=== PATIENT | female | born 1950 | race Caucasian/White ===

== ENCOUNTER → 2016-09-23 | Outpatient (CLI) | payer BC ==
[~2016-09-23] MED LIST: ALBINS/ INH; ALBU1AER9 INH; ASPI81TA28 PO; ATOR-26 PO; CHEMO INJ; CLAR500T3 PO; CLOB-65 EXT; FERR325T5; FURO-85 PO; GLC500 PO; LEVO137T3 PO; LISI-729 PO; LOSA1TAB PO; ONDA8TAB6 PO; PANT40TA PO; PRED10TA PO; SYN150 PO; [UNRECOGNIZED DRUG - REMARK] PO
== END | disposition home or self-care (01) ==
LOC: C.PAPS 10:29
PROVIDERS: ATTEND Obstetrics & Gynecology
DX: Z01.419 Encounter for gynecological examination (general) (routine) without abnormal findings (principal)

== ENCOUNTER → 2016-10-11 | Outpatient (CLI) | payer BC ==
--- NOTE | 2016-10-14 13:33 | MAMMOGRAPHY REPORT ---
BILATERAL DIGITAL SCREENING MAMMOGRAM TOMOSYNTHESIS WITH CAD: 10/11/2016 TECHNIQUE: Breast tomosynthesis in addition to standard 2D mammography was performed. Current study was also evaluated with a Computer Aided Detection (CAD) system. COMPARISON: Comparison is made to exams dated: 08/04/2013 mammogram, 05/30/2015 mammogram, 1 mammogram, 07/27/2010 mammogram, and 08/03/2012 mammogram - [facility]. BREAST COMPOSITION: There are scattered areas of fibroglandular density in both breasts. FINDINGS: No suspicious masses, calcifications, or areas of architectural distortion are noted in e ither breast. There has been no significant interval change compared to prior exams. Scattered bilat eral benign-appearing calcifications are not significantly changed. IMPRESSION: ACR BI-RADS CATEGORY 2: BENIGN There is no mammographic evidence of malignancy. A 1 year screening mammogram is recommended. The p atient will receive written notification of the results. Approximately 10% of breast cancers are not detected with mammography. A negative mammographic repor t should not delay biopsy if a clinically suggestive mass is present. Verona Johnson M.D. ah/:10/11/2016 16:35:24 Supervisor Scrap Preparation: Laurel FIGUEROA(Joe)(M), [facility] letter sent: Normal 1/2 BI-RADS Code: ACR BI-RADS Category 2: Benign
== END | disposition home or self-care (01) ==
LOC: C.MAMM 16:03
PROVIDERS: ATTEND Obstetrics & Gynecology
DX: Z12.31 Encounter for screening mammogram for malignant neoplasm of breast (principal)

== ENCOUNTER 2016-10-22 16:30 | Emergency (ER) | payer BC ==
[~2016-10-22] VITALS: Ht 167.6 cm; Wt 106.7 kg
[~2016-10-22 16:30] MED LIST changes: -ALBINS/ INH; -CHEMO INJ; -CLAR500T3 PO; -FURO-85 PO; -LEVO137T3 PO; -LOSA1TAB PO; -ONDA8TAB6 PO; -PANT40TA PO; -PRED10TA PO; -[UNRECOGNIZED DRUG - REMARK] PO
[2016-10-22 16:37] VITALS: TEMP 36.8; Ht 167.6 cm; Wt 106.7 kg
[2016-10-22] MEDS ORDERED: PANT40TA PO (17:56)
--- NOTE | 2016-10-22 19:09 | EMERGENCY ROOM VISIT NOTE ---
History Report prepared by Keerthi: Sandrita Khoury Under the Supervision of: Dr. Minnie Reich M.D. First contact with patient: 18:36 Chief Complaint: CARDIAC ASSESSMENT Stated Complaint: HEART ISSUES Nursing Triage Summary: Pt c/o almost fainting 3 times last week. Pt states she has some edema around the heart according to her Dr and they said her DDimer was high. Lisandra Moreau is her Dr. Chemo started last week for multiple myeloma. Weak this week. "today is the first day I could walk around and have any energy in my legs. Holding off on chemo due to low platelets. History of Present Illness The patient is a 66 year old female who presents to the Emergency Room per PCP referral to be evaluated for abnormal labs today. The patient states that she has multiple myeloma and is on chemotherapy. She had a dose of chemotherapy 8 days ago. The following day she had a fever of 101. While at work 6 days ago, she had 3 syncopal episodes. Her coworkers noted that she looked fleming in color. She went home from work early and slept 20 hours straight. Yesterday, the patient was supposed to have another dose of chemotherapy, but her platelet count was too low. She was given fluids and sent home. She states that she was feeling weak yesterday. Today the patient had a follow up appointment with her PCP. A chest x-ray revealed pulmonary vascular congestion. Her d-dimer was also elevated at 368. She was subsequently referred to the ER. The patient notes that she has been coughing for the past month. She has a history of a myocardial infarction and she is concerned because she does not currently have pain but did not have pain when she had her previous heart attack. Past medical history also includes CHF, a-fib, and CABG. Denies increased leg swelling, calf pain, or other complaints. Source of History: patient Onset: today Position: other (global) Quality: other (elevated d-dimer of 368) Timing: constant Associated Symptoms: + weakness Review of Systems See HPI for pertinent positives & negatives. A total of 10 systems reviewed and were otherwise negative. Past Medical & Surgical Medical Problems: (1) A-fib (2) CHF (congestive heart failure) (3) TN (myocardial infarction) (4) Multiple myeloma Surgical Problems: (1) Hx of CABG Family History No pertinent family history stated. Social History Smoking Status: Never Smoker Marital Status: Occupation Status: employed Current/Historical Medications Scheduled Aspirin (Aspirin Ec), 81 MG PO DAILY Atorvastatin (Lipitor), 80 MG PO DAILY Clarithromycin (Biaxin), 1 TAB PO BID Furosemide (Lasix), 1 TAB PO DAILY Levothyroxine Sodium (Levothyroxine Sodium), 1 TAB PO DAILY Losartan Potassium (Cozaar), 25 MG PO QPM Pantoprazole (Protonix), 40 MG PO DAILY Prednisone (Prednisone), 10 MG PO BID [Chemo Pill], 2 TABS PO DAILY [Chemo], 1 DOSE INJ WK Scheduled PRN Albuterol (Proair Hfa), 2 PUFFS INH QID PRN for SOB/Wheezing Albuterol Sulf (Proventil 0.083% 2.5MG/3ML), 1 DOSE INH Q6 PRN for SOB/Wheezing Ondansetron Hcl (Zofran), 8 MG PO Q8 PRN for Nausea Allergies Coded Allergies: Acyclovir and Related (Verified Allergy, Severe, HIVES, 10/22/16) Quinolones (Verified Allergy, Unknown, UNKNOWN, 10/22/16) PER PT - CAN USE CIPRO IV, HOWEVER COULD NOT TAKE PO Cephalosporins (Verified Adverse Reaction, Intermediate, VOMITING/ DIARRHEA WITH CEFANIR, 10/22/16) Erythromycin (Verified Adverse Reaction, Intermediate, nausea/GI DISCOMFORT, 10/22/16) Physical Exam Vital Signs Date Time Temp Pulse Resp B/P Pulse Ox O2 Delivery O2 Flow Rate FiO2 10/22/16 21:11 76 18 141/87 100 10/22/16 19:54 71 18 132/84 98 Room Air 10/22/16 16:43 98 Room Air 10/22/16 16:37 36.8 79 16 135/78 98 Room Air Physical Exam Vital signs reviewed. General: Obese, generally well-appearing 66 year old female, in no significant distress. HEENT: No scleral icterus, PERRLA, neck supple. Atraumatic. Cardiovascular: Regular rate and rhythm, no extra sounds. Pulmonary: Clear to auscultation bilaterally, normal work of breathing. Abdomen: Soft, nontender, nondistended, positive bowel sounds. Musculoskeletal: Atraumatic, no peripheral edema. Neurologic: Patient awake alert and oriented x 3 Skin: Warm, dry, no rash Medical Decision & Procedures ER Provider Diagnostic Interpretation: Radiology results as stated below per my review and radiologist interpretation: CT ANGIOGRAPHY OF THE CHEST, PULMONARY EMBOLUS PROTOCOL CLINICAL HISTORY: Shortness of breath. Multiple myeloma. COMPARISON STUDY: Chest radiograph December 07, 2015, October 22, 2016, MRI of the thoracic spine December 26, 2015 and PET/CT July 29, 2007. TECHNIQUE: Following IV administration of 107 mL of Optiray-320, helical axial images of the chest were obtained utilizing the pulmonary embolus protocol. Maximal intensity projections and sagittal and coronal reformats were viewed on an independent 3D workstation. IV contrast was administered without complication. CT DOSE: 636.19 mGy.cm FINDINGS: No pulmonary emboli are identified although the segmental and subsegmental pulmonary arteries are suboptimally assessed due to respiratory motion. There are median sternotomy wires and findings consistent with bypass grafting. The heart is moderately enlarged. There is no pericardial effusion. A large hiatal hernia is noted. There is mild dilatation of the ascending aorta which measures 4.2 cm. There is no dissection of the thoracic aorta. Central airways are patent. Groundglass and linear opacities suggest atelectasis. There is no consolidation to suggest pneumonia. Note is made of a 7 mm left lower lobe nodule shown on image 126 of 266. This is new since PET/CT of July 29, 2012. A T5 compression fracture is unchanged since MRI of December 26, 2015. Note is made of an indeterminate 1.2 cm sclerotic lesion within the medial left clavicle. There is a suspected T10 vertebral body lesion which were shown on prior MRI. IMPRESSION: 1. No pulmonary emboli identified although the segmental and subsegmental pulmonary arteries are suboptimally assessed due to respiratory motion. 2. Moderate cardiomegaly and mild dilatation of the ascending aorta. No thoracic aortic dissection. 3. Indeterminate 7 mm left lower lobe pulmonary nodule. A chest CT in 6 months is recommended. 4. Large hiatal hernia. 5. Groundglass and linear opacities which suggest atelectasis. No consolidation to suggest pneumonia. 6. No significant change in the T5 compression fracture since MRI of December 26, 2015. Redemonstration of a suspected T10 vertebral body lesion which may be related to multiple myeloma. Electronically signed by: Deonte Deutsch M.D. 10/22/2016 8:24 PM Dictated Date/Time: 10/22/2016 8:10 PM Laboratory Results Test 10/22/16 19:45 10/22/16 19:53 10/22/16 19:54 Prothrombin Time 13.3 SECONDS (9.0-12.0) Prothromb Time International Ratio 1.2 (0.9-1.1) Activated Partial Thromboplast Time 22.2 SECONDS (21.0-31.0) Partial Thromboplastin Ratio 0.9 Bedside Troponin I 0.010 ng/ml (0-0.045) WP-Ttu-M-Type Natriuretic Peptide 675 pg/ml (0-900) Bedside Hemoglobin 10.5 g/dl (12.0-16.0) Bedside Hematocrit 31 % (37-47) Bedside Sodium 143 mEq/L (135-144) Bedside Potassium 4.1 mEq/L (3.3-5.0) Bedside Chloride 106 mEq/L (101-112) Bedside Total CO2 23 mEq/l (24-31) Anion Gap 19.0 mmol/L (16-25) Bedside Blood Urea Nitrogen 20 mg/dl (7-18) Bedside Creatinine 1.0 mg/dl (0.6-1.3) Bedside Glucose (other) 118 mg/dl (70-99) Bedside Ionized Calcium (Shaggy) 1.19 mmol/l (1.12-1.32) Laboratory results per my review. Medications Administered Medications (Trade) Dose Ordered Sig/Rosa Route Start Time Stop Time Status Last Admin Dose Admin Furosemide (Lasix Inj) 40 mg NOW STAT IV 10/22/16 20:29 10/22/16 20:30 DC 10/22/16 20:53 40 MG ECG Indication: weakness Rate (beats per minute): 69 Rhythm: normal sinus Findings: nonspecific-ST abn, no acute ischemic change, no ectopy ED Course 1839: Past medical records reviewed. The patient was evaluated in room B7. A complete history and physical examination was performed. 1944: Ordered Acetaminophen/Hydrocodone Bitart 1 homepack PO. 2028: Ordered Lasix Inj 40 mg IV. 2032: Upon reevaluation, the patient was resting comfortably. I discussed findings with the patient. She verbalized agreement of the treatment plan. The patient was discharged home. Medical Decision Differential diagnosis: Etiologies such as infections, reactive airway disease, pneumonia, pneumothorax , COPD, CHF, cardiac ischemia, pulmonary embolism, musculoskeletal, gastrointestinal, as well as others were entertained. This patient was evaluated and appeared to be in no significant distress. IV access was obtained and laboratory work was drawn. The patient had laboratory work earlier today which was reviewed. Creatinine is stable for IV contrast. A CT scan of the chest was performed and is negative for PE. Patient was given 40 mg of IV Lasix for pulmonary congestion. She was feeling improved on my reevaluation. She was relieved to know that there was no blood clot. She will follow-up with her physician for reevaluation at the cancer center this week. She will return to the ER for worsening of symptoms or any medical concerns. Impression Primary Impression: Pulmonary vascular congestion Additional Impression: Multiple myeloma Scribe Attestation The scribe's documentation has been prepared under my direction and personally reviewed by me in its entirety. I confirm that the note above accurately reflects all work, treatment, procedures, and medical decision making performed by me. Departure Information Dispostion Home / Self-Care Prescriptions Furosemide (LASIX) 20 Mg Tab 1 TAB PO DAILY for 30 Days, #30 TAB 5 Refills Prov: Minnie Reich M.D. 10/22/16 Referrals Yaneth Pillai M.D. (PCP) Gene Chang MD Forms IMPORTANT VISIT INFORMATION Patient Instructions My [facility] Additional Instructions Diagnosis: Pulmonary vascular congestion, multiple myeloma Lasix 20 mg in the morning. Avoid excessive sodium intake. Less than 2 g daily. Follow-up with your physician within the next several days for reevaluation. Return to the emergency department for worsening of symptoms or any medical concerns. Problem Qualifiers Additional Impression: Multiple myeloma Multiple myeloma remission status: not in remission Qualified Codes: C90.00 - Multiple myeloma not having achieved remission
[2016-10-22] MEDS ORDERED: ONDA8TAB6 PO (19:19)
[2016-10-22] MEDS ORDERED: CHEMO INJ (19:19)
[2016-10-22] MEDS ORDERED: ALBINS/ INH (19:19)
[2016-10-22] MEDS ORDERED: PRED10TA PO (19:19)
[2016-10-22] MEDS ORDERED: [UNRECOGNIZED DRUG - REMARK] PO (19:19)
[2016-10-22] MEDS ORDERED: LOSA1TAB PO (19:19)
[2016-10-22] MEDS ORDERED: CLAR500T3 PO (19:19)
[2016-10-22] MEDS ORDERED: LEVO137T3 PO (19:20)
[2016-10-22] MEDS ORDERED: OPTIRAY 320 IV PRN (19:30)
[2016-10-22] MEDS ORDERED: NORCO 5/325MG HOME PACK PO ONE (19:45)
[2016-10-22 20:11] LABS: ISTAT HEMOGLOBIN 10.5 g/dl (12.0-16.0); ISTAT IONIZED CALCIUM 1.19 mmol/l (1.12-1.32)
[2016-10-22 20:12] LABS: POINT OF CARE TROPONIN I 0.01 ng/ml (0-0.045)
--- NOTE | 2016-10-22 20:26 | DIAGNOSTIC IMAGING REPORT ---
CT ANGIOGRAPHY OF THE CHEST, PULMONARY EMBOLUS PROTOCOL CLINICAL HISTORY: Shortness of breath. Multiple myeloma. COMPARISON STUDY: Chest radiograph December 07, 2015, October 22, 2016, MRI of the thoracic spine December 26, 2015 and PET/CT July 29, 2007. TECHNIQUE: Following IV administration of 107 mL of Optiray-320, helical axial images of the chest were obtained utilizing the pulmonary embolus protocol. Maximal intensity projections and sagittal and coronal reformats were viewed on an independent 3D workstation. IV contrast was administered without complication. CT DOSE: 636.19 mGy.cm FINDINGS: No pulmonary emboli are identified although the segmental and subsegmental pulmonary arteries are suboptimally assessed due to respiratory motion. There are median sternotomy wires and findings consistent with bypass grafting. The heart is moderately enlarged. There is no pericardial effusion. A large hiatal hernia is noted. There is mild dilatation of the ascending aorta which measures 4.2 cm. There is no dissection of the thoracic aorta. Central airways are patent. Groundglass and linear opacities suggest atelectasis. There is no consolidation to suggest pneumonia. Note is made of a 7 mm left lower lobe nodule shown on image 126 of 266. This is new since PET/CT of July 29, 2012. A T5 compression fracture is unchanged since MRI of December 26, 2015. Note is made of an indeterminate 1.2 cm sclerotic lesion within the medial left clavicle. There is a suspected T10 vertebral body lesion which were shown on prior MRI. IMPRESSION: 1. No pulmonary emboli identified although the segmental and subsegmental pulmonary arteries are suboptimally assessed due to respiratory motion. 2. Moderate cardiomegaly and mild dilatation of the ascending aorta. No thoracic aortic dissection. 3. Indeterminate 7 mm left lower lobe pulmonary nodule. A chest CT in 6 months is recommended. 4. Large hiatal hernia. 5. Groundglass and linear opacities which suggest atelectasis. No consolidation to suggest pneumonia. 6. No significant change in the T5 compression fracture since MRI of December 26, 2015. Redemonstration of a suspected T10 vertebral body lesion which may be related to multiple myeloma. Electronically signed by: Deonte Deutsch M.D. 10/22/2016 8:24 PM Dictated Date/Time: 10/22/2016 8:10 PM
[2016-10-22] MEDS ORDERED: FUROSEMIDE 40 MG/4 ML VIAL IV STA (20:29)
[2016-10-22] MEDS ORDERED: FURO-85 PO (20:31)
[2016-10-22 20:38] LABS: INR 1.2 (0.9-1.1); PARTIAL THROMBOPLASTIN RATIO 0.9; PROTHROMBIN TIME (PATIENT) 13.3 SECONDS (9.0-12.0)
[2016-10-22 21:11] VITALS: BP 141/87; PULSE 76; O2SAT 100
== END 2016-10-22 21:11 | disposition home or self-care (01) ==
LOC: C.EDB 16:31
DX: R09.89 Other specified symptoms and signs involving the circulatory and respiratory systems (principal); C90.00 Multiple myeloma not having achieved remission; I48.91 Unspecified atrial fibrillation; I50.9 Heart failure, unspecified; I25.2 Old myocardial infarction; Z95.1 Presence of aortocoronary bypass graft; Z79.82 Long term (current) use of aspirin

== ENCOUNTER → 2016-10-22 | Outpatient (CLI) | payer BC ==
--- NOTE | 2016-10-22 08:59 | DIAGNOSTIC IMAGING REPORT ---
CHEST 2 VIEWS ROUTINE CLINICAL HISTORY: ACUTE BRONCHITIS dyspnea COMPARISON STUDY: 12/07/2015 FINDINGS: Prior median sternotomy. Fixed hernia. Lungs are clear. Mild pulmonary vascular congestion IMPRESSION: Mild pulmonary vascular congestion. Fixed hiatal hernia. Electronically signed by: Jermaine Gee M.D. 10/22/2016 8:58 AM Dictated Date/Time: 10/22/2016 8:56 AM
== END | disposition home or self-care (01) ==
LOC: C.RAD1850 08:36
PROVIDERS: ATTEND Family Medicine
DX: J20.9 Acute bronchitis, unspecified (principal)

== ENCOUNTER → 2017-08-18 | Outpatient (CLI) | payer BC ==
[~2017-08-18] MED LIST changes: +ALBINS/ INH; -ALBU1AER9 INH; -CLOB-65 EXT; -FERR325T5; -GLC500 PO; +LEVO137T3 PO; -LISI-729 PO; +METF-382 PO; +ONDA4TAB10 SL; +ONDA8TAB6 PO; +OXYC-57 PO; +PANT40TA PO; +PROC1TAB5 PO; -SYN150 PO; +VNTHFA/IN INH; +ZVR400 PO
--- NOTE | 2017-08-18 13:06 | DIAGNOSTIC IMAGING REPORT ---
THORACIC SPINE 3 VIEWS ROUTINE CLINICAL HISTORY: MULTIPLE MYELOMA COMPARISON STUDY: CT scan dated 07/18/2017 FINDINGS: There are postsurgical changes of midline sternotomy. The paraspinal line is not displaced. There is a moderate to severe T5 compression fracture. This remain similar to the preceding examination. IMPRESSION: Persistent moderate to severe T5 compression fracture. This was previously demonstrated to be pathologic. No new fractures are evident. Electronically signed by: Tim Godoy M.D. 08/18/2017 1:05 PM Dictated Date/Time: 08/18/2017 1:03 PM
--- NOTE | 2017-08-18 13:52 | DIAGNOSTIC IMAGING REPORT ---
C-SPINE ROUTINE 4 OR 5 VIEWS CLINICAL HISTORY: Multiple myeloma. Bilateral arm pain. COMPARISON STUDY: PET/CT July 29, 2017. FINDINGS: Alignment of the cervical spine is anatomic. Vertebral body heights are maintained. C7 is partially obscured on this exam. No fracture or suspicious lesion is identified. There is moderate disc space narrowing and osteophytosis at C5-C6 and C6-C7. There is multilevel neural foraminal narrowing. IMPRESSION: 1. No acute cervical spine fracture. 2. No suspicious lytic lesion by radiography within the cervical spine. 3. Moderate degenerative disc disease at C5-C6 and C6-C7 with moderate multilevel facet arthrosis and bony neural foraminal narrowing. Electronically signed by: Deonte Deutsch M.D. 08/18/2017 1:51 PM Dictated Date/Time: 08/18/2017 12:59 PM
== END | disposition home or self-care (01) ==
LOC: C.RAD1850 12:25
PROVIDERS: ATTEND Family Medicine
DX: C90.00 Multiple myeloma not having achieved remission (principal)

== ENCOUNTER → 2017-09-02 | Outpatient (CLI) | payer BC ==
--- NOTE | 2017-09-02 15:16 | DIAGNOSTIC IMAGING REPORT ---
CERVICAL WITHOUT CONTRAST CLINICAL HISTORY: 67 years-old Female presenting with M79.601,C90.00, bilateral hand pain at night. TECHNIQUE: Multisequence, multiplanar MR imaging of the cervical spine was performed without the use of intravenous contrast. IV contrast: None. COMPARISON: Plain radiographs of the cervical spine from 08/18/2017. FINDINGS: Localizer images: Unremarkable. Slightly exaggerated normal cervical lordosis. Mild vertebral body height loss of C4-C6 likely degenerative in etiology. Vertebral bodies otherwise maintain normal height, alignment, and bone marrow signal intensity. Mild intervertebral disc desiccation noted diffusely with disc osteophyte complexes at nearly every level to varying degrees. Multilevel degenerative changes further detailed below: C2-3: No significant neural foraminal or spinal canal narrowing. C3-4: Disc osteophyte complex and uncovertebral hypertrophy result in mild right and moderate left neural foraminal narrowing. In combination with ligamentum flavum thickening, mild anterior and posterior effacement of the thecal sac. No contouring of the spinal cord. C4-5: Disc osteophyte complex and uncovertebral hypertrophy result in moderate right neural foraminal narrowing. Mild effacement of the anterior thecal sac with abutment of the spinal cord. C5-6: Disc osteophyte complex and uncovertebral hypertrophy result in severe right and moderate left neural foraminal narrowing. Mild effacement of the ventral thecal sac without contouring of the spinal cord. C6-7: Small disc osteophyte complex and uncovertebral hypertrophy result in mild bilateral neural foraminal narrowing. No significant spinal canal narrowing. C7-T1: No significant neural foraminal or spinal canal narrowing. Spinal cord maintains normal signal intensity and morphology. Craniocervical junction normal. Paraspinal soft tissues within normal limits. IMPRESSION: Multilevel degenerative changes with very degrees of spinal canal or neural foraminal narrowing as above. No evidence of spinal cord impingement. Electronically signed by: Corey Bonner M.D. 09/02/2017 3:15 PM Dictated Date/Time: 09/02/2017 2:58 PM
== END | disposition home or self-care (01) ==
LOC: C.MRI 13:21
PROVIDERS: ATTEND Family Medicine
DX: M79.601 Pain in right arm (principal); C90.00 Multiple myeloma not having achieved remission; M89.8X8 Other specified disorders of bone, other site

== ENCOUNTER → 2017-10-07 | Day surgery (SDC) | payer BC ==
[2017-10-01 07:56] VITALS: Ht 167.6 cm; Wt 102.3 kg
[~2017-10-07] VITALS: Ht 167.6 cm; Wt 102.3 kg
[~2017-10-07] MED LIST changes: +500ML BSS 0.3ML EPI 1:1000PF IRRIG ONE; +ACETAMINOPHEN 325 MG TAB PO PRN; +ACYC400T PO; +AMVISC PLUS 0.8ML SYRINGE INT OCU ONE; +ASPCH81X PO; -ASPI81TA28 PO; +ATROPINE SULFATE 0.1 MG/ML 5ML SYR IV PRN; +BSS FLUSH ONE; +CHOL400T PO; +EpHEDrine SULFATE INJ 50 MG/ML AMP IV PRN; +EpINEphrine INJ 1MG/ML AMP 1 MG/ML AMP ONE; +GLC/500 PO; +LACTATED RINGER'S 1000ML 500 ML IV SCH; +LIDOCAINE HCL 1% MPF 2 ML VIAL ONE; +LOSA1TAB PO; +MAGN400T6 PO; -METF-382 PO; +MIDAZOLAM HCL 1 MG/ML 2ML VIAL ONE; +OCUCOAT 1 ML SOLN IO ONE; -ONDA4TAB10 SL; -ONDA8TAB6 PO; -OXYC-57 PO; +POVIDONE-IODINE OP SOLN 30 ML BTL ONE; -PROC1TAB5 PO; +PROPARACAINE 0.5% OP SOLN PER DROP CHARGE OPR SCH; +TOBRAMYCIN/DEXAMETHASONE OPH OINT PER APPLN CHARGE ONE; -ZVR400 PO
[2017-10-07] MEDS: PHENYLEPHRINE HCL 2.5% OP SOLN PER DROP CHARGE OPR SCH ×2 (07:15→07:20)
[2017-10-07] MEDS: CYCLOPENTOLATE HCL 1% OP SOLN PER DROP CHARGE OPR SCH ×2 (07:16→07:21)
[2017-10-07] MEDS: TROPICAMIDE 1% OP SOLN PER DROP CHARGE OPR SCH ×2 (07:16→07:20)
[2017-10-07] MEDS: KETOROLAC 0.5% OP SOLN PER DROP CHARGE OPR SCH ×2 (07:17→07:22)
[2017-10-07] MEDS: GATIFLOXACIN OP SOLN PER DROP CHARGE OPR SCH ×2 (07:18→07:28)
--- NOTE | 2017-10-07 07:29 | History & Physical Bridge - SC ---
H&P Re-Evaluation Bridge Note: I have examined the patient, reviewed the History & Physical and in the interval since the performance of the History & Physical I have noted the following changes of clinical significance: No changes noted
--- NOTE | 2017-10-07 08:05 | Discharge Instructions-SurgCtr ---
Discharge Instructions Date of Service Oct 07, 2017. Visit Reason for Visit: Cataract Right Eye Discharge Discharge Diagnosis / Problem: cataract Discharge Goals Goal(s): Improve function Medications Stopped Medications Name(s): Metformin held x 48 hrs. Activity Recommendations Activity Limitations: per Instructions/Follow-up section Anesthesia . Post Anesthesia Instructions: If you have had General Anesthesia or IV Sedation: * Do not drive today. * Resume driving when surgeon permits. * Do not make important decisions or sign legal documents today. * Call surgeon for: 1. Temperature elevations greater than 101 degrees F. 2. Uncontrollable pain. 3. Excessive bleeding. 4. Persistent nausea and vomiting. 5. Medication intolerance (nausea, vomiting or rash). * For nausea and vomiting use only clear liquids such as: tea, soda, bouillon until nausea subsides, then gradually increase diet as tolerated. * If you have any concerns or questions, call your surgeon's office. If physician is unavailable and it is an emergency, call 911 or go to the nearest emergency room. . Diet Recommendations Home Diet: resume previous diet Procedures Procedures Performed: Right Cataract Phacoemulsification With Intraocular Lens Implant Pending Studies Studies pending at discharge: no Medical Emergencies . Who to Call and When: Medical Emergencies: If at any time you feel your situation is an emergency, please call 911 immediately. . Non-Emergent Contact Non-Emergency issues call your: Goring Cutter . . "Provider Documentation" section prepared by Warren Saeed. .
--- NOTE | 2017-10-07 08:05 | [facility] Operative Report ---
Operative Report Date of Service Oct 07, 2017. Operative Report 1. PREOPERATIVE DIAGNOSIS: Cataract of the right eye. 2. POSTOPERATIVE DIAGNOSIS: Same. 3. PROCEDURE: Phacoemulsification with intraocular lens implantation of the right eye. SURGEON: Dr. Warren Saede. ANESTHESIA: Topical Lidocaine gel, 1% Non- Preserved intracameral Lidocaine, and monitored intravenous sedation. INDICATIONS FOR THE PROCEDURE: The patient is a 67 - year-old female with a history of cataract of the right eye causing significant visual impairment. The details of the proposed procedure were explained to the patient who asked appropriate questions and following discussion of all risks, benefits and alternatives agreed to have the procedure done. 4. OPERATION AND FINDINGS: DESCRIPTION OF PROCEDURE: After informed consent was obtained, the patient was brought to the Operating Room at the [facility]. The patient was placed in a supine position and then the right eye was prepped and draped in the usual sterile fashion for intraocular surgery. A drop of topical Lidocaine gel was placed in the operative eye. A wire lid speculum was then placed in the fornices. A corneal paracentesis was then created temporally. The Non-Preserved Lidocaine was then instilled into the anterior chamber. The anterior chamber was then pressurized with viscoelastic. A 2.0 mm clear corneal incision was then created temporally. A cystotome was inserted into the anterior chamber and used to create a tear in the anterior lens capsule. This capsular tear was then used to create a small flap and the flap was dragged in a counterclockwise direction in order to create a continuous curvilinear capsulorrhexis. Hydrodissection was accomplished with balanced salt solution. Phacoemulsification of the lens nucleus was then performed in a standard [id number] technique. The phaco time was 36 seconds with an average power of 13 %. The remaining cortical material was removed using irrigation aspiration. The capsular bag was then filled with viscoelastic. A [employer] MI60L +19.0 diopters lens was then loaded into the injector and injected into the capsular bag. The remaining viscoelastic was removed with the irrigation aspiration handpiece. The wound was hydrated and then checked and found to be watertight. The intraocular pressure was checked and found to be adequate. The wire lid speculum was removed and the patient's face was cleaned and dried. TobraDex ointment was placed in the inferior fornix. The patient was discharged to the Recovery Room having tolerated the procedure well. There were no complications. The patient will be seen tomorrow in the office for follow-up. I attest to the content of the Intraoperative Record and any orders documented therein. Any exceptions are noted below.
[2017-10-07 08:07] VITALS: TEMP 36.9
--- NOTE | 2017-10-07 08:37 | Anesthesia Progress Nt - [facility] ---
Anesthesia Post Op Note Date & Time Oct 07, 2017 at 08:37 Vital Signs Pain Intensity: 0 Vital Signs Past 12 Hours Date Time Temp Pulse Resp B/P (MAP) Pulse Ox O2 Delivery O2 Flow Rate FiO2 10/07/17 08:07 36.9 70 16 152/102 (119) 96 Room Air 10/07/17 07:00 36.9 79 20 150/94 (112) 95 Room Air Notes Mental Status: alert / awake / arousable, participated in evaluation Pt Amnestic to Procedure: Yes Nausea / Vomiting: adequately controlled Pain: adequately controlled Airway Patency, RR, SpO2: stable & adequate BP & HR: stable & adequate Hydration State: stable & adequate Anesthetic Complications: no major complications apparent
[2017-10-07 08:38] VITALS: BP 123/86; PULSE 77; O2SAT 95
== END | disposition home or self-care (01) ==
LOC: X.SURG 06:35
PROVIDERS: ATTEND Ophthalmology
DX: H26.9 Unspecified cataract (principal); C90.00 Multiple myeloma not having achieved remission; E11.9 Type 2 diabetes mellitus without complications; E03.9 Hypothyroidism, unspecified; E78.5 Hyperlipidemia, unspecified; I25.10 Atherosclerotic heart disease of native coronary artery without angina pectoris; J45.909 Unspecified asthma, uncomplicated

== ENCOUNTER → 2017-10-14 | Outpatient (CLI) | payer BC ==
[~2017-10-14] MED LIST changes: -500ML BSS 0.3ML EPI 1:1000PF IRRIG ONE; -ACETAMINOPHEN 325 MG TAB PO PRN; -AMVISC PLUS 0.8ML SYRINGE INT OCU ONE; -ATROPINE SULFATE 0.1 MG/ML 5ML SYR IV PRN; -BSS FLUSH ONE; -EpHEDrine SULFATE INJ 50 MG/ML AMP IV PRN; -EpINEphrine INJ 1MG/ML AMP 1 MG/ML AMP ONE; -LACTATED RINGER'S 1000ML 500 ML IV SCH; -LIDOCAINE HCL 1% MPF 2 ML VIAL ONE; -MIDAZOLAM HCL 1 MG/ML 2ML VIAL ONE; -OCUCOAT 1 ML SOLN IO ONE; -POVIDONE-IODINE OP SOLN 30 ML BTL ONE; -PROPARACAINE 0.5% OP SOLN PER DROP CHARGE OPR SCH; -TOBRAMYCIN/DEXAMETHASONE OPH OINT PER APPLN CHARGE ONE
--- NOTE | 2017-10-15 13:59 | MAMMOGRAPHY REPORT ---
BILATERAL DIGITAL SCREENING MAMMOGRAM TOMOSYNTHESIS WITH CAD: 10/14/2017 CLINICAL HISTORY: Routine screening. Patient has no complaints. TECHNIQUE: Breast tomosynthesis in addition to standard 2D mammography was performed. Current study was also evaluated with a Computer Aided Detection (CAD) system. COMPARISON: Comparison is made to exams dated: 10/11/2016 mammogram, 05/30/2015 mammogram, 08/04/2013 m ammogram, 08/03/2012 mammogram, 07/30/2011 mammogram, and 07/27/2010 mammogram - [facility]. BREAST COMPOSITION: There are scattered areas of fibroglandular density in both breasts. FINDINGS: The parenchymal pattern is unchanged. There are scattered benign calcifications in the br easts. No developing mass, architectural distortion or cluster of suspicious microcalcifications is seen. IMPRESSION: ACR BI-RADS CATEGORY 2: BENIGN There is no mammographic evidence of malignancy. A 1 year screening mammogram is recommended. The pa tient will receive written notification of the results. Approximately 10% of breast cancers are not detected with mammography. A negative mammographic report should not delay biopsy if a clinically suggestive mass is present. Melba Beckford M.D. ay/:10/14/2017 16:34:06 Crate Icer: Yaneth FIGUEROA(Joe)(Aviva)(WALI), [facility] letter sent: Normal 1/2 BI-RADS Code: ACR BI-RADS Category 2: Benign
== END | disposition home or self-care (01) ==
LOC: C.MAMM 16:12
PROVIDERS: ATTEND Obstetrics & Gynecology
DX: Z12.31 Encounter for screening mammogram for malignant neoplasm of breast (principal)

== ENCOUNTER → 2017-10-28 | Day surgery (SDC) | payer BC ==
[2017-10-15 13:51] VITALS: Ht 167.6 cm; Wt 102.3 kg
[~2017-10-28] VITALS: Ht 167.6 cm; Wt 102.3 kg
[~2017-10-28] MED LIST changes: +500ML BSS 0.3ML EPI 1:1000PF IRRIG ONE; +ACETAMINOPHEN 325 MG TAB PO PRN; +AMVISC PLUS 0.8ML SYRINGE INT OCU ONE; +ATROPINE SULFATE 0.1 MG/ML 5ML SYR IV PRN; +BSS FLUSH ONE; +EpHEDrine SULFATE INJ 50 MG/ML AMP IV PRN; +EpINEphrine INJ 1MG/ML AMP 1 MG/ML AMP ONE; +LACTATED RINGER'S 1000ML 500 ML IV SCH; +LIDOCAINE 3.5% OPH GEL PER APPLICATION CHARGE ONE; +LIDOCAINE HCL 1% MPF 2 ML VIAL ONE; +MIDAZOLAM HCL 1 MG/ML 2ML VIAL ONE; +OCUCOAT 1 ML SOLN IO ONE; +POVIDONE-IODINE OP SOLN 30 ML BTL ONE; +PROPARACAINE 0.5% OP SOLN PER DROP CHARGE OPL SCH; +TOBRAMYCIN/DEXAMETHASONE OPH OINT PER APPLN CHARGE ONE
[2017-10-28] MEDS: PHENYLEPHRINE HCL 2.5% OP SOLN PER DROP CHARGE OPL SCH ×2 (07:30→07:35)
[2017-10-28] MEDS: TROPICAMIDE 1% OP SOLN PER DROP CHARGE OPL SCH ×2 (07:31→07:36)
[2017-10-28] MEDS: CYCLOPENTOLATE HCL 1% OP SOLN PER DROP CHARGE OPL SCH ×2 (07:32→07:37)
[2017-10-28] MEDS: KETOROLAC 0.5% OP SOLN PER DROP CHARGE OPL SCH ×2 (07:33→07:38)
[2017-10-28] MEDS: GATIFLOXACIN OP SOLN PER DROP CHARGE OPL SCH ×2 (07:34→07:44)
--- NOTE | 2017-10-28 08:51 | [facility] Operative Report ---
Operative Report Date of Service Oct 28, 2017. Operative Report 1. PREOPERATIVE DIAGNOSIS: Cataract of the left eye. 2. POSTOPERATIVE DIAGNOSIS: Same. 3. PROCEDURE: Phacoemulsification with intraocular lens implantation of the left eye. SURGEON: Dr. Warren Saeed. ANESTHESIA: Topical Lidocaine gel, 1% Non- Preserved intracameral Lidocaine, and monitored intravenous sedation. INDICATIONS FOR THE PROCEDURE: The patient is a 67 - year-old female with a history of cataract of the left eye causing significant visual impairment. The details of the proposed procedure were explained to the patient who asked appropriate questions and following discussion of all risks, benefits and alternatives agreed to have the procedure done. 4. OPERATION AND FINDINGS: DESCRIPTION OF PROCEDURE: After informed consent was obtained, the patient was brought to the Operating Room at the [facility]. The patient was placed in a supine position and then the left eye was prepped and draped in the usual sterile fashion for intraocular surgery. A drop of topical Lidocaine gel was placed in the operative eye. A wire lid speculum was then placed in the fornices. A corneal paracentesis was then created temporally. The Non-Preserved Lidocaine was then instilled into the anterior chamber. The anterior chamber was then pressurized with viscoelastic. A 2.0 mm clear corneal incision was then created temporally. A cystotome was inserted into the anterior chamber and used to create a tear in the anterior lens capsule. This capsular tear was then used to create a small flap and the flap was dragged in a counterclockwise direction in order to create a continuous curvilinear capsulorrhexis. Hydrodissection was accomplished with balanced salt solution. Phacoemulsification of the lens nucleus was then performed in a standard [id number] technique. The remaining cortical material was removed using irrigation aspiration. The capsular bag was then filled with viscoelastic. A [employer] Lomb MI60L +17.5 diopters lens was then loaded into the injector and injected into the capsular bag. The remaining viscoelastic was removed with the irrigation aspiration handpiece. The wound was hydrated and then checked and found to be watertight. The intraocular pressure was checked and found to be adequate. The wire lid speculum was removed and the patient's face was cleaned and dried. TobraDex ointment was placed in the inferior fornix. The patient was discharged to the Recovery Room having tolerated the procedure well. There were no complications. The patient will be seen tomorrow in the office for follow-up. I attest to the content of the Intraoperative Record and any orders documented therein. Any exceptions are noted below.
--- NOTE | 2017-10-28 08:52 | Discharge Instructions-SurgCtr ---
Discharge Instructions Date of Service Oct 28, 2017. Visit Reason for Visit: Cataract Left Eye Discharge Discharge Diagnosis / Problem: cataract Discharge Goals Goal(s): Improve function Medications Stopped Medications Name(s): Glucophage stopped 10-25-17 and Aspirin stopped 10-26-17 Activity Recommendations Activity Limitations: per Instructions/Follow-up section Anesthesia . Post Anesthesia Instructions: If you have had General Anesthesia or IV Sedation: * Do not drive today. * Resume driving when surgeon permits. * Do not make important decisions or sign legal documents today. * Call surgeon for: 1. Temperature elevations greater than 101 degrees F. 2. Uncontrollable pain. 3. Excessive bleeding. 4. Persistent nausea and vomiting. 5. Medication intolerance (nausea, vomiting or rash). * For nausea and vomiting use only clear liquids such as: tea, soda, bouillon until nausea subsides, then gradually increase diet as tolerated. * If you have any concerns or questions, call your surgeon's office. If physician is unavailable and it is an emergency, call 911 or go to the nearest emergency room. . Diet Recommendations Home Diet: resume previous diet Procedures Procedures Performed: Left Cataract Phacoemulsification With Intraocular Lens Implant Pending Studies Studies pending at discharge: no Medical Emergencies . Who to Call and When: Medical Emergencies: If at any time you feel your situation is an emergency, please call 911 immediately. . Non-Emergent Contact Non-Emergency issues call your: [employer] . . "Provider Documentation" section prepared by Warren Saeed. .
[2017-10-28 08:56] VITALS: TEMP 36.2
[2017-10-28 09:17] VITALS: BP 124/86; PULSE 81; O2SAT 99
--- NOTE | 2017-10-28 09:24 | Anesthesia Progress Nt - [facility] ---
Anesthesia Post Op Note Date & Time Oct 28, 2017 at 09:24 Vital Signs Pain Intensity: 0 Vital Signs Past 12 Hours Date Time Temp Pulse Resp B/P (MAP) Pulse Ox O2 Delivery O2 Flow Rate FiO2 10/28/17 09:17 81 20 124/86 (99) 99 Room Air 10/28/17 08:56 36.2 78 16 161/102 (121) 98 Room Air 10/28/17 07:27 36.7 85 16 141/85 (103) 94 Room Air Notes Mental Status: alert / awake / arousable, participated in evaluation Pt Amnestic to Procedure: Yes Nausea / Vomiting: adequately controlled Pain: adequately controlled Airway Patency, RR, SpO2: stable & adequate BP & HR: stable & adequate Hydration State: stable & adequate Anesthetic Complications: no major complications apparent
== END | disposition home or self-care (01) ==
LOC: X.SURG 06:59
PROVIDERS: ATTEND Ophthalmology
DX: H26.9 Unspecified cataract (principal); C90.01 Multiple myeloma in remission; E11.9 Type 2 diabetes mellitus without complications; E78.5 Hyperlipidemia, unspecified; I25.10 Atherosclerotic heart disease of native coronary artery without angina pectoris; J45.909 Unspecified asthma, uncomplicated; K21.9 Gastro-esophageal reflux disease without esophagitis; I50.32 Chronic diastolic (congestive) heart failure; E03.9 Hypothyroidism, unspecified; Z79.84 Long term (current) use of oral hypoglycemic drugs; Z79.899 Other long term (current) drug therapy; Z80.51 Family history of malignant neoplasm of kidney; Z82.49 Family history of ischemic heart disease and other diseases of the circulatory system

== ENCOUNTER → 2017-12-24 | Outpatient (CLI) | payer BC ==
[~2017-12-24] MED LIST changes: -500ML BSS 0.3ML EPI 1:1000PF IRRIG ONE; -ACETAMINOPHEN 325 MG TAB PO PRN; -AMVISC PLUS 0.8ML SYRINGE INT OCU ONE; -ATROPINE SULFATE 0.1 MG/ML 5ML SYR IV PRN; -BSS FLUSH ONE; -EpHEDrine SULFATE INJ 50 MG/ML AMP IV PRN; -EpINEphrine INJ 1MG/ML AMP 1 MG/ML AMP ONE; -LACTATED RINGER'S 1000ML 500 ML IV SCH; -LIDOCAINE 3.5% OPH GEL PER APPLICATION CHARGE ONE; -LIDOCAINE HCL 1% MPF 2 ML VIAL ONE; -MIDAZOLAM HCL 1 MG/ML 2ML VIAL ONE; -OCUCOAT 1 ML SOLN IO ONE; -POVIDONE-IODINE OP SOLN 30 ML BTL ONE; -PROPARACAINE 0.5% OP SOLN PER DROP CHARGE OPL SCH; -TOBRAMYCIN/DEXAMETHASONE OPH OINT PER APPLN CHARGE ONE
--- NOTE | 2017-12-24 09:29 | DIAGNOSTIC IMAGING REPORT ---
CHEST 2 VIEWS ROUTINE CLINICAL HISTORY: R05 dyspnea COMPARISON STUDY: 10/22/2016 FINDINGS: Mild stable cardia megaly. Fixed hiatal hernia. Diaphragms are smooth. Lungs are clear. IMPRESSION: Hiatal hernia. Mild cardia megaly. Otherwise negative study. The above report was generated using voice recognition software. It may contain grammatical, syntax or spelling errors. Electronically signed by: Jermaine Gee M.D. 12/24/2017 9:28 AM Dictated Date/Time: 12/24/2017 9:27 AM
== END | disposition home or self-care (01) ==
LOC: C.RAD1850 09:13
PROVIDERS: ATTEND Family Medicine
DX: R05 Cough (principal); K44.9 Diaphragmatic hernia without obstruction or gangrene

== ENCOUNTER → 2017-12-25 | Outpatient (CLI) | payer BC | END | disposition home or self-care (01) | LOC: C.PAPS 08:47 | PROVIDERS: ATTEND Obstetrics & Gynecology | DX: Z12.4 Encounter for screening for malignant neoplasm of cervix (principal) ==

== ENCOUNTER → 2017-12-25 | Outpatient (CLI) | payer BC | END | disposition home or self-care (01) | LOC: C.LABSPEC 09:54 | PROVIDERS: ATTEND Obstetrics & Gynecology | DX: R31.9 Hematuria, unspecified (principal) ==

== ENCOUNTER 2019-05-11 03:01 | Observation (INO) ==
[2019-05-11 03:57] LABS: Hematocrit (blood only) 35.6 % (37-47); Hemoglobin 12.2 g/dL (12.0-16.0); Immature Granulocytes # (auto) 0.01 K/uL (0.00-0.02); Immature Granulocytes % (auto) 0.2 %; Lymphocytes # (auto) 1.14 K/uL (1.2-3.4); Lymphocytes % (auto) 24.6 %; Mean Corpuscular Hemoglobin 30.9 pg (25-34); Mean Corpuscular Hgb Conc 34.3 g/dL (32-36); Mean Corpuscular Volume 90.1 fL (80-100); Mean Platelet Volume 11.1 fL (7.4-10.4); Monocytes # (auto) 0.12 K/uL (0.11-0.59); Monocytes % (auto) 2.6 %; Neutrophils # (auto) 3.36 K/uL (1.4-6.5); Neutrophils % (auto) 72.6 %; Platelet Count 139 K/uL (130-400); RDW Coefficient of Variation 15.8 % (11.5-14.5); Red Blood Count 3.95 M/uL (4.2-5.4); White Blood Count 4.63 K/uL (4.8-10.8)
[2019-05-11 04:09] LABS: Alanine Aminotransferase 61 U/L (12-78); Albumin Level 3.4 gm/dl (3.4-5.0); Aspartate Aminotransferase 28 U/L (15-37); BUN Creatinine Ratio 16.1 (10-20); Blood Urea Nitrogen 22 mg/dl (7-18); Calcium 8.2 mg/dl (8.5-10.1); Carbon Dioxide 17 mmol/L (21-32); Chloride 109 mmol/L (98-107); Est GFR (African American) 46.2; Est GFR (Non-African American) 39.9; Glucose 317 mg/dl (70-99); Potassium 4.4 mmol/L (3.5-5.1); Sodium 139 mmol/L (136-145)
[2019-05-11 04:18] LABS: Albumin Globulin Ratio 1.1 (0.9-2); Alkaline Phosphatase 62 U/L (45-117); Bilirubin,Total 2.1 mg/dl (0.2-1); Globulin 3.1 gm/dl (2.5-4.0); Total Protein 6.5 gm/dl (6.4-8.2); Troponin I < 0.015 ng/ml (0-0.045)
[2019-05-11 04:23] LABS: Beta-Hydroxybutyrate 2.24 mg/dl (0.2-2.81)
[2019-05-11 04:36] LABS: Appearance Urine Clear (Clear); Bilirubin Urine Negative (Negative); Blood Urine Negative (Negative); Color Urine Yellow; Glucose Urine UA 3+ (Negative); Ketones Urine Trace (Negative); Leukocyte Esterase Urine Negative (Negative); Nitrite Urine Negative (Negative); Protein Urine Negative (Negative); Specific Gravity Urine 1.037 (1.000-1.030); Urobilinogen Urine Negative (Negative)
[2019-05-11] MEDS ORDERED: SODIUM CHLORIDE 0.9% 1000ML 1,000 ML IV ONE (04:36)
[2019-05-11] MEDS ORDERED: MECLIZINE HCL 25 MG TAB PO STA (06:07)
[2019-05-11] MEDS ORDERED: NovoLIN-R INSULIN PER UNIT CHARGE IV STA (06:07)
--- NOTE | 2019-05-11 07:17 | Emergency Department Note ---
Entered by Gene Cervantes acting as a scribe for Nancy Quinn DO History of Present Illness General Chief complaint: Cardiac Assessment Stated complaint: DIZZY,SWEATY Time Seen by Provider: 05/11/19 03:18 Source: patient History of Present Illness Onset (ago): month(s) 1 Location: head Pain Consistency: + intermittent Quality: + other (dizziness) Associated symptoms: + other (Positive for nausea. Negative for chest discomfort, SOB, and leg swelling.) The patient is a 68 year old female who presents to the emergency department with complaints of intermittent dizziness beginning a month ago. The patient states that she has been having intermittent dizziness for the last month. She notes that she had two dizzy episodes this morning when she got up to go to the bathroom, causing her to feel as though she was going to pass out. She also complains of mild nausea but she denies any chest discomfort, SOB, and leg swelling. She reports that she had a previous MA five years ago that felt similar to her current symptoms. The patient states that she was very tired at that time, which she notes is unusual. She notes that she had bypass surgery done at that time. She reports that she takes Losartan and steroid pills for her cancer. Home Medications Home Medications Medication Instructions Recorded Confirmed Type acyclovir 800 mg PO BID 05/11/19 05/11/19 History albuterol sulfate 2.5 mg INHALATION Q6H PRN 05/11/19 05/11/19 History albuterol sulfate [Ventolin HFA] 2 - 4 puff INHALATION Q6H PRN 05/11/19 05/11/19 History aspirin [Aspir-81] 81 mg PO QAM 05/11/19 05/11/19 History atorvastatin 80 mg PO QAM 05/11/19 05/11/19 History cholecalciferol (vitamin D3) 800 unit PO QAM 05/11/19 05/11/19 History [Vitamin D3] clarithromycin 500 mg PO BID 05/11/19 05/11/19 History dexamethasone 20 mg PO WK 05/11/19 05/11/19 History lenalidomide [Revlimid] 5 mg PO Q OTHER DAY 05/11/19 05/11/19 History levothyroxine 137 mcg PO QAM 05/11/19 05/11/19 History losartan 25 mg PO QAM 05/11/19 05/11/19 History metformin 850 mg PO BID 05/11/19 05/11/19 History pantoprazole [Protonix] 40 mg PO QAM 05/11/19 05/11/19 History Allergies Allergy/AdvReac Type Severity Reaction Status Date / Time cephalexin Allergy Intermediate hives Verified 05/11/19 03:51 lisinopril AdvReac Mild COUGH Verified 05/11/19 03:51 Past Med/Surg History Medical History CHF (congestive heart failure) (Chronic) A-fib (Chronic) Multiple myeloma (Chronic) MA (myocardial infarction) (Resolved) Diabetes (Chronic) Heart disease (Chronic) Asthma (Chronic) Acid reflux (Chronic) Surgical History Hx of CABG (Resolved) Family History Other No significant family history Social History Feels Safe at Home: Yes Smoking Status: Never smoker Review of Systems See HPI for pertinent positives & negatives. and A total of 10 systems reviewed and were otherwise negative Physical Exam Vital Signs Vital Signs - 24 hr 05/11/19 03:04 05/11/19 03:16 05/11/19 03:30 Temperature 36.4 C L Temperature Source Oral Sepsis Recent Fever Within 48 Hours No Sepsis New/Unexplained Change in Mental Status No Sepsis Action Taken by Nursing No Action Required Pulse Rate - Lying Pulse Rate - Sitting Pulse Rate - Standing Pulse Rate 86 80 77 Pulse Rate [Left Finger] Pulse Rate from SpO2 Sensor Pulse Rhythm Regular Respiratory Rate 18 22 20 Respiratory Effort / Characteristics Non-Labored Spontaneous Respiratory Depth Normal Respiratory Pattern Regular Blood Pressure - Lying Blood Pressure - Sitting Blood Pressure- Standing Blood Pressure 119/76 Blood Pressure [Right Arm] Blood Pressure Mean 90 Blood Pressure Mean [Right Arm] Blood Pressure Position Sitting Pulse Oximetry 94 Oxygen Delivery Method Room Air 05/11/19 04:00 05/11/19 04:21 05/11/19 04:24 Temperature Temperature Source Sepsis Recent Fever Within 48 Hours Sepsis New/Unexplained Change in Mental Status Sepsis Action Taken by Nursing Pulse Rate - Lying 81 Pulse Rate - Sitting 80 Pulse Rate - Standing 87 Pulse Rate 78 82 Pulse Rate [Left Finger] Pulse Rate from SpO2 Sensor Pulse Rhythm Respiratory Rate 19 15 Respiratory Effort / Characteristics Respiratory Depth Respiratory Pattern Blood Pressure - Lying 107/64 Blood Pressure - Sitting 118/72 Blood Pressure- Standing 108/59 L Blood Pressure 118/72 108/59 L Blood Pressure [Right Arm] Blood Pressure Mean 87 75 Blood Pressure Mean [Right Arm] Blood Pressure Position Pulse Oximetry Oxygen Delivery Method 05/11/19 04:30 05/11/19 05:00 05/11/19 05:02 Temperature Temperature Source Sepsis Recent Fever Within 48 Hours Sepsis New/Unexplained Change in Mental Status Sepsis Action Taken by Nursing Pulse Rate - Lying Pulse Rate - Sitting Pulse Rate - Standing Pulse Rate 81 76 75 Pulse Rate [Left Finger] Pulse Rate from SpO2 Sensor 76 74 Pulse Rhythm Respiratory Rate 25 H 19 21 Respiratory Effort / Characteristics Respiratory Depth Respiratory Pattern Blood Pressure - Lying Blood Pressure - Sitting Blood Pressure- Standing Blood Pressure 112/67 Blood Pressure [Right Arm] Blood Pressure Mean 82 Blood Pressure Mean [Right Arm] Blood Pressure Position Pulse Oximetry 94 96 Oxygen Delivery Method 05/11/19 05:30 05/11/19 06:00 05/11/19 06:30 Temperature Temperature Source Sepsis Recent Fever Within 48 Hours Sepsis New/Unexplained Change in Mental Status Sepsis Action Taken by Nursing Pulse Rate - Lying Pulse Rate - Sitting Pulse Rate - Standing Pulse Rate 71 74 80 Pulse Rate [Left Finger] Pulse Rate from SpO2 Sensor 72 74 80 Pulse Rhythm Respiratory Rate 20 18 23 Respiratory Effort / Characteristics Respiratory Depth Respiratory Pattern Blood Pressure - Lying Blood Pressure - Sitting Blood Pressure- Standing Blood Pressure 114/69 117/71 132/72 Blood Pressure [Right Arm] Blood Pressure Mean 84 86 92 Blood Pressure Mean [Right Arm] Blood Pressure Position Pulse Oximetry 96 96 98 Oxygen Delivery Method 05/11/19 07:07 Temperature Temperature Source Sepsis Recent Fever Within 48 Hours Sepsis New/Unexplained Change in Mental Status Sepsis Action Taken by Nursing Pulse Rate - Lying Pulse Rate - Sitting Pulse Rate - Standing Pulse Rate Pulse Rate [Left Finger] 81 Pulse Rate from SpO2 Sensor Pulse Rhythm Respiratory Rate 20 Respiratory Effort / Characteristics Respiratory Depth Respiratory Pattern Blood Pressure - Lying Blood Pressure - Sitting Blood Pressure- Standing Blood Pressure Blood Pressure [Right Arm] 114/70 Blood Pressure Mean Blood Pressure Mean [Right Arm] 84 Blood Pressure Position Pulse Oximetry 94 Oxygen Delivery Method Room Air HEENT: Head - normocephalic and atraumatic Pupils are equal, round, and reactive to light. Extraocular eye muscles are intact, and sclera are anicteric. Nose - moist nasal mucosa without discharge. Mouth - moist buccal mucosa. Oropharynx is nonerythematous and there is no tonsillar exudate or edema noted. Neck: Supple; no JVD, nuchal rigidity, cervical lymphadenopathy, or auscultated bruits. Heart: Regular rate and rhythm. There is a normal S1 and S2 with no murmurs, clicks, or gallops appreciated. Lungs: Clear to auscultation bilaterally with no wheezes, rales, or rhonchi. Abdomen: Soft, completely nontender, nondistended, with good bowel sounds. There are no palpable pulsatile masses or hepatosplenomegaly. There is no guarding, rigidity, or rebound noted. Extremities: No evidence of cyanosis, clubbing, or edema. There are easily palpable peripheral pulses. Skin: warm and dry with good turgor and no rashes. Neuro: The patient is awake and alert and easily able to follow commands. She is moving all 4 extremities without difficulty. Course 0332: The patient was evaluated in room B11. A complete history and physical examination were performed. Nursing notes and previous electronic medical records were reviewed. IV lock was established and labs were drawn as above. The patient was observed on the groundwater monitoring technician and pulse oximeter. A twelve- lead EKG was obtained. 0436: I reevaluated and updated the patient. Orthostatics were performed. The patient is extremely dizzy when moving from laying to sitting. The patient walked to the bathroom but was so dizzy that she had to be assisted. 0453: Sodium Chloride 1000 mls @ 999 mls/hr IV 0602: I rechecked the patient. She states that she still feels dizziness when she lifts her head. She will be given a dose of Antivert as well as a dose of IV insulin. She notes that her diet has not been very good over the last few days. She reports that she drank 11 regular sodas and has been eating a lot of peaches. 0614: Insulin Human Regular 6 units IV, Meclizine HCl 25mg PO 0642: The patient's repeat BSG was 234. 0646: I rechecked the patient. She is still dizzy. 0704: Upon reevaluation, the patient is stable. I discussed the findings and the treatment plan with the patient. She expresses agreement and understanding. I spoke with Dr. Montague of the [facility] Hospitalist Service. She will be evaluated for further management. Consultations Consultation #1: I reviewed the patient's case with Dr. Montague - Hospitalist, [facility]. He will evaluate the patient for further management. Time: 07:04 Administered Medications Discontinued Medications Sodium Chloride (Nss 1000ml) 1,000 mls @ 999 mls/hr IV .Q1H1M ONE Stop: 05/11/19 05:36 Last Infusion: 05/11/19 06:00 Dose: 0 mls/hr Documented by: [id number] Admin: 05/11/19 04:53 Dose: 999 mls/hr Documented by: [id number] Insulin Human Regular (Novolin R U-100 Per Unit) 6 units IV NOW STA Stop: 05/11/19 06:08 Last Admin: 05/11/19 06:14 Dose: 6 units Documented by: [id number] Cosigned by: [id number] Meclizine HCl (Antivert) 25 mg PO NOW STA Stop: 05/11/19 06:08 Last Admin: 05/11/19 06:14 Dose: 25 mg Documented by: [id number] Medical Decision Making Differential Diagnosis Differential diagnosis includes: orthostasis, dehydration, cardiac dysrhythmia, cardiac ischemia, medication side effects, anxiety, DKA, vertigo, labyrinthitis, and posterior circulation stroke. Medical Records Attestation: I reviewed the patient's medical records. Home Medications Current Medication List: was personally reviewed by me Laboratory Data Attestation: I reviewed the patient's lab results. Result diagrams: 05/11/19 03:28 05/11/19 03:28 Lab Results 05/11/19 05/11/19 05/11/19 Range/Units 03:28 03:28 04:25 WBC 4.63 L (4.8-10.8) K/uL RBC 3.95 L (4.2-5.4) M/uL Hgb 12.2 (12.0-16.0) g/dL Hct 35.6 L (37-47) % MCV 90.1 (80-100) fL MCH 30.9 (25-34) pg MCHC 34.3 (32-36) g/dL RDW Std Deviation 52.0 H (36.4-46.3) fL RDW Coeff of Aminata 15.8 H (11.5-14.5) % Plt Count 139 (130-400) K/uL MPV 11.1 H (7.4-10.4) fL Immature Gran % (Auto) 0.2 % Neut % (Auto) 72.6 % Lymph % (Auto) 24.6 % [place] % (Auto) 2.6 % Eos % (Auto) 0.0 % Baso % (Auto) 0.0 % Immature Gran # (Auto) 0.01 (0.00-0.02) K/uL Neut # (Auto) 3.36 (1.4-6.5) K/uL Lymph # (Auto) 1.14 L (1.2-3.4) K/uL [place] # (Auto) 0.12 (0.11-0.59) K/uL Eos # (Auto) 0.00 (0-0.5) K/uL Baso # (Auto) 0.00 (0-0.2) K/uL Sodium 139 (136-145) mmol/L Potassium 4.4 (3.5-5.1) mmol/L Chloride 109 H (98-107) mmol/L Carbon Dioxide 17 L (21-32) mmol/L Anion Gap 13.0 H (3-11) BUN 22 H (7-18) mg/dl Creatinine 1.36 H (0.6-1.2) mg/dl Est Cr Clr Drug Dosing Not Reportable Est GFR ( Amer) 46.2 Est GFR (Non-Af Amer) 39.9 BUN/Creatinine Ratio 16.1 (10-20) Glucose 317 H* (70-99) mg/dl POC Glucose (70-99) Calcium 8.2 L (8.5-10.1) mg/dl Total Bilirubin 2.1 H (0.2-1) mg/dl AST 28 (15-37) U/L ALT 61 (12-78) U/L Alkaline Phosphatase 62 (45-117) U/L Troponin I < 0.015 (0-0.045) ng/ml Total Protein 6.5 (6.4-8.2) gm/dl Albumin 3.4 (3.4-5.0) gm/dl Globulin 3.1 (2.5-4.0) gm/dl Albumin/Globulin Ratio 1.1 (0.9-2) Beta-Hydroxybutyric Acd 2.24 (0.2-2.81) mg/dl TSH 1.530 (0.300-4.500) uIu/ml Urine Color Yellow Urine Appearance Clear (Clear) Urine pH 5.0 (4.5-7.5) Ur Specific [place] 1.037 H (1.000-1.030) Urine Protein Negative (Negative) Urine Glucose (UA) 3+ H (Negative) Urine Ketones Trace H (Negative) Urine Blood Negative (Negative) Urine Nitrite Negative (Negative) Urine Bilirubin Negative (Negative) Urine Urobilinogen Negative (Negative) Ur Leukocyte Esterase Negative (Negative) 05/11/19 Range/Units 06:41 WBC (4.8-10.8) K/uL RBC (4.2-5.4) M/uL Hgb (12.0-16.0) g/dL Hct (37-47) % MCV (80-100) fL MCH (25-34) pg MCHC (32-36) g/dL RDW Std Deviation (36.4-46.3) fL RDW Coeff of Aminata (11.5-14.5) % Plt Count (130-400) K/uL MPV (7.4-10.4) fL Immature Gran % (Auto) % Neut % (Auto) % Lymph % (Auto) % [place] % (Auto) % Eos % (Auto) % Baso % (Auto) % Immature Gran # (Auto) (0.00-0.02) K/uL Neut # (Auto) (1.4-6.5) K/uL Lymph # (Auto) (1.2-3.4) K/uL [place] # (Auto) (0.11-0.59) K/uL Eos # (Auto) (0-0.5) K/uL Baso # (Auto) (0-0.2) K/uL Sodium (136-145) mmol/L Potassium (3.5-5.1) mmol/L Chloride (98-107) mmol/L Carbon Dioxide (21-32) mmol/L Anion Gap (3-11) BUN (7-18) mg/dl Creatinine (0.6-1.2) mg/dl Est Cr Clr Drug Dosing Est GFR ( Amer) Est GFR (Non-Af Amer) BUN/Creatinine Ratio (10-20) Glucose (70-99) mg/dl POC Glucose 244 H (70-99) Calcium (8.5-10.1) mg/dl Total Bilirubin (0.2-1) mg/dl AST (15-37) U/L ALT (12-78) U/L Alkaline Phosphatase (45-117) U/L Troponin I (0-0.045) ng/ml Total Protein (6.4-8.2) gm/dl Albumin (3.4-5.0) gm/dl Globulin (2.5-4.0) gm/dl Albumin/Globulin Ratio (0.9-2) Beta-Hydroxybutyric Acd (0.2-2.81) mg/dl TSH (0.300-4.500) uIu/ml Urine Color Urine Appearance (Clear) Urine pH (4.5-7.5) Ur Specific [place] (1.000-1.030) Urine Protein (Negative) Urine Glucose (UA) (Negative) Urine Ketones (Negative) Urine Blood (Negative) Urine Nitrite (Negative) Urine Bilirubin (Negative) Urine Urobilinogen (Negative) Ur Leukocyte Esterase (Negative) ECG Data Attestation: I personally reviewed and interpreted this ECG as follows: Indication: other (dizziness) Rate (beats per minute): 81 Rhythm: normal sinus Findings: + ST depression (slight ST segment depression in lead 2 and AVF) Comparison ECG Date: from (10/22/2016) Change: no significant change Blood Pressure Blood Pressure Findings: Elevated blood pressure Blood Pressure Disposition: further management by hospitalist MIHAI Narrative The patient is a 68 year old female who presents to the emergency department with complaints of intermittent dizziness beginning a month ago. Patient's symptoms worsened abruptly last night. Her symptoms seem to be worse with head movement. She was noted to be hyperglycemic and somewhat dehydrated. This may have exacerbated her symptoms. She received IV fluids here in the emergency department along with some IV insulin and Antivert with no improvement in her symptoms. The patient has a normal-appearing EKG and a negative troponin. I discussed the case with Dr. Montague from the [facility] hospitalist group and they will evaluate for further management. Impression & Plan Dizziness, Hyperglycemia, Dehydration Discharge Plan Visit Data Chief Complaint: Cardiac Assessment Stated Complaint: DIZZY,SWEATY ED Provider: Nancy Quinn Discharge Problem: Dizziness, Hyperglycemia, Dehydration Patient Disposition: Admitted As Inpatient Forms Stand Alone Forms: My [facility] Prescriptions Prescriptions: No Action levothyroxine 137 mcg Tablet 137 mcg PO QAM RF: 0 atorvastatin 80 mg Tablet 80 mg PO QAM RF: 0 albuterol sulfate 2.5 mg /3 mL (0.083 %) Solution For Nebulization 2.5 mg INHALATION Q6H PRN (Reason: Shortness Of Breath Or Wheezing) RF: 0 clarithromycin 500 mg Tablet 500 mg PO BID RF: 0 metformin 850 mg Tablet 850 mg PO BID RF: 0 aspirin [Aspir-81] 81 mg Tablet,Delayed Release (Dr/Ec) 81 mg PO QAM RF: 0 acyclovir 800 mg Tablet 800 mg PO BID RF: 0 pantoprazole [Protonix] 40 mg Tablet,Delayed Release (Dr/Ec) 40 mg PO QAM RF: 0 dexamethasone 4 mg Tablet 20 mg PO WK RF: 0 losartan 25 mg Tablet 25 mg PO QAM RF: 0 albuterol sulfate [Ventolin HFA] 90 mcg/actuation Hfa Aerosol Inhaler 2 - 4 puff INHALATION Q6H PRN (Reason: Shortness Of Breath Or Wheezing) RF: 0 cholecalciferol (vitamin D3) [Vitamin D3] 400 unit Capsule 800 unit PO QAM RF: 0 Revlimid 5 mg Capsule 5 mg PO Q OTHER DAY RF: 0 Referrals Referrals: Yaneth Pillai MD [Primary Care Provider] - The scribe's documentation has been prepared under my direction and personally reviewed by me in its entirety. I confirm that the note above accurately reflects all work, treatment, procedures, and medical decision making performed by me.
--- NOTE | 2019-05-11 08:17 | History & Physical Report ---
Date of Service May 11, 2019 Assessment & Plan (1) BPPV (benign paroxysmal positional vertigo): Exam and history are very consistent with BPPV on the right side. - PT for Sammi maneuver - Will provide patient instructions on discharge - Trial meclizine PRN (2) Diabetes: No A1c on file. Blood sugars have been higher while on dexamethasone for her possible chemotherapy at [place]. - Hold home meds - Sliding scale insulin - Will get A1c (3) Heart disease: S/p 2vCABG at [place] in ~2013. - Continue statin, ASA. - Not on beta-abraham for low BP (4) Multiple myeloma: Follows with Dr. Chang and [place] oncology. S/p BMT. - Appointment on for continued monitoring. May need to start chemotherapy. (5) A-fib: This problem is listed in the chart, but I do not see it in other documents. Patient made no mention of it. EKG on admission is normal sinus. May have been in the setting of her CABG at [place]. This is usually considered provoked and not a long-term issue. Patient not on anticoagulation. - Will monitor vitals - Will transfer to telemetry if any changes in heart rate (6) Hypothyroidism: TSH was 1.5 in the ED. No signs/symptoms of hypo-/hyperthyroidism. - Continue home Synthroid (7) Asthma: No shortness of breath at present. No wheezing on exam. - Albuterol PRN (8) DVT prophylaxis: Early ambulation and short admission expected. - Will start Lovenox if here for more than 24 hours. History of Present Illness Primary Care Provider: Yaneth Pillai MD 68yo F w/ hx of multiple myeloma and CAD who presents with vertigo. Patient reports some dizziness lasting approximately 1 month. This sounds like orthostatic hypotension as the patient reports approx. 10 seconds of lightheadedness (not really vertigo) when changing positions. She spoke with her machine paint mixer who did not find any abnormalities on exam and did not feel it warranted further evaluation. She also note some *vertigo* over the last month, such as when she closes her eyes in the shower and puts her head down to rinse her hair. This she describes as more "room spinning" sensation, more consistent with vertigo. She went to bed last night in her normal state of health, and woke up around 2am to use the restroom. She reports she felt the room spinning on the way back to bed. This was somewhat similar to her [place]-presentation in ~2013 when she required a 2v CABG, so she called a neighbor and was brought in. On exam today, she notes vertigo with [place]-Hallpike to the right, but not so much to the left. She reports some mild improvement with the meclizine given in the ED. She denies fevers, chills, sweats, shortness of breath, chest pain, or other symptoms associated with the vertigo. Allergies Allergy/AdvReac Type Severity Reaction Status Date / Time cephalexin Allergy Intermediate hives Verified 05/11/19 03:51 lisinopril AdvReac Mild COUGH Verified 05/11/19 03:51 Home Medications Home Medications Medication Instructions Recorded Confirmed Type acyclovir 800 mg PO BID 05/11/19 05/11/19 History albuterol sulfate 2.5 mg INHALATION Q6H PRN 05/11/19 05/11/19 History albuterol sulfate [Ventolin HFA] 2 - 4 puff INHALATION Q6H PRN 05/11/19 05/11/19 History aspirin [Aspir-81] 81 mg PO QAM 05/11/19 05/11/19 History atorvastatin 80 mg PO QAM 05/11/19 05/11/19 History cholecalciferol (vitamin D3) 800 unit PO QAM 05/11/19 05/11/19 History [Vitamin D3] clarithromycin 500 mg PO BID 05/11/19 05/11/19 History dexamethasone 20 mg PO WK 05/11/19 05/11/19 History lenalidomide [Revlimid] 5 mg PO Q OTHER DAY 05/11/19 05/11/19 History levothyroxine 137 mcg PO QAM 05/11/19 05/11/19 History losartan 25 mg PO QAM 05/11/19 05/11/19 History metformin 850 mg PO BID 05/11/19 05/11/19 History pantoprazole [Protonix] 40 mg PO QAM 05/11/19 05/11/19 History Past Med/Surg History Medical History CHF (congestive heart failure) (Chronic) A-fib (Chronic) Multiple myeloma (Chronic) CA (myocardial infarction) (Resolved) Diabetes (Chronic) Heart disease (Chronic) Asthma (Chronic) Acid reflux (Chronic) Surgical History Hx of CABG (Resolved) Family History Mother Thyroid cancer Liver cancer Social History Feels Safe at Home: Yes Smoking Status: Never smoker Hx Alcohol Use: No Hx Substance Use: No Review of Systems Review of Systems: All systems reviewed & are unremarkable except as noted in HPI & below Physical Exam Constitutional: WD/WN, vitals as above Eyes: EOM intact bilaterally; no conjunctival abnormality ENMT: external ear and nose normal, oropharynx normal Neck: trachea midline, no thyromegaly normal visual inspection Respiratory: normal respiratory effort, lungs clear to auscultation no respiratory distress Cardiovascular: RRR, no murmur, no edema Gastrointestinal (Abdomen): Inspection/Auscultation: abdomen normal to inspection; abdomen not distended Musculoskeletal: no cyanosis or clubbing, extremities motor strength 5/5 Skin: no rashes, warm and dry Neurologic: moves all extremities, awake and + abnormal [place] Hallpike (Right > left) Speech / Cognition: normal speech Motor/Sensory: no tremor, normal movement, no fasciculations and no sensory deficit Psychiatric: Orientation: alert, oriented to person and cooperative Results & Data Vital Signs (Past 12 Hours) Vital Signs Temp Pulse Pulse Resp BP BP Pulse Ox 05/11/19 07:07 81 20 114/70 94 05/11/19 06:30 80 23 132/72 98 05/11/19 06:00 74 18 117/71 96 05/11/19 05:30 71 20 114/69 96 05/11/19 05:02 75 21 112/67 96 05/11/19 05:00 76 19 94 05/11/19 04:30 81 25 H 05/11/19 04:24 108/59 L 05/11/19 04:21 82 15 118/72 05/11/19 04:00 78 19 05/11/19 03:30 77 20 05/11/19 03:16 80 22 05/11/19 03:04 36.4 C L 86 18 119/76 94 Code Status & VTE Plan VTE Prophylaxis Plan VTE Prophylaxis will be ordered: Yes PG Care Time/CCT Total # of Minutes Spent Total Time Spent with Patient: Total time spent is greater than 50% in coordination of care (as documented) at patient's floor/unit and/or counseling patient:
[2019-05-11] MEDS ORDERED: ONDANSETRON INJ 2 MG/ML 2 ML VIAL IV PRN (10:14)
[2019-05-11] MEDS ORDERED: CARBOHYDRATES FOR HYPOGLYCEMIA PO PRN (10:14)
[2019-05-11] MEDS ORDERED: ACETAMINOPHEN 325 MG TAB PO PRN (10:14)
[2019-05-11] MEDS ORDERED: DEXTROSE 50% 50 ML SYRINGE IV PRN (10:14)
[2019-05-11] MEDS ORDERED: ALBUTEROL 0.083% NEBU SOLN 3 ML VIAL INH PRN (10:14)
[2019-05-11] MEDS ORDERED: GLUCOSE 10 TABS/TUBE PO PRN (10:14)
[2019-05-11] MEDS ORDERED: GLUCOSE 40% GEL 15 GM TUBE PO PRN (10:14)
[2019-05-11] MEDS ORDERED: GLUCAGON FOR INJ 1 MG VIAL SQ PRN (10:14)
[2019-05-11] MEDS ORDERED: ATORVASTATIN 20 MG TAB PO SCH (10:45)
[2019-05-11] MEDS: LEVOTHYROXINE SODIUM 137 MCG TABLET PO SCH (11:40)
[2019-05-11] MEDS: LOSARTAN POTASSIUM 25 MG TAB PO SCH (11:41)
[2019-05-11] MEDS: ASPIRIN 81 MG ECTAB PO SCH (11:42)
[2019-05-11] MEDS: PANTOprazole 40 MG TAB PO SCH (11:42)
[2019-05-11] MEDS: PATIENT'S HEIGHT AND/OR WEIGHT NEEDED SCH ×4 (11:43→16:42)
[2019-05-11] MEDS: MECLIZINE HCL 25 MG TAB PO PRN ×2 (13:15→22:32)
[2019-05-11] MEDS: ACYCLOVIR 400 MG TAB PO SCH ×2 (13:16→20:02)
[2019-05-11] MEDS: CLARITHROMYCIN 500 MG TAB PO SCH ×2 (13:16→20:02)
[2019-05-11] MEDS: INSULIN ASPART 100 UNITS/ML 3 ML PEN SC SCH ×3 (13:18→20:44)
[2019-05-11] MEDS ORDERED: LENALIDOMIDE PO SCH (21:00)
[2019-05-12] MEDS: LEVOTHYROXINE SODIUM 137 MCG TABLET PO SCH (06:07)
[2019-05-12 07:25] LABS: BUN Creatinine Ratio 21.1 (10-20); Creatinine Clr Calc Pharmacy 57.4 ml/min; Est GFR (African American) 58.5; Est GFR (Non-African American) 50.4
[2019-05-12] MEDS: ASPIRIN 81 MG ECTAB PO SCH (08:54)
[2019-05-12] MEDS: ACYCLOVIR 400 MG TAB PO SCH (08:54)
[2019-05-12] MEDS: PANTOprazole 40 MG TAB PO SCH (08:54)
[2019-05-12] MEDS: CLARITHROMYCIN 500 MG TAB PO SCH (08:54)
[2019-05-12] MEDS: LOSARTAN POTASSIUM 25 MG TAB PO SCH (08:54)
[2019-05-12] MEDS: INSULIN ASPART 100 UNITS/ML 3 ML PEN SC SCH ×2 (08:54→12:14)
[2019-05-12] MEDS ORDERED: Nursing to Pharmacy Communication ONE (08:57)
--- NOTE | 2019-05-12 18:28 | Discharge Summary ---
Date of Service May 12, 2019 Admission HPI Per Admitting Provider 68yo F w/ hx of multiple myeloma and CAD who presents with vertigo. Patient reports some dizziness lasting approximately 1 month. This sounds like orthostatic hypotension as the patient reports approx. 10 seconds of lightheadedness (not really vertigo) when changing positions. She spoke with her machinist first class who did not find any abnormalities on exam and did not feel it warranted further evaluation. She also note some *vertigo* over the last month, such as when she closes her eyes in the shower and puts her head down to rinse her hair. This she describes as more "room spinning" sensation, more consistent with vertigo. She went to bed last night in her normal state of health, and woke up around 2am to use the restroom. She reports she felt the room spinning on the way back to bed. This was somewhat similar to her [place]-presentation in ~2013 when she required a 2v CABG, so she called a neighbor and was brought in. On exam today, she notes vertigo with [place]-Hallpike to the right, but not so much to the left. She reports some mild improvement with the meclizine given in the ED. She denies fevers, chills, sweats, shortness of breath, chest pain, or other symptoms associated with the vertigo. Principal Diagnosis BPPV Discharge Exam Constitutional WD/WN, vitals as above Eyes EOM intact bilaterally; no conjunctival abnormality ENMT external ear and nose normal, oropharynx normal Neck trachea midline, no thyromegaly normal visual inspection Respiratory normal respiratory effort, lungs clear to auscultation no respiratory distress Cardiovascular RRR, no murmur, no edema Gastrointestinal (Abdomen) Inspection/Auscultation: abdomen normal to inspection; abdomen not distended Musculoskeletal no cyanosis or clubbing, extremities motor strength 5/5 Skin no rashes, warm and dry Neurologic moves all extremities, awake and + abnormal [place] Hallpike (Right > left) Speech / Cognition: normal speech Motor/Sensory: no tremor, normal movement, no fasciculations and no sensory deficit Psychiatric Orientation: alert, oriented to person and cooperative Discharge Data Allergies Allergy/AdvReac Type Severity Reaction Status Date / Time cephalexin Allergy Intermediate hives Verified 05/11/19 03:51 lisinopril AdvReac Mild COUGH Verified 05/11/19 03:51 Hospital Course (1) BPPV (benign paroxysmal positional vertigo): Exam and history are very consistent with BPPV on the right side. - PT for Sammi maneuver -> Two rounds significantly improved her vertigo substantially - Trial meclizine PRN - PT noticed some exophoria - Informed to follow up with her ophthalmologists and an ENT on discharge. (2) Diabetes: No A1c on file. Blood sugars have been higher while on dexamethasone for her possible chemotherapy at [facility]. - Hold home meds - Sliding scale insulin (3) Heart disease: S/p 2vCABG at [facility] in ~2013. - Continue statin, ASA. - Statin lowered (held) until follow up with [facility] as it interacts with clarithromycin for myalgias and even rhabdo. - Not on beta-abraham for low BP (4) Multiple myeloma: Follows with Dr. Chang and [facility] oncology. S/p BMT. - Appointment on for continued monitoring. May need to start chemotherapy. (5) A-fib: This problem is listed in the chart, but I do not see it in other documents. Patient made no mention of it. EKG on admission is normal sinus. Was likely in the setting of her CABG at [facility]. This is usually considered provoked and not a long-term issue. Patient not on anticoagulation. - No issues while inpatient (6) Hypothyroidism: TSH was 1.5 in the ED. No signs/symptoms of hypo-/hyperthyroidism. - Continue home Synthroid (7) Asthma: No shortness of breath at present. No wheezing on exam. - Albuterol PRN (8) DVT prophylaxis: Early ambulation and short admission expected. - Will start Lovenox if here for more than 24 hours. Total Time Total Time Spent Total Time Spent (In Minutes): 23 Discharge Plan Discharge Items Patient Disposition: Home - Self-Care Reason For Visit: BPPV Discharge Diagnosis: Vertigo Discharge Goals: Decrease discomfort, Diagnostic testing and Therapeutic intervention Activity: Resume your previous activity Non-emergency contact: Primary Care Provider and Surgeon Call non-emergency contact if: your symptoms worsen and your temperature is above 101 Follow-up/Referrals: Yimi Colmenares MD, FAAOA [Physician] - (Please see Dr. Colmenares or someone in his office for inner ear & eye exam. *A nurse from this office will be calling you to schedule this appointment. If you have any questions, call the office at [phone].) Yaneth Pillai MD [Primary Care Provider] - 05/18/19 10:30 am (Please, follow up at Dr. Yaneth Pillai' office with her associate, Stacey Hathaway PA-C, on FridayMay 18 at 10:30 am. *If you have any questions, call the office at [phone].) Diet: Heart Healthy Addtl Provider Instructions: Ms. Abraham, You were admitted for vertigo. We had physical therapy see you and perform the Sammi maneuver which seemed to really help your vertigo. The physical therapist noted some abnormal eye movements (called exophoria) that can indicate an inner ear issue. He recommended seeing an ENT doctor for evaluation. Given your surgeries on your eyes (right and left), I also think following up with your eye doctor could be beneficial. Please take the meclizine (Antivert) up to 3 times a day for vertigo. You can also continue to do the exercises that the physical therapist showed you (the Sammi maneuver) that may help as well. Finally, please consider discussing your atorvastatin (Lipitor) with your [facility] doctors. This medication can interact with the clarithromycin they have put you on and give you a higher risk of causing muscle aches or even muscle damage. You may want to hold this until when you see them next. Prescriptions: New meclizine 25 mg Tablet 25 mg PO TID PRN (Reason: dizziness) Qty: 30 RF: 0 Continued levothyroxine 137 mcg Tablet 137 mcg PO QAM RF: 0 albuterol sulfate 2.5 mg /3 mL (0.083 %) Solution For Nebulization 2.5 mg INHALATION Q6H PRN (Reason: Shortness Of Breath Or Wheezing) RF: 0 clarithromycin 500 mg Tablet 500 mg PO BID RF: 0 metformin 850 mg Tablet 850 mg PO BID RF: 0 aspirin [Aspir-81] 81 mg Tablet,Delayed Release (Dr/Ec) 81 mg PO QAM RF: 0 acyclovir 800 mg Tablet 800 mg PO BID RF: 0 pantoprazole [Protonix] 40 mg Tablet,Delayed Release (Dr/Ec) 40 mg PO QAM RF: 0 dexamethasone 4 mg Tablet 20 mg PO WK RF: 0 losartan 25 mg Tablet 25 mg PO QAM RF: 0 albuterol sulfate [Ventolin HFA] 90 mcg/actuation Hfa Aerosol Inhaler 2 - 4 puff INHALATION Q6H PRN (Reason: Shortness Of Breath Or Wheezing) RF: 0 cholecalciferol (vitamin D3) [Vitamin D3] 400 unit Capsule 800 unit PO QAM RF: 0 Revlimid 5 mg Capsule 5 mg PO Q OTHER DAY RF: 0 atorvastatin 80 mg Tablet 80 mg PO QAM Qty: 0 RF: 0 Stand-Alone Forms: [facility]/Other Patient Handouts: Meclizine Hydrochloride Oral tablet Discharge Orders: Discharge Order (Routine); Ordered 05/12/19 Ordered By: Lacho Arce Admission Data Admit Date/Time: 05/11/19 08:00 Attending Provider: Lacho Arce Admit Provider: Lacho Arce Primary Care Provider: Yaneth Pillai Service: Medical Other Interventions: Discharge Summary Assessment (RN) Last Done: 05/12/19 12:02 DC Date/Time DO NOT enter until pt leaves facility: 05/12/19 12:47
[2019-05-12] MEDS ORDERED: ATORVASTATIN 20 MG TAB PO SCH (21:00)
== END 2019-05-12 12:47 | disposition home or self-care (01) ==
LOC: 2N 03:01 → ED 03:01 → 2N 09:01

== ENCOUNTER 2019-07-18 04:32 | Inpatient (IN) ==
[2019-07-18] MEDS ORDERED: SODIUM CHLORIDE 0.9% 1000ML 1,000 ML IV ONE (04:49)
[2019-07-18] MEDS ORDERED: ONDANSETRON INJ 2 MG/ML 2 ML VIAL IV STA (04:49)
[2019-07-18] MEDS ORDERED: HYDROmorphone INJ 0.5 MG/0.5 ML SYR IV STA (04:49)
[2019-07-18 05:14] LABS: Hematocrit (blood only) 39.4 % (37-47); Hemoglobin 13.1 g/dL (12.0-16.0); Mean Corpuscular Hgb Conc 33.2 g/dL (32-36); Mean Corpuscular Volume 96.3 fL (80-100); Mean Platelet Volume 11.1 fL (7.4-10.4); Platelet Count 128 K/uL (130-400); RDW Coefficient of Variation 15.2 % (11.5-14.5); RDW Standard Deviation 54.2 fL (36.4-46.3); Red Blood Count 4.09 M/uL (4.2-5.4); White Blood Count 2.67 K/uL (4.8-10.8)
[2019-07-18 05:22] LABS: Appearance Urine Clear (Clear); Bilirubin Urine Negative (Negative); Blood Urine Negative (Negative); Color Urine Yellow; Glucose Urine UA 3+ (Negative); Ketones Urine Negative (Negative); Leukocyte Esterase Urine Negative (Negative); Nitrite Urine Negative (Negative); Protein Urine Negative (Negative); Specific Gravity Urine 1.035 (1.000-1.030); Urobilinogen Urine Negative (Negative)
[2019-07-18 05:34] LABS: Alanine Aminotransferase 48 U/L (12-78); Albumin Level 3.5 gm/dl (3.4-5.0); Blood Urea Nitrogen 13 mg/dl (7-18); Calcium 8.8 mg/dl (8.5-10.1); Carbon Dioxide 23 mmol/L (21-32); Chloride 107 mmol/L (98-107); Creatinine Clr Calc Pharmacy 62.3 ml/min; Est GFR (African American) 69.9; Est GFR (Non-African American) 60.3; Glucose 252 mg/dl (70-99); Potassium 4.4 mmol/L (3.5-5.1); Sodium 137 mmol/L (136-145)
[2019-07-18 05:38] LABS: Albumin Globulin Ratio 1.1 (0.9-2); Alkaline Phosphatase 70 U/L (45-117); Aspartate Aminotransferase 42 U/L (15-37); Bilirubin,Total 1.8 mg/dl (0.2-1); Globulin 3.2 gm/dl (2.5-4.0); Lipase 81 U/L (73-393); Total Protein 6.7 gm/dl (6.4-8.2); Troponin I < 0.015 ng/ml (0-0.045)
[2019-07-18] MEDS ORDERED: SODIUM CHLORIDE 0.9% 1000ML 250 ML IV ONE (05:39)
[2019-07-18] MEDS ORDERED: NovoLIN-R INSULIN PER UNIT CHARGE SC STA (05:39)
--- NOTE | 2019-07-18 05:48 | Emergency Department Note ---
History of Present Illness General Chief complaint: Back Injury/Pain Stated complaint: BACK PAIN, CHILLS, ABD PAIN Source: patient Mode of arrival: ambulatory Limitations: no limitations History of Present Illness Provider complaint: abdominal pain, back pain Onset (ago): day(s) 3 Location: back and abdomen Radiation: flank (Right greater than left) Severity: moderate Pain Consistency: + constant Maximum Pain Intensity: 7 Current Pain Intensity: 9 Quality: + aching Relieved By: + none Exacerbated By: + none Associated symptoms: + nausea/vomiting (Nausea) Treatments prior to arrival: other (Tylenol) This patient is a 69-year-old female who presents emergency department with complaints of several days worth of diffuse abdominal pain and flank pain. Patient states it started with a sore throat 3 days ago that has now resolved. Patient does admit to periodic coughing at this time. She denies any clear urinary symptoms or fever. Patient admits to a history of multiple myeloma and cervical compression fracture. Patient denies any clear injury or fall that may have initiated the back pain. Home Medications Home Medications Medication Instructions Recorded Confirmed Type Revlimid 5 mg PO Q OTHER DAY 05/11/19 07/18/19 History acyclovir 800 mg PO BID 05/11/19 07/18/19 History albuterol sulfate 2.5 mg INHALATION Q6H PRN 05/11/19 07/18/19 History albuterol sulfate [Ventolin HFA] 2 - 4 puff INHALATION Q6H PRN 05/11/19 07/18/19 History aspirin [Aspir-81] 81 mg PO QAM 05/11/19 07/18/19 History cholecalciferol (vitamin D3) 800 unit PO QAM 05/11/19 07/18/19 History [Vitamin D3] clarithromycin 500 mg PO BID 05/11/19 07/18/19 History levothyroxine 137 mcg PO QAM 05/11/19 07/18/19 History metformin 850 mg PO BID 05/11/19 07/18/19 History pantoprazole [Protonix] 40 mg PO QAM 05/11/19 07/18/19 History atorvastatin 80 mg PO QAM #0 tab 05/12/19 07/18/19 Rx ferrous gluconate 324 mg PO TID 07/18/19 07/18/19 History Allergies Allergy/AdvReac Type Severity Reaction Status Date / Time cephalexin Allergy Intermediate hives Verified 07/18/19 05:15 lisinopril AdvReac Mild COUGH Verified 07/18/19 05:15 Past Med/Surg History Medical History CHF (congestive heart failure) (Chronic) A-fib (Chronic) Multiple myeloma (Chronic) [place] (myocardial infarction) (Resolved) Diabetes (Chronic) Heart disease (Chronic) Asthma (Chronic) Acid reflux (Chronic) Surgical History Hx of CABG (Resolved) Family History Mother Thyroid cancer Liver cancer Social History Preferred Language: Hebrew Communication Ability: Effective Sports Lawyer Required: No Beliefs That Will Affect Care: None Current Living Situation: Alone Feels Safe at Home: Yes Smoking Status: Never smoker Hx Alcohol Use: No Hx Substance Use: No Review of Systems See HPI for pertinent positives & negatives. and A total of 10 systems reviewed and were otherwise negative Physical Exam Vital Signs Vital Signs - 24 hr 07/18/19 04:35 07/18/19 05:13 Temperature 36.9 C Temperature Source Oral Sepsis Recent Fever Within 48 Hours No Sepsis New/Unexplained Change in Mental Status No Sepsis Action Taken by Nursing No Action Required Pulse Rate 87 80 Pulse Rate [Finger] 81 Pulse Rhythm Regular Pulse Rhythm [Finger] Regular Pulse Strength [Finger] Normal Respiratory Rate 16 18 Respiratory Effort / Characteristics Non-Labored Spontaneous Non-Labored Spontaneous Respiratory Depth Normal Normal Respiratory Pattern Regular Blood Pressure 129/79 Blood Pressure [Right Arm] 153/84 H Blood Pressure Mean 95 Blood Pressure Mean [Right Arm] 107 Pulse Oximetry 98 97 Oxygen Delivery Method Room Air Room Air Vital signs reviewed. General: Well-appearing, obese 69-year-old female, in no significant distress. HEENT: No scleral icterus, PERRLA, neck supple. Atraumatic. Cardiovascular: Regular rate and rhythm, no extra sounds. Pulmonary: Clear to auscultation bilaterally, normal work of breathing. Abdomen: Soft, mild diffuse tenderness, no rebound or guarding, nondistended, positive bowel sounds. Musculoskeletal: Atraumatic, no peripheral edema. Right greater than left CVA tenderness Neurologic: Patient awake alert and oriented x 3. Skin: Warm, dry, no rash Course Administered Medications Sodium Chloride (Nss 1000ml) 1,000 mls @ 125 mls/hr IV .Q8H ONE Stop: 07/18/19 12:48 Last Admin: 07/18/19 05:27 Dose: 125 mls/hr Documented by: [id number] Discontinued Medications Hydromorphone HCl (Dilaudid) 0.5 mg IV NOW STA Stop: 07/18/19 04:50 Last Admin: 07/18/19 05:27 Dose: 0.5 mg Documented by: [id number] Ondansetron HCl (Zofran) 4 mg IV NOW STA Stop: 07/18/19 04:50 Last Admin: 07/18/19 05:27 Dose: 4 mg Documented by: [id number] Medical Decision Making Differential Diagnosis The differential diagnosis of this patient's presentation includes thoracic compression fracture with radiculopathy, acute cholecystitis, pancreatitis, peptic ulcer disease, UTI, pyelonephritis, kidney stone, ureteral obstruction Medical Records Attestation: I reviewed the patient's medical records. Home Medications Current Medication List: was personally reviewed by me Laboratory Data Result diagrams: 07/18/19 05:04 07/18/19 05:04 Lab Results 07/18/19 07/18/19 07/18/19 Range/Units 05:00 05:04 05:04 WBC 2.67 L (4.8-10.8) K/uL RBC 4.09 L (4.2-5.4) M/uL Hgb 13.1 (12.0-16.0) g/dL Hct 39.4 (37-47) % MCV 96.3 (80-100) fL MCH 32.0 (25-34) pg MCHC 33.2 (32-36) g/dL RDW Std Deviation 54.2 H (36.4-46.3) fL RDW Coeff of Aminata 15.2 H (11.5-14.5) % Plt Count 128 L (130-400) K/uL MPV 11.1 H (7.4-10.4) fL Sodium 137 (136-145) mmol/L Potassium 4.4 (3.5-5.1) mmol/L Chloride 107 (98-107) mmol/L Carbon Dioxide 23 (21-32) mmol/L Anion Gap 7.0 (3-11) BUN 13 (7-18) mg/dl Creatinine 0.96 (0.6-1.2) mg/dl Est Cr Clr Drug Dosing 62.3 ml/min Est GFR ( Amer) 69.9 Est GFR (Non-Af Amer) 60.3 BUN/Creatinine Ratio 14.0 (10-20) Glucose 252 H (70-99) mg/dl POC Glucose (70-99) Calcium 8.8 (8.5-10.1) mg/dl Total Bilirubin 1.8 H (0.2-1) mg/dl AST 42 H (15-37) U/L ALT 48 (12-78) U/L Alkaline Phosphatase 70 (45-117) U/L Troponin I < 0.015 (0-0.045) ng/ml Total Protein 6.7 (6.4-8.2) gm/dl Albumin 3.5 (3.4-5.0) gm/dl Globulin 3.2 (2.5-4.0) gm/dl Albumin/Globulin Ratio 1.1 (0.9-2) Lipase 81 (73-393) U/L Urine Color Yellow Urine Appearance Clear (Clear) Urine pH 5.0 (4.5-7.5) Ur Specific [place] 1.035 H (1.000-1.030) Urine Protein Negative (Negative) Urine Glucose (UA) 3+ H (Negative) Urine Ketones Negative (Negative) Urine Blood Negative (Negative) Urine Nitrite Negative (Negative) Urine Bilirubin Negative (Negative) Urine Urobilinogen Negative (Negative) Ur Leukocyte Esterase Negative (Negative) 07/18/19 Range/Units 05:24 WBC (4.8-10.8) K/uL RBC (4.2-5.4) M/uL Hgb (12.0-16.0) g/dL Hct (37-47) % MCV (80-100) fL MCH (25-34) pg MCHC (32-36) g/dL RDW Std Deviation (36.4-46.3) fL RDW Coeff of Aminata (11.5-14.5) % Plt Count (130-400) K/uL MPV (7.4-10.4) fL Sodium (136-145) mmol/L Potassium (3.5-5.1) mmol/L Chloride (98-107) mmol/L Carbon Dioxide (21-32) mmol/L Anion Gap (3-11) BUN (7-18) mg/dl Creatinine (0.6-1.2) mg/dl Est Cr Clr Drug Dosing ml/min Est GFR ( Amer) Est GFR (Non-Af Amer) BUN/Creatinine Ratio (10-20) Glucose (70-99) mg/dl POC Glucose 223 H (70-99) Calcium (8.5-10.1) mg/dl Total Bilirubin (0.2-1) mg/dl AST (15-37) U/L ALT (12-78) U/L Alkaline Phosphatase (45-117) U/L Troponin I (0-0.045) ng/ml Total Protein (6.4-8.2) gm/dl Albumin (3.4-5.0) gm/dl Globulin (2.5-4.0) gm/dl Albumin/Globulin Ratio (0.9-2) Lipase (73-393) U/L Urine Color Urine Appearance (Clear) Urine pH (4.5-7.5) Ur Specific [place] (1.000-1.030) Urine Protein (Negative) Urine Glucose (UA) (Negative) Urine Ketones (Negative) Urine Blood (Negative) Urine Nitrite (Negative) Urine Bilirubin (Negative) Urine Urobilinogen (Negative) Ur Leukocyte Esterase (Negative) Blood Pressure Blood Pressure Findings: Elevated blood pressure Blood Pressure Disposition: Referred to patients primary care provider MDM Narrative This patient was evaluated and appeared to be in no significant distress. Discharge Plan Visit Data Chief Complaint: Back Injury/Pain Stated Complaint: BACK PAIN, CHILLS, ABD PAIN ED Provider: Minnie Reich Prescriptions Prescriptions: No Action levothyroxine 137 mcg Tablet 137 mcg PO QAM RF: 0 albuterol sulfate 2.5 mg /3 mL (0.083 %) Solution For Nebulization 2.5 mg INHALATION Q6H PRN (Reason: Shortness Of Breath Or Wheezing) RF: 0 clarithromycin 500 mg Tablet 500 mg PO BID RF: 0 metformin 850 mg Tablet 850 mg PO BID RF: 0 aspirin [Aspir-81] 81 mg Tablet,Delayed Release (Dr/Ec) 81 mg PO QAM RF: 0 acyclovir 800 mg Tablet 800 mg PO BID RF: 0 pantoprazole [Protonix] 40 mg Tablet,Delayed Release (Dr/Ec) 40 mg PO QAM RF: 0 albuterol sulfate [Ventolin HFA] 90 mcg/actuation Hfa Aerosol Inhaler 2 - 4 puff INHALATION Q6H PRN (Reason: Shortness Of Breath Or Wheezing) RF: 0 cholecalciferol (vitamin D3) [Vitamin D3] 400 unit Capsule 800 unit PO QAM RF: 0 Revlimid 5 mg Capsule 5 mg PO Q OTHER DAY RF: 0 atorvastatin 80 mg Tablet 80 mg PO QAM Qty: 0 RF: 0 ferrous gluconate 324 mg (38 mg iron) Tablet 324 mg PO TID RF: 0
[2019-07-18 06:10] LABS: RBC Morphology Unremarkable
[2019-07-18 06:14] LABS: ALC (manual) 1.65 K/uL (1.2-3.4); ANC (manual) 0.49 K/uL (1.4-6.5); Basophils # (manual) 0.05 K/uL (0-0.2); Basophils % (manual) 1.7 %; Eosinophils # (manual) 0.05 K/uL (0-0.5); Eosinophils % (manual) 1.7 %; Large Granular Lymph # (manua 1.25 K/uL; Lymphocytes % (manual) 14.8 %; Monocytes # (manual) 0.44 K/uL (0.11-0.59); Monocytes % (manual) 16.5 %; Neutrophils # (manual) 0.49 K/uL (1.4-6.5); Neutrophils % (manual) 18.3 %
--- NOTE | 2019-07-18 06:34 | Ultrasound Report ---
US gallbladder CLINICAL HISTORY: 69 years-old Female presenting with RUQ tenderness. TECHNIQUE: Real-time grayscale and limited color Doppler ultrasound imaging of the abdomen limited to the right upper quadrant was performed. COMPARISON: 05/31/2019. FINDINGS: Pancreas: Visualized portions of the pancreatic head and body normal. Liver: Moderately hyperechogenic parenchyma with partial obscuration of the right hemidiaphragm, like ly indicating moderate steatosis. The liver measures 18.7 cm in maximal sagittal dimension. No sonogr aphic evidence of hepatic mass. Main portal vein patent with normal directional flow. Biliary: No intrahepatic biliary ductal dilatation. Common bile duct measures up to 8 mm in diameter. Gallbladder: Gallstones noted. No gallbladder wall thickening, pathologic distention, pericholecystic fluid or inflammatory change. Sonographic Isabel's sign negative. Right kidney: Normal in appearance without evidence of hydronephrosis. Ascites: None. Other: None. IMPRESSION: 1. Cholelithiasis and persistent extrahepatic biliary ductal dilatation. Findings remain unchanged s rl prior exam. 2. No evidence of cholecystitis. 3. Moderate hepatic steatosis. Correlate with liver function tests to exclude steatohepatitis as a c ause for abdominal pain. Electronically signed by: Corey Bonner M.D. 07/18/2019 6:32 AM
[2019-07-18] MEDS ORDERED: IOVERSOL 100ml IV PRN (06:39)
[2019-07-18] MEDS ORDERED: PIPERACILLIN/TAZOBACTAM 4.5 GM/120 ML BAG IV ONE (06:46)
[2019-07-18] MEDS ORDERED: PIPERACILL/TAZOBAC CONSULT ACTIVE PRN (06:46)
--- NOTE | 2019-07-18 07:08 | CT Scan Report ---
CT abd pelvis IV con only CLINICAL HISTORY: 69 years-old Female presenting with abdominal pain, back pain, multiple myeloma. TECHNIQUE: Multidetector CT of the abdomen and pelvis was performed after the administration of intra venous contrast. IV contrast: 93 mL of Optiray 320. One or more dose lowering techniques were used co nsistent with the principles of ALARA (as low as reasonably achievable), including automatic exposure control, mA or kV adjustment to individual patient size, and/or use of iterative reconstruction. COMPARISON: PET/CT from 04/05/2019. CT DOSE (mGy.cm): The estimated cumulative dose is 888.93 mGy.cm. FINDINGS: Maintenance Helper topogram: Median sternotomy wires. Lung bases: Normal heart size. Coronary artery calcification. No pericardial or pleural effusion. Par amediastinal compressive atelectasis in the lower lobes related to the hiatal hernia. Liver: Normal morphology. Density suggestive of hepatic steatosis. No focal lesion. Patent hepatic va sculature. Biliary: No intrahepatic or extrahepatic biliary ductal dilatation. Gallbladder contains gallstones. Pancreas: Normal. Spleen: Normal. Adrenal glands: Normal. Kidneys and ureters: Normal. No hydronephrosis. Bladder: Normal. Pelvic organs: Round lesion in the uterus occupying a majority of the parenchyma likely a fibroid. Ov alisha normal. Bowel: Limited diverticulosis of the proximal sigmoid and distal descending colon without wall thicke concepción or pericolonic inflammatory change. Scattered diverticula in the remainder of the colon. The rochelle endix is normal. No bowel obstruction. Large mixed sliding-type and paraesophageal hiatal hernia. Peritoneal cavity: No free fluid or intraperitoneal gas. Lymph nodes: No enlarged lymph nodes in the abdomen or pelvis. Vasculature: Atherosclerosis of the normal caliber abdominal aorta. IVC patent. Abdominal wall: Normal. Musculoskeletal: Degenerative changes of the spine. Lytic lesion in the right sacrum as on prior exam . No new destructive lesion is evident. IMPRESSION: 1. Lytic lesion in the right sacrum as on prior exam. No new lesion. No convincing evidence of acute osseous injury. 2. No acute intra-abdominal pathology. 3. Hepatic steatosis. 4. Cholelithiasis. 5. Large mixed sliding and paraesophageal type hiatal hernia. 6. Diverticulosis coli. No diverticulitis. 7. Suspected uterine fibroid. This should be better evaluated with pelvic ultrasound if there is cli nical concern. Electronically signed by: Corey Bonner M.D. 07/18/2019 7:06 AM
--- NOTE | 2019-07-18 07:54 | History & Physical Report ---
Date of Service July 18, 2019 Assessment & Plan (1) Sepsis: Admit to inpatient to PCU on telemetry Vital signs every 4 hours Lactic acid elevated to 2.4, repeat lactic acid in 4 hours. IV fluid hydration with normal saline 80 cc/h for 1 L BNP pending Watch for volume overload since patient has known congestive heart failure Pain management Started Zosyn in the emergency room, continue Zosyn with Levaquin empirically to cover for sepsis and neutropenia. Blood culture pending waiting for sensitivity and specificity. Also is negative for infection. Check daily CBC and CMP. Replenish electrolytes. DVT prophylaxis with heparin 5000 units every 12. Hemo-consult with Dr. Chang who is patient primary oncologist for multiple myeloma GI consult for cholelithiasis with Dr. Priest who saw patient previously and did MRCP. Full code Present on Admission?: Yes (2) Neutropenia: As above Present on Admission?: Yes (3) Hypothyroidism: TSH was done in May 2019 and it was 1.53. Continue levothyroxine 137 MCG's p.o. every morning. Present on Admission?: Yes (4) Multiple myeloma: As above. Continue home meds Revlimid 5 mg p.o. every other day. For anemia continue furosemide gluconate 324 mg p.o. 3 times daily Continue clarithromycin 500 mg p.o. twice daily as prophylaxis for immunocompromised status. Continue acyclovir 800 mg p.o. twice daily for patient immunocompromised status due to multiple myeloma Follow-up with Dr. Chang. Present on Admission?: Yes (5) Diabetes mellitus type 2 in obese: A1c pending .Accu-Cheks before meals and at bedtime, sliding scale insulin while patient is in the hospital. Hold metformin since patient in the hospital and prone to hypoglycemia and kidney injury in case that she needs further on r adiological studies with contrast. Glycemic control managed per pharmacy. Present on Admission?: Yes (6) CHF (congestive heart failure): BNP pending. Patient appears to be euvolemic. Continue strict in and out Daily weight Watch for fluid overload Continue home medicine Aspirin 81 mg p.o. every morning Present on Admission?: Yes (7) A-fib: Patient is not on anticoagulation for A. fib'. We will repeat EKG. last admission patient was in normal sinus rhythm. Patient has history of CABG at [facility]. A. fib's could be paroxysmal. Will continue telemetry and monitoring. Present on Admission?: Yes (8) Asthma: No shortness of breath at present. No wheezing on exam. Albuterol as needed and DuoNeb every 4 prn. Present on Admission?: Yes (9) Acid reflux: Stable, continue pantoprazole 40 mg p.o. every morning Present on Admission?: Yes (10) Hx of CABG: Status post 2 vessels CABG EGD at [place] in 2013. Continue statin, aspirin. Patient is not on beta-abraham because of low blood pressure. Present on Admission?: Yes History of Present Illness Chief Complaint: Sepsis, neutropenia, multiple myeloma, lower back pain Primary Care Provider: Yaneth Pillai MD Patient is a 69 years old female with past medical history of multiple myeloma, coronary artery disease, vertigo who presents to the emergency room with lower back pain. Patient was found to have neutropenia due to her ongoing multiple myeloma and cholelithiasis on the CT scan. Says her pain has been ongoing for a while but yesterday and today is worsening. Patient could not manage her pain at home and she decided to come to the emergency room. Patient was just recently hospitalized for vertigo in May and at that point she had MRCP which showed cholelithiasis, mildly dilated common bile duct. No ductal calculi identified. Large hiatal hernia. No evidence of pancreatic ductal dilatation. Probably is subcentimeter pancreatic side branch IPMN. Labs are reviewed WBC shows 2.67. Hemoglobin 13.1. Hematocrit 39.4. Platelets 128. Sodium 137, potassium 4.4, chloride 107, BUN 13, creatinine 0.96, GFR 60.3, lactate 2.4, bilirubin 1.8, AST 42, ALT 48, troponin 0 0.015, lipase 81. CT abdomen and pelvis: Shows lytic lesion in the right sacrum as on prior exam. No new lesion. No convincing evidence of acute osseous injury. No acute intra-abdominal pathology. Hepatic steatosis. Cholelithiasis. Large mixed sliding and paraesophageal type hiatal hernia. Diverticulosis Rosi. No diverticulitis. Suspecting uterine fibroids. Decision was made to admit patient to PCU on tele metry for further evaluation of sepsis, neutropenia, lower back pain, and further management and treatment. Allergies Allergy/AdvReac Type Severity Reaction Status Date / Time cephalexin Allergy Intermediate hives Verified 11/10/19 05:15 lisinopril AdvReac Mild COUGH Verified 07/18/19 05:15 Home Medications Home Medications Medication Instructions Recorded Confirmed Type Revlimid 5 mg PO Q OTHER DAY 05/11/19 07/18/19 History acyclovir 800 mg PO BID 05/11/19 07/18/19 History albuterol sulfate 2.5 mg INHALATION Q6H PRN 05/11/19 07/18/19 History albuterol sulfate [Ventolin HFA] 2 - 4 puff INHALATION Q6H PRN 05/11/19 07/18/19 History aspirin [Aspir-81] 81 mg PO QAM 05/11/19 07/18/19 History cholecalciferol (vitamin D3) 800 unit PO QAM 05/11/19 07/18/19 History [Vitamin D3] clarithromycin 500 mg PO BID 05/11/19 07/18/19 History levothyroxine 137 mcg PO QAM 05/11/19 07/18/19 History metformin 850 mg PO BID 05/11/19 07/18/19 History pantoprazole [Protonix] 40 mg PO QAM 05/11/19 07/18/19 History atorvastatin 80 mg PO QAM #0 tab 05/12/19 07/18/19 Rx ferrous gluconate 324 mg PO TID 07/18/19 07/18/19 History Past Med/Surg History Medical History CHF (congestive heart failure) (Chronic) A-fib (Chronic) Multiple myeloma (Chronic) AR (myocardial infarction) (Resolved) Diabetes (Chronic) Heart disease (Chronic) Asthma (Chronic) Acid reflux (Chronic) Surgical History Hx of CABG (Resolved) Family History Mother Thyroid cancer Liver cancer Social History Preferred Language: Jordanian Communication Ability: Effective Zoo Keeper Required: No Beliefs That Will Affect Care: None Current Living Situation: Alone Other Information That Helps Us Care for You: No Feels Safe at Home: Yes Safety Concerns: Feels Safe At This Time Smoking Status: Never smoker Hx Alcohol Use: No Hx Substance Use: No Review of Systems Review of Systems: All systems reviewed & are unremarkable except as noted in HPI & below Physical Exam Constitutional: WD/WN, vitals as above well developed and + morbidly obese Eyes: PERRL, conjunctivae normal, anicteric sclerae ENMT: external ear and nose normal, oropharynx normal Neck: trachea midline, no thyromegaly Respiratory: normal respiratory effort, lungs clear to auscultation Cardiovascular: Heart Sounds: normal S1 and normal S2 Palpation: + palpable S3 Gastrointestinal (Abdomen): normal bowel sounds, soft, nontender, no hepatosplenomegaly Musculoskeletal: no cyanosis or clubbing, extremities motor strength 5/5 Skin: no rashes, warm and dry Neurologic: patellar DTR's 2+ bilat, sensation intact Genitourinary: no vaginal lesions, no adnexal mass Lymphatic: no cervical or axillary lymphadenopathy Results & Data Vital Signs (Past 12 Hours) Vital Signs Temp Pulse Pulse Resp BP BP Pulse Ox 07/18/19 07:32 72 18 144/89 H 97 07/18/19 06:21 71 20 147/93 H 96 07/18/19 05:13 80 81 18 153/84 H 97 07/18/19 04:35 36.9 C 87 16 129/79 98 Code Status & VTE Plan Code Status Full code VTE Prophylaxis Plan VTE Prophylaxis will be ordered: Yes PG Care Time/CCT Total # of Minutes Spent Total Time Spent with Patient: Total time spent is greater than 50% in coordination of care (as documented) at patient's floor/unit and/or counseling patient:
[2019-07-18] MEDS ORDERED: DC ALL PREVIOUSLY ORDERED DIABETES MEDS ONE (09:36)
[2019-07-18] MEDS ORDERED: GLUCOSE 40% GEL 15 GM TUBE PO PRN (09:36)
[2019-07-18] MEDS ORDERED: ACETAMINOPHEN 325 MG TAB PO PRN (09:36)
[2019-07-18] MEDS ORDERED: POLYETHYLENE (MIRALAX) 17 GM PACK PO PRN (09:36)
[2019-07-18] MEDS ORDERED: ALBUTEROL 0.083% NEBU SOLN 3 ML VIAL INH PRN (09:36)
[2019-07-18] MEDS ORDERED: CARBOHYDRATES FOR HYPOGLYCEMIA PO PRN (09:36)
[2019-07-18] MEDS ORDERED: SODIUM CHLORIDE 0.9% 1000ML 1,000 ML IV SCH (09:36)
[2019-07-18] MEDS ORDERED: ALUMINUM/MAGNESIUM SUSP 30 ML UDC PO PRN (09:36)
[2019-07-18] MEDS ORDERED: ALBUTEROL HFA 8 GM INHALER INH PRN (09:36)
[2019-07-18] MEDS ORDERED: GLUCOSE 10 TABS/TUBE PO PRN (09:36)
[2019-07-18] MEDS ORDERED: MAGNESIUM HYDROXIDE SUSP 30 ML UDC PO PRN (09:36)
[2019-07-18] MEDS ORDERED: GLUCAGON FOR INJ 1 MG VIAL SQ PRN (09:36)
[2019-07-18] MEDS ORDERED: DEXTROSE 50% 50 ML SYRINGE IV PRN (09:36)
[2019-07-18] MEDS ORDERED: PHARMACY GLYCEMIC MGMT CONSULT PRN (10:10)
[2019-07-18] MEDS: FERROUS GLUCONATE 324 MG TAB PO SCH ×3 (10:36→21:12)
[2019-07-18] MEDS: ASPIRIN 81 MG ECTAB PO SCH (10:36)
[2019-07-18] MEDS: PANTOprazole 40 MG TAB PO SCH (10:37)
[2019-07-18] MEDS: CHOLECALCIFEROL (VITAMIN D) 400 UNITS TABLET PO SCH (10:37)
[2019-07-18] MEDS: LEVOTHYROXINE SODIUM 137 MCG TABLET PO SCH (10:38)
[2019-07-18] MEDS: CALCITONIN SALMON NA 200 IU/AC 3.7 ML BTL SCH (10:39)
[2019-07-18] MEDS ORDERED: OXYCODONE/ACETAMINOPHEN 5mg/325mg TAB PO PRN (10:55)
[2019-07-18] MEDS ORDERED: HYDROmorphone INJ 0.5 MG/0.5 ML SYR IV PRN (10:55)
[2019-07-18] MEDS: HEPARIN SOD 5,000 UNIT/0.5 ML VIAL SQ SCH ×2 (11:25→21:12)
[2019-07-18] MEDS ORDERED: INSULIN ASPART 100 UNITS/ML 3 ML PEN SC SCH (12:00)
[2019-07-18] MEDS: LEVOFLOXACIN/D5W 750 MG/150 ML BAG IV SCH (12:54)
[2019-07-18] MEDS: ACYCLOVIR 400 MG TAB PO SCH ×2 (12:55→21:20)
[2019-07-18] MEDS: ATORVASTATIN 40 MG TAB PO SCH (12:56)
[2019-07-18] MEDS: CLARITHROMYCIN 500 MG TAB PO SCH ×2 (12:56→21:12)
--- NOTE | 2019-07-18 13:29 | Pharmacy Report ---
Glycemic Control Consultation - Date of Service July 18, 2019 - Scope Scope: Glycemic Pharmacist consulted by Dr Koch on 07/18/19 for glycemic control and to write orders per [facility] inpatient glycemic control protocol - Objective Weight: 92.9 kg Accuchecks BSG (last 24hrs): 07/18/19 07/18/19 07/18/19 05:04 05:24 07:26 Glucose 252 H POC Glucose 223 H 168 H 07/18/19 09:51 Glucose POC Glucose 155 H Laboratory Data (last 24hrs): 07/18/19 05:04 Potassium 4.4 Carbon Dioxide 23 Anion Gap 7.0 Creatinine 0.96 Est Cr Clr Drug Dosing 62.3 - Recent Pertinent Medications Outpatient Anti-diabetic Regimen: * metformin 850 mg PO BID Risk Factors for Insulin Resistance: * Infection: sepsis unknown source (Zosyn, Levaquin) * Diet:NPO --> transitioned to low fat diet - Assessment & Plan Assessment & Plan: ASSESSMENT: * Ms Abraham is a 69 y/o F with a PMH of T2DM (unknown control on metformin at home). When presented, patient's blood sugar was > 200 mg/dL. Six units of SQ Regular insulin was able to reduce blood sugar to 155 mg/dL. * As the patient has unknown control of diabetes, ordered HbA1C. Will start with weight-based stress of 2 Novolog. * Scale for Lantus placed for this evening - 0 units for BSG less than 120 mg/dL; 10 units for BSG 120-180 mg/dL; 15 units for BSG greater than 180 mg/dL. * Hold metformin in light of serious infection. PLAN FOR INPATIENT GLYCEMIC CONTROL: * Holding outpatient oral diabetes medications * Basal insulin * Lantus 0-15 units SQ HS * Bolus insulin * NovoLog per scale ACHS or Q6hrs while NPO * Goal Range: Low 120 mg/dL - High 160 mg/dL * Correction Factor: 25 mg/dL/unit * Nutritional / Prandial insulin per carb ratio of 1 unit per 8 grams CHO consumed * Please note that the plan above was derived based on current level of insulin resistance and hospital stress. These recommendations are appropriate for inpatient admission only. Plan of care upon discharge will need to be reassessed to avoid potential outpatient hypo/hyperglycemia. Thank you.
[2019-07-18] MEDS: PIPERACILLIN/TAZOBACTAM 3.375 GM in DEXTROSE 5% 100 ML IV SCH ×2 (15:16→21:33)
[2019-07-18] MEDS ORDERED: PROCHLORPERAZINE 10 MG in SYRINGE 8 ML IV PRN (17:00)
[2019-07-18] MEDS: INSULIN ASPART 100 UNITS/ML 3 ML PEN SC SCH ×2 (17:05→21:14)
[2019-07-18] MEDS: PROMETHAZINE HCL 25 MG in SODIUM CHLORIDE 0.9% 50 ML IV PRN ×2 (17:05→23:40)
[2019-07-18] MEDS ORDERED: LENALIDOMIDE PO SCH (21:00)
[2019-07-18] MEDS: INSULIN GLARGINE SOLOSTAR 100 UNITS/ML 3 ML PEN SC SCH (21:13)
[2019-07-19] MEDS: IBUPROFEN 600 MG TAB PO PRN ×2 (05:29→21:25)
[2019-07-19] MEDS: PIPERACILLIN/TAZOBACTAM 3.375 GM in DEXTROSE 5% 100 ML IV SCH ×3 (05:30→21:26)
[2019-07-19] MEDS: LEVOTHYROXINE SODIUM 137 MCG TABLET PO SCH (05:31)
[2019-07-19 06:19] LABS: Hemoglobin 12.3 g/dL (12.0-16.0); Mean Corpuscular Hgb Conc 33.2 g/dL (32-36); Mean Corpuscular Volume 96.4 fL (80-100); Mean Platelet Volume 10.6 fL (7.4-10.4); Platelet Count 106 K/uL (130-400); RDW Coefficient of Variation 15.3 % (11.5-14.5); RDW Standard Deviation 54.3 fL (36.4-46.3); Red Blood Count 3.84 M/uL (4.2-5.4); White Blood Count 1.73 K/uL (4.8-10.8)
[2019-07-19 06:59] LABS: BUN Creatinine Ratio 10.8 (10-20); Creatinine Clr Calc Pharmacy 69.9 ml/min; Est GFR (African American) 75.6; Est GFR (Non-African American) 65.2; Potassium 3.8 mmol/L (3.5-5.1)
[2019-07-19 07:01] LABS: Albumin Globulin Ratio 1.1 (0.9-2); Bilirubin,Total 1.6 mg/dl (0.2-1); Globulin 2.8 gm/dl (2.5-4.0); Total Protein 5.8 gm/dl (6.4-8.2)
[2019-07-19 07:10] LABS: RBC Morphology Unremarkable
[2019-07-19 07:11] LABS: ALC (manual) 1.27 K/uL (1.2-3.4); ANC (manual) 0.31 K/uL (1.4-6.5); Large Granular Lymph # (manua 0.62 K/uL; Large Granular Lymph % (manual) 35.7 %; Lymphocytes # (manual) 0.65 K/uL (1.2-3.4); Lymphocytes % (manual) 37.5 %; Monocytes # (manual) 0.15 K/uL (0.11-0.59); Monocytes % (manual) 8.9 %; Neutrophils # (manual) 0.31 K/uL (1.4-6.5); Neutrophils % (manual) 17.9 %
[2019-07-19 07:50] LABS: Estimated Average Glucose 249 mg/dl; Hemoglobin A1C 10.3 % (4.5-5.6)
[2019-07-19] MEDS: INSULIN ASPART 100 UNITS/ML 3 ML PEN SC SCH ×4 (08:15→21:28)
[2019-07-19] MEDS ORDERED: SINCALIDE 2 MCG in 0.9 % SODIUM CHLORIDE 100 ML IV SCH (10:00)
[2019-07-19] MEDS ORDERED: FILGRASTIM 300 MCG/ML VIAL SQ ONE (11:45)
--- NOTE | 2019-07-19 11:54 | Nuclear Medicine Report ---
NUCLEAR MEDICINE HEPATOBILIARY SCAN WITH EJECTION FRACTION HISTORY: cholelithiasis COMPARISON: Abdominal ultrasound 07/18/2019. TECHNIQUE: Immediately following the intravenous administration of 5.3 mCi Tc-99m Choletec, dynamic a nterior abdominal imaging pre/post 2 mcg of Kinevac was performed. FINDINGS: Uniform hepatic tracer accumulation is shown. Prompt intrahepatic biliary excretion is seen. The gall bladder, common bile duct, and small bowel are all visualized by 20 minutes. This appearance represen ts the normal sequence of biliary excretion. The gall bladder ejection fraction following administration of Kinevac was 14% (normal >35%). IMPRESSION: 1. No evidence for cystic duct obstruction. 2. Abnormally low gallbladder ejection fraction calculated to be 14 %. Electronically signed by: Julian Venegas M.D. 07/19/2019 11:53 AM
[2019-07-19] MEDS: CHOLECALCIFEROL (VITAMIN D) 400 UNITS TABLET PO SCH (11:56)
[2019-07-19] MEDS: PANTOprazole 40 MG TAB PO SCH (11:56)
[2019-07-19] MEDS: ASPIRIN 81 MG ECTAB PO SCH (11:56)
[2019-07-19] MEDS: LEVOFLOXACIN/D5W 750 MG/150 ML BAG IV SCH (11:56)
[2019-07-19] MEDS: CLARITHROMYCIN 500 MG TAB PO SCH (11:57)
[2019-07-19] MEDS: FERROUS GLUCONATE 324 MG TAB PO SCH ×3 (11:57→21:26)
[2019-07-19] MEDS: CALCITONIN SALMON NA 200 IU/AC 3.7 ML BTL SCH (11:58)
[2019-07-19] MEDS: HEPARIN SOD 5,000 UNIT/0.5 ML VIAL SQ SCH (11:58)
[2019-07-19] MEDS: ACYCLOVIR 400 MG TAB PO SCH ×2 (11:59→21:27)
--- NOTE | 2019-07-19 15:14 | Hospitalist Progress Note ---
Date of Service July 19, 2019 Assessment & Plan (1) Sepsis: sepsis resolved no fever, vitals stable WBC still low no clear source of infection, blood cultures negative CXR normal UA clean HIDA normal continue Zosyna and Levaquin for now (2) Neutropenia: likely due to acute viral URI will repeat tomorrow d/w Dr. Chang no role for Neupogen at this time (3) Hypothyroidism: TSH was done in May 2019 and it was 1.53. Continue levothyroxine 137 MCG's p.o. every morning. (4) Multiple myeloma: hold Revlimid 5 mg p.o. every other day due to neutropenia likely would not resume until WBC recovers For anemia continue furosemide gluconate 324 mg p.o. 3 times daily Continue clarithromycin 500 mg p.o. twice daily as prophylaxis for immunocompromised status. Continue acyclovir 800 mg p.o. twice daily for patient immunocompromised status due to multiple myeloma Follow-up with Dr. Chang. (5) Diabetes mellitus type 2 in obese: Novolog SS monitor for hypoglycemia (6) CHF (congestive heart failure): chronic diastolic heart failure, preserved EF examines euvolemic will continue to monitor (7) A-fib: h/o paroxysmal afib in normal sinus rhythm during hospitalization (8) Asthma: No shortness of breath at present. No wheezing on exam. Albuterol as needed and DuoNeb every 4 prn. (9) Acid reflux: Stable, continue pantoprazole 40 mg p.o. every morning Plan: transfer to medical floor, repeat CBC in the AM Subjective patient sitting up in her chair, feeling much better described her main issue was pain in her lower back and upper abdomen the pain in the abdomen has since subsided she now has URI symptoms with a raspy voice and dry cough reviewed chart, reviewed results of CT and GB US she went for HIDA scan, no signs of cholecystitis but EF low at 14% d/w Dr. Priest, will cance GI consultation d/w Dr. Chang, he follows patient in clinic, low PMN likely from viral il lness hold on giving Neupogen, will repeat CBC in the AM will hold Revlimid discussed with RN, will transfer patient to medical floor Review of Systems Review of Systems: All systems reviewed & are unremarkable except as noted in HPI & below Constitutional: no fever, no chills, no sweats, no fatigue and no weakness Respiratory: + cough (dry); no dyspnea, no sputum production and no wheezing Cardiovascular: no chest pain, no palpitations and no edema Gastrointestinal: no abdominal pain, no nausea, no vomiting, no constipation and no diarrhea/loose stools Musculoskeletal: + back pain (low, chronic) Physical Exam Constitutional: WD/WN, vitals as above + overweight; no acute distress Eyes: PERRL, conjunctivae normal, anicteric sclerae ENMT: external ear and nose normal, oropharynx normal Neck: trachea midline, no thyromegaly Respiratory: normal respiratory effort, lungs clear to auscultation Cardiovascular: RRR, no murmur, no edema Gastrointestinal (Abdomen): normal bowel sounds, soft, nontender, no hepatosplenomegaly Musculoskeletal: Head/Neck/Chest: normocephalic and head atraumatic Spine: normal cervical lordosis, thoracic spine normal to inspection and lumbar spine normal to inspection Extremities: extremities normal to inspection and strength 5/5 throughout Skin: no rashes, warm and dry Neurologic: patellar DTR's 2+ bilat, sensation intact and PERRL, EOMI, accommodation nl, no face palsy, no dysarthria Psychiatric: A+Ox3, euthymic affect Lymphatic: no cervical or axillary lymphadenopathy Results & Data Vital Signs (Past 12 Hours) Vital Signs Temp Pulse Resp BP BP Pulse Ox 07/19/19 14:50 37.0 C 80 18 110/72 93 07/19/19 13:52 36.9 C 88 18 113/77 94 07/19/19 11:55 37.4 C 77 18 110/75 94 07/19/19 07:49 37.3 C 92 H 18 118/83 90 07/19/19 03:17 36.9 C 72 18 131/73 91 Laboratory Results Laboratory Results - last 24 hr 07/18/19 07/18/19 07/19/19 16:38 21:04 06:03 WBC 1.73 L RBC 3.84 L Hgb 12.3 Hct 37.0 MCV 96.4 MCH 32.0 MCHC 33.2 RDW Std Deviation 54.3 H RDW Coeff of Aminata 15.3 H Plt Count 106 L MPV 10.6 H Neutrophils % (Manual) 17.9 Lymphocytes % (Manual) 37.5 Monocytes % (Manual) 8.9 Neutrophils # (Manual) 0.31 L Total Absolute Neuts 0.31 L* Lymphocytes # (Manual) 0.65 L Total Abs Lymphocytes 1.27 Monocytes # (Manual) 0.15 Large Granular Lymphs 35.7 # Lrg Granular Lymphs 0.62 RBC Morphology Unremarkable Sodium Potassium Chloride Carbon Dioxide Anion Gap BUN Creatinine Est Cr Clr Drug Dosing Est GFR ( Amer) Est GFR (Non-Af Amer) BUN/Creatinine Ratio Glucose POC Glucose 149 H 169 H Estimat Average Glucose Hemoglobin A1c Calcium Total Bilirubin AST ALT Alkaline Phosphatase Total Protein Albumin Globulin Albumin/Globulin Ratio 07/19/19 07/19/19 07/19/19 06:03 06:03 07:41 WBC RBC Hgb Hct MCV MCH MCHC RDW Std Deviation RDW Coeff of Aminata Plt Count MPV Neutrophils % (Manual) Lymphocytes % (Manual) Monocytes % (Manual) Neutrophils # (Manual) Total Absolute Neuts Lymphocytes # (Manual) Total Abs Lymphocytes Monocytes # (Manual) Large Granular Lymphs # Lrg Granular Lymphs RBC Morphology Sodium 140 Potassium 3.8 Chloride 110 H Carbon Dioxide 21 Anion Gap 10.0 BUN 10 Creatinine 0.90 Est Cr Clr Drug Dosing 69.9 Est GFR ( Amer) 75.6 Est GFR (Non-Af Amer) 65.2 BUN/Creatinine Ratio 10.8 Glucose 159 H POC Glucose 148 H Estimat Average Glucose 249 Hemoglobin A1c 10.3 H Calcium 8.0 L Total Bilirubin 1.6 H AST 53 H ALT 44 Alkaline Phosphatase 60 Total Protein 5.8 L Albumin 3.0 L Globulin 2.8 Albumin/Globulin Ratio 1.1 07/19/19 12:09 WBC RBC Hgb Hct MCV MCH MCHC RDW Std Deviation RDW Coeff of Aminata Plt Count MPV Neutrophils % (Manual) Lymphocytes % (Manual) Monocytes % (Manual) Neutrophils # (Manual) Total Absolute Neuts Lymphocytes # (Manual) Total Abs Lymphocytes Monocytes # (Manual) Large Granular Lymphs # Lrg Granular Lymphs RBC Morphology Sodium Potassium Chloride Carbon Dioxide Anion Gap BUN Creatinine Est Cr Clr Drug Dosing Est GFR ( Amer) Est GFR (Non-Af Amer) BUN/Creatinine Ratio Glucose POC Glucose 131 H Estimat Average Glucose Hemoglobin A1c Calcium Total Bilirubin AST ALT Alkaline Phosphatase Total Protein Albumin Globulin Albumin/Globulin Ratio Diagnostic Findings NUCLEAR MEDICINE HEPATOBILIARY SCAN WITH EJECTION FRACTION IMPRESSION: 1. No evidence for cystic duct obstruction. 2. Abnormally low gallbladder ejection fraction calculated to be 14 %. Medications Administered Current Inpatient Medications Acetaminophen (Tylenol) 650 mg PO Q4H PRN PRN Reason: Pain or Fever Stop: 08/17/19 09:35 Acyclovir (Zovirax) 800 mg PO BID HENNY Stop: 08/17/19 09:35 Last Admin: 07/19/19 11:59 Dose: 800 mg Documented by: Al Hydrox/Mg Hydrox/Simethicone (Maalox) 15 ml PO Q4H PRN PRN Reason: Dyspepsia Stop: 08/17/19 09:35 Albuterol (Ventolin 0.083% 2.5mg/3ml) 2.5 mg INH Q6H PRN PRN Reason: Shortness Of Breath Or Wheezin Stop: 08/17/19 09:35 Albuterol (Ventolin Hfa) 2 - 4 puffs INH Q6H PRN PRN Reason: Shortness Of Breath Or Wheezin Stop: 08/17/19 09:35 Albuterol (Duoneb) 3 ml NEB QIDR PRN PRN Reason: shorness of breath, wheezing Stop: 08/17/19 09:35 Aspirin (Ecotrin Ectab) 81 mg PO QAM [facility] Stop: 08/17/19 09:35 Last Admin: 07/19/19 11:56 Dose: 81 mg Documented by: Atorvastatin Calcium (Lipitor) 80 mg PO QAM [facility]ENNY Stop: 08/17/19 09:35 Last Admin: 07/18/19 12:56 Dose: Not Given Documented by: Calcitonin Creighton (Fortical) 1 sprays NA DAILY [facility]ENNY Stop: 08/17/19 09:35 Last Admin: 07/19/19 11:58 Dose: Not Given Documented by: Clarithromycin (Biaxin) 500 mg PO BID HENNY Stop: 07/28/19 09:35 Last Admin: 07/19/19 11:57 Dose: 500 mg Documented by: Dextrose (Dextrose 50%) 25 - 50 ml IV UD PRN; Protocol PRN Reason: Hypoglycemia Protocol Stop: 08/17/19 09:35 Ferrous Gluconate (Ferrous Gluconate) 324 mg PO TID HENNY Stop: 08/17/19 09:35 Last Admin: 07/19/19 13:20 Dose: 324 mg Documented by: Glucagon (Glucagen) 1 mg SQ UD PRN; Protocol PRN Reason: Hypoglycemia Protocol Stop: 08/17/19 09:35 Glucose (Glucose 40%) 15 - 30 gm PO UD PRN; Protocol PRN Reason: Hypoglycemia Protocol Stop: 08/17/19 09:35 Glucose (Dex4 Glucose) 4 - 8 tabs PO UD PRN; Protocol PRN Reason: Hypoglycemia Protocol Stop: 08/17/19 09:35 Hydromorphone HCl (Dilaudid) 0.5 mg IV Q2H PRN PRN Reason: Pain Stop: 08/01/19 10:54 Last Admin: 07/18/19 11:25 Dose: 0.5 mg Documented by: Levofloxacin/Dextrose (Levaquin/D5w) 750 mg in 150 mls @ 100 mls/hr IV Q24H [facility] Stop: 07/28/19 11:59 Last Infusion: 07/19/19 13:21 Dose: Infused Documented by: Piperacillin Sod/Tazobactam (Sod 3.375 gm/ Dextrose) 115 mls @ 28.75 mls/hr IV Q8H HENNY; Protocol Stop: 07/20/19 13:59 Last Admin: 07/19/19 13:21 Dose: 28.8 mls/hr Documented by: Prochlorperazine 10 mg/ (Syringe) 10 mls @ 5 mls/min IV Q6H PRN PRN Reason: nausea and vomiting Stop: 08/17/19 16:59 Promethazine HCl 25 mg/ Sodium (Chloride) 51 mls @ 204 mls/hr IV Q6H PRN PRN Reason: Nausea And Vomiting Stop: 08/17/19 16:58 Last Infusion: 07/19/19 00:05 Dose: Infused Documented by: Sincalide 2 mcg/ Sodium (Chloride) 102 mls @ 200 mls/hr IV TODAY@1000 HENNY Stop: 07/19/19 23:59 Last Infusion: 07/19/19 12:24 Dose: Infused Documented by: Ibuprofen (Motrin) 600 mg PO Q8H PRN PRN Reason: Pain Stop: 08/18/19 04:57 Last Admin: 07/19/19 05:29 Dose: 600 mg Documented by: Insulin Aspart (Novolog Flexpen) 0 units SC ACHS [facility] Stop: 08/17/19 16:29 Last Admin: 07/19/19 13:20 Dose: Not Given Documented by: Insulin Glargine (Lantus Solostar Pen) 0 units SC HS [facility]; Protocol Stop: 08/17/19 20:59 Last Admin: 07/18/19 21:13 Dose: 10 units Documented by: Lenalidomide (Revlimid) 1 ea PO Q2D@2100 [facility] Stop: 08/17/19 20:59 Last Admin: 07/18/19 21:14 Dose: Not Given Documented by: Levothyroxine Sodium (Levothyroxine Sodium) 137 mcg PO DAILYBB [facility] Stop: 08/17/19 09:35 Last Admin: 07/19/19 05:31 Dose: 137 mcg Documented by: Magnesium Hydroxide (Milk Of Magnesia) 30 ml PO Q12H PRN PRN Reason: Constipation Stop: 08/17/19 09:35 Miscellaneous (Carbohydrates For Hypoglycemia) 15 - 30 gm PO UD PRN PRN Reason: Hypoglycemia Protocol Stop: 08/17/19 09:35 Miscellaneous Information (Consult) 1 ea N/A UD PRN PRN Reason: Consult Stop: 08/17/19 06:45 Miscellaneous Information (Consult Glycemic Management Pharmacy) 1 ea N/A UD PRN; Protocol PRN Reason: Consult Stop: 08/17/19 10:09 Oxycodone/Acetaminophen (Percocet 5mg/325mg) 1 tab PO Q4H PRN PRN Reason: Pain Stop: 08/01/19 10:54 Pantoprazole [facility]odium ([facility]ix) [facility] Stop: 08/17/19 09:35 Last Admin: 07/19/19 11:56 Dose: 40 mg Documented by: Polyethylene Glycol (Miralax Powder Packet) 17 gm PO DAILY PRN PRN Reason: Constipation Stop: 08/17/19 09:35 Vitamin D (Vitamin D3) [facility] Stop: 08/17/19 09:35 Last Admin: 07/19/19 11:56 Dose: 800 units Documented by: PG Care Time/CCT Total # of Minutes Spent Total Time Spent with Patient: Total time spent is greater than 50% in coordination of care (as documented) at patient's floor/unit and/or counseling patient:
--- NOTE | 2019-07-19 17:23 | Oncology Consultation ---
Date of Consultation July 19, 2019 Assessment & Plan (1) Neutropenia: She has chronic marrow toxicity from years of exposure to Revlimid. Based on her symptoms, I suspect she recently had a viral URI. Viral infections can suppress the marrow and cause acute drops in counts. She has no other localizing infectious symptoms. Her UA looked non-inflammatory and her blood cultures are negative. Her HIDA was not suggestive of cholecystitis and she had no diverticulitis or other acute intra-abdominal issues by CT. We can hold her Revlimid for now, while her counts recover. I anticipate she will continue to feel better in the coming days. I would hold off on GCSF unless we document a confirmed bacterial infection or her counts do not improve. Present on Admission?: Yes (2) Multiple myeloma: In remission on maintenance therapy with Revlimid. See above regarding management of her counts. Present on Admission?: Yes History of Present Illness Reason for Consultation: Neutropenia Multiple myeloma Attending Physician: Go Montague, DO History of Present Illness Ms. Abraham is a 69 year old woman who is on maintenance Revlimid following a second transplant for multiple myeloma. She presented to the ER over the weekend complaining of worsening back and abdominal pain. It was poorly localized in the upper part of her abdomen. It did not appear associated with eating and had no other relieving factors. She denies any fevers, sweats, shortness of breath, dysuria, or diarrhea. She has been undergoing a workup with me for an unexplained mild hyperbilirubinemia. She has some gallstones and a mildly dilated CBD, but her bili has actually been falling recently. She was started on antibiotics in the ER and has felt better. She reports some flu-like symptoms, congestion, and a cough productive of clear sputum. Allergies Allergy/AdvReac Type Severity Reaction Status Date / Time cephalexin Allergy Intermediate hives Verified 07/18/19 05:15 lisinopril AdvReac Mild COUGH Verified 07/18/19 05:15 Home Medications Home Medications Medication Instructions Recorded Confirmed Type Revlimid 5 mg PO Q OTHER DAY 05/11/19 07/18/19 History acyclovir 800 mg PO BID 05/11/19 07/18/19 History albuterol sulfate 2.5 mg INHALATION Q6H PRN 05/11/19 07/18/19 History albuterol sulfate [Ventolin HFA] 2 - 4 puff INHALATION Q6H PRN 05/11/19 07/18/19 History aspirin [Aspir-81] 81 mg PO QAM 05/11/19 07/18/19 History cholecalciferol (vitamin D3) 800 unit PO QAM 05/11/19 07/18/19 History [Vitamin D3] clarithromycin 500 mg PO BID 05/11/19 07/18/19 History levothyroxine 137 mcg PO QAM 05/11/19 07/18/19 History metformin 850 mg PO BID 05/11/19 07/18/19 History pantoprazole [Protonix] 40 mg PO QAM 05/11/19 07/18/19 History atorvastatin 80 mg PO QAM #0 tab 05/12/19 07/18/19 Rx ferrous gluconate 324 mg PO TID 07/18/19 07/18/19 History Patient History Medical History CHF (congestive heart failure) (Chronic) A-fib (Chronic) Multiple myeloma (Chronic) NC (myocardial infarction) (Resolved) Diabetes (Chronic) Heart disease (Chronic) Asthma (Chronic) Acid reflux (Chronic) Surgical History Hx of CABG (Resolved) Family History Mother Thyroid cancer Liver cancer Social History Preferred Language: Telugu Communication Ability: Effective Product Safety Expert Required: No Beliefs That Will Affect Care: None Current Living Situation: Alone Feels Safe at Home: Yes Smoking Status: Never smoker Hx Alcohol Use: No Hx Substance Use: No Review of Systems Review of Systems: All systems reviewed & are unremarkable except as noted in HPI & below Physical Exam Constitutional: healthy appearing and comfortable; no acute distress Eyes: + anicteric sclerae and EOM intact bilaterally ENMT: external ear and nose normal, oropharynx normal Respiratory: normal respiratory effort, lungs clear to auscultation Cardiovascular: RRR, no murmur, no edema Gastrointestinal (Abdomen): Inspection/Auscultation: normal bowel sounds; abdomen not distended Percussion/Palpation: abdomen soft; abdomen nontender Skin: no rashes, warm and dry Psychiatric: A+Ox3, euthymic affect Lymphatic: no cervical or axillary lymphadenopathy Results & Data Vital Signs (Past 12 Hours) Vital Signs Temp Pulse Resp BP BP Pulse Ox 07/19/19 14:50 37.0 C 80 18 110/72 93 07/19/19 13:52 36.9 C 88 18 113/77 94 07/19/19 11:55 37.4 C 77 18 110/75 94 07/19/19 07:49 37.3 C 92 H 18 118/83 90 Laboratory Results Laboratory Results - last 24 hr 07/18/19 07/19/19 07/19/19 21:04 06:03 06:03 WBC 1.73 L RBC 3.84 L Hgb 12.3 Hct 37.0 MCV 96.4 MCH 32.0 MCHC 33.2 RDW Std Deviation 54.3 H RDW Coeff of Aminata 15.3 H Plt Count 106 L MPV 10.6 H Neutrophils % (Manual) 17.9 Lymphocytes % (Manual) 37.5 Monocytes % (Manual) 8.9 Neutrophils # (Manual) 0.31 L Total Absolute Neuts 0.31 L* Lymphocytes # (Manual) 0.65 L Total Abs Lymphocytes 1.27 Monocytes # (Manual) 0.15 Large Granular Lymphs 35.7 # Lrg Granular Lymphs 0.62 RBC Morphology Unremarkable Sodium 140 Potassium 3.8 Chloride 110 H Carbon Dioxide 21 Anion Gap 10.0 BUN 10 Creatinine 0.90 Est Cr Clr Drug Dosing 69.9 Est GFR ( Amer) 75.6 Est GFR (Non-Af Amer) 65.2 BUN/Creatinine Ratio 10.8 Glucose 159 H POC Glucose 169 H Estimat Average Glucose Hemoglobin A1c Calcium 8.0 L Total Bilirubin 1.6 H AST 53 H ALT 44 Alkaline Phosphatase 60 Total Protein 5.8 L Albumin 3.0 L Globulin 2.8 Albumin/Globulin Ratio 1.1 07/19/19 07/19/19 07/19/19 06:03 07:41 12:09 WBC RBC Hgb Hct MCV MCH MCHC RDW Std Deviation RDW Coeff of Aminata Plt Count MPV Neutrophils % (Manual) Lymphocytes % (Manual) Monocytes % (Manual) Neutrophils # (Manual) Total Absolute Neuts Lymphocytes # (Manual) Total Abs Lymphocytes Monocytes # (Manual) Large Granular Lymphs # Lrg Granular Lymphs RBC Morphology Sodium Potassium Chloride Carbon Dioxide Anion Gap BUN Creatinine Est Cr Clr Drug Dosing Est GFR ( Amer) Est GFR (Non-Af Amer) BUN/Creatinine Ratio Glucose POC Glucose 148 H 131 H Estimat Average Glucose 249 Hemoglobin A1c 10.3 H Calcium Total Bilirubin AST ALT Alkaline Phosphatase Total Protein Albumin Globulin Albumin/Globulin Ratio 07/19/19 16:23 WBC RBC Hgb Hct MCV MCH MCHC RDW Std Deviation RDW Coeff of Aminata Plt Count MPV Neutrophils % (Manual) Lymphocytes % (Manual) Monocytes % (Manual) Neutrophils # (Manual) Total Absolute Neuts Lymphocytes # (Manual) Total Abs Lymphocytes Monocytes # (Manual) Large Granular Lymphs # Lrg Granular Lymphs RBC Morphology Sodium Potassium Chloride Carbon Dioxide Anion Gap BUN Creatinine Est Cr Clr Drug Dosing Est GFR ( Amer) Est GFR (Non-Af Amer) BUN/Creatinine Ratio Glucose POC Glucose 166 H Estimat Average Glucose Hemoglobin A1c Calcium Total Bilirubin AST ALT Alkaline Phosphatase Total Protein Albumin Globulin Albumin/Globulin Ratio Diagnostic Findings HIDA scan, 07/19/19: IMPRESSION: 1. No evidence for cystic duct obstruction. 2. Abnormally low gallbladder ejection fraction calculated to be 14 %. CT A/P, 07/18/19: IMPRESSION: 1. Lytic lesion in the right sacrum as on prior exam. No new lesion. No convincing evidence of acute osseous injury. 2. No acute intra-abdominal pathology. 3. Hepatic steatosis. 4. Cholelithiasis. 5. Large mixed sliding and paraesophageal type hiatal hernia. 6. Diverticulosis coli. No diverticulitis. 7. Suspected uterine fibroid. This should be better evaluated with pelvic ultrasound if there is clinical concern.
[2019-07-19] MEDS ORDERED: COUGH DROP (SUGAR FREE) LOZ 24 LOZ/1 BOX BUCCAL PRN (17:40)
[2019-07-19] MEDS: ALBUT/IPRATROP 3MG/0.5MG NEB 3 ML VIAL NEB PRN (20:51)
[2019-07-19] MEDS: INSULIN GLARGINE SOLOSTAR 100 UNITS/ML 3 ML PEN SC SCH (21:29)
[2019-07-20] MEDS: ALBUT/IPRATROP 3MG/0.5MG NEB 3 ML VIAL NEB PRN (04:05)
[2019-07-20] MEDS: IBUPROFEN 600 MG TAB PO PRN (05:03)
[2019-07-20 05:56] LABS: Hematocrit (blood only) 35.4 % (37-47); Hemoglobin 11.9 g/dL (12.0-16.0); Mean Corpuscular Hemoglobin 32.1 pg (25-34); Mean Corpuscular Hgb Conc 33.6 g/dL (32-36); Mean Corpuscular Volume 95.4 fL (80-100); RDW Coefficient of Variation 15.2 % (11.5-14.5); RDW Standard Deviation 53.4 fL (36.4-46.3); Red Blood Count 3.71 M/uL (4.2-5.4); White Blood Count 1.97 K/uL (4.8-10.8)
[2019-07-20] MEDS: PIPERACILLIN/TAZOBACTAM 3.375 GM in DEXTROSE 5% 100 ML IV SCH (05:59)
[2019-07-20] MEDS: LEVOTHYROXINE SODIUM 137 MCG TABLET PO SCH (06:04)
[2019-07-20 06:24] LABS: Mean Platelet Volume 10.6 fL (7.4-10.4); Platelet Count 97 K/uL (130-400)
[2019-07-20 06:25] LABS: Creatinine Clr Calc Pharmacy 62.9 ml/min; Est GFR (African American) 66.6; Est GFR (Non-African American) 57.4
[2019-07-20 06:49] LABS: Giant Platelets 1+
[2019-07-20 07:06] LABS: ALC (manual) 1.48 K/uL (1.2-3.4); ANC (manual) 0.35 K/uL (1.4-6.5); Lymphocytes # (manual) 0.47 K/uL (1.2-3.4); Monocytes # (manual) 0.14 K/uL (0.11-0.59); Neutrophils # (manual) 0.35 K/uL (1.4-6.5)
[2019-07-20] MEDS ORDERED: GUAIFENESIN/CODEINE 200MG/20MG 10ML UDC PO PRN (08:45)
[2019-07-20] MEDS: CALCITONIN SALMON NA 200 IU/AC 3.7 ML BTL SCH (10:03)
[2019-07-20] MEDS: ASPIRIN 81 MG ECTAB PO SCH (10:06)
[2019-07-20] MEDS: ATORVASTATIN 40 MG TAB PO SCH (10:06)
[2019-07-20] MEDS: FERROUS GLUCONATE 324 MG TAB PO SCH ×2 (10:06→13:39)
[2019-07-20] MEDS: CHOLECALCIFEROL (VITAMIN D) 400 UNITS TABLET PO SCH (10:07)
[2019-07-20] MEDS: ACYCLOVIR 400 MG TAB PO SCH (10:07)
[2019-07-20] MEDS: PANTOprazole 40 MG TAB PO SCH (10:07)
[2019-07-20] MEDS: INSULIN ASPART 100 UNITS/ML 3 ML PEN SC SCH ×2 (10:11→12:21)
[2019-07-20] MEDS: LEVOFLOXACIN/D5W 750 MG/150 ML BAG IV SCH (12:19)
--- NOTE | 2019-07-20 13:50 | XRay Report ---
XR chest 2V PA/lateral HISTORY: 69 years-old Female cough, neutropenia acute cough COMPARISON: CT abdomen and pelvis 07/18/2019, chest radiograph 03/23/2018 TECHNIQUE: PA and lateral views of the chest FINDINGS: Cardiac silhouette is enlarged, unchanged. Prior median sternotomy. Large hiatal hernia. Mild hyperin flation. No pneumothorax, pleural effusion or overt pulmonary edema. Minimal bibasilar atelectasis. N o evidence of pneumonia. Degenerative changes of the shoulders and spine. Remote upper thoracic compr ession deformity. IMPRESSION: 1. Cardiomegaly without acute process. 2. Large hiatal hernia. The above report was generated using voice recognition software. It may contain grammatical, syntax o r spelling errors. Electronically signed by: Marcello Huerta M.D. 07/20/2019 1:49 PM
--- NOTE | 2019-07-20 14:00 | Pharmacy Report ---
Pharmacy Glycemic Short Note 2 - Date of Service July 20, 2019 - Glycemic Short BSG Results (Last 24 hours): 07/19/19 07/19/19 07/20/19 16:23 20:24 07:36 POC Glucose 166 H 137 H 187 H 07/20/19 11:38 POC Glucose 248 H OUTPATIENT ANTIDIABETIC REGIMEN: * metformin 850mg BID * A1c 10.3% 07/19/19 ASSESSMENT: * Ms. Abraham BSGs were well controlled yesterday with 10 units of lantus and 4 units of novolog coverage * Fasting this morning 187, will titrate lantus up this evening * Lunch BSG elevated today, however, novolog was not given until 10, therefore expect morning novolog has not taken full effect yet. Will not adjust based on this BSG but if trend continues will tighten novolog parameters PLAN FOR INPATIENT GLYCEMIC CONTROL: * Hold outpatient oral diabetes medications * Basal insulin * Lantus scale 15/20 HS * Bolus insulin * NovoLog per scale ACHS or Q6hrs while NPO * Goal Range: Low 120 mg/dL - High 160 mg/dL * Correction Factor: 25 mg/dL/unit * Nutritional / Prandial insulin per carb ratio of 1 unit per 8 grams CHO consumed PLAN FOR DISCHARGE: * A1c 10.3%, goal A1c <8% given comorbidities. Per family life educator notes, patient with recent steroid use that may continue outpatient. Can titrate metformin up to goal 1000 mg BID if tolerated and patient may benefit from the addition of basal insulin.
--- NOTE | 2019-07-21 08:41 | Discharge Summary ---
Date of Service July 20, 2019 Admission HPI Per Admitting Provider Patient is a 69 years old female with past medical history of multiple myeloma, coronary artery disease, vertigo who presents to the emergency room with lower back pain. Patient was found to have neutropenia due to her ongoing multiple myeloma and cholelithiasis on the CT scan. Says her pain has been ongoing for a while but yesterday and today is worsening. Patient could not manage her pain at home and she decided to come to the emergency room. Patient was just recently hospitalized for vertigo in May and at that point she had MRCP which showed cholelithiasis, mildly dilated common bile duct. No ductal calculi identified. Large hiatal hernia. No evidence of pancreatic ductal dilatation. Probably is subcentimeter pancreatic side branch IPMN. Labs are reviewed WBC shows 2.67. Hemoglobin 13.1. Hematocrit 39.4. Platelets 128. Sodium 137, potassium 4.4, chloride 107, BUN 13, creatinine 0.96, GFR 60.3, lactate 2.4, bilirubin 1.8, AST 42, ALT 48, troponin 0 0.015, lipase 81. CT abdomen and pelvis: Shows lytic lesion in the right sacrum as on prior exam. No new lesion. No convincing evidence of acute osseous injury. No acute intra-abdominal pathology. Hepatic steatosis. Cholelithiasis. Large mixed sliding and paraesophageal type hiatal hernia. Diverticulosis Rosi. No diverticulitis. Suspecting uterine fibroids. Decision was made to admit patient to PCU on telemetry for further evaluation of sepsis, neutropenia, lower back pain, and further management and treatment. Principal Diagnosis Neutropenia due to acute viral infection Discharge Exam Constitutional WD/WN, vitals as above + overweight; no acute distress Eyes PERRL, conjunctivae normal, anicteric sclerae ENMT external ear and nose normal, oropharynx normal Neck trachea midline, no thyromegaly Respiratory normal respiratory effort and + cough; no respiratory distress Auscultation: + rhonchi (bilaterally, clear with cough); no crackles, no rales a nd no wheezes Cardiovascular RRR, no murmur, no edema Gastrointestinal (Abdomen) normal bowel sounds, soft, nontender, no hepatosplenomegaly Musculoskeletal Head/Neck/Chest: normocephalic and head atraumatic Spine: normal cervical lordosis, thoracic spine normal to inspection and lumbar spine normal to inspection Extremities: extremities normal to inspection and strength 5/5 throughout Skin no rashes, warm and dry Neurologic patellar DTR's 2+ bilat, sensation intact and PERRL, EOMI, accommodation nl, no face palsy, no dysarthria Psychiatric A+Ox3, euthymic affect Lymphatic no cervical or axillary lymphadenopathy Discharge Data Allergies Allergy/AdvReac Type Severity Reaction Status Date / Time cephalexin Allergy Intermediate hives Verified 07/18/19 05:15 lisinopril AdvReac Mild COUGH Verified 07/18/19 05:15 Consultations 07/18/19 07:31 ED Decision to Admit Stat 07/18/19 09:36 Consult Hematology Routine Ordered Studies 07/18/19 04:49 US gallbladder Urgent 07/18/19 06:17 CT abd pelvis IV con only Stat Hospital Course (1) Bronchial pneumonia: lungs with rhonchi bilaterally, productive cough 2 view CXR obtained on 07/20 prior to discharge to rule out infiltrate, lung mclean were clear due to neutropenia, will cover with three more days of Levaquin 750mg daily this will provide adequate typical and atypical coverage (2) Sepsis: sepsis resolved no fever, vitals stable WBC still low but trending up slightly no clear source of infection, blood cultures negative x 48 hours CXR normal UA clean HIDA normal covered with Levaquin and Zosyn on admission (3) Neutropenia: likely due to acute viral URI minimal increase today likely could take a few days to improve no fevers, no overt bacterial infection, no role for Neupogen will d/c home, instructed to stay home, wear mask if she leaves house, avoid all sick contacts will check CBC later this week with results to PCP and Dr. Chang (4) Hypothyroidism: TSH was done in May 2019 and it was 1.53. Continue levothyroxine 137 MCG's p.o. every morning. (5) Multiple myeloma: hold Revlimid 5 mg p.o. every other day due to neutropenia told to not resume until WBC recovers and told to resume by physician For anemia continue furosemide gluconate 324 mg p.o. 3 times daily Continue clarithromycin 500 mg p.o. twice daily as prophylaxis for immunocompromised status (resume after finished with Levaquin) Continue acyclovir 800 mg p.o. twice daily for patient immunocompromised status due to multiple myeloma Follow-up with Dr. Chang. (6) Diabetes mellitus type 2 in obese: Novolog SS monitor for hypoglycemia (7) CHF (congestive heart failure): chronic diastolic heart failure, preserved EF examines euvolemic will continue to monitor (8) A-fib: h/o paroxysmal afib in normal sinus rhythm during hospitalization (9) Asthma: No shortness of breath at present. No wheezing on exam. Albuterol as needed and DuoNeb every 4 prn. (10) Acid reflux: Stable, continue pantoprazole 40 mg p.o. every morning Total Time Total Time Spent Total Time Spent (In Minutes): 35 minutes Total Time Includes: Examination of the Patient, Discharge Planning and Medication Reconciliation Discharge Plan Discharge Items Patient Disposition: Home - Self-Care Reason For Visit: SEPSIS, BACK PAIN, NEUTROPENIA Discharge Diagnosis: Upper respiratory infection Neutropenia Multiple myeloma Condition on Discharge: Good Goals: treat cough and URI follow up lab work next week to document rise in WBC follow up with Dr. Chang and Lisandra as previously scheduled Activity: Resume your previous activity Non-emergency contact: Primary Care Provider and Oncologist Call non-emergency contact if: you have any medication questions, your symptoms worsen and you have a fever Follow-up/Referrals: Yaneth Pillai MD [Primary Care Provider] - 07/27/19 9:10 am (Please, follow up with Dr. Yaneth Pillai' associate, Dr. Yimi Harris, on FridayJuly 27 at 9:10 am. THIS APPOINTMENT WILL BE AT THE [facility] OFFICE. THE OFFICE IS IN [address] OF THE [facility], NEXT TO THIS [facility]. Unfortunately, there were no openings at the [facility] Office so we had to schedule you at the [facility] Office. Sorry, for the inconvenience. *If you need to change this appointment, call the office at [phone].) Opal Mccrary CRNP [Nurse Practitioner] - 07/23/19 9:10 am (Please, follow up at Dr. Chagn's office with his associate, Opal LASSITER, on FridayJuly 23 at 9:10 am. *If you need to change this appointment, call their office at [phone].) Diet: Carb Consistent or DM2 Ambulatory Orders: Complete Blood Count with Diff (Routine) Timeframe: 1 Week Location: Determined by Patient Ordered By: Go Saunders Attending Provider Instructions: Medications: - CODEINE: take 10mL as needed for cough suppression, can take every 6 hours - LEVOFLOXACIN: take 750mg daily x 3 more days, start tomorrow morning - REVLIMID: hold for the next week, do not resume until instructed to do so by physician - CLARITHROMYCIN: you can hold for the next 3 days while on Levofloxacin Neutropenia, cough, likely viral upper respiratory infection, could be atypical infection chest x-ray clear, no signs of infiltrate or consolidation on exam you have some dispersed crackles and rhonchi in your lungs will cover you with three more days of Levofloxacin use your nebulizer at home as you normally do Your WBC is still low, coming up slightly, should continue to improve over the next week recommend wearing a mask if you go out in public, avoid any other sick contacts Pending Studies at Discharge: No Stand-Alone Forms: [email or web address], Smoking Cessation Medications and DC Order Prescriptions: New levofloxacin 750 mg tablet 750 mg PO DAILY 3 Days Qty: 3 RF: 0 codeine-guaifenesin 10-100 mg/5 mL liquid 10 ml PO Q6H PRN (Reason: cough) Qty: 240 RF: 0 Continued levothyroxine 137 mcg Tablet 137 mcg PO QAM RF: 0 albuterol sulfate 2.5 mg /3 mL (0.083 %) Solution For Nebulization 2.5 mg INHALATION Q6H PRN (Reason: Shortness Of Breath Or Wheezing) RF: 0 clarithromycin 500 mg Tablet 500 mg PO BID RF: 0 metformin 850 mg Tablet 850 mg PO BID RF: 0 aspirin [Aspir-81] 81 mg Tablet,Delayed Release (Dr/Ec) 81 mg PO QAM RF: 0 acyclovir 800 mg Tablet 800 mg PO BID RF: 0 pantoprazole [Protonix] 40 mg Tablet,Delayed Release (Dr/Ec) 40 mg PO QAM RF: 0 albuterol sulfate [Ventolin HFA] 90 mcg/actuation Hfa Aerosol Inhaler 2 - 4 puff INHALATION Q6H PRN (Reason: Shortness Of Breath Or Wheezing) RF: 0 cholecalciferol (vitamin D3) [Vitamin D3] 400 unit Capsule 800 unit PO QAM RF: 0 atorvastatin 80 mg Tablet 80 mg PO QAM Qty: 0 RF: 0 ferrous gluconate 324 mg (38 mg iron) Tablet 324 mg PO TID RF: 0 Discontinued Revlimid 5 mg Capsule 5 mg PO Q OTHER DAY RF: 0 Discharge Orders: Discharge Order (Routine); Ordered 07/20/19 Ordered By: Go Sun/Other Patient Handouts: Diabetes Laboratory Phlebotomist Complications, Diabetes Healthy Meals, Diabetes Carbs, Diabetes Exercise Benefits, Diabetes Exercise Get Started, Diabetes Activity Tips, A1C Admission Data Admit Date/Time: 07/18/19 07:49 Attending Provider: Go Montague Admit Provider: Nuno Koch Primary Care Provider: Yaneth Pillai Other Providers: Nuno Koch ; Gene Chang Other Interventions: Discharge Summary Assessment (RN) Last Done: 07/20/19 14:06 DC Date/Time DO NOT enter until pt leaves facility: 07/20/19 14:31
[2019-07-22 05:14] LABS: CK Total 26 U/L (29-143); CK-MB 0 % (<5); CK-MM 100 % (95-100)
== END 2019-07-20 14:31 | disposition home or self-care (01) | DRG 872 ==
LOC: ED 04:32 → SUATTDRO 07:49 → 2E 07:49 → 2W 07-19 13:47 → 4W 07-19 19:21

== ENCOUNTER 2023-07-07 08:46 | Inpatient (IN) ==
[2023-07-07] MEDS ORDERED: ALBUT/IPRATROP 3MG/0.5MG NEB 3 ML VIAL NEB STA (09:17)
--- NOTE | 2023-07-07 09:17 | Emergency Department Note ---
Impression & Plan Neutropenia ADMIT ED Provider Note HPI: History obtained from patient. The patient is a 73-year-old female with history of multiple myeloma, currently on chemotherapy, presents the emergency department with a chief complaint of cough and chest congestion for the past 5 days. Patient states that she had an endoscopy performed at [facility] on Friday, patient states she felt well and returned home but when she woke up and went states she had these respiratory symptoms and has continued to feel unwell for the past 5 days. Patient admits to slight nausea, denies vomiting, states at times she gets a sensation of chest "aching". On arrival here to the ED the patient is hemodynamically stable, she is saturating well on room air on arrival. ROS: - Per HPI Differential Diagnosis: Acute bacterial pneumonia, viral upper respiratory infection with cough, acute bronchitis, COPD exacerbation, CHF exacerbation, ACS, PE, amongst other potential pathologies. *Outpatient medications and allergy history reviewed. *Pertinent external medical records reviewed PE: General: Alert HEENT: Normocephalic, trachea midline Eyes: Extraocular eye movement is intact, no scleral erythema Pulmonary: Diminished breath sounds bilaterally without crackles or wheezing Cardio: Regular rate and rhythm GI: Abdomen is soft to palpation : No suprapubic tenderness MSK: No evidence of trauma or malformation of the extremities, no edema Skin: No evidence of rash Neuro: Alert, no focal deficits Psychiatric: Cooperative INDEPENDENT INTERPRETATIONS: playground monitor: (As interpreted by myself): - An order was placed for continuous cardiac monitoring - Patient was noted to be in sinus rhythm with a rate of 76 EKG: (As interpreted by myself): Rate: 79 Rhythm: Normal sinus rhythm Intervals: Within normal limits ST changes: No ST elevation Time: 0902 Interventions provided in ED: -DuoNeb breathing treatment, IV vancomycin, IV cefepime Medical Decision Making: Shortly after the patient arrived IV was established lab work obtained, patient was placed on electronic device monitor. Lab work shows mild leukopenia 2.54, hemoglobin is stable 11.2, platelet count is normal at 176, there is evidence of severe neutropenia with total absolute neutrophil count at 300. Blood cultures were ordered. CMP does not show any critical findings, troponin is negative x1. BNP is within normal limits. Procalcitonin mildly elevated 0.52. Urinalysis does not show any convincing evidence of infection, trace leukocyte esterase and slight pyuria with evidence of contamination. We will send for culture. Viral panel test was obtained and patient is positive for parainfluenza 4. I suspect this is likely the source the patient's symptoms. On my reassessment patient states that she feels unwell and weak. She prefers admission to the hospital which I think is reasonable given her severe neutropenia with infectious symptoms. Blood cultures were obtained and the patient was started on broad-spectrum antibiotics with vancomycin and cefepime. Case was discussed with the on-call hospitalist, Dr. Diallo, and the patient wa s placed for admission in stable condition for further care. Consultants/Discussions held with other healthcare providers: -Hospitalist, Dr. Diallo Disposition discussion held by myself with: -Patient and daughter at bedside Diagnosis: 1. Neutropenia, acute 2. Parainfluenza for viral infection, acute 3. Chills, acute 4. Generalized weakness, acute 5. Leukopenia, acute 6. History of multiple myeloma, on chemotherapy 7. Elevated procalcitonin level Disposition: Admission Jermaine Downing DO Emergency Medicine Past Med/Surg History Medical History (Updated 07/07/23 @ 15:20 by Jermaine Downing DO) A-fib PT DENIES > WAS ONE TIME RELATED TO ILLNESS Acid reflux Acute kidney injury FOLLOWS WITH DR. DIAZ Asthma NO RES INH USE FOR OVER A YEAR BPPV (benign paroxysmal positional vertigo) ONLY HAPPENED ONCE CAD (coronary artery disease) s/p CABG x 2 > FOLLOWS WITH DR. PARIS CHF (congestive heart failure) Diabetic peripheral neuropathy associated with type 2 diabetes mellitus Dysesthesia Dyslipidemia Hx of sleep apnea RESOLVED SINCE CABG SURGERY PER PT Hyperlipidemia Hypomagnesemia Hypothyroidism Loss of protective sensation of skin of foot NE (myocardial infarction) 2009 > CABG Morbid obesity Multiple myeloma Dx 2003, s/p chemo >HX OF STEM CELL TRANSPLANT--pt states her WBC rising, following with [facility] on 04/09/23 regarding this Peripheral neuropathy due to chemotherapy Port-A-Cath in place (10/28/19) Insertion of Mediport Right Subclavian Vein with Fluoroscopy Dr. 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 Hx of CABG X 2 VESSEL 2009 > [facility] FOLLOW WITH DR PARIS Hx of dilation and curettage Hx of stem cell transplant LAST ONE APPROX 4-5 YRS AGO [facility] Family History Mother Liver cancer Thyroid cancer Diabetes Grandmother (Maternal) Diabetes Other No family history of adverse response to anesthesia Social History Smoking Status: Never smoker Second Hand Exposure: No; Do You Dip or Chew Tobacco: No; Hx Alcohol Use: Yes ("drink a beer about 3x a year") Alcohol type: beer Alcohol Intake Frequency Comment: 2-4 drinks a year Hx Substance Use: No Preferred Language: Welsh Communication Ability: Effective Category Planner Required: No Beliefs That Will Affect Care: None marital status: Current Living Situation: Alone current occupational status: retired Feels Safe at Home: Yes Assistive Devices: Denture - Upper and Glasses Allergies Allergies Allergy/AdvReac Type Severity Reaction Status Date / Time cephalexin Allergy Intermediate hives Verified 05/29/23 14:30 ciprofloxacin [From Cipro] Allergy Mild Hives Verified 05/29/23 14:30 codeine Allergy Mild rash Verified 05/29/23 14:30 dapagliflozin [From Farxiga] AdvReac Intermediate Rash Verified 05/29/23 14:30 lisinopril AdvReac Mild COUGH Verified 05/29/23 14:30 Home Meds Home Medications Medication Instructions Recorded Confirmed acyclovir 800 mg tablet 800 mg PO BID 05/11/19 07/07/23 aspirin 81 mg chewable tablet 81 mg PO HS 10/26/19 07/07/23 cholecalciferol (vitamin D3) 50 50 mcg PO QAM 03/22/20 07/07/23 mcg (2,000 unit) capsule albuterol sulfate 90 mcg/actuation 2 - 4 puff inhalation Q6H PRN 03/26/21 07/07/23 aerosol inhaler (Ventolin HFA) Shortness Of Breath Or Wheezing tramadol 50 mg tablet 50 - 100 mg PO BID PRN Pain 04/09/21 07/07/23 allopurinol 300 mg tablet 300 mg PO QPM 06/12/21 07/07/23 metoprolol succinate 25 mg 12.5 mg PO HS 06/12/21 07/07/23 tablet,extended release 24 hr pyridoxine (vitamin B6) 100 mg 100 mg PO QAM 06/12/21 07/07/23 tablet pantoprazole 20 mg tablet,delayed 20 mg PO QAM 06/27/21 07/07/23 release daratumumab 20 mg/mL intravenous 20 mg IV Q4WK 07/12/21 07/07/23 solution (Darzalex) diphenoxylate-atropine 2.5 1 tab PO .COMPLEX PRN Diarrhea 07/12/21 07/07/23 mg-0.025 mg tablet (Lomotil) pregabalin 50 mg capsule (Lyrica) 50 mg PO TID 07/08/22 07/07/23 amiloride 5 mg tablet 5 mg PO QPM 08/05/22 07/07/23 ferrous sulfate 325 mg (65 mg 325 mg PO BID 08/05/22 07/07/23 iron) tablet (iron) magnesium oxide 500 mg capsule 500 mg PO BID 08/05/22 07/07/23 pravastatin 20 mg tablet 20 mg PO PM 08/05/22 07/07/23 betamethasone dipropionate 0.05 % 1 applic topical DAILY PRN Rash 03/18/23 07/07/23 lotion cyanocobalamin (vitamin B-12) 1,000 mcg PO BID 03/27/23 07/07/23 1,000 mcg tablet (Vitamin B-12) levothyroxine 150 mcg tablet 150 mcg PO QAM 03/27/23 07/07/23 losartan 25 mg tablet 25 mg PO QPM 03/27/23 07/07/23 triamcinolone acetonide 0.1 % 1 applic topical BID PRN Rash 03/27/23 07/07/23 topical cream apixaban 2.5 mg tablet (Eliquis) 2.5 mg PO BID 07/07/23 07/07/23 Previous Rx's Medication Instructions Recorded insulin glargine 100 unit/mL (3 See Rx Instructions .Route 11/20/22 mL) subcutaneous pen (Lantus .COMPLEX #30 mL Solostar U-100 Insulin) blood sugar diagnostic (FreeStyle #200 ea 03/18/23 Lite Strips) dulaglutide 3 mg/0.5 mL 3 mg (0.5 mL) subcut ONCE #6 mL 03/18/23 subcutaneous pen injector (Trulicity) lancets 28 gauge (FreeStyle #200 ea 03/18/23 Lancets) pen needle, diabetic 32 gauge x #200 ea 03/18/23 5/16" (Comfort EZ Pen Rewey) nystatin-triamcinolone 100,000 1 applic topical BID Rash 5 days 05/30/23 unit/gram-0.1 % topical ointment #30 grams Results & Data (ED) Vital Signs Vital Signs - 24 hr 07/07/23 08:52 07/07/23 09:08 07/07/23 09:35 Temperature 36.0 C L Temperature Source Temporal Artery Scan Pulse Rate 86 77 Pulse Rate [Right Finger] Pulse Rate from SpO2 Sensor Pulse Rhythm [Right Finger] Pulse Strength [Right Finger] Respiratory Rate 24 Respiratory Effort / Characteristics Non-Labored Respiratory Depth Normal Respiratory Pattern Blood Pressure 112/76 Blood Pressure [Right Arm] Blood Pressure Mean 88 Blood Pressure Mean [Right Arm] Blood Pressure Position [Right Arm] Pulse Oximetry 93 Oxygen Delivery Method Room Air Room Air Oxygen Flow Rate 97 Sepsis Recent Fever Within 48 Hours No Sepsis New/Unexplained Change in Mental Status N/A Sepsis Action Taken by Nursing No Action Required 07/07/23 09:35 07/07/23 09:37 07/07/23 10:36 Temperature Temperature Source Pulse Rate Pulse Rate [Right Finger] 83 75 Pulse Rate from SpO2 Sensor Pulse Rhythm [Right Finger] Regular Regular Pulse Strength [Right Finger] Normal Normal Respiratory Rate 20 18 Respiratory Effort / Characteristics Non-Labored Non-Labored Spontaneous SOB on Exertion Respiratory Depth Normal Normal Respiratory Pattern Regular Regular Blood Pressure Blood Pressure [Right Arm] 105/65 122/80 Blood Pressure Mean Blood Pressure Mean [Right Arm] 78 94 Blood Pressure Position [Right Arm] Sitting Lying Pulse Oximetry 97 92 Oxygen Delivery Method Room Air Room Air Room Air Oxygen Flow Rate Sepsis Recent Fever Within 48 Hours Sepsis New/Unexplained Change in Mental Status Sepsis Action Taken by Nursing 07/07/23 09:06 07/07/23 09:30 07/07/23 09:30 Temperature Temperature Source Pulse Rate 76 81 Pulse Rate [Right Finger] Pulse Rate from SpO2 Sensor 76 81 Pulse Rhythm [Right Finger] Pulse Strength [Right Finger] Respiratory Rate 18 24 Respiratory Effort / Characteristics Respiratory Depth Respiratory Pattern Blood Pressure 105/65 Blood Pressure [Right Arm] Blood Pressure Mean 80 Blood Pressure Mean [Right Arm] Blood Pressure Position [Right Arm] Pulse Oximetry 94 98 Oxygen Delivery Method Oxygen Flow Rate Sepsis Recent Fever Within 48 Hours Sepsis New/Unexplained Change in Mental Status Sepsis Action Taken by Nursing 07/07/23 10:00 07/07/23 10:00 07/07/23 10:30 Temperature Temperature Source Pulse Rate 79 Pulse Rate [Right Finger] Pulse Rate from SpO2 Sensor 79 Pulse Rhythm [Right Finger] Pulse Strength [Right Finger] Respiratory Rate 14 Respiratory Effort / Characteristics Respiratory Depth Respiratory Pattern Blood Pressure 125/70 122/80 Blood Pressure [Right Arm] Blood Pressure Mean 79 99 Blood Pressure Mean [Right Arm] Blood Pressure Position [Right Arm] Pulse Oximetry 91 Oxygen Delivery Method Oxygen Flow Rate Sepsis Recent Fever Within 48 Hours Sepsis New/Unexplained Change in Mental Status Sepsis Action Taken by Nursing 07/07/23 10:07/07/23 11:00 07/07/23 11:00 Temperature Temperature Source Pulse Rate 80 77 Pulse Rate [Right Finger] Pulse Rate from SpO2 Sensor 80 77 Pulse Rhythm [Right Finger] Pulse Strength [Right Finger] Respiratory Rate 20 19 Respiratory Effort / Characteristics Respiratory Depth Respiratory Pattern Blood Pressure 139/98 Blood Pressure [Right Arm] Blood Pressure Mean 127 Blood Pressure Mean [Right Arm] Blood Pressure Position [Right Arm] Pulse Oximetry 93 92 Oxygen Delivery Method Oxygen Flow Rate Sepsis Recent Fever Within 48 Hours Sepsis New/Unexplained Change in Mental Status Sepsis Action Taken by Nursing 07/07/23 11:30 07/07/23 11:30 07/07/23 12:00 Temperature Temperature Source Pulse Rate 75 Pulse Rate [Right Finger] Pulse Rate from SpO2 Sensor 75 Pulse Rhythm [Right Finger] Pulse Strength [Right Finger] Respiratory Rate 22 Respiratory Effort / Characteristics Respiratory Depth Respiratory Pattern Blood Pressure 133/89 130/88 Blood Pressure [Right Arm] Blood Pressure Mean 112 100 Blood Pressure Mean [Right Arm] Blood Pressure Position [Right Arm] Pulse Oximetry 92 Oxygen Delivery Method Oxygen Flow Rate Sepsis Recent Fever Within 48 Hours Sepsis New/Unexplained Change in Mental Status Sepsis Action Taken by Nursing 07/07/23 12:00 Temperature Temperature Source Pulse Rate 73 Pulse Rate [Right Finger] Pulse Rate from SpO2 Sensor 74 Pulse Rhythm [Right Finger] Pulse Strength [Right Finger] Respiratory Rate 23 Respiratory Effort / Characteristics Respiratory Depth Respiratory Pattern Blood Pressure Blood Pressure [Right Arm] Blood Pressure Mean Blood Pressure Mean [Right Arm] Blood Pressure Position [Right Arm] Pulse Oximetry 93 Oxygen Delivery Method Oxygen Flow Rate Sepsis Recent Fever Within 48 Hours Sepsis New/Unexplained Change in Mental Status Sepsis Action Taken by Nursing Laboratory Data 07/07/23 09:18 07/07/23 09:18 Lab Results 07/07/23 07/07/23 07/07/23 Range/Units 09:18 09:18 09:18 WBC 2.54 L (4.8-10.8) K/ul RBC 3.66 L (4.20-5.40) M/uL Hgb 11.2 L (12.0-16.0) g/dl Hct 34.6 L (37.0-47.0) % MCV 94.5 (80.0-100.0) fL MCH 30.6 (25.0-34.0) pg MCHC 32.4 (32.0-36.0) g/dL RDW Std Deviation 53.8 H (36.4-46.3) fL RDW Coeff of Aminata 15.5 H (11.5-14.5) % Plt Count 176 (130-400) K/uL MPV 10.9 (9.4-12.4) fL Neutrophils % (Manual) 12 % Lymphocytes % (Manual) 20 % Monocytes % (Manual) 11 % Eosinophils % (Manual) 6 % Basophils % (Manual) 2 % Neutrophils # (Manual) 0.30 L (1.40-6.50) K/uL Total Absolute Neuts 0.30 L* (1.4-6.5) K/uL Lymphocytes # (Manual) 0.51 L (1.2-3.4) K/uL Total Abs Lymphocytes 1.75 (1.2-3.4) K/uL Monocytes # (Manual) 0.28 (0.11-0.59) K/uL Eosinophils # (Manual) 0.15 (0-0.50) K/uL Basophils # (Manual) 0.05 (0-0.2) K/uL Large Granular Lymphs 49 % # Lrg Granular Lymphs 1.24 K/uL PT 11.7 (9.0-12.0) Seconds INR 1.1 (0.9-1.1) Sodium 137 (136-145) mmol/L Potassium 4.5 (3.5-5.1) mmol/L Chloride 109 H (98-107) mmol/L Carbon Dioxide 21 (21-32) mmol/L Anion Gap 7 (3-11) BUN 17 (6-23) mg/dl Creatinine 1.09 (0.6-1.2) mg/dl Est Cr Clr Drug Dosing 52.7 ml/min Est GFR ( Amer) 58.3 ml/min Est GFR (Non-Af Amer) 50.3 ml/min BUN/Creatinine Ratio 15.6 (10-20) Glucose 208 H (70-99(Fasting)) mg/dl Calcium 8.1 L (8.6-10.3) mg/dl Total Bilirubin 1.5 H (0.2-1.0) mg/dl AST 10 L (13-39) U/L ALT 10 (7-52) U/L Alkaline Phosphatase 51 (34-104) U/L Troponin I High Sens 7.5 (0-14) pg/ml B-Natriuretic Peptide (0-100) pg/ml Total Protein 5.4 L (6.0-8.3) gm/dl Albumin 3.3 L (3.4-5.0) gm/dl Globulin 2.1 L (2.5-4.0) gm/dl Albumin/Globulin Ratio 1.6 (0.9-2) Procalcitonin (0-0.5) ng/ml Adenovirus (PCR) (NotDetected) B. pertussis DNA (PCR) (NotDetected) B.parapertussis DNA PCR (NotDetected) C. pneumoniae DNA (PCR) (NotDetected) Coronavirus OC43 (PCR) (NotDetected) Coronavirus HKU1 (PCR) (NotDetected) Coronavirus 229E (PCR) (NotDetected) SARS-CoV-2 (PCR) (NotDetected) Coronavirus NL63 (PCR) (NotDetected) Human Metapneumovir PCR (NotDetected) Influenza Type A (PCR) (NotDetected) Influenza Type B (PCR) (NotDetected) M. pneumoniae (PCR) (NotDetected) Parainfluenza 1 (PCR) (NotDetected) Parainfluenza 2 (PCR) (NotDetected) Parainfluenza 3 (PCR) (NotDetected) Parainfluenza 4 (PCR) (NotDetected) RSV (PCR) (NotDetected) Entero/Rhino (PCR) (NotDetected) 07/07/23 07/07/23 07/07/23 Range/Units 09:18 09:29 11:35 WBC (4.8-10.8) K/ul RBC (4.20-5.40) M/uL Hgb (12.0-16.0) g/dl Hct (37.0-47.0) % MCV (80.0-100.0) fL MCH (25.0-34.0) pg MCHC (32.0-36.0) g/dL RDW Std Deviation (36.4-46.3) fL RDW Coeff of Aminata (11.5-14.5) % Plt Count (130-400) K/uL MPV (9.4-12.4) fL Neutrophils % (Manual) % Lymphocytes % (Manual) % Monocytes % (Manual) % Eosinophils % (Manual) % Basophils % (Manual) % Neutrophils # (Manual) (1.40-6.50) K/uL Total Absolute Neuts (1.4-6.5) K/uL Lymphocytes # (Manual) (1.2-3.4) K/uL Total Abs Lymphocytes (1.2-3.4) K/uL Monocytes # (Manual) (0.11-0.59) K/uL Eosinophils # (Manual) (0-0.50) K/uL Basophils # (Manual) (0-0.2) K/uL Large Granular Lymphs % # Lrg Granular Lymphs K/uL PT (9.0-12.0) Seconds INR (0.9-1.1) Sodium (136-145) mmol/L Potassium (3.5-5.1) mmol/L Chloride (98-107) mmol/L Carbon Dioxide (21-32) mmol/L Anion Gap (3-11) BUN (6-23) mg/dl Creatinine (0.6-1.2) mg/dl Est Cr Clr Drug Dosing ml/min Est GFR ( Amer) ml/min Est GFR (Non-Af Amer) ml/min BUN/Creatinine Ratio (10-20) Glucose (70-99(Fasting)) mg/dl Calcium (8.6-10.3) mg/dl Total Bilirubin (0.2-1.0) mg/dl AST (13-39) U/L ALT (7-52) U/L Alkaline Phosphatase (34-104) U/L Troponin I High Sens (0-14) pg/ml B-Natriuretic Peptide 65 (0-100) pg/ml Total Protein (6.0-8.3) gm/dl Albumin (3.4-5.0) gm/dl Globulin (2.5-4.0) gm/dl Albumin/Globulin Ratio (0.9-2) Procalcitonin 0.52 H (0-0.5) ng/ml Adenovirus (PCR) Not Detected (NotDetected) B. pertussis DNA (PCR) Not Detected (NotDetected) B.parapertussis DNA PCR Not Detected (NotDetected) C. pneumoniae DNA (PCR) Not Detected (NotDetected) Coronavirus OC43 (PCR) Not Detected (NotDetected) Coronavirus HKU1 (PCR) Not Detected (NotDetected) Coronavirus 229E (PCR) Not Detected (NotDetected) SARS-CoV-2 (PCR) Not Detected (NotDetected) Coronavirus NL63 (PCR) Not Detected (NotDetected) Human Metapneumovir PCR Not Detected (NotDetected) Influenza Type A (PCR) Not Detected (NotDetected) Influenza Type B (PCR) Not Detected (NotDetected) M. pneumoniae (PCR) Not Detected (NotDetected) Parainfluenza 1 (PCR) Not Detected (NotDetected) Parainfluenza 2 (PCR) Not Detected (NotDetected) Parainfluenza 3 (PCR) Not Detected (NotDetected) Parainfluenza 4 (PCR) DETECTED A* (NotDetected) RSV (PCR) Not Detected (NotDetected) Entero/Rhino (PCR) Not Detected (NotDetected) Administered Medications Albuterol (Albut/Ipratrop 3mg/0.5mg Neb 3 Ml Vial) 3 ml NEB QIDR HENNY; Protocol Stop: 08/06/23 14:59 Last Admin: 07/07/23 15:11 Dose: 3 ml Documented By: TIM Benzonatate (Benzonatate 100 Mg Capsule) 100 mg PO TID [facility] Stop: 08/06/23 13:59 Last Admin: 07/07/23 15:10 Dose: 100 mg Documented By: ACC Enoxaparin Sodium (Enoxaparin Inj 40 Mg/0.4 Ml Syr) 40 mg SQ Q24H [facility] Stop: 08/06/23 14:33 Last Admin: 07/07/23 15:10 Dose: 40 mg Documented By: ACC Pregabalin (Pregabalin 50 Mg Cap) 50 mg PO TID EHNNY Stop: 08/06/23 14:33 Last Admin: 07/07/23 15:10 Dose: 50 mg Documented By: ACC Discontinued Medications Albuterol (Albut/Ipratrop 3mg/0.5mg Neb 3 Ml Vial) 3 ml NEB NOW STA; Protocol Stop: 07/07/23 09:18 Last Admin: 07/07/23 09:28 Dose: 3 ml Documented By: TURNER Apixaban (Apixaban 2.5 Mg Tab) 2.5 mg PO NOW STA Stop: 07/07/23 13:02 Last Admin: 07/07/23 13:37 Dose: 2.5 mg Documented By: ACC Vancomycin HCl 2,000 mg/ (Sodium Chloride) 540 mls @ 200 mls/hr IV NOW ONE Stop: 07/07/23 14:05 Last Admin: 07/07/23 12:39 Dose: 200 mls/hr Documented By: ACC Cefepime HCl (Maxipime) 2,000 mg in 20 mls @ 5 mls/min IV NOW STA; Protocol Stop: 07/07/23 11:27 Last Admin: 07/07/23 11:42 Dose: 5 mls/min Documented By: ACC Imaging Data Radiologist's Impression: Chest X-Ray 07/07/23 09:08 XR chest 1V portable HISTORY: Dyspnea COMPARISON: Chest 05/28/2023. FINDINGS: No pneumothorax. No pleural effusions. There is a large hiatus hernia, unchanged. The cardiac silhouette is top normal in size. There are poststernotomy changes and a right subclavian Port-A-Cath again noted. The turbinates at the proximal SVC. No acute fractures. No evidence for pulmonary edema. Increased markings at the lung bases may be technical. IMPRESSION: 1. Increased markings at the lung bases which may be technical. A low-grade pneumonitis would be difficult to exclude. 2. Large hiatus hernia, unchanged. ACT 112: Negative or not required by law. Electronically signed by: Julian Venegas M.D. 07/07/2023 9:40 AM Discharge Plan Visit Data Chief Complaint: Shortness of Breath/Dyspnea Stated Complaint: TROUBLE BREATHING, SOB , SICK TO STOMACH, SWEATS ED Provider: Jermaine Downing Discharge Problem: Neutropenia Patient Disposition: Being Evaluated by Hospitalist Discharge Instructions Interventions: ED Discharge Assessment Last Done: 07/07/23 14:35
[2023-07-07 09:31] LABS: Hematocrit (blood only) 34.6 % (37.0-47.0); Hemoglobin 11.2 g/dl (12.0-16.0); Mean Corpuscular Hemoglobin 30.6 pg (25.0-34.0); Mean Corpuscular Hgb Conc 32.4 g/dL (32.0-36.0); Mean Corpuscular Volume 94.5 fL (80.0-100.0); Mean Platelet Volume 10.9 fL (9.4-12.4); Platelet Count 176 K/uL (130-400); RDW Coefficient of Variation 15.5 % (11.5-14.5); RDW Standard Deviation 53.8 fL (36.4-46.3); Red Blood Count 3.66 M/uL (4.20-5.40); White Blood Count 2.54 K/ul (4.8-10.8)
--- NOTE | 2023-07-07 09:42 | XRay Report ---
XR chest 1V portable HISTORY: Dyspnea COMPARISON: Chest 05/28/2023. FINDINGS: No pneumothorax. No pleural effusions. There is a large hiatus hernia, unchanged. The cardi ac silhouette is top normal in size. There are poststernotomy changes and a right subclavian Port-A-C ath again noted. The turbinates at the proximal SVC. No acute fractures. No evidence for pulmonary ed gaurang. Increased markings at the lung bases may be technical. IMPRESSION: 1. Increased markings at the lung bases which may be technical. A low-grade pneumonitis would be diff icult to exclude. 2. Large hiatus hernia, unchanged. ACT 112: Negative or not required by law. Electronically signed by: Julian Venegas M.D. 07/07/2023 9:40 AM
[2023-07-07 09:47] LABS: Albumin Globulin Ratio 1.6 (0.9-2); Albumin Level 3.3 gm/dl (3.4-5.0); BUN Creatinine Ratio 15.6 (10-20); Bilirubin,Total 1.5 mg/dl (0.2-1.0); Calcium 8.1 mg/dl (8.6-10.3); Creatinine Clr Calc Pharmacy 52.7 ml/min; Est GFR (African American) 58.3 ml/min; Est GFR (Non-African American) 50.3 ml/min; Globulin 2.1 gm/dl (2.5-4.0); Potassium 4.5 mmol/L (3.5-5.1); Total Protein 5.4 gm/dl (6.0-8.3)
[2023-07-07 09:54] LABS: Troponin I High Sensitivity 7.5 pg/ml (0-14)
[2023-07-07 10:00] LABS: INR 1.1 (0.9-1.1); Prothrombin Time 11.7 Seconds (9.0-12.0)
[2023-07-07 10:38] LABS: ALC (manual) 1.75 K/uL (1.2-3.4); Basophils # (manual) 0.05 K/uL (0-0.2); Basophils % (manual) 2 %; Eosinophils # (manual) 0.15 K/uL (0-0.50); Eosinophils % (manual) 6 %; Large Granular Lymph # (manua 1.24 K/uL; Large Granular Lymph % (manual) 49 %; Lymphocytes # (manual) 0.51 K/uL (1.2-3.4); Lymphocytes % (manual) 20 %; Monocytes # (manual) 0.28 K/uL (0.11-0.59); Monocytes % (manual) 11 %; Neutrophils % (manual) 12 %
[2023-07-07 10:57] LABS: Adenovirus PCR Not Detected (NotDetected); Bordetella parapertussis PCR Not Detected (NotDetected); Bordetella pertussis PCR Not Detected (NotDetected); Chlamydia pneumoniae PCR Not Detected (NotDetected); Coronavirus 229E PCR Not Detected (NotDetected); Coronavirus CoV-2 (COVID19)PCR Not Detected (NotDetected); Coronavirus HKU1 PCR Not Detected (NotDetected); Coronavirus NL63 PCR Not Detected (NotDetected); Coronavirus OC43PCR Not Detected (NotDetected); Human Metapneumovirus PCR Not Detected (NotDetected); Influenza A PCR Not Detected (NotDetected); Influenza B PCR Not Detected (NotDetected); Mycoplasma pneumoniae PCR Not Detected (NotDetected); Parainfluenza Virus 1 PCR Not Detected (NotDetected); Parainfluenza Virus 2 PCR Not Detected (NotDetected); Parainfluenza Virus 3 PCR Not Detected (NotDetected); Respiratory Syncytial VirusPCR Not Detected (NotDetected); Rhinovirus/Enterovirus PCR Not Detected (NotDetected)
[2023-07-07 11:13] LABS: Parainfluenza Virus 4 PCR DETECTED (NotDetected)
[2023-07-07] MEDS ORDERED: VANCOMYCIN CONSULT ACTIVE PRN (11:24)
[2023-07-07] MEDS ORDERED: CEFEPIME 2,000 MG/20 ML VIAL IV STA (11:24)
[2023-07-07] MEDS ORDERED: VANCOMYCIN HCL 2,000 MG in SODIUM CHLORIDE 0.9% 500 ML IV ONE (11:24)
--- NOTE | 2023-07-07 11:38 | History & Physical Report ---
Date of Service July 07, 2023 Assessment & Plan (1) Neutropenia: Plan: -Admit to med.melody -Currently stable on RA and hemodynamically stable -Came in for one week on progressive SOB, chest congestion, non-productive cough, and generalized weakness -WBC of 2.54 with absolute neutrophil count of 0.30 -Likely multifactorial including current chemotherapy treatment for Multiple Myeloma and acute Parainfluenza infection, cannot rule out bacterial infection at this time -S/P one dose of Vancomycin and Cefepime in the ED, will continue with both for now (Ordered 48 hours of empiric coverage) while her infectious workup is in process -She is without other signs/symptoms of infection such as urinary/GI symptoms -No focal consolidation on CXR but does note possible BL lower lung pneumonitis -No sign of infection of the mediport -Procal is in process, follow blood cultures -Will order sputum culture with gram stain if she can provide a sample -Holding oral chemotherapy at this time with acute infection -Continue home Eliquis for DVT PPX -Neutropenic precautions -HH/DMII diet -AM CBC, BMP, Mag, PT/INR (2) Parainfluenza: Plan: -Positive in the ED today -Stable on RA, able to speak in complete sentences -Will start scheduled Robitussin and Tessalon Pearls -Scheduled Duonebs, incentive spirometry, flutter therapy -Will try and get sputum culture if chest PT allows her to clear sputum -Could consider adding Saline nebs if no improvement on initial treatment plan (3) SOB (shortness of breath): Plan: -Likely due to Parainfluenza infection and possible pneumonitis -Cardiac workup has been WNL, is on BID eliquis and without hypoxia, hypotension, and pleuritic chest pain, low suspicion for PE at this time -She is Euvolemic to mildly dehydrated, low suspicion for CHF at this time -Continue treatment as detailed in Parainfluenza plan at this time (4) Chest congestion: Plan: -See SOB/Parainfluenza virus (5) Generalized weakness: Plan: -Likely due to her Parainfluenza infection -Currently stable -Will give 500 mL LR bolus on admission -OOB with assistance (6) Multiple myeloma: Plan: -Follows with Dr. Macdonald at the [facility] -Hold PO Polmalyst with active infection -If her condition were to decline would consider Heme/onc consult (7) Hypothyroidism: Plan: -Continue levothyroxine (8) Diabetes mellitus type 2 in obese: Plan: -Hold trulicity -Monitor BSG ACHS, goal is 110-140 -Will start 15 units BID lantus as she takes 30 units HS at home -Start CF of 50 ACHS, hold CR for now -HH/DMII diet -Adjust regimen as needed (9) Hypomagnesemia: Plan: -Chronic issue -Continue BID PO mag -Monitor am Mag level (10) [place] (myocardial infarction): Plan: -S/P CABG x 2 in 2003 -Continue Aspirin and metoprolol (11) Asthma: Plan: -Stable on RA with minimal wheezing, adequate air movement on admission -Rest of care per Parainfluenza plan (12) Acid reflux: Plan: -Continua pantoprazole Plan The patient was discussed with Dr. Diallo at the time of the admission History of Present Illness Chief Complaint: SOB, congestion, chest pressure Primary Care Provider: Yaneth Pillai MD Milena is a 73 year old female with a PMH significant for multiple myeloma S/P radiation and chemotherapy, S/P stem cell transplant x 2 (last approx 5 yrs ago) currently on Daratumumab, DM II, CAD S/P CABG X 2 in 2013, chronic pain, and GERD who presented to the [facility] ED on 07/07 with complaints of SOB, Congestion, and chest pressure. She remained stable and afebrile in the ED. Labs were significant for WBC of 2.54 with absolute neutrophil count of 0.30, lymphocyte count of 0.51, and full respiratory biofire positive for Parainfluenza virus. Chest xray was read as "1. Increased markings at the lung bases which may be technical. A low-grade pneumonitis would be difficult to exclude. 2. Large hiatus hernia, unchanged.". Prior to admission the patient was given a DuoNeb treatment, vancomycin, and cefepime. At the time of the exam the patient was sitting in bed in no acute distress with her daughter sitting bedside. She states that she is currently on 3 week on and one week off of Pomalyst and monthly infusions of Daratumumab for Multiple Myeloma. Today is her last day of a Pomalyst before a week off. She has been experiencing generalized weakness, SOB, chest congestion, and a non-productive cough for the past week. She called her PCP who was unable to get her a quick appointment. They did prescribed her Cefuroxime and albuterol on 07/04, she started taking both on 07/05 but has not seen a significant improvement in symptoms. She denies orthopnea/PND, pleuritic chest pain, pain/irritation at her mediport site, vomiting, dysuria, hematuria, changes in bowel movements, LE swelling, and recent trauma. She explains that she was started on Eliquis in April by Dr. Macdonald for blood clot prophylaxis while on Polmalyst. We discussed code status, she is a full code and wishes for her daughter to make medical decisions for her if she cannot make them herself. Please refer to Dr. Diallo's attestation for any changes to the treatment plan Allergies Allergy/AdvReac Type Severity Reaction Status Date / Time cephalexin Allergy Intermediate hives Verified 05/29/23 14:30 ciprofloxacin [From Cipro] Allergy Mild Hives Verified 05/29/23 14:30 codeine Allergy Mild rash Verified 05/29/23 14:30 dapagliflozin [From Farxiga] AdvReac Intermediate Rash Verified 05/29/23 14:30 lisinopril AdvReac Mild COUGH Verified 05/29/23 14:30 Home Medications Medication Instructions Recorded Confirmed Type acyclovir 800 mg tablet 800 mg PO BID 05/11/19 07/07/23 History aspirin 81 mg chewable tablet 81 mg PO HS 10/26/19 07/07/23 History cholecalciferol (vitamin D3) 50 50 mcg PO QAM 03/22/20 07/07/23 History mcg (2,000 unit) capsule albuterol sulfate 90 mcg/actuation 2 - 4 puff inhalation Q6H PRN 03/26/21 07/07/23 History aerosol inhaler (Ventolin HFA) Shortness Of Breath Or Wheezing tramadol 50 mg tablet 50 - 100 mg PO BID PRN Pain 04/09/21 07/07/23 History allopurinol 300 mg tablet 300 mg PO QPM 06/12/21 07/07/23 History metoprolol succinate 25 mg 12.5 mg PO HS 06/12/21 07/07/23 History tablet,extended release 24 hr pyridoxine (vitamin B6) 100 mg 100 mg PO QAM 06/12/21 07/07/23 History tablet pantoprazole 20 mg tablet,delayed 20 mg PO QAM 06/27/21 07/07/23 History release daratumumab 20 mg/mL intravenous 20 mg IV Q4WK 07/12/21 07/07/23 History solution (Darzalex) diphenoxylate-atropine 2.5 1 tab PO .COMPLEX PRN Diarrhea 07/12/21 07/07/23 History mg-0.025 mg tablet (Lomotil) pregabalin 50 mg capsule (Lyrica) 50 mg PO TID 07/08/22 07/07/23 History amiloride 5 mg tablet 5 mg PO QPM 08/05/22 07/07/23 History ferrous sulfate 325 mg (65 mg 325 mg PO BID 08/05/22 07/07/23 History iron) tablet (iron) magnesium oxide 500 mg capsule 500 mg PO BID 08/05/22 07/07/23 History pravastatin 20 mg tablet 20 mg PO PM 08/05/22 07/07/23 History insulin glargine 100 unit/mL (3 See Rx Instructions .Route 11/20/22 07/07/23 Rx mL) subcutaneous pen (Lantus .COMPLEX #30 mL Solostar U-100 Insulin) betamethasone dipropionate 0.05 % 1 applic topical DAILY PRN Rash 03/18/23 07/07/23 History lotion blood sugar diagnostic (FreeStyle #200 ea 03/18/23 05/29/23 Rx Lite Strips) dulaglutide 3 mg/0.5 mL 3 mg (0.5 mL) subcut ONCE #6 mL 03/18/23 07/07/23 Rx subcutaneous pen injector (Trulicity) lancets 28 gauge (FreeStyle #200 ea 03/18/23 05/29/23 Rx Lancets) pen needle, diabetic 32 gauge x #200 ea 03/18/23 05/29/23 Rx 5/16" (Comfort EZ Pen Hooks) cyanocobalamin (vitamin B-12) 1,000 mcg PO BID 03/27/23 07/07/23 History 1,000 mcg tablet (Vitamin B-12) levothyroxine 150 mcg tablet 150 mcg PO QAM 03/27/23 07/07/23 History losartan 25 mg tablet 25 mg PO QPM 03/27/23 07/07/23 History triamcinolone acetonide 0.1 % 1 applic topical BID PRN Rash 03/27/23 07/07/23 History topical cream nystatin-triamcinolone 100,000 1 applic topical BID Rash 5 days 05/30/23 07/07/23 Rx unit/gram-0.1 % topical ointment #30 grams apixaban 2.5 mg tablet (Eliquis) 2.5 mg PO BID 07/07/23 07/07/23 History Past Med/Surg History Medical History (Updated 07/07/23 @ 12:42 by Sebastian Howard PA-C) A-fib PT DENIES > WAS ONE TIME RELATED TO ILLNESS Acid reflux Acute kidney injury FOLLOWS WITH DR. DIAZ Asthma NO RES INH USE FOR OVER A YEAR BPPV (benign paroxysmal positional vertigo) ONLY HAPPENED ONCE CAD (coronary artery disease) s/p CABG x 2 > FOLLOWS WITH DR. PARIS CHF (congestive heart failure) Diabetic peripheral neuropathy associated with type 2 diabetes mellitus Dysesthesia Dyslipidemia Hx of sleep apnea RESOLVED SINCE CABG SURGERY PER PT Hyperlipidemia Hypomagnesemia Hypothyroidism Loss of protective sensation of skin of foot [place] (myocardial infarction) 2009 > CABG Morbid obesity Multiple myeloma Dx 2003, s/p chemo >HX OF STEM CELL TRANSPLANT--pt states her WBC rising, following with Lisandra on 04/09/23 regarding this Peripheral neuropathy due to chemotherapy Port-A-Cath in place (10/28/19) Insertion of Mediport Right Subclavian Vein with Fluoroscopy Dr. 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 Hx of CABG X 2 VESSEL 2009 > [facility] [place] FOLLOW WITH DR PARIS Hx of dilation and curettage Hx of stem cell transplant LAST ONE APPROX 4-5 YRS AGO [facility] [place] Family History Mother Liver cancer Thyroid cancer Diabetes Grandmother (Maternal) Diabetes Other No family history of adverse response to anesthesia Social History Smoking Status: Never smoker Second Hand Exposure: No; Do You Dip or Chew Tobacco: No; Hx Alcohol Use: Yes ("drink a beer about 3x a year") Alcohol type: beer Alcohol Intake Frequency Comment: 2-4 drinks a year Hx Substance Use: No Preferred Language: Montserratian Communication Ability: Effective Drum Filler Required: No Beliefs That Will Affect Care: None marital status: Current Living Situation: Alone current occupational status: retired Feels Safe at Home: Yes Assistive Devices: Denture - Upper and Glasses Physical Exam Physical Exam: Physical Exam: General: In no acute distress, stated age, ill but non-toxic appearing HEENT: Normocephalic, atraumatic, no scleral icterus, pupils around round, symmetrical, and reactive to light, moist mucus membranes, trachea midline, no thyromegaly Chest/Pulm: No respiratory distress, symmetrical chest expansion, rhonchi noted in the BL lower lung mclean with mild expiratory wheezing in the mid and upper lung mclean Cardiac: RRR, no murmurs noted Abdomen: Negative for ascites and bruising, normoactive bowel sounds, soft, non-tender to palpation throughout Musculoskeletal: Symmetrical and without signs of acute trauma, upper and lower extremities with full ROM, no atrophy, spasticity, or flaccidity Extremities: Radial, dorsalis pedis, and posterior tibial pulses are intact and symmetrical, no edema noted in the BL LE's Skin: Warm, dry, no rashes , lesions, or scars noted Neuro: Alert and oriented to person, place, month, year, and president, no focal defects, no tremors noted Psych: No acute distress, calm and cooperative during the exam Results & Data Results & Data Vital Signs (Past 12 Hours) Vital Signs Temp Pulse Pulse Resp BP BP Pulse Ox 07/07/23 10:36 75 18 122/80 92 07/07/23 09:37 07/07/23 09:35 83 20 105/65 97 07/07/23 09:35 07/07/23 09:08 77 07/07/23 08:52 36.0 C L 86 24 112/76 93 O2 Del Method O2 Flow Rate 07/07/23 10:36 Room Air 07/07/23 09:37 Room Air 07/07/23 09:35 Room Air 07/07/23 09:35 Room Air 97 07/07/23 09:08 07/07/23 08:52 Room Air Laboratory Results Abnormal lab results 07/07/23 07/07/23 07/07/23 Range/Units 09:18 09:18 09:29 WBC 2.54 L (4.8-10.8) K/ul RBC 3.66 L (4.20-5.40) M/uL Hgb 11.2 L (12.0-16.0) g/dl Hct 34.6 L (37.0-47.0) % RDW Std Deviation 53.8 H (36.4-46.3) fL RDW Coeff of Aminata 15.5 H (11.5-14.5) % Neutrophils # (Manual) 0.30 L (1.40-6.50) K/uL Total Absolute Neuts 0.30 L* (1.4-6.5) K/uL Lymphocytes # (Manual) 0.51 L (1.2-3.4) K/uL Chloride 109 H (98-107) mmol/L Glucose 208 H (70-99(Fasting)) mg/dl Calcium 8.1 L (8.6-10.3) mg/dl Total Bilirubin 1.5 H (0.2-1.0) mg/dl AST 10 L (13-39) U/L Total Protein 5.4 L (6.0-8.3) gm/dl Albumin 3.3 L (3.4-5.0) gm/dl Globulin 2.1 L (2.5-4.0) gm/dl Parainfluenza 4 (PCR) DETECTED A* (NotDetected) Diagnostic Findings Chest X-Ray 07/07/23 09:08 XR chest 1V portable HISTORY: Dyspnea COMPARISON: Chest 05/28/2023. FINDINGS: No pneumothorax. No pleural effusions. There is a large hiatus hernia, unchanged. The cardiac silhouette is top normal in size. There are poststernotomy changes and a right subclavian Port-A-Cath again noted. The turbinates at the proximal SVC. No acute fractures. No evidence for pulmonary edema. Increased markings at the lung bases may be technical. IMPRESSION: 1. Increased markings at the lung bases which may be technical. A low-grade pneumonitis would be difficult to exclude. 2. Large hiatus hernia, unchanged. ACT 112: Negative or not required by law. Electronically signed by: Julian Venegas M.D. 07/07/2023 9:40 AM ECG Additional Comments: Normal sinus rhythm Nonspecific ST and T wave abnormality Abnormal ECG When compared with ECG of 27-JUN-2021 14:36, No significant change was found Code Status & VTE Plan Code Status Full code VTE Prophylaxis Plan VTE Prophylaxis will be ordered: Yes Supervising Physician Co-Signing Physician Notes Patient seen and examined, chart reviewed, case discussed with Sebastian Howard PA-C and I agree with the assessment and plan as above except as otherwise noted Labs and images reviewed 73yo F hx MM currently on chemotherapy who presents with 5 days of flu like symptoms, cough, congestion, myalgias afrebrile in ER and O2 90-91%. +neb for coarse lung sounds ANC low at 300. Leukopenia. CXR pneumonitis. Pt feels to unwell to go home, fatigued, weak and with 5 days of symptoms. Procal pending, afebrile. +diarrhea at baseline 2/2 chemo, no change. Bio fire is positive for parainfluenza 4. At bedside lungs are diffusely coarse but without wheezing, cough is nonproductive. Heart rate is regular, patient is normotensive and satting 90-92% on room air. URI 5 days of cough, congestion, myalgias. No documented fever. Parainfluenza 4 positive on bio fire. No history of MRSA. Suspect viral, however patient does describe some episodes of feeling feverish and sweats although she did not check her temperature. We will continue 24 hours of antibiotics, follow fever curve, and follow procalcitonin. If she is clinically improving, BC negative Pro-Jitendra is negative, and has no observed fever discontinue antibiotics 07/08. Will defer CT scan unless she worsens Due to neutropenia and concurrent chemo was recommended for admission and coverage for potential secondary pneumonia Sputum culture pending, blood culture pending Incentive spirometry, flutter valve pending. Lung sounds are coarse but with out wheezing. Albuterol as needed Multiple myeloma: With ongoing chemotherapy 1 week on 3 weeks off. Records from [facility] are pending. Treatment is held while admitted for infection. Chronic issues: - Shepard's esophagus EGD 04/2023: Erythematous antral mucosa, normal esophagus, biopsies taken and subsequently showed mild focal Shepard's esophagus at the distal esophagus, inflamed antral mucosa without evidence of metaplasia and which were negative for H. pylori, and no abnormalities of the duodenal biopsy. Continue PPI Type II DM: With home insulin. Basal bolus while inpatient. Goal BSG 1 [id number]. BSG 208 on admission Hypothyroidism: Continue Synthroid Dyslipidemia: Continue statin CHF: Aspirin, metoprolol, losartan, pravastatin continued as noted. No signs of acute CHF. BNP is normal. Troponin is normal. Normal sinus rhythm without territorial ST segment changes or T wave inversions A-fib: Continue metoprolol. Patient is on eliquis also w/ increased clot risk from chemo - Hx UTI: Patient has past urine cultures positive for E. coli and Proteus without extended resistance patterns. No urinary symptoms Agree w/ assessment and management as above PG Care Time/CCT Total # of Minutes Spent Total Time Spent with Patient: Total time spent is greater than 50% in coordination of care (as documented) at patient's floor/unit and/or counseling patient: C[place] [address] INT INP/OBS CARE 3/75MIN Patient Type Established History Comprehensive Exam Comprehensive Medical Decision Making High Complexity Diagnoses Neutropenia D70.9 Parainfluenza B34.8 SOB (shortness of breath) R06.02 Chest congestion R09.89 Generalized weakness R53.1 Multiple myeloma C90.00 Hypothyroidism E03.9 Diabetes mellitus type 2 in obese E11.69; E66.9 Hypomagnesemia E83.42 [place] (myocardial infarction) I21.9 Asthma J45.909 Acid reflux K21.9
[2023-07-07] MEDS ORDERED: DEXTROSE 50% 50 ML SYRINGE IV PRN (12:23)
[2023-07-07] MEDS ORDERED: CARBOHYDRATES FOR HYPOGLYCEMIA PO PRN (12:23)
[2023-07-07] MEDS ORDERED: GLUCOSE 40% GEL 15 GM TUBE PO PRN (12:23)
[2023-07-07] MEDS ORDERED: GLUCAGON FOR INJ 1 MG VIAL SQ PRN (12:23)
[2023-07-07] MEDS ORDERED: LACTATED RINGER'S 500 ML IV ONE (12:23)
[2023-07-07] MEDS ORDERED: GLUCOSE 10 TAB/TUBE PO PRN (12:23)
[2023-07-07] MEDS ORDERED: APIXABAN 2.5 MG TAB PO STA (13:01)
--- NOTE | 2023-07-07 13:25 | Electrocardiogram Report ---
Test Reason : Blood Pressure : / mmHG Vent. Rate : 079 BPM Atrial Rate : 079 BPM P-R Int : 128 ms QRS Dur : 088 ms QT Int : 358 ms P-R-T Axes : 018 043 010 degrees QTc Int : 410 ms Normal sinus rhythm Nonspecific ST and T wave abnormality Abnormal ECG When compared with ECG of 27-JUN-2021 14:36, No significant change was found Confirmed by Estrada Cervantes ([id number]) on 07/07/2023 1:24:44 PM Referred By: REFERRED SELF Confirmed By:Kj Cervanets
[2023-07-07 14:29] LABS: Appearance Urine Clear (Clear); Bacteria Urine Automated Negative (Negative); Bilirubin Urine Negative (Negative); Blood Urine Negative (Negative); Color Urine Dark Yellow; Epithelial Cell Urine Auto >30 /lpf (0-5); Glucose Urine UA 3+ (Negative); Ketones Urine Trace (Negative); Leukocyte Esterase Urine Trace (Negative); Nitrite Urine Negative (Negative); Protein Urine Negative (Negative); RBC Urine Automated 0-4 /hpf (0-4); Specific Gravity Urine 1.025 (1.000-1.030); Urobilinogen Urine Negative (Negative); pH Urine 5.5 (4.5-7.5)
[2023-07-07] MEDS ORDERED: DIPHENOXYLATE/ATROPINE 2.5/0.025MG TAB PO PRN (14:34)
[2023-07-07] MEDS ORDERED: traMADol HCL 50 MG TABLET PO PRN (14:34)
--- NOTE | 2023-07-07 15:03 | Pharmacy Report ---
Pharmacy PK ABX Note - Date of Service July 07, 2023 - Assessment and Plan Assessment 73 year old F receiving Vancomycin and Cefepime for empiric treatment of neutropenia/possible pneumonia. * Day #1 of antimicrobial therapy. * Afebrile w/ leukopenia. ANC 300. Procal 0.52. Blood cultures pending. Respiratory PCR positive for Parainfluenza 4. * Holding oral chemo. Continue home acyclovir for prophylaxis. Mediport doesn't appear infected per H&P. Plan Vancomycin * Loading dose: 2000 mg IV x 1 * Maintenance dose: 750 mg IV every 12 hours * Regimen is predicted to achieve target AUC/LESTER of 400-600 mg/L.hr * Level will not be ordered unless therapy extends beyond 48 hours. Cefepime * 2000 mg IV every 12 hours - appropriate for CrCl of 30-60 mL/min Pharmacy will continue to follow and will adjust dose/frequency as necessary. Thank you. Pharmacy has transitioned to AUC monitoring for vancomycin. AUC/LESTER is the preferred PK/PD target and is associated with decreased risk of nephrotoxicity compared to traditional trough targets.
[2023-07-07] MEDS: ENOXAPARIN INJ 40 MG/0.4 ML SYR SQ SCH (15:10)
[2023-07-07] MEDS: PREGABALIN 50 MG CAP PO SCH ×2 (15:10→23:25)
[2023-07-07] MEDS: BENZONATATE 100 MG CAPSULE PO SCH ×2 (15:10→21:15)
[2023-07-07] MEDS: ALBUT/IPRATROP 3MG/0.5MG NEB 3 ML VIAL NEB SCH ×2 (15:11→20:48)
[2023-07-07] MEDS: guaiFENesin SUGAR FREE 200 MG/10 ML UDC PO SCH ×2 (17:38→18:23)
[2023-07-07] MEDS: INSULIN ASPART PER UNIT CHARGE SC SCH ×2 (19:11→21:34)
[2023-07-07] MEDS: CEFEPIME 2,000 MG in SYRINGE 0 ML IV SCH (21:12)
[2023-07-07] MEDS: METOPROLOL SUCC 25MG EXT REL TAB PO SCH (21:14)
[2023-07-07] MEDS: ACYCLOVIR 400 MG TAB PO SCH (21:15)
[2023-07-07] MEDS: FERROUS SULFATE 325 MG TAB PO SCH (21:15)
[2023-07-07] MEDS: allopurinoL 300 MG TAB PO SCH (21:16)
[2023-07-07] MEDS: MAGNESIUM OXIDE 400 MG TAB PO SCH (21:16)
[2023-07-07] MEDS: ASPIRIN 81 MG CHEW PO SCH (21:16)
[2023-07-07] MEDS: PRAVASTATIN SOD 20 MG TAB PO SCH (21:16)
[2023-07-07] MEDS: LANTUS PER UNIT CHARGE SQ SCH (21:33)
[2023-07-07] MEDS: VANCOMYCIN HCL 750 MG in SODIUM CHLORIDE 0.9% 250 ML IV SCH (23:25)
[2023-07-08] MEDS: guaiFENesin SUGAR FREE 200 MG/10 ML UDC PO SCH ×5 (01:51→23:02)
[2023-07-08] MEDS: LEVOTHYROXINE SODIUM 150 MCG TABLET PO SCH (06:08)
[2023-07-08 06:53] LABS: Hematocrit (blood only) 30.5 % (37.0-47.0); Hemoglobin 9.9 g/dl (12.0-16.0); Mean Corpuscular Hemoglobin 30.4 pg (25.0-34.0); Mean Corpuscular Hgb Conc 32.5 g/dL (32.0-36.0); Mean Corpuscular Volume 93.6 fL (80.0-100.0); Mean Platelet Volume 11.5 fL (9.4-12.4); Platelet Count 153 K/uL (130-400); RDW Coefficient of Variation 15.3 % (11.5-14.5); RDW Standard Deviation 52.9 fL (36.4-46.3); Red Blood Count 3.26 M/uL (4.20-5.40); White Blood Count 1.91 K/ul (4.8-10.8)
[2023-07-08 07:07] LABS: BUN Creatinine Ratio 16.7 (10-20); Calcium 8.3 mg/dl (8.6-10.3); Est GFR (African American) 63.2 ml/min; Est GFR (Non-African American) 54.5 ml/min; Magnesium 1.6 mg/dl (1.7-2.4); Potassium 4.3 mmol/L (3.5-5.1)
[2023-07-08] MEDS: ALBUT/IPRATROP 3MG/0.5MG NEB 3 ML VIAL NEB SCH ×4 (07:34→19:59)
[2023-07-08 07:55] LABS: ANC (manual) 0.38 K/uL (1.4-6.5); Dohle Bodies 1+; Eosinophils # (manual) 0.15 K/uL (0-0.50); Eosinophils % (manual) 8 %; Large Granular Lymph # (manua 0.59 K/uL; Large Granular Lymph % (manual) 31 %; Lymphocytes # (manual) 0.61 K/uL (1.2-3.4); Lymphocytes % (manual) 32 %; Metamyelocytes # (manual) 0.02 K/uL (0-0); Metamyelocytes % (manual) 1 %; Monocytes # (manual) 0.15 K/uL (0.11-0.59); Monocytes % (manual) 8 %; Neutrophils # (manual) 0.38 K/uL (1.40-6.50); Neutrophils % (manual) 20 %; Ovalocytes 1+; Polychromasia 1+
[2023-07-08] MEDS: PANTOprazole 40 MG TAB PO SCH (08:53)
[2023-07-08] MEDS: CEFEPIME 2,000 MG in SYRINGE 0 ML IV SCH ×2 (08:53→23:02)
[2023-07-08] MEDS: MAGNESIUM OXIDE 400 MG TAB PO SCH ×2 (08:53→21:07)
[2023-07-08] MEDS: FERROUS SULFATE 325 MG TAB PO SCH ×2 (08:53→21:07)
[2023-07-08] MEDS: PREGABALIN 50 MG CAP PO SCH ×3 (08:53→21:07)
[2023-07-08] MEDS: BENZONATATE 100 MG CAPSULE PO SCH ×3 (08:53→21:07)
[2023-07-08] MEDS: ACYCLOVIR 400 MG TAB PO SCH ×2 (08:53→21:09)
[2023-07-08 09:09] LABS: Allen Test Pos (Pos); Base Excess ABG -3.6 mEq/L (-9-1.8); HCO3 ABG 20 mmol/L (19-24); Oxygen Saturation ABG 98.2 % (90-95); PCO2 ABG 30 mmHg (35-46); PO2 ABG 91 mmHg (80-95); pH ABG 7.43 (7.35-7.45)
[2023-07-08] MEDS: LANTUS PER UNIT CHARGE SQ SCH ×2 (09:23→21:09)
[2023-07-08] MEDS: INSULIN ASPART PER UNIT CHARGE SC SCH ×4 (09:23→21:09)
[2023-07-08] MEDS: VANCOMYCIN HCL 750 MG in SODIUM CHLORIDE 0.9% 250 ML IV SCH ×2 (09:24→23:02)
[2023-07-08 09:44] LABS: D Dimer 460 ug/L FEU (0-500)
[2023-07-08] MEDS: ENOXAPARIN INJ 40 MG/0.4 ML SYR SQ SCH (13:57)
[2023-07-08] MEDS: methylPREDNISolone 40 MG in SYRINGE 0 ML IV SCH ×2 (13:57→21:09)
--- NOTE | 2023-07-08 14:32 | Hospitalist Progress Note ---
Date of Service July 08, 2023 Assessment & Plan (1) Acute respiratory failure with hypoxia: Plan: Supplemental oxygen per nasal cannula to maintain saturation greater than 90%. Wean off as tolerated. Treat suspected bronchopneumonia (2) Bronchopneumonia: Plan: Suspected. Currently on vancomycin and cefepime. Obtain sputum culture if sputum is produced. Chest CT scan results pending. D-dimer is normal so highly unlikely there is underlying pulmonary embolism. (3) Type 2 diabetes mellitus: Plan: ADA diet. Continue current medical management. Sliding scale insulin as needed (4) Multiple myeloma: Plan: Oncology consultation requested. She has received chemotherapy which is likely cause of leukopenia. Serial labs (5) Leukopenia due to antineoplastic chemotherapy: Plan: Serial labs. Plan To be determined Admission and Anticipated Discharge Date Admission Date: July 07, 2023 Subjective Alert and oriented. No distress. D-dimer is normal. Unlikely she has a pulmonary embolism. Nevertheless, chest CT scan ordered to further investigate the possibility of pneumonitis causing the acute hypoxic respiratory failure. She is currently requiring 4 L oxygen. ABGs noted. No CO2 retention. Oncology consultation ordered since she is undergoing chemotherapy for her multiple myeloma. She remains on vancomycin and cefepime, day 2. Blood cultures and urine culture results are pending. Review of Systems Review of Systems: Constitutional-no fever or chills ENT-no blurred vision, no double vision, no epistaxis, no sore throat Respiratory-occasionally productive cough. No hemoptysis. Shortness of breath with exertion Cardiac-no palpitations, no chest pain, no syncope GI-no nausea, vomiting, diarrhea, melena, hematochezia -no urinary retention, no urinary incontinence, no dysuria, no hematuria Musculoskeletal-no joint pain, no muscle tenderness Skin-no bruising, no rashes, no pruritus Neuro-no isolated weakness, no paresthesia, no weakness Psych-no depression, no anxiety Physical Exam Physical Exam: General-alert and oriented x3, no fevers, no chills HEENT-head atraumatic and normocephalic, pupils equal and reactive to light, extraocular muscles intact Neck-no lymphadenopathy or thyromegaly, trachea midline Chest-bilateral rhonchi. No wheezing. No dullness to percussion Cardiac-regular rate and rhythm, normal S1 and S2 Abdomen-normal bowel sounds, nontender, no hepatosplenomegaly Extremities-no cyanosis, clubbing, or edema Neuro-cranial nerves II through XII intact, motor and sensory function within normal limits, strength symmetrical, no focal deficits Psych-normal affect, normal mood Results & Data Results & Data Vital Signs (Past 12 Hours) Vital Signs Temp Pulse Resp BP BP Pulse Ox O2 Del Method 07/08/23 10:44 73 18 96 Nasal Cannula 07/08/23 10:26 37.3 C 73 16 97/57 L 95 Nasal Cannula 07/08/23 07:51 Nasal Cannula 07/08/23 07:34 71 16 96 Nasal Cannula 07/08/23 07:18 37.6 C H 71 18 111/71 95 Nasal Cannula 07/08/23 03:47 37.2 C 74 18 102/68 95 Nasal Cannula O2 Flow Rate 07/08/23 10:44 4 07/08/23 10:26 3.5 07/08/23 07:51 4.5 07/08/23 07:34 5 07/08/23 07:18 4.5 07/08/23 03:47 2 Laboratory Results 07/08/23 06:07 07/08/23 06:07 PG Care Time/CCT Total # of Minutes Spent Total Time Spent with Patient: Total time spent is greater than 50% in coordination of care (as documented) at patient's floor/unit and/or counseling patient: Coding Level of Care Code 52814 SUB INP/OBS CARE 3/50MIN Diagnoses Acute respiratory failure with hypoxia J96.01 Bronchopneumonia J18.0 Type 2 diabetes mellitus E11.9 Multiple myeloma C90.00 Leukopenia due to antineoplastic chemotherapy D70.1; T45.1X5A
--- NOTE | 2023-07-08 16:20 | Oncology Consultation ---
Date of Consultation July 08, 2023 Assessment & Plan (1) Leukopenia due to antineoplastic chemotherapy: (2) Multiple myeloma: (3) Bronchopneumonia: (4) Acute respiratory failure with hypoxia: Plan Patient currently on active treatment for multiple myeloma presenting with neutropenia and respiratory symptoms with imaging suggestive of possible pneumonia. 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 day 1-21 q. 28-day cycle. Thank you for this consult. Hematology will check in on patient tomorrow since I was unable to evaluate her in person today. Please feel free to call if have any other questions History of Present Illness Reason for Consultation: Multiple myeloma, neutropenia Attending Physician: Faheem Damian MD History of Present Illness Very pleasant 73-year-old female with history of IgG kappa multiple myeloma for which she is currently on treatment with pomalidomide/daratumumab/dexamethasone. She presented to the ED at [facility] with complaints of shortness of breath and chest pain. Labs obtained in the ED revealed leukopenia with white cell count of 2.5 and ANC of 0.3. Respiratory bio fire revealed parainfluenza virus. Chest x-ray revealed Increased markings at the lung bases which may be technical, low-grade pneumonitis would be difficult to exclude. She was placed on broad-spectrum antibiotics and currently requiring supplemental O2. Patient was unfortunately not in the room for evaluation when I stopped by this afternoon she had gone for CT chest. Labs obtained today however shows persistent leukopenia with white cell count of 1.9 and ANC of 0.3 Allergies Allergy/AdvReac Type Severity Reaction Status Date / Time cephalexin Allergy Intermediate hives Verified 05/29/23 14:30 ciprofloxacin [From Cipro] Allergy Mild Hives Verified 05/29/23 14:30 codeine Allergy Mild rash Verified 05/29/23 14:30 dapagliflozin [From Farxiga] AdvReac Intermediate Rash Verified 05/29/23 14:30 lisinopril AdvReac Mild COUGH Verified 05/29/23 14:30 Home Medications Medication Instructions Recorded Confirmed Type acyclovir 800 mg tablet 800 mg PO BID 05/11/19 07/07/23 History aspirin 81 mg chewable tablet 81 mg PO HS 10/26/19 07/07/23 History cholecalciferol (vitamin D3) 50 50 mcg PO QAM 03/22/20 07/07/23 History mcg (2,000 unit) capsule albuterol sulfate 90 mcg/actuation 2 - 4 puff inhalation Q6H PRN 03/26/21 07/07/23 History aerosol inhaler (Ventolin HFA) Shortness Of Breath Or Wheezing tramadol 50 mg tablet 50 - 100 mg PO BID PRN Pain 04/09/21 07/07/23 History allopurinol 300 mg tablet 300 mg PO QPM 06/12/21 07/07/23 History metoprolol succinate 25 mg 12.5 mg PO HS 06/12/21 07/07/23 History tablet,extended release 24 hr pyridoxine (vitamin B6) 100 mg 100 mg PO QAM 06/12/21 07/07/23 History tablet pantoprazole 20 mg tablet,delayed 20 mg PO QAM 06/27/21 07/07/23 History release daratumumab 20 mg/mL intravenous 20 mg IV Q4WK 07/12/21 07/07/23 History solution (Darzalex) diphenoxylate-atropine 2.5 1 tab PO .COMPLEX PRN Diarrhea 07/12/21 07/07/23 History mg-0.025 mg tablet (Lomotil) pregabalin 50 mg capsule (Lyrica) 50 mg PO TID 07/08/22 07/07/23 History amiloride 5 mg tablet 5 mg PO QPM 08/05/22 07/07/23 History ferrous sulfate 325 mg (65 mg 325 mg PO BID 08/05/22 07/07/23 History iron) tablet (iron) magnesium oxide 500 mg capsule 500 mg PO BID 08/05/22 07/07/23 History pravastatin 20 mg tablet 20 mg PO PM 08/05/22 07/07/23 History insulin glargine 100 unit/mL (3 See Rx Instructions .Route 11/20/22 07/07/23 Rx mL) subcutaneous pen (Lantus .COMPLEX #30 mL Solostar U-100 Insulin) betamethasone dipropionate 0.05 % 1 applic topical DAILY PRN Rash 03/18/23 07/07/23 History lotion blood sugar diagnostic (FreeStyle #200 ea 03/18/23 05/29/23 Rx Lite Strips) dulaglutide 3 mg/0.5 mL 3 mg (0.5 mL) subcut ONCE #6 mL 03/18/23 07/07/23 Rx subcutaneous pen injector (Trulicity) lancets 28 gauge (FreeStyle #200 ea 03/18/23 05/29/23 Rx Lancets) pen needle, diabetic 32 gauge x #200 ea 03/18/23 05/29/23 Rx 5/16" (Comfort EZ Pen [place]) cyanocobalamin (vitamin B-12) 1,000 mcg PO BID 03/27/23 07/07/23 History 1,000 mcg tablet (Vitamin B-12) levothyroxine 150 mcg tablet 150 mcg PO QAM 03/27/23 07/07/23 History losartan 25 mg tablet 25 mg PO QPM 03/27/23 07/07/23 History triamcinolone acetonide 0.1 % 1 applic topical BID PRN Rash 03/27/23 07/07/23 History topical cream nystatin-triamcinolone 100,000 1 applic topical BID Rash 5 days 05/30/23 07/07/23 Rx unit/gram-0.1 % topical ointment #30 grams apixaban 2.5 mg tablet (Eliquis) 2.5 mg PO BID 07/07/23 07/07/23 History Patient History Medical History (Updated 07/08/23 @ 14:30 by Faheem Damian MD) A-fib PT DENIES > WAS ONE TIME RELATED TO ILLNESS Acid reflux Acute kidney injury FOLLOWS WITH DR. DIAZ Asthma NO RES INH USE FOR OVER A YEAR BPPV (benign paroxysmal positional vertigo) ONLY HAPPENED ONCE CAD (coronary artery disease) s/p CABG x 2 > FOLLOWS WITH DR. PARIS CHF (congestive heart failure) Diabetic peripheral neuropathy associated with type 2 diabetes mellitus Dysesthesia Dyslipidemia Hx of sleep apnea RESOLVED SINCE CABG SURGERY PER PT Hyperlipidemia Hypomagnesemia Hypothyroidism Loss of protective sensation of skin of foot AR (myocardial infarction) 2009 > CABG Morbid obesity Multiple myeloma Dx 2003, s/p chemo >HX OF STEM CELL TRANSPLANT--pt states her WBC rising, following with Lisandra on 04/09/23 regarding this Peripheral neuropathy due to chemotherapy Port-A-Cath in place (10/28/19) Insertion of Mediport Right Subclavian Vein with Fluoroscopy Dr. 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 Hx of CABG X 2 VESSEL 2009 > [facility] [place] FOLLOW WITH DR PARIS Hx of dilation and curettage Hx of stem cell transplant LAST ONE APPROX 4-5 YRS AGO [facility] [place] Family History Mother Liver cancer Thyroid cancer Diabetes Grandmother (Maternal) Diabetes Other No family history of adverse response to anesthesia Social History Smoking Status: Never smoker Second Hand Exposure: No; Do You Dip or Chew Tobacco: No; Hx Alcohol Use: No Hx Substance Use: No Preferred Language: Indonesian Communication Ability: Effective Dietitian Research Required: No Beliefs That Will Affect Care: None marital status: Current Living Situation: Alone current occupational status: retired Feels Safe at Home: Yes Assistive Devices: Cane and Walker Assistive Devices Comment: does better with walker Results & Data Vital Signs (Past 12 Hours) Vital Signs Temp Pulse Resp BP BP Pulse Ox O2 Del Method 07/08/23 15:34 36.5 C 82 18 118/76 96 Nasal Cannula 07/08/23 14:34 69 18 94 Nasal Cannula 07/08/23 10:44 73 18 96 Nasal Cannula 07/08/23 10:26 37.3 C 73 16 97/57 L 95 Nasal Cannula 07/08/23 07:51 Nasal Cannula 07/08/23 07:34 71 16 96 Nasal Cannula 07/08/23 07:18 37.6 C H 71 18 111/71 95 Nasal Cannula O2 Flow Rate 07/08/23 15:34 4.5 07/08/23 14:34 4 07/08/23 10:44 4 07/08/23 10:26 3.5 07/08/23 07:51 4.5 07/08/23 07:34 5 07/08/23 07:18 4.5
--- NOTE | 2023-07-08 17:31 | CT Scan Report ---
CT SCAN OF THE CHEST WITHOUT IV CONTRAST CLINICAL HISTORY: Respiratory failure. COMPARISON STUDY: Chest CT dated 10/03/2021. Chest x-ray dated 07/07/2023. TECHNIQUE: CT scan of the thorax was performed from the thoracic inlet to the upper abdomen. Images are reviewed in the axial, sagittal, and coronal planes. IV contrast was not administered for this ex amination as per the referring clinician. A dose lowering technique was utilized adhering to the wendy janieples of BENJI. CT DOSE: 772.71 mGy.cm FINDINGS: Thyroid: Imaged portions of the thyroid gland are normal in size and attenuation. Thoracic aorta: The thoracic aorta is normal in caliber and demonstrates standard 3-vessel arch anato my. Heart: A right internal jugular central venous infusion port is in place. The patient is status post midline sternotomy. The heart is normal in size and without pericardial effusion. The coronary arteri es are densely calcified. Lungs and pleural spaces: Multifocal tree-in-bud/groundglass consolidation is seen throughout both ronnie ngs. No pleural effusion is identified. The trachea and central airways are clear. Diffuse peribronch ial thickening is observed. Mild bronchiectasis is seen throughout. Scarring/atelectasis is noted in the lingula. Fibrotic changes in both lung bases. Mediastinum: There is no mediastinal lymphadenopathy. Silvana: Not well assessed without IV contrast. Axillae: There is no axillary lymphadenopathy. Upper abdomen: There is a large hiatal hernia. Partially visualized abdominal viscera is otherwise gr ossly unremarkable. Skeletal structures: The skeletal structures are osteopenic. Degenerative change and hyperkyphosis is noted in the thoracic spine. There is a chronic compression deformity of T5. A hemangioma is noted i n the body of T5. No lytic or blastic bony lesions are seen. Arthritic change is noted in the shoulde rs. IMPRESSION: 1. Multifocal tree-in-bud/groundglass consolidation is seen throughout both lungs. There is also diff use peribronchial thickening. These findings are consistent with a nonspecific infectious/inflammator y pneumonitis. Clinical correlation will be required. A follow-up chest CT in 3-4 months time is galindo mmended to document complete resolution. 2. There is no pleural effusion. 3. Large hiatal hernia. 4. Advanced coronary artery atherosclerosis. 5. Additional chronic findings as above. ACT 112: Negative or not required by law. Electronically signed by: Song Pride M.D. 07/08/2023 5:29 PM
[2023-07-08] MEDS: METOPROLOL SUCC 25MG EXT REL TAB PO SCH (21:07)
[2023-07-08] MEDS: allopurinoL 300 MG TAB PO SCH (21:07)
[2023-07-08] MEDS: ASPIRIN 81 MG CHEW PO SCH (21:08)
[2023-07-08] MEDS: PRAVASTATIN SOD 20 MG TAB PO SCH (23:03)
[2023-07-09] MEDS: LEVOTHYROXINE SODIUM 150 MCG TABLET PO SCH (05:38)
[2023-07-09] MEDS: methylPREDNISolone 40 MG in SYRINGE 0 ML IV SCH ×2 (05:38→14:12)
[2023-07-09] MEDS: guaiFENesin SUGAR FREE 200 MG/10 ML UDC PO SCH ×3 (05:38→17:32)
[2023-07-09 06:15] LABS: Hematocrit (blood only) 30.2 % (37.0-47.0); Hemoglobin 10.3 g/dl (12.0-16.0); Mean Corpuscular Hgb Conc 34.1 g/dL (32.0-36.0); Mean Platelet Volume 11.7 fL (9.4-12.4); Platelet Count 174 K/uL (130-400); RDW Standard Deviation 50.2 fL (36.4-46.3); Red Blood Count 3.32 M/uL (4.20-5.40); White Blood Count 1.54 K/ul (4.8-10.8)
[2023-07-09 06:29] LABS: BUN Creatinine Ratio 24.8 (10-20); Calcium 8.4 mg/dl (8.6-10.3); Creatinine Clr Calc Pharmacy 58.6 ml/min; Est GFR (Non-African American) 55.2 ml/min; Potassium 4.5 mmol/L (3.5-5.1)
[2023-07-09 06:37] LABS: Ovalocytes 1+; Polychromasia 1+
[2023-07-09 06:38] LABS: Basophils # (auto) 0.01 K/uL (0.00-0.20); Basophils % (auto) 0.6 %; Immature Granulocytes # (auto) 0.01 K/uL (0.01-0.20); Immature Granulocytes % (auto) 0.6 %; Lymphocytes # (auto) 0.67 K/uL (1.20-3.40); Lymphocytes % (auto) 43.5 %; Monocytes # (auto) 0.19 K/uL (0.11-0.59); Monocytes % (auto) 12.3 %; Neutrophils # (auto) 0.66 K/uL (1.40-6.50)
[2023-07-09] MEDS: ALBUT/IPRATROP 3MG/0.5MG NEB 3 ML VIAL NEB SCH ×4 (07:29→19:17)
--- NOTE | 2023-07-09 08:08 | Hematology/Oncology Prog Note ---
Date of Service July 09, 2023 Assessment & Plan (1) Leukopenia due to antineoplastic chemotherapy: (2) Acute respiratory failure with hypoxia: (3) Bronchopneumonia: Plan -CT chest suggestive of infectious/inflammatory pneumonitis. Unclear if imaging findings are due to underlying infection or drug-induced pneumonitis from Pomalyst. Recommend continuing with IV antibiotics for now. Consider pulmonary evaluation outpatient/inpatient for pneumonitis. If symptoms do not continue to improve with antibiotics, would recommend discontinuing pomalidomide. -ANC has slightly improved indicating that she is coming out of alexander. Since labs have improved, will give only 1 dose of filgrastim 480 mcg today. Admission and Anticipated Discharge Date Admission Date: July 07, 2023 Subjective Seen this morning. States that respiratory symptoms have improved since admission. CT chest which was obtained yesterday revealed multifocal tree-in-bud/groundglass consolidation throughout both lungs, peribronchial thickening consistent with nonspecific infectious/inflammatory pneumonitis. Still requiring 4 L/min supplemental O2. Labs show improvement in ANC to 660 Results & Data Vital Signs (Past 12 Hours) Vital Signs Temp Pulse Resp BP BP Pulse Ox O2 Del Method 07/09/23 07:49 Nasal Cannula 07/09/23 07:33 36.8 C 62 18 105/68 96 Room Air 07/09/23 07:29 68 16 96 Nasal Cannula 07/09/23 03:14 Nasal Cannula 07/08/23 23:58 36.3 C L 61 18 102/65 95 Room Air O2 Flow Rate 07/09/23 07:49 4.5 07/09/23 07:33 07/09/23 07:29 4 07/09/23 03:14 4.5 07/08/23 23:58
[2023-07-09] MEDS ORDERED: FILGRASTIM 480 MCG/1.6 ML VIAL SC ONE (08:30)
[2023-07-09] MEDS: MAGNESIUM OXIDE 400 MG TAB PO SCH ×2 (08:57→21:19)
[2023-07-09] MEDS: BENZONATATE 100 MG CAPSULE PO SCH ×3 (08:57→21:36)
[2023-07-09] MEDS: ACYCLOVIR 400 MG TAB PO SCH ×2 (08:59→21:19)
[2023-07-09] MEDS: FERROUS SULFATE 325 MG TAB PO SCH ×2 (08:59→21:18)
[2023-07-09] MEDS: INSULIN ASPART PER UNIT CHARGE SC SCH ×4 (09:08→21:16)
[2023-07-09] MEDS: PREGABALIN 50 MG CAP PO SCH ×3 (09:08→21:21)
[2023-07-09] MEDS: CEFEPIME 2,000 MG in SYRINGE 0 ML IV SCH ×2 (09:09→18:40)
[2023-07-09] MEDS: LANTUS PER UNIT CHARGE SQ SCH ×2 (09:09→21:17)
[2023-07-09] MEDS: VANCOMYCIN HCL 750 MG in SODIUM CHLORIDE 0.9% 250 ML IV SCH ×2 (10:18→21:23)
--- NOTE | 2023-07-09 13:22 | Hospitalist Progress Note ---
Date of Service July 09, 2023 Assessment & Plan (1) Acute respiratory failure with hypoxia: Plan: Supplemental oxygen per nasal cannula to maintain saturation greater than 90%. Wean off as tolerated. Treat suspected bronchopneumonia and pneumonitis (2) Bronchopneumonia: Plan: Suspected. Pneumonitis also appears to be present on CT scan. Pulmonary medicine consultation pending. Currently on vancomycin and cefepime. Obtain sputum culture if sputum is produced. Chest CT scan results noted. D-dimer is normal so highly unlikely there is underlying pulmonary embolism. (3) Type 2 diabetes mellitus: Plan: ADA diet. Continue current medical management. Sliding scale insulin as needed (4) Multiple myeloma: Plan: Oncology consultation appreciated. She has received chemotherapy which is likely cause of leukopenia. Serial labs (5) Leukopenia due to antineoplastic chemotherapy: Plan: Serial labs. Plan Hopefully home soon. Admission and Anticipated Discharge Date Admission Date: July 07, 2023 Subjective Alert and oriented. She states she is feeling better. Chest CT scan consistent with pneumonitis. Oncology entry noted. It is uncertain if this is of viral etiology or related to her chemotherapy. Pulmonary medicine consultation pending. Blood cultures remain negative. We will continue vancomycin and cefepime for now. She continues to need 4 L of oxygen per nasal cannula. She is on parenteral steroid therapy Review of Systems Review of Systems: Constitutional-no fever or chills ENT-no blurred vision, no double vision, no epistaxis, no sore throat Respiratory-occasionally productive cough. No hemoptysis. Shortness of breath with exertion Cardiac-no palpitations, no chest pain, no syncope GI-no nausea, vomiting, diarrhea, melena, hematochezia -no urinary retention, no urinary incontinence, no dysuria, no hematuria Musculoskeletal-no joint pain, no muscle tenderness Skin-no bruising, no rashes, no pruritus Neuro-no isolated weakness, no paresthesia, no weakness Psych-no depression, no anxiety Physical Exam Physical Exam: General-alert and oriented x3, no fevers, no chills HEENT-head atraumatic and normocephalic, pupils equal and reactive to light, extraocular muscles intact Neck-no lymphadenopathy or thyromegaly, trachea midline Chest-bilateral rhonchi. No wheezing. No dullness to percussion Cardiac-regular rate and rhythm, normal S1 and S2 Abdomen-normal bowel sounds, nontender, no hepatosplenomegaly Extremities-no cyanosis, clubbing, or edema Neuro-cranial nerves II through XII intact, motor and sensory function within normal limits, strength symmetrical, no focal deficits Psych-normal affect, normal mood Results & Data Results & Data Vital Signs (Past 12 Hours) Vital Signs Temp Pulse Resp BP Pulse Ox O2 Del Method O2 Flow Rate 07/09/23 10:08 67 18 95 Room Air 07/09/23 07:49 Nasal Cannula 4.5 07/09/23 07:33 36.8 C 62 18 105/68 96 Room Air 07/09/23 07:29 68 16 96 Nasal Cannula 4 07/09/23 03:14 Nasal Cannula 4.5 Laboratory Results 07/09/23 05:32 07/09/23 05:40 PG Care Time/CCT Total # of Minutes Spent Total Time Spent with Patient: Total time spent is greater than 50% in coordination of care (as documented) at patient's floor/unit and/or counseling patient: Coding Level of Care Code 56765 SUB INP/OBS CARE 3/50MIN Diagnoses Acute respiratory failure with hypoxia J96.01 Bronchopneumonia J18.0 Type 2 diabetes mellitus E11.9 Multiple myeloma C90.00 Leukopenia due to antineoplastic chemotherapy D70.1; T45.1X5A
[2023-07-09] MEDS: ENOXAPARIN INJ 40 MG/0.4 ML SYR SQ SCH (14:13)
--- NOTE | 2023-07-09 21:01 | Pulmonary Consultation ---
Date of Consultation July 09, 2023 Assessment & Plan (1) Viral pneumonia: Suspect hypoxia, dyspnea and abnormal ctc 2/2 viral pneumonia in this immunocompromised patient. Superimposed bacterial pna remains possibility as well. Agree with empiric abx. MRSA screen ordered. If negative, d/c vanc. Follow sputum cx. IV methylprednisone switched to po prednisone for bronchospastic component and possible chemo pneumonitis. Patient on RA and already feeling better. Will hold of on bronch. D/w patient an d she agrees with plan. (2) Parainfluenza: Supportive care as above. (3) SOB (shortness of breath): Improving. (4) Neutropenia: Receiving Neupogen as orderd by onc. History of Present Illness Reason for Consultation: Pneumonia Attending Physician: Faheem Damian MD History of Present Illness 73-year-old female with history of IgG kappa multiple myeloma for which she is currently on treatment with pomalidomide/daratumumab/dexamethasone presenting due to sob and cough for past week. Denies fever. No chest pain. Non-productive cough. Denies any prior hx of pulmonary disease. Notes that since started pomalidomide has felt fatigued. No clear sick contacts. Lives alone and is independent at baseline with minimal shortness of breath.. No exotic pets. Frequently watches her boyfriends dog. CT chest reviewed along with radiology interpretation which is consistent with pna. RVP positive for parainfluenza. Labs suggest neutropenia. Allergies Allergy/AdvReac Type Severity Reaction Status Date / Time cephalexin Allergy Intermediate hives Verified 05/29/23 14:30 ciprofloxacin [From Cipro] Allergy Mild Hives Verified 05/29/23 14:30 codeine Allergy Mild rash Verified 05/29/23 14:30 dapagliflozin [From Farxiga] AdvReac Intermediate Rash Verified 05/29/23 14:30 lisinopril AdvReac Mild COUGH Verified 05/29/23 14:30 Home Medications Medication Instructions Recorded Confirmed Type acyclovir 800 mg tablet 800 mg PO BID 05/11/19 07/07/23 History aspirin 81 mg chewable tablet 81 mg PO HS 10/26/19 07/07/23 History cholecalciferol (vitamin D3) 50 50 mcg PO QAM 03/22/20 07/07/23 History mcg (2,000 unit) capsule albuterol sulfate 90 mcg/actuation 2 - 4 puff inhalation Q6H PRN 03/26/21 07/07/23 History aerosol inhaler (Ventolin HFA) Shortness Of Breath Or Wheezing tramadol 50 mg tablet 50 - 100 mg PO BID PRN Pain 04/09/21 07/07/23 History allopurinol 300 mg tablet 300 mg PO QPM 06/12/21 07/07/23 History metoprolol succinate 25 mg 12.5 mg PO HS 06/12/21 07/07/23 History tablet,extended release 24 hr pyridoxine (vitamin B6) 100 mg 100 mg PO QAM 06/12/21 07/07/23 History tablet pantoprazole 20 mg tablet,delayed 20 mg PO QAM 06/27/21 07/07/23 History release daratumumab 20 mg/mL intravenous 20 mg IV Q4WK 07/12/21 07/07/23 History solution (Darzalex) diphenoxylate-atropine 2.5 1 tab PO .COMPLEX PRN Diarrhea 07/12/21 07/07/23 History mg-0.025 mg tablet (Lomotil) pregabalin 50 mg capsule (Lyrica) 50 mg PO TID 07/08/22 07/07/23 History amiloride 5 mg tablet 5 mg PO QPM 08/05/22 07/07/23 History ferrous sulfate 325 mg (65 mg 325 mg PO BID 08/05/22 07/07/23 History iron) tablet (iron) magnesium oxide 500 mg capsule 500 mg PO BID 08/05/22 07/07/23 History pravastatin 20 mg tablet 20 mg PO PM 08/05/22 07/07/23 History insulin glargine 100 unit/mL (3 See Rx Instructions .Route 11/20/22 07/07/23 Rx mL) subcutaneous pen (Lantus .COMPLEX #30 mL Solostar U-100 Insulin) betamethasone dipropionate 0.05 % 1 applic topical DAILY PRN Rash 03/18/23 07/07/23 History lotion blood sugar diagnostic (FreeStyle #200 ea 03/18/23 05/29/23 Rx Lite Strips) dulaglutide 3 mg/0.5 mL 3 mg (0.5 mL) subcut ONCE #6 mL 03/18/23 07/07/23 Rx subcutaneous pen injector (Trulicity) lancets 28 gauge (FreeStyle #200 ea 03/18/23 05/29/23 Rx Lancets) pen needle, diabetic 32 gauge x #200 ea 03/18/23 05/29/23 Rx 5/16" (Comfort EZ Pen [place]) cyanocobalamin (vitamin B-12) 1,000 mcg PO BID 03/27/23 07/07/23 History 1,000 mcg tablet (Vitamin B-12) levothyroxine 150 mcg tablet 150 mcg PO QAM 03/27/23 07/07/23 History losartan 25 mg tablet 25 mg PO QPM 03/27/23 07/07/23 History triamcinolone acetonide 0.1 % 1 applic topical BID PRN Rash 03/27/23 07/07/23 History topical cream nystatin-triamcinolone 100,000 1 applic topical BID Rash 5 days 05/30/23 07/07/23 Rx unit/gram-0.1 % topical ointment #30 grams apixaban 2.5 mg tablet (Eliquis) 2.5 mg PO BID 07/07/23 07/07/23 History Patient History Medical History (Updated 07/09/23 @ 21:01 by Griffin Cage MD) A-fib PT DENIES > WAS ONE TIME RELATED TO ILLNESS Acid reflux Acute kidney injury FOLLOWS WITH DR. DIAZ Asthma NO RES INH USE FOR OVER A YEAR BPPV (benign paroxysmal positional vertigo) ONLY HAPPENED ONCE CAD (coronary artery disease) s/p CABG x 2 > FOLLOWS WITH DR. PARIS CHF (congestive heart failure) Diabetic peripheral neuropathy associated with type 2 diabetes mellitus Dysesthesia Dyslipidemia Hx of sleep apnea RESOLVED SINCE CABG SURGERY PER PT Hyperlipidemia Hypomagnesemia Hypothyroidism Loss of protective sensation of skin of foot CO (myocardial infarction) 2009 > CABG Morbid obesity Multiple myeloma Dx 2003, s/p chemo >HX OF STEM CELL TRANSPLANT--pt states her WBC rising, following with Lisandra on 04/09/23 regarding this Peripheral neuropathy due to chemotherapy Port-A-Cath in place (10/28/19) Insertion of Mediport Right Subclavian Vein with Fluoroscopy Dr. 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 Hx of CABG X 2 VESSEL 2009 > [facility] [place] FOLLOW WITH DR PARIS Hx of dilation and curettage Hx of stem cell transplant LAST ONE APPROX 4-5 YRS AGO [facility] [place] Family History Mother Liver cancer Thyroid cancer Diabetes Grandmother (Maternal) Diabetes Other No family history of adverse response to anesthesia Social History Smoking Status: Never smoker Second Hand Exposure: No; Do You Dip or Chew Tobacco: No; Hx Alcohol Use: No Hx Substance Use: No Preferred Language: Guinean Communication Ability: Effective Shallot Cleaner Required: No Beliefs That Will Affect Care: None marital status: Current Living Situation: Alone current occupational status: retired Feels Safe at Home: Yes Assistive Devices: Cane and Walker Assistive Devices Comment: does better with walker Review of Systems Review of Systems: All systems reviewed & are unremarkable except as noted in HPI & below Physical Exam Constitutional: WD/WN, vitals as above Eyes: PERRL, conjunctivae normal, anicteric sclerae ENMT: external ear and nose normal, oropharynx normal Respiratory: Auscultation: + diminished lung sounds and + crackles Gastrointestinal (Abdomen): normal bowel sounds, soft, nontender, no hepatosplenomegaly Musculoskeletal: no cyanosis or clubbing, extremities motor strength 5/5 Skin: no rashes, warm and dry Neurologic: PERRL, EOMI, accommodation nl, no face palsy, no dysarthria Psychiatric: A+Ox3, euthymic affect Results & Data Results & Data Vital Signs (Past 12 Hours) Vital Signs Temp Pulse Resp BP BP Pulse Ox O2 Del Method 07/09/23 19:17 84 18 92 Room Air 07/09/23 15:21 87 112/64 94 Room Air 07/09/23 14:59 36.5 C 96 H 18 92/53 L 88/47 L 94 Room Air 07/09/23 14:16 93 H 18 92 Room Air 07/09/23 10:08 67 18 95 Room Air PG Care Time/CCT Total # of Minutes Spent Total Time Spent with Patient: Total time spent is greater than 50% in coordination of care (as documented) at patient's floor/unit and/or counseling patient: Coding Level of Care Code 83951 INT INP/OBS CARE 3/75MIN Diagnoses Viral pneumonia J12.9 Parainfluenza B34.8 SOB (shortness of breath) R06.02 Neutropenia D70.9
[2023-07-09] MEDS: METOPROLOL SUCC 25MG EXT REL TAB PO SCH (21:20)
[2023-07-09] MEDS: PRAVASTATIN SOD 20 MG TAB PO SCH (21:20)
[2023-07-09] MEDS: allopurinoL 300 MG TAB PO SCH (21:21)
[2023-07-09] MEDS: ASPIRIN 81 MG CHEW PO SCH (21:23)
[2023-07-09] MEDS: ACETAMINOPHEN 325 MG TAB PO PRN (21:29)
[2023-07-09] MEDS ORDERED: ALTEPLASE, RECOMBINANT 1 MG/ML 2ML VIAL INSTIL ONE (22:47)
[2023-07-10] MEDS: guaiFENesin SUGAR FREE 200 MG/10 ML UDC PO SCH ×5 (00:50→23:22)
[2023-07-10] MEDS: LEVOTHYROXINE SODIUM 150 MCG TABLET PO SCH (05:15)
[2023-07-10] MEDS: ACETAMINOPHEN 325 MG TAB PO PRN (05:16)
[2023-07-10] MEDS: ALBUT/IPRATROP 3MG/0.5MG NEB 3 ML VIAL NEB SCH ×4 (07:16→20:20)
[2023-07-10] MEDS: CEFEPIME 2,000 MG in SYRINGE 0 ML IV SCH ×2 (07:54→19:45)
[2023-07-10 08:11] LABS: Hematocrit (blood only) 31.9 % (37.0-47.0); Hemoglobin 10.4 g/dl (12.0-16.0); Mean Corpuscular Hemoglobin 30.3 pg (25.0-34.0); Mean Corpuscular Hgb Conc 32.6 g/dL (32.0-36.0); Mean Platelet Volume 11.2 fL (9.4-12.4); Platelet Count 208 K/uL (130-400); RDW Coefficient of Variation 15.4 % (11.5-14.5); RDW Standard Deviation 52.4 fL (36.4-46.3); Red Blood Count 3.43 M/uL (4.20-5.40); White Blood Count 3.11 K/ul (4.8-10.8)
[2023-07-10 08:32] LABS: Basophils # (auto) 0.02 K/uL (0.00-0.20); Basophils % (auto) 0.6 %; Immature Granulocytes % (auto) 9.6 %; Lymphocytes # (auto) 0.88 K/uL (1.20-3.40); Lymphocytes % (auto) 28.3 %; Monocytes % (auto) 12.9 %; Neutrophils # (auto) 1.51 K/uL (1.40-6.50); Neutrophils % (auto) 48.6 %
[2023-07-10] MEDS: ACYCLOVIR 400 MG TAB PO SCH ×2 (08:41→21:15)
[2023-07-10] MEDS: PANTOprazole 40 MG TAB PO SCH (08:42)
[2023-07-10] MEDS: MAGNESIUM OXIDE 400 MG TAB PO SCH ×2 (08:42→21:15)
[2023-07-10] MEDS: FERROUS SULFATE 325 MG TAB PO SCH ×2 (08:42→21:15)
[2023-07-10 08:45] LABS: BUN Creatinine Ratio 30.6 (10-20); Calcium 8.6 mg/dl (8.6-10.3); Creatinine Clr Calc Pharmacy 48.9 ml/min; Est GFR (African American) 51.4 ml/min; Est GFR (Non-African American) 44.4 ml/min; Potassium 4.3 mmol/L (3.5-5.1)
[2023-07-10] MEDS: LANTUS PER UNIT CHARGE SQ SCH ×2 (08:51→21:12)
[2023-07-10] MEDS: INSULIN ASPART PER UNIT CHARGE SC SCH ×4 (08:52→21:12)
[2023-07-10] MEDS: BENZONATATE 100 MG CAPSULE PO SCH ×3 (08:58→21:15)
[2023-07-10] MEDS: PREGABALIN 50 MG CAP PO SCH ×3 (08:58→21:16)
[2023-07-10] MEDS ORDERED: predniSONE 20 MG TAB PO SCH (09:00)
--- NOTE | 2023-07-10 10:45 | Pharmacy Report ---
Pharmacy PK ABX Note - Date of Service July 10, 2023 - Assessment and Plan Assessment 07/10: Vancomycin was continued for pulmonary indication for 7 days total. Today is day 4 of therapy. Cefepime also continued for the same. Cultures show no growth. A trough Vancomycin level obtained today = 13.9 mcg/ml at 7:44 AM before dose at 10:00 AM 07/07/: 73 year old F receiving Vancomycin and Cefepime for empiric treatment of neutropenia/possible pneumonia. * Day #1 of antimicrobial therapy. * Afebrile w/ leukopenia. ANC 300. Procal 0.52. Blood cultures pending. Respiratory PCR positive for Parainfluenza 4. * Holding oral chemo. Continue home acyclovir for prophylaxis. Mediport doesn't appear infected per H&P. Plan Vancomycin * Current regimen: 750 mg IV every 12 hours * Trough level obtained today resulted as 13.9 mcg/mL. This is predicted to achieve target AUC/LESTER of 400-600 mg/L.hr * Predicted AUC at steady state: 561 mg/L.hr * Continue 750 mg IV every 12 hours * Will repeat level in the next 48-72 hours if therapy is continued and/or change in patient clinical status Cefepime * 2000 mg IV every 12 hours - appropriate for CrCl of 30-60 mL/min Pharmacy will continue to follow and will adjust dose/frequency as necessary. Thank you. Pharmacy has transitioned to AUC monitoring for vancomycin. AUC/LESTER is the preferred PK/PD target and is associated with decreased risk of nephrotoxicity compared to traditional trough targets.
[2023-07-10] MEDS: VANCOMYCIN HCL 750 MG in SODIUM CHLORIDE 0.9% 250 ML IV SCH (11:19)
[2023-07-10] MEDS ORDERED: FLUCONAZOLE 50 MG TAB PO ONE (11:30)
[2023-07-10] MEDS: HEPARIN 100 UNIT/ML 5ML FLUSH FLUSH PRN ×2 (12:51→19:48)
[2023-07-10] MEDS: ENOXAPARIN INJ 40 MG/0.4 ML SYR SQ SCH (14:59)
--- NOTE | 2023-07-10 15:30 | Pulmonology Progress Note ---
Date of Service July 10, 2023 Assessment & Plan (1) Viral pneumonia: Plan: Suspect hypoxia, dyspnea and abnormal ctc 2/2 viral pneumonia in this immunocompromised patient. Superimposed bacterial pna remains possibility as well. Agree with empiric abx. MRSA screen negative. Vancomycin discontinued. Continue cefepime. Sputum culture unremarkable. P.o. prednisone increased to 30 mg starting tomorrow. Recommend wean over the next 7 days. No role for bronchoscopy this time as the patient is feeling better. Recommend repeat CT in 6 to 8 weeks. (2) Parainfluenza: Plan: Supportive care as above. (3) SOB (shortness of breath): Plan: Improving. (4) Neutropenia: Plan: Receiving Neupogen as orderd by onc. Admission and Anticipated Discharge Date Admission Date: July 07, 2023 Subjective Patient seen and examined. She is feeling quite well today, but not completely back to her baseline. She denies any fevers or chills. Her cough is subsided. She is saturating in the low 90s on room air. Review of Systems Review of Systems: All systems reviewed & are unremarkable except as noted in HPI & below Physical Exam Constitutional: WD/WN, vitals as above Eyes: PERRL, conjunctivae normal, anicteric sclerae ENMT: external ear and nose normal, oropharynx normal Respiratory: Auscultation: + diminished lung sounds and + crackles Gastrointestinal (Abdomen): normal bowel sounds, soft, nontender, no hepatosplenomegaly Musculoskeletal: no cyanosis or clubbing, extremities motor strength 5/5 Skin: no rashes, warm and dry Neurologic: PERRL, EOMI, accommodation nl, no face palsy, no dysarthria Psychiatric: A+Ox3, euthymic affect Results & Data Results & Data Vital Signs (Past 12 Hours) Vital Signs Temp Pulse Resp BP Pulse Ox O2 Del Method 07/10/23 15:16 77 18 93 Room Air 07/10/23 10:57 82 16 93 Room Air 07/10/23 08:13 Room Air 07/10/23 07:30 36.5 C 72 18 119/89 94 Room Air 07/10/23 07:16 82 18 93 Room Air PG Care Time/CCT Total # of Minutes Spent Total Time Spent with Patient: Total time spent is greater than 50% in coordination of care (as documented) at patient's floor/unit and/or counseling patient: Coding Level of Care Code 98443 SUB INP/OBS CARE 235MIN Diagnoses Viral pneumonia J12.9 Parainfluenza B34.8 SOB (shortness of breath) R06.02 Neutropenia D70.9
--- NOTE | 2023-07-10 16:26 | Hospitalist Progress Note ---
Date of Service July 10, 2023 Assessment & Plan (1) Acute respiratory failure with hypoxia: Plan: Resolved. She is now on room air. Treat suspected bronchopneumonia and pneumonitis (2) Bronchopneumonia: Plan: Suspected. Pneumonitis also appears to be present on CT scan. Pulmonary medicine consultation appreciated. This appears to be a viral etiology. Nasal MRSA swab is negative. Vancomycin has been discontinued. Continue cefepime for now. Chest CT scan results noted. D-dimer is normal so highly unlikely there is underlying pulmonary embolism. (3) Type 2 diabetes mellitus: Plan: ADA diet. Continue current medical management. Sliding scale insulin as needed (4) Multiple myeloma: Plan: Oncology consultation appreciated. She has received chemotherapy which is likely cause of leukopenia. Serial labs (5) Leukopenia due to antineoplastic chemotherapy: Plan: Serial labs. (6) Vaginal candidiasis: Plan: Due to antibiotics and steroid therapy. Oral Diflucan started. Plan Hopeful discharge to home tomorrow, July 11, on a prednisone tapering dose. Admission and Anticipated Discharge Date Admission Date: July 07, 2023 Subjective Alert and oriented. No acute distress. She is on room air. Pulmonary medicine entry noted. Diflucan started for vaginal yeast brought on by steroid therapy and antibiotics. I offered to send her home today but she prefers to stay until tomorrow. Review of Systems 2 Review of Systems: Constitutional-no fever or chills ENT-no blurred vision, no double vision, no epistaxis, no sore throat Respiratory-occasionally productive cough. No hemoptysis. Shortness of breath with exertion Cardiac-no palpitations, no chest pain, no syncope GI-no nausea, vomiting, diarrhea, melena, hematochezia -no urinary retention, no urinary incontinence, no dysuria, no hematuria Musculoskeletal-no joint pain, no muscle tenderness Skin-no bruising, no rashes, no pruritus Neuro-no isolated weakness, no paresthesia, no weakness Psych-no depression, no anxiety Physical Exam 2 Physical Exam: General-alert and oriented x3, no fevers, no chills HEENT-head atraumatic and normocephalic, pupils equal and reactive to light, extraocular muscles intact Neck-no lymphadenopathy or thyromegaly, trachea midline Chest-bilateral rhonchi. No wheezing. No dullness to percussion Cardiac-regular rate and rhythm, normal S1 and S2 Abdomen-normal bowel sounds, nontender, no hepatosplenomegaly Extremities-no cyanosis, clubbing, or edema Neuro-cranial nerves II through XII intact, motor and sensory function within normal limits, strength symmetrical, no focal deficits Psych-normal affect, normal mood Results & Data Results & Data Vital Signs (Past 12 Hours) Vital Signs Temp Pulse Resp BP Pulse Ox O2 Del Method 07/10/23 15:16 77 18 93 Room Air 07/10/23 10:57 82 16 93 Room Air 07/10/23 08:13 Room Air 07/10/23 07:30 36.5 C 72 18 119/89 94 Room Air 07/10/23 07:16 82 18 93 Room Air Laboratory Results 07/10/23 07:44 07/10/23 07:44 PG Care Time/CCT Total # of Minutes Spent Total Time Spent with Patient: Total time spent is greater than 50% in coordination of care (as documented) at patient's floor/unit and/or counseling patient: Coding Level of Care Code 96938 SUB INP/OBS CARE 3/50MIN Diagnoses Acute respiratory failure with hypoxia J96.01 Bronchopneumonia J18.0 Type 2 diabetes mellitus E11.9 Multiple myeloma C90.00 Leukopenia due to antineoplastic chemotherapy D70.1; T45.1X5A Vaginal candidiasis B37.31
[2023-07-10] MEDS ORDERED: INSULIN ASPART PER UNIT CHARGE SC STA (18:43)
[2023-07-10] MEDS: PRAVASTATIN SOD 20 MG TAB PO SCH (21:15)
[2023-07-10] MEDS: ASPIRIN 81 MG CHEW PO SCH (21:15)
[2023-07-10] MEDS: METOPROLOL SUCC 25MG EXT REL TAB PO SCH (21:15)
[2023-07-10] MEDS: allopurinoL 300 MG TAB PO SCH (21:16)
[2023-07-11] MEDS: guaiFENesin SUGAR FREE 200 MG/10 ML UDC PO SCH ×2 (06:03→13:06)
[2023-07-11] MEDS: LEVOTHYROXINE SODIUM 150 MCG TABLET PO SCH (06:03)
[2023-07-11] MEDS: ALBUT/IPRATROP 3MG/0.5MG NEB 3 ML VIAL NEB SCH ×2 (07:02→11:09)
[2023-07-11] MEDS: PREGABALIN 50 MG CAP PO SCH ×2 (08:22→13:06)
[2023-07-11] MEDS: ACYCLOVIR 400 MG TAB PO SCH (08:22)
[2023-07-11] MEDS: BENZONATATE 100 MG CAPSULE PO SCH ×2 (08:22→13:06)
[2023-07-11] MEDS: LANTUS PER UNIT CHARGE SQ SCH (08:22)
[2023-07-11] MEDS: FERROUS SULFATE 325 MG TAB PO SCH (08:23)
[2023-07-11] MEDS: MAGNESIUM OXIDE 400 MG TAB PO SCH (08:23)
[2023-07-11] MEDS: INSULIN ASPART PER UNIT CHARGE SC SCH ×2 (08:23→13:05)
[2023-07-11] MEDS: CEFEPIME 2,000 MG in SYRINGE 0 ML IV SCH (08:23)
[2023-07-11] MEDS: HEPARIN 100 UNIT/ML 5ML FLUSH FLUSH PRN ×2 (08:29→13:06)
[2023-07-11] MEDS ORDERED: predniSONE 10 MG TABLET PO SCH (09:00)
[2023-07-11] MEDS ORDERED: FLUCONAZOLE 50 MG TAB PO ONE (10:00)
--- NOTE | 2023-07-11 11:12 | Discharge Summary ---
Date of Service July 11, 2023 Admission HPI Per Admitting Provider Milena is a 73 year old female with a PMH significant for multiple myeloma S/P radiation and chemotherapy, S/P stem cell transplant x 2 (last approx 5 yrs ago) currently on Daratumumab, DM II, CAD S/P CABG X 2 in 2013, chronic pain, and GERD who presented to the [facility] ED on 07/07 with complaints of SOB, Congestion, and chest pressure. She remained stable and afebrile in the ED. Labs were significant for WBC of 2.54 with absolute neutrophil count of 0.30, lymphocyte count of 0.51, and full respiratory biofire positive for Parainfluenza virus. Chest xray was read as "1. Increased markings at the lung bases which may be technical. A low-grade pneumonitis would be difficult to exclude. 2. Large hiatus hernia, unchanged.". Prior to admission the patient was given a DuoNeb treatment, vancomycin, and cefepime. At the time of the exam the patient was sitting in bed in no acute distress with her daughter sitting bedside. She states that she is currently on 3 week on and one week off of Pomalyst and monthly infusions of Daratumumab for Multiple Myeloma. Today is her last day of a Pomalyst before a week off. She has been experiencing generalized weakness, SOB, chest congestion, and a non-productive cough for the past week. She called her PCP who was unable to get her a quick appointment. They did prescribed her Cefuroxime and albuterol on 07/04, she started taking both on 07/05 but has not seen a significant improvement in symptoms. She denies orthopnea/PND, pleuritic chest pain, pain/irritation at her mediport site, vomiting, dysuria, hematuria, changes in bowel movements, LE swelling, and recent trauma. She explains that she was started on Eliquis in April by Dr. Macdonald for blood clot prophylaxis while on Polmalyst. We discussed code status, she is a full code and wishes for her daughter to make medical decisions for her if she cannot make them herself. Please refer to Dr. Diallo's attestation for any changes to the treatment plan Principal Diagnosis Viral pneumonitis, acute hypoxic respiratory failure, vaginal candidiasis Discharge Exam General-alert and oriented x3, no fevers, no chills HEENT-head atraumatic and normocephalic, pupils equal and reactive to light, extraocular muscles intact Neck-no lymphadenopathy or thyromegaly, trachea midline Chest-bilateral rhonchi. No wheezing. No dullness to percussion Cardiac-regular rate and rhythm, normal S1 and S2 Abdomen-normal bowel sounds, nontender, no hepatosplenomegaly Extremities-no cyanosis, clubbing, or edema Neuro-cranial nerves II through XII intact, motor and sensory function within normal limits, strength symmetrical, no focal deficits Psych-normal affect, normal mood Discharge Data Allergies Allergy/AdvReac Type Severity Reaction Status Date / Time cephalexin Allergy Intermediate hives Verified 05/29/23 14:30 ciprofloxacin [From Cipro] Allergy Mild Hives Verified 05/29/23 14:30 codeine Allergy Mild rash Verified 05/29/23 14:30 dapagliflozin [From Farxiga] AdvReac Intermediate Rash Verified 05/29/23 14:30 lisinopril AdvReac Mild COUGH Verified 05/29/23 14:30 Consultations 07/07/23 11:53 ED Decision to Admit Stat 07/08/23 08:18 Consult Oncology Routine 07/09/23 09:43 Consult Pulmonology Routine Ordered Studies 07/08/23 14:25 CT chest diagnostic wo con Urgent Hospital Course (1) Acute respiratory failure with hypoxia: Resolved. She is now on room air. Treat suspected bronchopneumonia and pneumonitis (2) Bronchopneumonia: Suspected. Pneumonitis also appears to be present on CT scan. Pulmonary medicine consultation appreciated. This appears to be a viral etiology. Nasal MRSA swab is negative. Vancomycin has been discontinued. She was treated with cefepime while hospitalized. Chest CT scan results noted. D-dimer is normal so highly unlikely there is underlying pulmonary embolism. (3) Type 2 diabetes mellitus: ADA diet. Continue current medical management. Sliding scale insulin as needed (4) Multiple myeloma: Oncology consultation appreciated. She has received chemotherapy which is likely cause of leukopenia. Serial labs (5) Leukopenia due to antineoplastic chemotherapy: Serial labs. (6) Vaginal candidiasis: Due to antibiotics and steroid therapy. Oral Diflucan administered while hospitalized. She will not need ongoing treatment for this. Plan Home todayJuly 11 Total Time Total Time Spent Total Time Spent (In Minutes): 45 minutes Discharge Plan Discharge Items Patient Disposition: Home - Self-Care Reason For Visit: NETROPENIA, PARAINFLUENCA VIRUS Discharge Diagnosis: Viral pneumonia/pneumonitis, acute hypoxic respiratory failure, vaginal candidiasis Activity: Resume your previous activity Non-emergency contact: Primary Care Provider Call non-emergency contact if: you have any medication questions and your symptoms worsen Follow-up/Referrals: Yaneth Pillai MD [Primary Care Provider] - Diet: Carb Consistent or DM2 and Heart Healthy Addtl Attending Provider Instructions: Take prednisone in a tapering dose fashion as prescribed. Use [id number] Dimetapp cough syrup as needed Pending Studies at Discharge: No Stand-Alone Forms: [facility], Smoking Cessation Medications and DC Order Prescriptions: New prednisone 10 mg tablet See Rx Instructions .ROUTE .COMPLEX Qty: 12 0RF Rx Instructions: 10 mg orally 3 times a day for 2 days, then 10 mg twice a day for 2 days, then 10 mg once a day for 2 days, then stop Continued insulin glargine [Lantus Solostar U-100 Insulin] 100 unit/mL (3 mL) insulin pen See Rx Instructions .ROUTE .COMPLEX Qty: 30 3RF Patient Comments: per pt takes 30units at hs Rx Instructions: Inject 30 units into the abdomen once daily. nystatin-triamcinolone 100,000-0.1 unit/gram-% ointment 1 applic topical BID 5 Days Qty: 30 0RF Darzalex 20 mg/mL solution 20 mg IV Q4WK betamethasone dipropionate 0.05 % lotion 1 applic topical DAILY PRN (Reason: Rash) Rx Instructions: Apply to areas of the scalp once daily as directed. Trulicity 3 mg/0.5 mL pen injector 3 mg subcut ONCE Qty: 6 3RF Patient Comments: takes on mondays Rx Instructions: Inject 3 mg into the abdomen once weekly. (DME) pen needle, diabetic [Comfort EZ Pen Gervais] 32 gauge x 5/16" needle See Rx Instructions .Route Qty: 200 3RF Rx Instructions: test blood sugar 3 x daily2 (DME) lancets [FreeStyle Lancets] 28 gauge misc See Rx Instructions .Route Qty: 200 3RF Rx Instructions: test blood sugar 2 x daily (DME) FreeStyle Lite Strips Strip See Rx Instructions .Route Qty: 200 3RF Rx Instructions: test 2 times daily allopurinol 300 mg tablet 300 mg PO QPM metoprolol succinate 25 mg tablet extended release 24 hr 12.5 mg PO HS pyridoxine (vitamin B6) 100 mg tablet 100 mg PO QAM diphenoxylate-atropine [Lomotil] 2.5-0.025 mg tablet 1 tab PO .COMPLEX PRN (Reason: Diarrhea) Rx Instructions: 1 tab PO 1-2 TIMES DAILY; PRN; cholecalciferol (vitamin D3) 50 mcg (2,000 unit) capsule 50 mcg PO QAM tramadol 50 mg tablet 50 - 100 mg PO BID PRN (Reason: Pain) pregabalin [Lyrica] 50 mg capsule 50 mg PO TID acyclovir 800 mg Tablet 800 mg PO BID aspirin 81 mg Tablet,Chewable 81 mg PO HS pantoprazole 20 mg tablet,delayed release (DR/EC) 20 mg PO QAM ferrous sulfate [iron] 325 mg (65 mg iron) Tablet 325 mg PO BID pravastatin 20 mg Tablet 20 mg PO PM amiloride 5 mg tablet 5 mg PO QPM magnesium oxide 500 mg capsule 500 mg PO BID cyanocobalamin (vitamin B-12) [Vitamin B-12] 1,000 mcg Tablet 1,000 mcg PO BID levothyroxine 150 mcg Tablet 150 mcg PO QAM losartan 25 mg Tablet 25 mg PO QPM triamcinolone acetonide 0.1 % cream 1 applic topical BID PRN (Reason: Rash) Rx Instructions: Apply to areas of the trunk and extremities twice daily x 2 weeks as directed. Eliquis 2.5 mg tablet 2.5 mg PO BID Changed albuterol sulfate [Ventolin HFA] 90 mcg/actuation HFA aerosol inhaler 2 puff INHALATION Q6H PRN (Reason: Shortness Of Breath Or Wheezing) Qty: 1 0RF Discharge Orders: Discharge Order (Routine); Ordered 07/11/23 Ordered By: Faheem Damian Admission Data Admit Date/Time: 07/07/23 12:19 Attending Provider: Faheem Damian Admit Provider: Corey Diallo Primary Care Provider: Yaneth Pillai Other Providers: Corey Diallo; Blanche Macdonald; Griffin Cage Coding Level of Care Code 54686 INP/OBS DISCH >30 MIN Diagnoses Acute respiratory failure with hypoxia J96.01 Bronchopneumonia J18.0 Type 2 diabetes mellitus E11.9 Multiple myeloma C90.00 Leukopenia due to antineoplastic chemotherapy D70.1; T45.1X5A Vaginal candidiasis B37.31
== END 2023-07-11 14:16 | disposition home or self-care (01) | DRG 193 ==
LOC: ED 08:46 → SUATTDRO 12:19 → EDINP 12:19 → 2W 14:35 → 3E 07-10 00:26

== ENCOUNTER 2024-02-13 13:37 | Inpatient (IN) ==
[2024-02-13 14:34] LABS: Hematocrit (blood only) 45.7 % (37.0-47.0); Mean Corpuscular Hemoglobin 30.7 pg (25.0-34.0); Mean Corpuscular Hgb Conc 32.8 g/dL (32.0-36.0); Mean Corpuscular Volume 93.6 fL (80.0-100.0); Mean Platelet Volume 11.7 fL (9.4-12.4); Platelet Count 203 K/uL (130-400); RDW Coefficient of Variation 16.4 % (11.5-14.5); Red Blood Count 4.88 M/uL (4.20-5.40)
[2024-02-13 14:49] LABS: Albumin Globulin Ratio 1.7 (0.9-2); Albumin Level 4.4 gm/dl (3.4-5.0); BUN Creatinine Ratio 15.9 (10-20); Calcium 9.7 mg/dl (8.6-10.3); Creatinine Clr Calc Pharmacy 41.4 ml/min; Est GFR (African American) 46.3 ml/min; Est GFR (Non-African American) 39.9 ml/min; Globulin 2.6 gm/dl (2.5-4.0); Potassium 5.1 mmol/L (3.5-5.1)
[2024-02-13 15:25] LABS: Basophils # (auto) 0.06 K/uL (0.00-0.20); Basophils % (auto) 1.1 %; Eosinophils # (auto) 0.05 K/uL (0.00-0.50); Eosinophils % (auto) 0.9 %; Immature Granulocytes # (auto) 0.01 K/uL (0.01-0.20); Immature Granulocytes % (auto) 0.2 %; Lymphocytes # (auto) 3.62 K/uL (1.20-3.40); Lymphocytes % (auto) 64.6 %; Monocytes # (auto) 0.89 K/uL (0.11-0.59); Monocytes % (auto) 15.9 %; Neutrophils % (auto) 17.3 %; Ovalocytes 1+
[2024-02-13 15:39] LABS: Neutrophils # (auto) 0.97 K/uL (1.40-6.50)
[2024-02-13] MEDS: ONDANSETRON INJ 2 MG/ML 2 ML VIAL IV STA (15:53)
[2024-02-13] MEDS: SODIUM CHLORIDE 0.9% 1,000 ML IV ONE ×2 (17:03→19:52)
[2024-02-13] MEDS: KETOROLAC TROMETHAMINE 15 MG/ML VIAL IV ONE (17:04)
[2024-02-13 17:14] LABS: INR 1.1 (0.9-1.1); Partial Thromboplastin Ratio 0.9; Partial Thromboplastin Time 25 Seconds (21-31); Prothrombin Time 11.4 Seconds (9.0-12.0)
[2024-02-13] MEDS: PIPERACILLIN/TAZOBACTAM 4.5 GM/120 ML BAG IV ONE (17:19)
--- NOTE | 2024-02-13 17:35 | Emergency Department Note ---
Impression & Plan Hypotension, NORRIS (acute kidney injury), Acute dehydration, Gall stones, RUQ abdominal pain ED Provider Note NAME: JANETH RODRIGUEZ AGE: 73 SEX: F : 1950 ARRIVES VIA: Walk-In INFORMANT: [Patient] ED PROVIDER(S): [Song Wagner MD] CHIEF COMPLAINT: Abdominal pain HISTORY OF PRESENT ILLNESS: The patient is a 73-year-old female presents with nausea, no appetite and right upper quadrant abdominal pain. She has had some cold sweats but no fever. Patient was seen in the ER a few days ago and found to have gallstones. She was discharged to follow-up with surgery. Today, she talked to the surgical office and because of her persistent nausea and vomiting, she was sent to the ER for evaluation. They were concerned for dehydration. Patient has not had cough or congestion, no respiratory complaints. No urinary complaints. PMHx/PSHx/Social Hx: See Below PHYSICAL EXAM: GENERAL: Patient is in no acute distress. HEENT: No acute trauma, normocephalic atraumatic, mucous membranes moist, no nasal congestion. NECK: No stridor, no adenopathy, no meningismus, trachea is midline. LUNGS: Clear to auscultation bilaterally, no wheeze, no rhonchi, breath sounds equal. HEART: Without murmurs gallops or rubs, regular rate and rhythm. ABDOMEN: Soft, moderately tender in the right upper quadrant. EXTREMITIES: No cyanosis, full range of motion of all the joints without pain or difficulty. NEUROLOGIC: Oriented x 3, no acute motor or sensory deficits, no focal weakness. SKIN: No jaundice, no diaphoresis. DIFFERENTIAL DIAGNOSIS: Dehydration, renal failure, acute cholecystitis, biliary obstruction, UTI, among others. EMERGENCY DEPARTMENT PROCEDURES: MEDICAL DECISION MAKING: There is no leukocytosis or concerning anemia. There is a normal platelet count. The patient was technically neutropenic based on her CBC breakdown, this has been documented before. There was no coagulopathy. Creatinine was elevated at 1.32 consistent with some acute kidney injury and dehydration. Bilirubin was elevated 2, this appears to be somewhat of a chronic issue. The value today was basically unchanged compared to her last value from a few days ago. The remaining liver enzymes were unremarkable. There was no pancreatitis by our testing. ECG showed a sinus rhythm, no ischemia. Gallbladder ultrasound showed gallstones without acute cholecystitis. There was some dilatation to the common bile duct but it was stable. The patient had presented hypotensive. She was aggressively managed. She was given 2 L of IV saline. She was given IV Zosyn as antibiotic coverage. She received IV Zofran for nausea, IV Toradol for pain. The patient has shown improvement in her blood pressure with the IV hydration. The pressure is now over 100 systolic. She seems more comfortable. I did speak with general surgery. The patient does not require transfer. She needs hospitalization, hydration, a HIDA scan was recommended. I spoke with the patient and case management, the on-call hospitalist was consulted. With the findings of gallstones and her complaints/presentation, she may eventually require surgical intervention. This decision ultimately will be made by the general surgical service. Prior/Outside records/notes reviewed: Today's outpatient notes describing her presentation and the need for an ER evaluation ECG per my interpretation: Indication was abdominal pain. The ECG shows a normal sinus rhythm. There is a rate of 76. There is no acute ST elevation, no PVCs. There is some nonspecific ST change. There is poor R wave progression. The QTc is 441 Continuous Cardiac Monitoring per my interpretation: An order was placed for continuous cardiac monitoring. The monitor shows a rate of 64 with normal sinus rhythm. Imaging/x-ray results per my interpretation: Chronic Medical/Social conditions affecting care: Advanced age. Care/Management discussed with: Case management, the on-call hospitalist. General surgery-Dr. Phelan Level of care consideration(s): After review of the information above and other included data: --I believe the patient requires escalation of care to admission Critical Care Note: I have personally spent 41 minutes of critical care time in the direct management of this patient. This includes bedside care, interpretation of diagnostic studies, and testing, discussion with consultants, patient, and family members, and other required patient management activities. This 41 minutes is in excess of all separately billable procedures. 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 Lopez 10-28-19 Thrombocytopenia HX CAD (coronary artery disease) s/p CABG x 2 > FOLLOWS WITH DR. 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, 04/2022 History of cardiac cath 2009 > NO STENT > CABG History of conization of cervix 2004, arline 3 Hx of dilation and curettage H/O hand surgery trigger finger surgery Family History Mother Liver cancer Thyroid cancer Diabetes Grandmother (Maternal) Diabetes Other No family history of adverse response to anesthesia Social History Smoking Status: Never smoker Second Hand Exposure: No; Do You Dip or Chew Tobacco: No; Hx Alcohol Use: No Hx Substance Use: No Preferred Language: Estonian Communication Ability: Effective Outside Sales Account Representative Required: No Beliefs That Will Affect Care: None marital status: Current Living Situation: Alone current occupational status: retired Feels Safe at Home: Yes Assistive Devices: Cane and Walker Allergies Allergies Allergy/AdvReac Type Severity Reaction Status Date / Time cephalexin Allergy Intermediate hives Verified 01/20/24 08:50 ciprofloxacin [From Cipro] Allergy Mild Hives Verified 01/20/24 08:50 codeine Allergy Mild rash Verified 01/20/24 08:50 dapagliflozin [From Farxiga] AdvReac Intermediate Rash Verified 01/20/24 08:50 lisinopril AdvReac Mild COUGH Verified 01/20/24 08:50 Home Meds Home Medications Medication Instructions Recorded Confirmed aspirin 81 mg chewable tablet 81 mg PO HS 10/26/19 02/13/24 cholecalciferol (vitamin D3) 50 50 mcg PO QAM 03/22/20 02/13/24 mcg (2,000 unit) capsule tramadol 50 mg tablet 50 - 100 mg PO BID PRN Pain 04/09/21 02/13/24 allopurinol 300 mg tablet 300 mg PO QPM 06/12/21 02/13/24 metoprolol succinate 25 mg 12.5 mg PO HS 06/12/21 02/13/24 tablet,extended release 24 hr pantoprazole 20 mg tablet,delayed 20 mg PO QAM 06/27/21 02/13/24 release daratumumab 20 mg/mL intravenous 20 mg IV Q4WK 07/12/21 02/13/24 solution (Darzalex) diphenoxylate-atropine 2.5 1 tab PO .COMPLEX PRN Diarrhea 07/12/21 02/13/24 mg-0.025 mg tablet (Lomotil) pregabalin 50 mg capsule (Lyrica) 50 mg PO TID 07/08/22 02/13/24 ferrous sulfate 325 mg (65 mg 325 mg PO BID 08/05/22 02/13/24 iron) tablet (iron) magnesium oxide 500 mg capsule 500 mg PO BID 08/05/22 02/13/24 cyanocobalamin (vitamin B-12) 1,000 mcg PO BID 03/27/23 02/13/24 1,000 mcg tablet (Vitamin B-12) levothyroxine 150 mcg tablet 150 mcg PO QAM 03/27/23 02/13/24 losartan 25 mg tablet 25 mg PO QPM 03/27/23 02/13/24 apixaban 2.5 mg tablet (Eliquis) 2.5 mg PO BID 07/07/23 02/13/24 pomalidomide 1 mg capsule 1 mg PO DAILY 07/29/23 02/13/24 (Pomalyst) mecobalamin (vitamin B12) 500 mcg 500 mcg PO DAILY 11/13/23 02/13/24 chewable tablet acyclovir 400 mg tablet 400 mg PO DAILY 02/13/24 02/13/24 budesonide-formoterol HFA 80 2 puff inhalation BID 02/13/24 02/13/24 mcg-4.5 mcg/actuation aerosol inhaler insulin glargine 100 unit/mL (3 25 unit subcut DAILY 02/13/24 02/13/24 mL) subcutaneous pen (Lantus Solostar U-100 Insulin) Previous Rx's Medication Instructions Recorded blood sugar diagnostic (FreeStyle #200 ea 03/18/23 Lite Strips) dulaglutide 3 mg/0.5 mL 3 mg (0.5 mL) subcut ONCE #6 mL 03/18/23 subcutaneous pen injector (Trulicity) lancets 28 gauge (FreeStyle #200 ea 03/18/23 Lancets) pen needle, diabetic 32 gauge x #200 ea 03/18/23 5/16" (Comfort EZ Pen [place]) albuterol sulfate 90 mcg/actuation 2 puff inhalation Q6H PRN 07/11/23 aerosol inhaler (Ventolin HFA) Shortness Of Breath Or Wheezing #1 g pravastatin 40 mg tablet 40 mg PO PM #90 tabs 08/06/23 nystatin-triamcinolone 100,000 1 applic topical BID #30 grams 11/21/23 unit/g-0.1 % topical cream amiloride 5 mg tablet 5 mg PO QPM #90 tabs 12/05/23 ondansetron 4 mg disintegrating 4 mg PO Q8H PRN nausea and 02/11/24 tablet vomiting #30 tabs Results & Data (ED) Vital Signs Vital Signs - 24 hr 02/13/24 13:55 02/13/24 15:47 02/13/24 17:26 Temperature 36.4 C L Temperature Source Temporal Artery Scan Pulse Rate 80 Pulse Rate [Finger] 80 64 Respiratory Rate 14 14 20 Blood Pressure 97/67 L Blood Pressure [Right Arm] 85/66 L 98/71 L Blood Pressure Mean 77 Blood Pressure Mean [Right Arm] 72 80 Pulse Oximetry 96 95 98 Oxygen Delivery Method Room Air Room Air Room Air Sepsis New/Unexplained Change in Mental Status No Sepsis Action Taken by Nursing No Action Required 02/13/24 19:50 Temperature Temperature Source Pulse Rate Pulse Rate [Finger] 62 Respiratory Rate 18 Blood Pressure Blood Pressure [Right Arm] 105/57 L Blood Pressure Mean Blood Pressure Mean [Right Arm] 73 Pulse Oximetry 94 Oxygen Delivery Method Room Air Sepsis New/Unexplained Change in Mental Status Sepsis Action Taken by Longterm Medications Current Medication List: was personally reviewed by me Laboratory Data Attestation: I reviewed the patient's lab results. 02/13/24 14:14 02/13/24 14:14 Lab Results 02/13/24 02/13/24 Range/Units 14:14 18:27 WBC 5.60 (4.8-10.8) K/ul RBC 4.88 (4.20-5.40) M/uL Hgb 15.0 (12.0-16.0) g/dl Hct 45.7 (37.0-47.0) % MCV 93.6 (80.0-100.0) fL MCH 30.7 (25.0-34.0) pg MCHC 32.8 (32.0-36.0) g/dL RDW Std Deviation 55.0 H (36.4-46.3) fL RDW Coeff of Aminata 16.4 H (11.5-14.5) % Plt Count 203 (130-400) K/uL MPV 11.7 (9.4-12.4) fL Immature Gran % (Auto) 0.2 % Neut % (Auto) 17.3 % Lymph % (Auto) 64.6 % [place] % (Auto) 15.9 % Eos % (Auto) 0.9 % Baso % (Auto) 1.1 % Neut # (Auto) 0.97 L* (1.40-6.50) K/uL Lymph # (Auto) 3.62 H (1.20-3.40) K/uL [place] # (Auto) 0.89 H (0.11-0.59) K/uL Eos # (Auto) 0.05 (0.00-0.50) K/uL Baso # (Auto) 0.06 (0.00-0.20) K/uL Immature Gran # (Auto) 0.01 (0.01-0.20) K/uL Ovalocytes 1+ PT Cancelled 11.4 INR Cancelled 1.1 APTT Cancelled 25 PTT Ratio Cancelled 0.9 Sodium 135 L (136-145) mmol/L Potassium 5.1 (3.5-5.1) mmol/L Chloride 104 (98-107) mmol/L Carbon Dioxide 21 (21-32) mmol/L Anion Gap 10 (3-11) BUN 21 (6-23) mg/dl Creatinine 1.32 H D (0.6-1.2) mg/dl Est Cr Clr Drug Dosing 41.4 ml/min Est GFR ( Amer) 46.3 ml/min Est GFR (Non-Af Amer) 39.9 ml/min BUN/Creatinine Ratio 15.9 (10-20) Glucose 132 H (70-99(Fasting)) mg/dl Calcium 9.7 (8.6-10.3) mg/dl Total Bilirubin 2.0 H (0.2-1.0) mg/dl AST 21 (13-39) U/L ALT 21 (7-52) U/L Alkaline Phosphatase 55 (34-104) U/L Total Protein 7.0 (6.0-8.3) gm/dl Albumin 4.4 (3.4-5.0) gm/dl Globulin 2.6 (2.5-4.0) gm/dl Albumin/Globulin Ratio 1.7 (0.9-2) Lipase 8 L (11-82) U/L Administered Medications Discontinued Medications Sodium Chloride (Nss) 1,000 mls @ 999 mls/hr IV .Q1H1M ONE Stop: 02/13/24 17:55 Last Infusion: 02/13/24 18:10 Dose: Infused Documented By: Admin: 02/13/24 17:03 Dose: 999 mls/hr Documented By: JAMSHID Piperacillin Sod/Tazobactam Sod (Zosyn) 4.5 gm in 120 mls @ 240 mls/hr IV NOW ONE Stop: 02/13/24 17:36 Last Infusion: 02/13/24 17:51 Dose: Infused Documented By: Admin: 02/13/24 17:19 Dose: 240 mls/hr Documented By: MILANA Lactated Ringer's (Lr) 1,000 mls @ 999 mls/hr IV .Q1H1M ONE Stop: 02/13/24 18:52 Last Admin: 02/13/24 19:34 Dose: 999 mls/hr Documented By: LORENA Sodium Chloride (Nss) 1,000 mls @ 999 mls/hr IV .Q1H1M ONE Stop: 02/13/24 19:58 Last Admin: 02/13/24 19:52 Dose: Not Given Documented By: MILANA Ketorolac Tromethamine (Ketorolac Tromethamine 15 Mg/Ml Vial) 10 mg IV NOW ONE Stop: 02/13/24 16:56 Last Admin: 02/13/24 17:04 Dose: 10 mg Documented By: JAMSHID Ondansetron HCl (Ondansetron Inj 2 Mg/Ml 2 Ml Vial) 4 mg IV NOW STA Stop: 02/13/24 15:51 Last Admin: 02/13/24 15:53 Dose: 4 mg Documented By: JAMSHID Imaging Data Radiologist's Impression: Gallbladder Ultrasound 02/13/24 16:55 ABDOMINAL ULTRASOUND, RIGHT UPPER QUADRANT HISTORY: Nausea. gallstones. COMPARISON: Abdominal ultrasound 02/11/2024. FINDINGS: Pancreas: The pancreas demonstrates a normal echotexture. Liver: The liver is echogenic consistent with fatty change. 16 cm in length. No hepatic masses or intrahepatic bile duct dilatation. Gallbladder: Cholelithiasis and a small amount of sludge. No gallbladder wall thickening. Inadequate assessment of the sonographic Isabel sign due to the patient's pain medication. CBD: 9 mm, unchanged. Right kidney: No hydronephrosis. IMPRESSION: 1. Cholelithiasis. No gallbladder wall thickening. 2. Mildly dilated common bile duct measuring 9 mm, unchanged. 3. Hepatic steatosis. ACT 112: Negative or not required by law. Electronically signed by: Julian Venegas M.D. 02/13/2024 6:57 PM Discharge Plan Visit Data Chief Complaint: Pain (Generalized) Stated Complaint: [facility] ED Provider: Song Wagner Discharge Problem: Hypotension, NORRIS (acute kidney injury), Acute dehydration, Gall stones, RUQ abdominal pain Patient Disposition: Admitted As Inpatient Condition: Fair Forms Stand Alone Forms: My [facility] Prescriptions Prescriptions: No Action pravastatin 40 mg tablet 40 mg PO PM Qty: 90 1RF nystatin-triamcinolone 100,000-0.1 unit/g-% cream 1 applic topical BID Qty: 30 1RF amiloride 5 mg tablet 5 mg PO QPM Qty: 90 3RF Darzalex 20 mg/mL solution 20 mg IV Q4WK Pomalyst 1 mg capsule 1 mg PO DAILY Rx Instructions: Take daily for 21 days then do not take for 7 days. Then Provider to call in new script Trulicity 3 mg/0.5 mL pen injector 3 mg subcut ONCE Qty: 6 3RF Patient Comments: takes on mondays Rx Instructions: Inject 3 mg into the abdomen once weekly. (DME) pen needle, diabetic [Comfort EZ Pen [place]] 32 gauge x 5/16" needle See Rx Instructions .Route Qty: 200 3RF Rx Instructions: test blood sugar 3 x daily2 (DME) lancets [FreeStyle Lancets] 28 gauge misc See Rx Instructions .Route Qty: 200 3RF Rx Instructions: test blood sugar 2 x daily (DME) FreeStyle Lite Strips Strip See Rx Instructions .Route Qty: 200 3RF Rx Instructions: test 2 times daily allopurinol 300 mg tablet 300 mg PO QPM metoprolol succinate 25 mg tablet extended release 24 hr 12.5 mg PO HS diphenoxylate-atropine [Lomotil] 2.5-0.025 mg tablet 1 tab PO .COMPLEX PRN (Reason: Diarrhea) Rx Instructions: 1 tab PO 1-2 TIMES DAILY; PRN; cholecalciferol (vitamin D3) 50 mcg (2,000 unit) capsule 50 mcg PO QAM tramadol 50 mg tablet 50 - 100 mg PO BID PRN (Reason: Pain) pregabalin [Lyrica] 50 mg capsule 50 mg PO TID mecobalamin (vitamin B12) 500 mcg tablet,chewable 500 mcg PO DAILY aspirin 81 mg Tablet,Chewable 81 mg PO HS pantoprazole 20 mg tablet,delayed release (/EC) 20 mg PO QAM ferrous sulfate [iron] 325 mg (65 mg iron) Tablet 325 mg PO BID magnesium oxide 500 mg capsule 500 mg PO BID cyanocobalamin (vitamin B-12) [Vitamin B-12] 1,000 mcg Tablet 1,000 mcg PO BID levothyroxine 150 mcg Tablet 150 mcg PO QAM losartan 25 mg Tablet 25 mg PO QPM Eliquis 2.5 mg tablet 2.5 mg PO BID albuterol sulfate [Ventolin HFA] 90 mcg/actuation HFA aerosol inhaler 2 puff INHALATION Q6H PRN (Reason: Shortness Of Breath Or Wheezing) Qty: 1 0RF ondansetron 4 mg tablet,disintegrating 4 mg PO Q8H PRN (Reason: nausea and vomiting) Qty: 30 0RF budesonide-formoterol 80-4.5 mcg/actuation HFA aerosol inhaler 2 puff INHALATION BID acyclovir 400 mg tablet 400 mg PO DAILY insulin glargine [Lantus Solostar U-100 Insulin] 100 unit/mL (3 mL) insulin pen 25 unit subcut DAILY Rx Instructions: Inject 25 units into the abdomen once daily. Referrals Referrals: Yaneth Pillai MD [Primary Care Provider] - Discharge Problem: Hypotension Qualifiers: Hypotension type: unspecified hypotension type Qualified Code(s): I95.9 - Hypotension, unspecified
--- NOTE | 2024-02-13 17:51 | History & Physical Report ---
Date of Service February 13, 2024 Assessment & Plan (1) Acute cholecystitis: Plan: RUQ Abdominal Pain, cholelithiasis? Cholecystitis -History of gallstones, was following as an outpatient with general surgery. Poor p.o. intake for 2 days, volume contracted referred to the ER Gallbladder ultrasound earlier this week with mild CBD dilation. Repeat ultrasound on arrival to ER with CBD dilation 9mm, no gallbladder wall thickening Has had some chronic elevation of her bilirubin in the past, is 2.0 at time of admission with no AST/ALT elevation Recommended for admission for acute cholecystitis S/p 1 L NSS in the ER with some improvement in blood pressure although still remains low. 1 L of supplemental LR ordered, followed by maintenance. Patient meets the moderate/high risk cholecystitis protocol based on mild CBD dilation and bilirubin of 2.0. Discussed with the ER. Surgery was consulted, Dr. Phelan is following. Patient does not require transfer at this time. Recommend HIDA scan and admission, trend CMP Continue ZosynTylenol for pain control. Morphine held pending HIDA (2) Hx of CABG: Plan: Reports she go up a flight of stairs and can walk without any limiting angina or chest pain. Continue metoprolol once BP greater than 100 Continue statin Hypertension Hypertensives held for volume contraction and hypotension on admission (3) Hypothyroidism: Plan: Hypothyroidism Continue Synthroid 150 mcg daily TSH recheck deferred in the setting of acute illness (4) A-fib: Plan: history of A-fib, Eliquis held pending surgical evaluation EKG: Normal sinus rhythm, no territorial ST segment changes are appreciated. No territorial T wave inversions are seen : Medical telemetry (5) Acute kidney injury: Plan: Baseline creatinine approximately 0.91.1. Is acutely elevated at 1.32. She is clinically volume contracted. Improving with fluids. Suspect prerenal with poor p.o. intake S/p IVF resuscitation in the ER with improvement in blood pressure Trend BMP daily Renally dose medications as needed Plan DVT prophylaxis: Anticoagulated on Eliquis which she last took morning of 02/13/2024. This is held pending surgical evaluation Disposition: Medical telemetry CODE STATUS: Full code Disposition: Medical telemetry History of Present Illness Primary Care Provider: Yaneth Pillai MD Carie is 73-year-old female with a history of multiple myeloma, cholelithiasis, CAD s/p bypass with no recent anginal symptoms who presents with poor p.o. intake, NORRIS who presents with 3 days of worsening right upper quadrant abdominal pain, nausea and intolerance to p.o. intake suspicious for cholecystitis. Carie is seen at the bedside. She reports that she has known gallstones and has been following the surgery for potential Rosi cystectomy; in the last 3 days she has had worsening right upper quadrant pain and cannot even smell food without getting nauseous and vomiting. She has not had any bloody or bilious vomiting. No philip colored stools. She is tender at the right upper quadrant with no rebound or guarding. She denies fever, chills, night sweats. She has no chest pain or chest pressure. Has a history of bypass but no recent chest pain on exertion and can go up a flight of stairs carrying laundry without any chest pain although gets slightly short of breath at the top of the stairs when she does this. She reports she normally has very loose bowels and diarrhea at baseline, her bowel movements have been brown and have been unchanged in the last few weeks. She has history of multiple myeloma which she is [facility], she is scheduled to see [facility] next Friday and resume this. Denies dysuria. Denies other symptoms. Medical History: Reviewed Medications: Reviewed Surgical History: Reviewed Family history: Reviewed Allergies: Reviewed Social History: Reviewed Code Status: Full Allergies Allergy/AdvReac Type Severity Reaction Status Date / Time cephalexin Allergy Intermediate hives Verified 01/20/24 08:50 ciprofloxacin [From Cipro] Allergy Mild Hives Verified 01/20/24 08:50 codeine Allergy Mild rash Verified 01/20/24 08:50 dapagliflozin [From Farxiga] AdvReac Intermediate Rash Verified 01/20/24 08:50 lisinopril AdvReac Mild COUGH Verified 01/20/24 08:50 Home Medications Medication Instructions Recorded Confirmed Type aspirin 81 mg chewable tablet 81 mg PO HS 10/26/19 02/13/24 History cholecalciferol (vitamin D3) 50 50 mcg PO QAM 03/22/20 02/13/24 History mcg (2,000 unit) capsule tramadol 50 mg tablet 50 - 100 mg PO BID PRN Pain 04/09/21 02/13/24 History allopurinol 300 mg tablet 300 mg PO QPM 06/12/21 02/13/24 History metoprolol succinate 25 mg 12.5 mg PO HS 06/12/21 02/13/24 History tablet,extended release 24 hr pantoprazole 20 mg tablet,delayed 20 mg PO QAM 06/27/21 02/13/24 History release daratumumab 20 mg/mL intravenous 20 mg IV Q4WK 07/12/21 02/13/24 History solution (Darzalex) diphenoxylate-atropine 2.5 1 tab PO .COMPLEX PRN Diarrhea 07/12/21 02/13/24 History mg-0.025 mg tablet (Lomotil) pregabalin 50 mg capsule (Lyrica) 50 mg PO TID 07/08/22 02/13/24 History ferrous sulfate 325 mg (65 mg 325 mg PO BID 08/05/22 02/13/24 History iron) tablet (iron) magnesium oxide 500 mg capsule 500 mg PO BID 08/05/22 02/13/24 History blood sugar diagnostic (FreeStyle #200 ea 03/18/23 02/13/24 Rx Lite Strips) dulaglutide 3 mg/0.5 mL 3 mg (0.5 mL) subcut ONCE #6 mL 03/18/23 02/13/24 Rx subcutaneous pen injector (Trulicity) lancets 28 gauge (FreeStyle #200 ea 03/18/23 02/13/24 Rx Lancets) pen needle, diabetic 32 gauge x #200 ea 03/18/23 02/13/24 Rx 5/16" (Comfort EZ Pen Cathay) cyanocobalamin (vitamin B-12) 1,000 mcg PO BID 03/27/23 02/13/24 History 1,000 mcg tablet (Vitamin B-12) levothyroxine 150 mcg tablet 150 mcg PO QAM 03/27/23 02/13/24 History losartan 25 mg tablet 25 mg PO QPM 03/27/23 02/13/24 History apixaban 2.5 mg tablet (Eliquis) 2.5 mg PO BID 07/07/23 02/13/24 History albuterol sulfate 90 mcg/actuation 2 puff inhalation Q6H PRN 07/11/23 02/13/24 Rx aerosol inhaler (Ventolin HFA) Shortness Of Breath Or Wheezing #1 g pomalidomide 1 mg capsule 1 mg PO DAILY 07/29/23 02/13/24 History (Pomalyst) pravastatin 40 mg tablet 40 mg PO PM #90 tabs 08/06/23 02/13/24 Rx mecobalamin (vitamin B12) 500 mcg 500 mcg PO DAILY 11/13/23 02/13/24 History chewable tablet nystatin-triamcinolone 100,000 1 applic topical BID #30 grams 11/21/23 02/13/24 Rx unit/g-0.1 % topical cream amiloride 5 mg tablet 5 mg PO QPM #90 tabs 12/05/23 02/13/24 Rx ondansetron 4 mg disintegrating 4 mg PO Q8H PRN nausea and 02/11/24 02/13/24 Rx tablet vomiting #30 tabs acyclovir 400 mg tablet 400 mg PO DAILY 02/13/24 02/13/24 History budesonide-formoterol HFA 80 2 puff inhalation BID 02/13/24 02/13/24 History mcg-4.5 mcg/actuation aerosol inhaler insulin glargine 100 unit/mL (3 25 unit subcut DAILY 02/13/24 02/13/24 History mL) subcutaneous pen (Lantus Solostar U-100 Insulin) Past Med/Surg History Problem List (Updated 02/13/24 @ 17:45 by Corey Diallo MD) Acute cholecystitis Gallstone (Acute) Type 2 diabetes mellitus Recurrent UTI Hypomagnesemia Hypertension Hypothyroidism Vaginal candidiasis Viral pneumonia 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 Lopez 10-28-19 Thrombocytopenia HX CAD (coronary artery disease) s/p CABG x 2 > FOLLOWS WITH DR. 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, 04/2022 History of cardiac cath 2009 > NO STENT > CABG History of conization of cervix 2004, arline 3 Hx of dilation and curettage H/O hand surgery trigger finger surgery Family History Mother Liver cancer Thyroid cancer Diabetes Grandmother (Maternal) Diabetes Other No family history of adverse response to anesthesia Social History Smoking Status: Never smoker Second Hand Exposure: No; Do You Dip or Chew Tobacco: No; Hx Alcohol Use: No Hx Substance Use: No Preferred Language: Welsh Communication Ability: Effective Horticultural Agent Required: No Beliefs That Will Affect Care: None marital status: Current Living Situation: Alone current occupational status: retired Feels Safe at Home: Yes Assistive Devices: Cane and Walker Physical Exam Physical Exam: General: A&Ox3. NAD. Cooperative. HEENT: Atraumatic, normocephalic. Pulm: CTAB A&P. -wheezes, -rales, -rhonchi. Symmetrical chest rise. No increased work of breathing. No respiratory distress. Cardiac: RRR, -mrg. Radial pulses intact and symmetrical. Abdominal: RUQ TTP. No rebound/guarding. Soft. BS present. Results & Data Results & Data Vital Signs (Past 12 Hours) Vital Signs Temp Pulse Pulse Resp BP BP Pulse Ox 02/13/24 17:26 64 20 98/71 L 98 02/13/24 15:47 80 14 85/66 L 95 02/13/24 13:55 36.4 C L 80 14 97/67 L 96 O2 Del Method 02/13/24 17:26 Room Air 02/13/24 15:47 Room Air 02/13/24 13:55 Room Air PG Care Time/CCT Total # of Minutes Spent Total Time Spent with Patient: Total time spent is greater than 50% in coordination of care (as documented) at patient's floor/unit and/or counseling patient: Coding Level of Care Code 53532 INT INP/OBS CARE 255MIN Diagnoses Acute cholecystitis K81.0 Hx of CABG Z95.1 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
[2024-02-13] MEDS ORDERED: GLUCOSE 10 TAB/TUBE PO PRN (17:54)
[2024-02-13] MEDS ORDERED: DEXTROSE 50% 50 ML SYRINGE IV PRN (17:54)
[2024-02-13] MEDS ORDERED: GLUCAGON FOR INJ 1 MG VIAL SQ PRN (17:54)
[2024-02-13] MEDS ORDERED: GLUCOSE 40% GEL 15 GM TUBE PO PRN (17:54)
--- NOTE | 2024-02-13 18:35 | Electrocardiogram Report ---
Test Reason : Blood Pressure : / mmHG Vent. Rate : 076 BPM Atrial Rate : 076 BPM P-R Int : 140 ms QRS Dur : 080 ms QT Int : 392 ms P-R-T Axes : -13 006 057 degrees QTc Int : 441 ms Normal sinus rhythm Cannot rule out Anterior infarct , age undetermined Nonspecific ST abnormality Abnormal ECG When compared with ECG of 11-FEB-2024 15:08, Nonspecific T wave abnormality now evident in Lateral leads Confirmed by Get Hodges ([id number]) on 02/13/2024 6:35:18 PM Referred By: Confirmed By:Get Hodges
--- NOTE | 2024-02-13 18:58 | Ultrasound Report ---
ABDOMINAL ULTRASOUND, RIGHT UPPER QUADRANT HISTORY: Nausea. gallstones. COMPARISON: Abdominal ultrasound 02/11/2024. FINDINGS: Pancreas: The pancreas demonstrates a normal echotexture. Liver: The liver is echogenic consistent with fatty change. 16 cm in length. No hepatic masses or int rahepatic bile duct dilatation. Gallbladder: Cholelithiasis and a small amount of sludge. No gallbladder wall thickening. Inadequate assessment of the sonographic Isabel sign due to the patient's pain medication. CBD: 9 mm, unchanged. Right kidney: No hydronephrosis. IMPRESSION: 1. Cholelithiasis. No gallbladder wall thickening. 2. Mildly dilated common bile duct measuring 9 mm, unchanged. 3. Hepatic steatosis. ACT 112: Negative or not required by law. Electronically signed by: Julian Venegas M.D. 02/13/2024 6:57 PM
[2024-02-13] MEDS: LACTATED RINGER'S 1,000 ML IV ONE (19:34)
[2024-02-13] MEDS ORDERED: ACETAMINOPHEN 325 MG TAB PO PRN (19:48)
[2024-02-13] MEDS: CARBOHYDRATES FOR HYPOGLYCEMIA PO PRN (21:17)
[2024-02-13] MEDS: INSULIN ASPART PER UNIT CHARGE SC SCH (21:19)
[2024-02-13] MEDS: LACTATED RINGER'S 1,000 ML IV SCH (22:05)
[2024-02-13] MEDS: SODIUM CHLORIDE 0.9% 1,000 ML IV SCH (23:32)
[2024-02-14] MEDS: PIPERACILLIN/TAZOBACTAM 4.5 GM in DEXTROSE 5% MINI-B 100 ML IV SCH (00:25)
[2024-02-14] MEDS ORDERED: ALBUTEROL HFA 8 GM INHALER INH PRN (01:26)
--- NOTE | 2024-02-14 03:58 | Surgery Consultation ---
Date of Consultation February 14, 2024 Assessment & Plan (1) Acute cholecystitis: 73-year-old woman with multiple myeloma who is mildly neutropenic also on Eliquis who presents with right upper quadrant and epigastric pain that is consistent with gallstones. While she admits that her pain has resolved, and that discussion she was started to feel sick in her stomach again and she is still quite tender on examination. We reviewed the for laparoscopic cholecystectomy with risks of bleeding, infection, postoperative bile leak or retained common bile duct stone, worsening diarrhea requiring medications, and intolerance to food. She understands that she is at higher risk of infection as well as bleeding given her neutropenia and current use of Eliquis. We discussed the possible use of a drain if her gallbladder is very infected. Expected hospital stay 1 to 2-week recovery. Was discussed. We also discussed the potential need for open operation if the gallbladder is very gangrenous. We reviewed the possibility of the common bile duct. Consent is signed. Will plan on OR today. She does have a dilated common bile duct but has had an extensive evaluation for this with no findings worrisome for choledocholithiasis. The remainder of her liver function tests are within normal limits. (2) Type 2 diabetes mellitus: As per medicine (3) Neutropenia: As per medicine History of Present Illness Reason for Consultation: abdominal pain Requesting Physician: Charity Cardoza DO Attending Physician: Charity Cardoza DO History of Present Illness 73-year-old with multiple myeloma presents with abdominal pain which has been going on since Friday. Back in 2018, she was initially diagnosed with gallstones. At that time she was also found to have dilated common bile duct on imaging. In the interim years she has had an extensive evaluation for the dilated common bile duct which includes MRCP's x 2, endoscopic ultrasound and ERCP after she. All of these have been negative for common duct stones. She notes that she was doing well with no abdominal symptoms until Friday. She then developed abdominal pain which was worse in the right upper quadrant. She had vomiting and a headache and just felt overall sick in her stomach. She thought she had the flu. Friday she was found to have gallstones on ultrasound. On Friday she saw her family doctor who recommended she go to the hospital because her pain was continuing and was persistent. She currently notes that the pain has more or less resolved although she is still somewhat feeling sick in the stomach. She denies any current nausea or vomiting. She is hungry. She denies any change in bowel habits but notes that she is having chronic diarrhea for many years. This has always been attributed to medications in the past. She has been followed by GI. Of note, pt is on eliquis. Also mildly neutropenic Long history of gallstones with dilated common duct (varies from 8-11 mm on imaging studies over the past 5 yrs) This has been going on since at least 2018: workup has included - 2019 US showing gallstones, 8 mm CBD MRCP 2018 dilated CBD, no choledocholithiasis, gallstones present, side branch IPMN Jul 2019 another US showing the same Jul 2019 HIDA scan showing no acute cholecystitis, EF 14% February 2023 US again showing dilated CBD, gallstones March 2023 MRCP showing the same as previous, also with large hiatal hernia Allergies Allergy/AdvReac Type Severity Reaction Status Date / Time cephalexin Allergy Intermediate hives Verified 01/20/24 08:50 ciprofloxacin [From Cipro] Allergy Mild Hives Verified 01/20/24 08:50 codeine Allergy Mild rash Verified 01/20/24 08:50 dapagliflozin [From Farxiga] AdvReac Intermediate Rash Verified 01/20/24 08:50 lisinopril AdvReac Mild COUGH Verified 01/20/24 08:50 Home Medications Medication Instructions Recorded Confirmed Type aspirin 81 mg chewable tablet 81 mg PO HS 10/26/19 02/13/24 History cholecalciferol (vitamin D3) 50 50 mcg PO QAM 03/22/20 02/13/24 History mcg (2,000 unit) capsule tramadol 50 mg tablet 50 - 100 mg PO BID PRN Pain 04/09/21 02/13/24 History allopurinol 300 mg tablet 300 mg PO QPM 06/12/21 02/13/24 History metoprolol succinate 25 mg 12.5 mg PO HS 06/12/21 02/13/24 History tablet,extended release 24 hr pantoprazole 20 mg tablet,delayed 20 mg PO QAM 06/27/21 02/13/24 History release daratumumab 20 mg/mL intravenous 20 mg IV Q4WK 07/12/21 02/13/24 History solution (Darzalex) diphenoxylate-atropine 2.5 1 tab PO .COMPLEX PRN Diarrhea 07/12/21 02/13/24 History mg-0.025 mg tablet (Lomotil) pregabalin 50 mg capsule (Lyrica) 50 mg PO TID 07/08/22 02/13/24 History ferrous sulfate 325 mg (65 mg 325 mg PO BID 08/05/22 02/13/24 History iron) tablet (iron) magnesium oxide 500 mg capsule 500 mg PO BID 08/05/22 02/13/24 History blood sugar diagnostic (FreeStyle #200 ea 03/18/23 02/13/24 Rx Lite Strips) dulaglutide 3 mg/0.5 mL 3 mg (0.5 mL) subcut ONCE #6 mL 03/18/23 02/13/24 Rx subcutaneous pen injector (Trulicity) lancets 28 gauge (FreeStyle #200 ea 03/18/23 02/13/24 Rx Lancets) pen needle, diabetic 32 gauge x #200 ea 03/18/23 02/13/24 Rx 5/16" (Comfort EZ Pen Wiseman) cyanocobalamin (vitamin B-12) 1,000 mcg PO BID 03/27/23 02/13/24 History 1,000 mcg tablet (Vitamin B-12) levothyroxine 150 mcg tablet 150 mcg PO QAM 03/27/23 02/13/24 History losartan 25 mg tablet 25 mg PO QPM 03/27/23 02/13/24 History apixaban 2.5 mg tablet (Eliquis) 2.5 mg PO BID 07/07/23 02/13/24 History albuterol sulfate 90 mcg/actuation 2 puff inhalation Q6H PRN 07/11/23 02/13/24 Rx aerosol inhaler (Ventolin HFA) Shortness Of Breath Or Wheezing #1 g pomalidomide 1 mg capsule 1 mg PO DAILY 07/29/23 02/13/24 History (Pomalyst) pravastatin 40 mg tablet 40 mg PO PM #90 tabs 08/06/23 02/13/24 Rx mecobalamin (vitamin B12) 500 mcg 500 mcg PO DAILY 11/13/23 02/13/24 History chewable tablet nystatin-triamcinolone 100,000 1 applic topical BID #30 grams 11/21/23 02/13/24 Rx unit/g-0.1 % topical cream amiloride 5 mg tablet 5 mg PO QPM #90 tabs 12/05/23 02/13/24 Rx ondansetron 4 mg disintegrating 4 mg PO Q8H PRN nausea and 02/11/24 02/13/24 Rx tablet vomiting #30 tabs acyclovir 400 mg tablet 400 mg PO DAILY 02/13/24 02/13/24 History budesonide-formoterol HFA 80 2 puff inhalation BID 02/13/24 02/13/24 History mcg-4.5 mcg/actuation aerosol inhaler insulin glargine 100 unit/mL (3 25 unit subcut DAILY 02/13/24 02/13/24 History mL) subcutaneous pen (Lantus Solostar U-100 Insulin) Patient History Medical History Multiple myeloma Diabetes mellitus type 2 in obese Hx of sleep apnea RESOLVED SINCE CABG SURGERY PER PT BPPV (benign paroxysmal positional vertigo) ONLY HAPPENED ONCE Hypothyroidism Port-A-Cath in place (10/28/19) Insertion of Mediport Right Subclavian Vein with Fluoroscopy Dr. Lopez 10-28-19 Thrombocytopenia HX CAD (coronary artery disease) s/p CABG x 2 > FOLLOWS WITH DR. 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, 04/2022 History of cardiac cath 2009 > NO STENT > CABG History of conization of cervix 2004, arline 3 Hx of dilation and curettage H/O hand surgery trigger finger surgery Family History Mother Liver cancer Thyroid cancer Diabetes Grandmother (Maternal) Diabetes Other No family history of adverse response to anesthesia Social History Smoking Status: Never smoker Second Hand Exposure: No; Do You Dip or Chew Tobacco: No; Tobacco Cessation Education Requested by Patient: No Hx Alcohol Use: No Hx Substance Use: No Preferred Language: Ukrainian Communication Ability: Effective Window And Door Installer Required: No Beliefs That Will Affect Care: None marital status: Current Living Situation: Alone current occupational status: retired Other Information That Helps Us Care for You: No Feels Safe at Home: Yes Safety Concerns: Feels Safe At This Time Assistive Devices: None Review of Systems Review of Systems: All systems reviewed & are unremarkable except as noted in HPI & below Physical Exam Constitutional: WD/WN, vitals as above Eyes: + anicteric sclerae Neck: trachea midline, no thyromegaly Respiratory: normal respiratory effort, lungs clear to auscultation Cardiovascular: RRR, no murmur, no edema Gastrointestinal (Abdomen): Inspection/Auscultation: abdomen normal to inspection, normal bowel sounds and + abdominal surgical incision (lap incisions from hysterectomy); abdomen not distended Percussion/Palpation: + abdomen tender (ruq and epigastric), + guarding (epigastric) and abdomen soft Musculoskeletal: Extremities: extremities normal to inspection Neurologic: awake; no focal motor deficits Psychiatric: A+Ox3, euthymic affect Results & Data Vital Signs (Past 12 Hours) Vital Signs Temp Pulse Pulse Pulse Resp BP Pulse Ox 02/14/24 01:26 02/14/24 01:26 37.8 C H 77 18 126/74 02/14/24 01:25 61 02/14/24 00:41 72 20 97 02/14/24 00:26 73 12 140/83 96 02/14/24 00:25 86 L 02/13/24 23:00 74 14 122/74 94 02/13/24 20:25 71 02/13/24 19:50 62 18 105/57 L 94 02/13/24 17:26 64 20 98/71 L 98 Pulse Ox O2 Del Method O2 Del Method O2 Flow Rate O2 Flow Rate 02/14/24 01:26 95 Nasal Cannula 2 02/14/24 01:26 Nasal Cannula 2 02/14/24 01:25 02/14/24 00:41 Nasal Cannula 2 02/14/24 00:26 Nasal Cannula 2 06/08/24 00:25 0 02/13/24 23:00 Room Air 02/13/24 20:25 02/13/24 19:50 Room Air 02/13/24 17:26 Room Air Laboratory Results 02/14/24 02/14/24 02/14/24 Range/Units 11:52 09:05 07:10 WBC 4.24 L (4.8-10.8) K/ul RBC 3.63 L (4.20-5.40) M/uL Hgb 11.3 L D (12.0-16.0) g/dl Hct 34.2 L (37.0-47.0) % MCV 94.2 (80.0-100.0) fL MCH 31.1 (25.0-34.0) pg MCHC 33.0 (32.0-36.0) g/dL RDW Std Deviation 54.9 H (36.4-46.3) fL RDW Coeff of Aminata 16.1 H (11.5-14.5) % Plt Count 147 (130-400) K/uL MPV 11.9 (9.4-12.4) fL Immature Gran % (Auto) % Neut % (Auto) % Lymph % (Auto) % Collin % (Auto) % Eos % (Auto) % Baso % (Auto) % Neut # (Auto) (1.40-6.50) K/uL Lymph # (Auto) (1.20-3.40) K/uL [place]lin # (Auto) (0.11-0.59) K/uL Eos # (Auto) (0.00-0.50) K/uL Baso # (Auto) (0.00-0.20) K/uL Immature Gran # (Auto) (0.01-0.20) K/uL Neutrophils % (Manual) 26 % Lymphocytes % (Manual) 40 % Reactive Lymphs % (Man) 17 % Monocytes % (Manual) 14 % Eosinophils % (Manual) 2 % Metamyelocytes % (Man) 1 % Neutrophils # (Manual) 1.10 L (1.40-6.50) K/uL Total Absolute Neuts 1.10 L (1.4-6.5) K/uL Lymphocytes # (Manual) 1.70 (1.2-3.4) K/uL Reactive Lymphs # 0.72 K/uL Total Abs Lymphocytes 2.42 (1.2-3.4) K/uL Monocytes # (Manual) 0.59 (0.11-0.59) K/uL Eosinophils # (Manual) 0.08 (0-0.50) K/uL Metamyelocytes # (Man) 0.04 H (0-0) K/uL RBC Morphology Unremarkable Ovalocytes PT INR APTT PTT Ratio Sodium 136 (136-145) mmol/L Potassium 4.5 (3.5-5.1) mmol/L Chloride 109 H (98-107) mmol/L Carbon Dioxide 21 (21-32) mmol/L Anion Gap 6 (3-11) BUN 26 H (6-23) mg/dl Creatinine 1.52 H (0.6-1.2) mg/dl Est Cr Clr Drug Dosing 35.7 ml/min Est GFR ( Amer) 39.0 ml/min Est GFR (Non-Af Amer) 33.7 ml/min BUN/Creatinine Ratio 17.1 (10-20) Glucose 109 H (70-99(Fasting)) mg/dl POC Glucose 111 H (70-99) mg/dl Calcium 8.1 L (8.6-10.3) mg/dl Total Bilirubin 1.3 H (0.2-1.0) mg/dl AST 13 (13-39) U/L ALT 11 (7-52) U/L Alkaline Phosphatase 38 (34-104) U/L Total Protein 4.9 L D (6.0-8.3) gm/dl Albumin 3.1 L (3.4-5.0) gm/dl Globulin 1.8 L (2.5-4.0) gm/dl Albumin/Globulin Ratio 1.7 (0.9-2) Lipase (11-82) U/L Urine Color Yellow Urine Appearance Cloudy A (Clear) Urine pH 5.0 (4.5-7.5) Ur Specific [place] 1.023 (1.000-1.030) Urine Protein Trace H (Negative) Urine Glucose (UA) Negative (Negative) Urine Ketones Trace H (Negative) Urine Blood Negative (Negative) Urine Nitrite Negative (Negative) Urine Bilirubin Negative (Negative) Urine Urobilinogen Negative (Negative) Ur Leukocyte Esterase 1+ H (Negative) Urine WBC (Auto) 11-20 H (0-5) /hpf Urine RBC (Auto) 0-2 (0-2) /hpf U Hyaline Cast (Auto) 0-2 (0-2) /lpf U Epithel Cells (Auto) 11-20 H (0-2) /hpf Urine Bacteria (Auto) 1+ H (None Seen) 02/14/24 02/14/24 02/13/24 Range/Units 04:38 01:12 23:30 WBC (4.8-10.8) K/ul RBC (4.20-5.40) M/uL Hgb (12.0-16.0) g/dl Hct (37.0-47.0) % MCV (80.0-100.0) fL MCH (25.0-34.0) pg MCHC (32.0-36.0) g/dL RDW Std Deviation (36.4-46.3) fL RDW Coeff of Aminata (11.5-14.5) % Plt Count (130-400) K/uL MPV (9.4-12.4) fL Immature Gran % (Auto) % Neut % (Auto) % Lymph % (Auto) % [place]lin % (Auto) % Eos % (Auto) % Baso % (Auto) % Neut # (Auto) (1.40-6.50) K/uL Lymph # (Auto) (1.20-3.40) K/uL [place] # (Auto) (0.11-0.59) K/uL Eos # (Auto) (0.00-0.50) K/uL Baso # (Auto) (0.00-0.20) K/uL Immature Gran # (Auto) (0.01-0.20) K/uL Neutrophils % (Manual) % Lymphocytes % (Manual) % Reactive Lymphs % (Man) % Monocytes % (Manual) % Eosinophils % (Manual) % Metamyelocytes % (Man) % Neutrophils # (Manual) (1.40-6.50) K/uL Total Absolute Neuts (1.4-6.5) K/uL Lymphocytes # (Manual) (1.2-3.4) K/uL Reactive Lymphs # K/uL Total Abs Lymphocytes (1.2-3.4) K/uL Monocytes # (Manual) (0.11-0.59) K/uL Eosinophils # (Manual) (0-0.50) K/uL Metamyelocytes # (Man) (0-0) K/uL RBC Morphology Ovalocytes PT INR APTT PTT Ratio Sodium (136-145) mmol/L Potassium (3.5-5.1) mmol/L Chloride (98-107) mmol/L Carbon Dioxide (21-32) mmol/L Anion Gap (3-11) BUN (6-23) mg/dl Creatinine (0.6-1.2) mg/dl Est Cr Clr Drug Dosing ml/min Est GFR ( Amer) ml/min Est GFR (Non-Af Amer) ml/min BUN/Creatinine Ratio (10-20) Glucose (70-99(Fasting)) mg/dl POC Glucose 102 H 104 H 104 H (70-99) mg/dl Calcium (8.6-10.3) mg/dl Total Bilirubin (0.2-1.0) mg/dl AST (13-39) U/L ALT (7-52) U/L Alkaline Phosphatase (34-104) U/L Total Protein (6.0-8.3) gm/dl Albumin (3.4-5.0) gm/dl Globulin (2.5-4.0) gm/dl Albumin/Globulin Ratio (0.9-2) Lipase (11-82) U/L Urine Color Urine Appearance (Clear) Urine pH (4.5-7.5) Ur Specific [place] (1.000-1.030) Urine Protein (Negative) Urine Glucose (UA) (Negative) Urine Ketones (Negative) Urine Blood (Negative) Urine Nitrite (Negative) Urine Bilirubin (Negative) Urine Urobilinogen (Negative) Ur Leukocyte Esterase (Negative) Urine WBC (Auto) (0-5) /hpf Urine RBC (Auto) (0-2) /hpf U Hyaline Cast (Auto) (0-2) /lpf U Epithel Cells (Auto) (0-2) /hpf Urine Bacteria (Auto) (None Seen) 02/13/24 02/13/24 02/13/24 Range/Units 22:02 21:10 18:27 WBC (4.8-10.8) K/ul RBC (4.20-5.40) M/uL Hgb (12.0-16.0) g/dl Hct (37.0-47.0) % MCV (80.0-100.0) fL MCH (25.0-34.0) pg MCHC (32.0-36.0) g/dL RDW Std Deviation (36.4-46.3) fL RDW Coeff of Aminata (11.5-14.5) % Plt Count (130-400) K/uL MPV (9.4-12.4) fL Immature Gran % (Auto) % Neut % (Auto) % Lymph % (Auto) % [place] % (Auto) % Eos % (Auto) % Baso % (Auto) % Neut # (Auto) (1.40-6.50) K/uL Lymph # (Auto) (1.20-3.40) K/uL [place] # (Auto) (0.11-0.59) K/uL Eos # (Auto) (0.00-0.50) K/uL Baso # (Auto) (0.00-0.20) K/uL Immature Gran # (Auto) (0.01-0.20) K/uL Neutrophils % (Manual) % Lymphocytes % (Manual) % Reactive Lymphs % (Man) % Monocytes % (Manual) % Eosinophils % (Manual) % Metamyelocytes % (Man) % Neutrophils # (Manual) (1.40-6.50) K/uL Total Absolute Neuts (1.4-6.5) K/uL Lymphocytes # (Manual) (1.2-3.4) K/uL Reactive Lymphs # K/uL Total Abs Lymphocytes (1.2-3.4) K/uL Monocytes # (Manual) (0.11-0.59) K/uL Eosinophils # (Manual) (0-0.50) K/uL Metamyelocytes # (Man) (0-0) K/uL RBC Morphology Ovalocytes PT 11.4 INR 1.1 APTT 25 PTT Ratio 0.9 Sodium (136-145) mmol/L Potassium (3.5-5.1) mmol/L Chloride (98-107) mmol/L Carbon Dioxide (21-32) mmol/L Anion Gap (3-11) BUN (6-23) mg/dl Creatinine (0.6-1.2) mg/dl Est Cr Clr Drug Dosing ml/min Est GFR ( Amer) ml/min Est GFR (Non-Af Amer) ml/min BUN/Creatinine Ratio (10-20) Glucose (70-99(Fasting)) mg/dl POC Glucose 106 H 69 L* (70-99) mg/dl Calcium (8.6-10.3) mg/dl Total Bilirubin (0.2-1.0) mg/dl AST (13-39) U/L ALT (7-52) U/L Alkaline Phosphatase (34-104) U/L Total Protein (6.0-8.3) gm/dl Albumin (3.4-5.0) gm/dl Globulin (2.5-4.0) gm/dl Albumin/Globulin Ratio (0.9-2) Lipase (11-82) U/L Urine Color Urine Appearance (Clear) Urine pH (4.5-7.5) Ur Specific [place] (1.000-1.030) Urine Protein (Negative) Urine Glucose (UA) (Negative) Urine Ketones (Negative) Urine Blood (Negative) Urine Nitrite (Negative) Urine Bilirubin (Negative) Urine Urobilinogen (Negative) Ur Leukocyte Esterase (Negative) Urine WBC (Auto) (0-5) /hpf Urine RBC (Auto) (0-2) /hpf U Hyaline Cast (Auto) (0-2) /lpf U Epithel Cells (Auto) (0-2) /hpf Urine Bacteria (Auto) (None Seen) 02/13/24 Range/Units 14:14 WBC 5.60 (4.8-10.8) K/ul RBC 4.88 (4.20-5.40) M/uL Hgb 15.0 (12.0-16.0) g/dl Hct 45.7 (37.0-47.0) % MCV 93.6 (80.0-100.0) fL MCH 30.7 (25.0-34.0) pg MCHC 32.8 (32.0-36.0) g/dL RDW Std Deviation 55.0 H (36.4-46.3) fL RDW Coeff of Aminata 16.4 H (11.5-14.5) % Plt Count 203 (130-400) K/uL MPV 11.7 (9.4-12.4) fL Immature Gran % (Auto) 0.2 % Neut % (Auto) 17.3 % Lymph % (Auto) 64.6 % [place] % (Auto) 15.9 % Eos % (Auto) 0.9 % Baso % (Auto) 1.1 % Neut # (Auto) 0.97 L* (1.40-6.50) K/uL Lymph # (Auto) 3.62 H (1.20-3.40) K/uL [place] # (Auto) 0.89 H (0.11-0.59) K/uL Eos # (Auto) 0.05 (0.00-0.50) K/uL Baso # (Auto) 0.06 (0.00-0.20) K/uL Immature Gran # (Auto) 0.01 (0.01-0.20) K/uL Neutrophils % (Manual) % Lymphocytes % (Manual) % Reactive Lymphs % (Man) % Monocytes % (Manual) % Eosinophils % (Manual) % Metamyelocytes % (Man) % Neutrophils # (Manual) (1.40-6.50) K/uL Total Absolute Neuts (1.4-6.5) K/uL Lymphocytes # (Manual) (1.2-3.4) K/uL Reactive Lymphs # K/uL Total Abs Lymphocytes (1.2-3.4) K/uL Monocytes # (Manual) (0.11-0.59) K/uL Eosinophils # (Manual) (0-0.50) K/uL Metamyelocytes # (Man) (0-0) K/uL RBC Morphology Ovalocytes 1+ PT Cancelled INR Cancelled APTT Cancelled PTT Ratio Cancelled Sodium 135 L (136-145) mmol/L Potassium 5.1 (3.5-5.1) mmol/L Chloride 104 (98-107) mmol/L Carbon Dioxide 21 (21-32) mmol/L Anion Gap 10 (3-11) BUN 21 (6-23) mg/dl Creatinine 1.32 H D (0.6-1.2) mg/dl Est Cr Clr Drug Dosing 41.4 ml/min Est GFR ( Amer) 46.3 ml/min Est GFR (Non-Af Amer) 39.9 ml/min BUN/Creatinine Ratio 15.9 (10-20) Glucose 132 H (70-99(Fasting)) mg/dl POC Glucose (70-99) mg/dl Calcium 9.7 (8.6-10.3) mg/dl Total Bilirubin 2.0 H (0.2-1.0) mg/dl AST 21 (13-39) U/L ALT 21 (7-52) U/L Alkaline Phosphatase 55 (34-104) U/L Total Protein 7.0 (6.0-8.3) gm/dl Albumin 4.4 (3.4-5.0) gm/dl Globulin 2.6 (2.5-4.0) gm/dl Albumin/Globulin Ratio 1.7 (0.9-2) Lipase 8 L (11-82) U/L Urine Color Urine Appearance (Clear) Urine pH (4.5-7.5) Ur Specific [place] (1.000-1.030) Urine Protein (Negative) Urine Glucose (UA) (Negative) Urine Ketones (Negative) Urine Blood (Negative) Urine Nitrite (Negative) Urine Bilirubin (Negative) Urine Urobilinogen (Negative) Ur Leukocyte Esterase (Negative) Urine WBC (Auto) (0-5) /hpf Urine RBC (Auto) (0-2) /hpf U Hyaline Cast (Auto) (0-2) /lpf U Epithel Cells (Auto) (0-2) /hpf Urine Bacteria (Auto) (None Seen) Diagnostic Findings [place], [place] [phone] Ultrasound Report Patient: JANETH RODRIGUEZ Admit Date: 02/13/24 MR#: [id number] Address1: [address] [place] [address] Acct ID:[id number] Address2: Date: 1950 [facility] Zip: [place] [address] Age: 73 Location: ED Sex: F Room/Bed: Att Phy: Diagnosis: GULLSTONES Ryanne Phy: Yaneth Pillai M.D. Service Date: 02/13/24 [facility] Phy: Interpreting Phy: Julian Venegas MDAdmit Phy: Ordering Phy: Song Wagner M.D. cc: ~ ABDOMINAL ULTRASOUND, RIGHT UPPER QUADRANT HISTORY: Nausea. gallstones. COMPARISON: Abdominal ultrasound 02/11/2024. FINDINGS: Pancreas: The pancreas demonstrates a normal echotexture. Liver: The liver is echogenic consistent with fatty change. 16 cm in length. No hepatic masses or intrahepatic bile duct dilatation. Gallbladder: Cholelithiasis and a small amount of sludge. No gallbladder wall thickening. Inadequate assessment of the sonographic Isabel sign due to the patient's pain medication. CBD: 9 mm, unchanged. Right kidney: No hydronephrosis. IMPRESSION: 1. Cholelithiasis. No gallbladder wall thickening. 2. Mildly dilated common bile duct measuring 9 mm, unchanged. 3. Hepatic steatosis. (2) Type 2 diabetes mellitus Diabetes mellitus long term care administrator insulin use: with retirement use Diabetes mellitus complication status: with neurologic complications Diabetes mellitus complication detail: with polyneuropathy Qualified Code(s): E11.42 - Type 2 diabetes mellitus with diabetic polyneuropathy; Z79.4 - skilled nursing (current) use of insulin
[2024-02-14] MEDS: allopurinoL 300 MG TAB PO SCH (04:15)
[2024-02-14] MEDS: aMILoride HCL 5 MG TAB PO SCH (04:15)
[2024-02-14] MEDS: PRAVASTATIN SOD 40 MG TAB PO SCH (04:16)
[2024-02-14] MEDS: ACYCLOVIR 400 MG TAB PO SCH (04:16)
[2024-02-14] MEDS: ASPIRIN 81 MG CHEW PO SCH (04:16)
[2024-02-14] MEDS: FLUTICASONE/VILANTEROL 100/25MCG 14 PUFFS/INHALER INH SCH (04:18)
[2024-02-14] MEDS: METOPROLOL SUCC 25MG EXT REL TAB PO SCH (04:18)
[2024-02-14] MEDS: PREGABALIN 50 MG CAP PO SCH (04:20)
[2024-02-14] MEDS: LEVOTHYROXINE SODIUM 150 MCG TABLET PO SCH (06:03)
[2024-02-14] MEDS ORDERED: Nursing to Pharmacy Communication SCH ×3 (07:15→16:30)
[2024-02-14] MEDS: INSULIN ASPART PER UNIT CHARGE SC SCH ×2 (08:05→18:00)
[2024-02-14 08:29] LABS: Albumin Globulin Ratio 1.7 (0.9-2); Albumin Level 3.1 gm/dl (3.4-5.0); BUN Creatinine Ratio 17.1 (10-20); Bilirubin,Total 1.3 mg/dl (0.2-1.0); Calcium 8.1 mg/dl (8.6-10.3); Creatinine Clr Calc Pharmacy 35.7 ml/min; Est GFR (Non-African American) 33.7 ml/min; Globulin 1.8 gm/dl (2.5-4.0); Potassium 4.5 mmol/L (3.5-5.1); Total Protein 4.9 gm/dl (6.0-8.3)
[2024-02-14 08:45] LABS: ALC (manual) 2.42 K/uL (1.2-3.4); Eosinophils # (manual) 0.08 K/uL (0-0.50); Eosinophils % (manual) 2 %; Hematocrit (blood only) 34.2 % (37.0-47.0); Hemoglobin 11.3 g/dl (12.0-16.0); Lymphocytes % (manual) 40 %; Mean Corpuscular Hemoglobin 31.1 pg (25.0-34.0); Mean Corpuscular Volume 94.2 fL (80.0-100.0); Mean Platelet Volume 11.9 fL (9.4-12.4); Metamyelocytes # (manual) 0.04 K/uL (0-0); Metamyelocytes % (manual) 1 %; Monocytes # (manual) 0.59 K/uL (0.11-0.59); Monocytes % (manual) 14 %; Neutrophils % (manual) 26 %; Platelet Count 147 K/uL (130-400); RBC Morphology Unremarkable; RDW Coefficient of Variation 16.1 % (11.5-14.5); RDW Standard Deviation 54.9 fL (36.4-46.3); Reactive Lymphocytes # (manual) 0.72 K/uL; Reactive Lymphocytes % (manual) 17 %; Red Blood Count 3.63 M/uL (4.20-5.40); White Blood Count 4.24 K/ul (4.8-10.8)
[2024-02-14] MEDS: PANTOprazole 40 MG TAB PO SCH (09:04)
[2024-02-14 09:25] LABS: Appearance Urine Cloudy (Clear); Bacteria Urine Automated 1+ (None Seen); Bilirubin Urine Negative (Negative); Blood Urine Negative (Negative); Cast Urine Automated 0-2 /lpf (0-2); Color Urine Yellow; Glucose Urine UA Negative (Negative); Ketones Urine Trace (Negative); Leukocyte Esterase Urine 1+ (Negative); Nitrite Urine Negative (Negative); Protein Urine Trace (Negative); RBC Urine Automated 0-2 /hpf (0-2); Specific Gravity Urine 1.023 (1.000-1.030); Urobilinogen Urine Negative (Negative)
[2024-02-14] MEDS: LANTUS PER UNIT CHARGE SQ SCH ×2 (09:43→20:40)
[2024-02-14] MEDS ORDERED: fentaNYL citrate PF 100 MCG/2 ML VIAL ONE ×2 (13:25→14:29)
[2024-02-14] MEDS ORDERED: MIDAZOLAM HCL 1 MG/ML 2ML VIAL ONE (13:25)
[2024-02-14] MEDS ORDERED: ONDANSETRON INJ 2 MG/ML 2 ML VIAL ONE (13:25)
[2024-02-14] MEDS ORDERED: DEXAMETHASONE SOD INJ 4 MG/ML VIAL ONE (13:25)
[2024-02-14] MEDS ORDERED: PROPOFOL IV EMULSION 10 MG/ML 20 ML VIAL IV ONE (13:25)
[2024-02-14] MEDS ORDERED: LIDOCAINE 2% 2 ML VIAL/AMP(20MG/ML) INFIL ONE (13:25)
[2024-02-14] MEDS ORDERED: ePHEDrine sulfate 50 MG/ML AMP IV PRN (13:42)
[2024-02-14] MEDS ORDERED: fentaNYL citrate PF 100 MCG/2 ML VIAL IV PRN (13:42)
--- NOTE | 2024-02-14 13:42 | Anesthesiology Consultation ---
Date of Service February 14, 2024 Assessment & Plan Chart Review Chart Review: Acceptable Risk for Surgery and Patient NOT seen in Pre Admission Testing recent diagnosis of PNA with completion of abx course ~ 2 weeks ago. Consults Requested none History Surgery Operation Date: 02/14/24 13:30 Proposed Procedures p Laparoscopic Cholecystectomy - Fabi Phelan MD Height/Weight Height: 5 ft 5 in Weight: 86.2 kg Allergies Allergy/AdvReac Type Severity Reaction Status Date / Time cephalexin Allergy Intermediate hives Verified 01/20/24 08:50 ciprofloxacin [From Cipro] Allergy Mild Hives Verified 01/20/24 08:50 codeine Allergy Mild rash Verified 01/20/24 08:50 dapagliflozin [From Farxiga] AdvReac Intermediate Rash Verified 01/20/24 08:50 lisinopril AdvReac Mild COUGH Verified 01/20/24 08:50 Medications Home Medications Medication Instructions Recorded Confirmed Last Taken aspirin 81 mg chewable tablet 81 mg PO HS 10/26/19 02/13/24 04/07/23 cholecalciferol (vitamin D3) 50 50 mcg PO QAM 03/22/20 02/13/24 04/07/23 mcg (2,000 unit) capsule tramadol 50 mg tablet 50 - 100 mg PO BID PRN Pain 04/09/21 02/13/24 04/07/23 allopurinol 300 mg tablet 300 mg PO QPM 06/12/21 02/13/24 04/07/23 metoprolol succinate 25 mg 12.5 mg PO HS 06/12/21 02/13/24 04/07/23 tablet,extended release 24 hr pantoprazole 20 mg tablet,delayed 20 mg PO QAM 06/27/21 02/13/24 04/07/23 release daratumumab 20 mg/mL intravenous 20 mg IV Q4WK 07/12/21 02/13/24 03/18/23 solution (Darzalex) diphenoxylate-atropine 2.5 1 tab PO .COMPLEX PRN Diarrhea 07/12/21 02/13/24 04/07/23 mg-0.025 mg tablet (Lomotil) pregabalin 50 mg capsule (Lyrica) 50 mg PO TID 07/08/22 02/13/24 04/07/23 ferrous sulfate 325 mg (65 mg 325 mg PO BID 1102/13/24 04/07/23 iron) tablet (iron) magnesium oxide 500 mg capsule 500 mg PO BID 08/05/22 02/13/24 04/07/23 blood sugar diagnostic (FreeStyle #200 ea 03/18/23 02/13/24 Unknown Lite Strips) dulaglutide 3 mg/0.5 mL 3 mg (0.5 mL) subcut ONCE #6 mL 03/18/23 02/13/24 04/07/23 subcutaneous pen injector (Trulicity) lancets 28 gauge (FreeStyle #200 ea 03/18/23 02/13/24 Unknown Lancets) pen needle, diabetic 32 gauge x #200 ea 03/18/23 02/13/24 Unknown 5/16" (Comfort EZ Pen [place]) cyanocobalamin (vitamin B-12) 1,000 mcg PO BID 03/27/23 02/13/24 04/07/23 1,000 mcg tablet (Vitamin B-12) levothyroxine 150 mcg tablet 150 mcg PO QAM 03/27/23 02/13/24 04/07/23 losartan 25 mg tablet 25 mg PO QPM 03/27/23 02/13/24 04/07/23 apixaban 2.5 mg tablet (Eliquis) 2.5 mg PO BID 07/07/23 02/13/24 Unknown albuterol sulfate 90 mcg/actuation 2 puff inhalation Q6H PRN 07/11/23 02/13/24 Unknown aerosol inhaler (Ventolin HFA) Shortness Of Breath Or Wheezing #1 g pomalidomide 1 mg capsule 1 mg PO DAILY 07/29/23 02/13/24 Unknown (Pomalyst) pravastatin 40 mg tablet 40 mg PO PM #90 tabs 08/06/23 02/13/24 Unknown mecobalamin (vitamin B12) 500 mcg 500 mcg PO DAILY 11/13/23 02/13/24 Unknown chewable tablet nystatin-triamcinolone 100,000 1 applic topical BID #30 grams 11/21/23 02/13/24 Unknown unit/g-0.1 % topical cream amiloride 5 mg tablet 5 mg PO QPM #90 tabs 12/05/23 02/13/24 Unknown ondansetron 4 mg disintegrating 4 mg PO Q8H PRN nausea and 02/11/24 02/13/24 Unknown tablet vomiting #30 tabs acyclovir 400 mg tablet 400 mg PO DAILY 02/13/24 02/13/24 Unknown budesonide-formoterol HFA 80 2 puff inhalation BID 02/13/24 02/13/24 Unknown mcg-4.5 mcg/actuation aerosol inhaler insulin glargine 100 unit/mL (3 25 unit subcut DAILY 02/13/24 02/13/24 Unknown mL) subcutaneous pen (Lantus Solostar U-100 Insulin) Active Medications Generic Name Dose Route Start Last Admin Trade Name Freq PRN Reason Stop Dose Admin Acyclovir 400 mg 02/14/24 09:00 02/14/24 04:16 Acyclovir 400 Mg Tab PO 03/15/24 08:59 400 mg DAILY HENNY Administration Allopurinol 300 mg 02/14/24 01:26 02/14/24 04:15 Allopurinol 300 Mg Tab PO 03/15/24 01:25 300 mg QPM HENNY Administration Amiloride HCl 5 mg 02/14/24 01:26 02/14/24 04:15 Amiloride Hcl 5 Mg Tab PO 03/15/24 01:25 5 mg QPM HENNY Administration Aspirin 81 mg 02/14/24 01:26 02/14/24 04:16 Aspirin 81 Mg Chew PO 03/15/24 01:25 81 mg HS HENNY Administration Fluticasone/Vilanterol 1 puffs 02/14/24 09:00 02/14/24 04:18 Fluticasone/Vilanterol 100/25mcg 14 Puffs/Inhaler INH 03/15/24 08:59 1 puffs DAILY HENNY Administration Piperacillin Sod/Tazobactam 100 mls @ 25 mls/hr 02/13/24 23:00 02/14/24 10:54 Sod 4.5 gm/ Dextrose IV 02/23/24 22:59 Infused Q8H HENNY Infusion Protocol Sodium Chloride 1,000 mls @ 80 mls/hr 02/13/24 23:15 02/14/24 13:11 Nss IV 03/14/24 23:14 0 mls/hr .[id number] HENNY Infusion Insulin Aspart 0 units 02/14/24 07:20 02/14/24 12:11 Insulin Aspart Per Unit Charge SC 03/15/24 07:19 Not Given Q6 HENNY Levothyroxine Sodium 150 mcg 02/14/24 06:30 02/14/24 06:03 Levothyroxine Sodium 150 Mcg Tablet PO 03/15/24 06:29 150 mcg DAILYBB HENNY Administration Metoprolol Succinate 12.5 mg 02/14/24 01:26 02/14/24 04:18 Metoprolol Succ 25mg Ext Rel Tab PO 03/15/24 01:25 12.5 mg HS HENNY Administration Miscellaneous 15 - 30 gm 02/13/24 17:54 02/13/24 21:17 Carbohydrates For Hypoglycemia PO 03/14/24 17:53 15 gm UD PRN Administration Hypoglycemia Protocol Pantoprazole Sodium 40 mg 02/14/24 09:00 02/14/24 09:04 Pantoprazole 40 Mg Tab PO 03/15/24 08:59 40 mg QAM HENNY Administration Pravastatin Sodium 40 mg 02/14/24 01:26 02/14/24 04:16 Pravastatin Sod 40 Mg Tab PO 03/15/24 01:25 40 mg PM HENNY Administration Pregabalin 50 mg 02/14/24 01:26 02/14/24 09:04 Pregabalin 50 Mg Cap PO 03/15/24 01:25 50 mg TID HENNY Administration Past Medical History Medical History Multiple myeloma Diabetes mellitus type 2 in obese Hx of sleep apnea RESOLVED SINCE CABG SURGERY PER PT BPPV (benign paroxysmal positional vertigo) ONLY HAPPENED ONCE Hypothyroidism Port-A-Cath in place (10/28/19) Insertion of Mediport Right Subclavian Vein with Fluoroscopy Dr. Lopez 20 Thrombocytopenia HX CAD (coronary artery disease) s/p CABG x 2 > FOLLOWS WITH DR. PARIS Acid reflux Asthma NO RES INH USE FOR OVER A YEAR AL (myocardial infarction) 2009 > CABG Multiple myeloma Dx 2003, s/p chemo >HX OF STEM CELL TRANSPLANT--pt states her WBC rising, following with [facility] on 04/09/23 regarding this Past Family History Family History Mother Liver cancer Thyroid cancer Diabetes Grandmother (Maternal) Diabetes Other No family history of adverse response to anesthesia Past Surgical History Surgical History History of bone marrow biopsy OVER 4 YRS AGO History of esophagogastroduodenoscopy (EGD) History of colonoscopy Hx of stem cell transplant LAST ONE APPROX 4-5 YRS AGO [facility] 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, 04/2022 History of cardiac cath 2009 > NO STENT > CABG History of conization of cervix 2004, arline 3 Hx of dilation and curettage H/O hand surgery trigger finger surgery Social History Smoking Status: Never smoker Do You Dip or Chew Tobacco: No Hx Alcohol Use: No Alcohol type: beer alcohol intake frequency: holidays/special occasions only Hx Substance Use: No substance use type: does not use Physical Exam Vital Signs Last Vital Signs Temp 37.2 C 02/14/24 11:41 Pulse 63 02/14/24 11:41 Resp 18 02/14/24 11:41 BP 106/69 02/14/24 11:41 Pulse Ox 98 02/14/24 11:41 O2 Del Method Room Air 02/14/24 11:41 O2 Flow Rate 2 02/14/24 08:29 Constitutional WD/WN, vitals as above Eyes + anicteric sclerae Neck trachea midline, no thyromegaly Respiratory normal respiratory effort, lungs clear to auscultation Cardiovascular RRR, no murmur, no edema Gastrointestinal (Abdomen) Inspection/Auscultation: abdomen normal to inspection, normal bowel sounds and + abdominal surgical incision (lap incisions from hysterectomy); abdomen not distended Percussion/Palpation: + abdomen tender (ruq and epigastric), + guarding (epigastric) and abdomen soft Musculoskeletal Extremities: extremities normal to inspection Neurologic awake; no focal motor deficits Psychiatric A+Ox3, euthymic affect Testing Laboratory Results 02/14/24 07:10 02/14/24 07:10 PT 11.4 Seconds (9.0-12.0) 02/13/24 18:27 INR 1.1 (0.9-1.1) 02/13/24 18:27 APTT 25 Seconds (21-31) 02/13/24 18:27 Urine Color Yellow 02/14/24 09:05 Urine Appearance Cloudy (Clear) A 02/14/24 09:05 Urine pH 5.0 (4.5-7.5) 02/14/24 09:05 Ur Specific [place] 1.023 (1.000-1.030) 02/14/24 09:05 Urine Protein Trace (Negative) H 02/14/24 09:05 Urine Glucose (UA) Negative (Negative) 02/14/24 09:05 Urine Ketones Trace (Negative) H 02/14/24 09:05 Urine Nitrite Negative (Negative) 02/14/24 09:05 Ur Leukocyte Esterase 1+ (Negative) H 02/14/24 09:05 Urine WBC (Auto) 11-20 /hpf (0-5) H 02/14/24 09:05 Urine RBC (Auto) 0-2 /hpf (0-2) 02/14/24 09:05 U Hyaline Cast (Auto) 0-2 /lpf (0-2) 02/14/24 09:05 U Epithel Cells (Auto) 11-20 /hpf (0-2) H 02/14/24 09:05 Urine Bacteria (Auto) 1+ (None Seen) H 02/14/24 09:05 02/14/24 02/14/24 11:52 04:38 POC Glucose 111 H 102 H
[2024-02-14] MEDS ORDERED: ROCURONIUM BROMIDE 10 MG/ML 5 ML VIAL IV ONE (14:21)
--- NOTE | 2024-02-14 14:25 | Hospitalist Progress Note ---
Date of Service February 14, 2024 Assessment & Plan (1) Acute cholecystitis: Plan: RUQ Abdominal Pain, cholelithiasis? Cholecystitis Surgery on board, plans to proceed with laparoscopic cholecystectomy. Continue Zosyn Continue n.p.o. until surgery Continue IV fluids (2) Hx of CABG: Plan: Reports she go up a flight of stairs and can walk without any limiting angina or chest pain. Continue metoprolol once BP greater than 100 Continue statin Hypertension Hypertensives held for volume contraction and hypotension on admission (3) Hypothyroidism: Plan: Hypothyroidism Continue Synthroid 150 mcg daily TSH recheck deferred in the setting of acute illness (4) A-fib: Plan: history of A-fib, Eliquis held pending surgical evaluation EKG: Normal sinus rhythm, no territorial ST segment changes are appreciated. No territorial T wave inversions are seen : Medical telemetry (5) Acute kidney injury: Plan: Baseline creatinine approximately 0.91.1. Is acutely elevated at 1.32. Creatinine up to 1.52 today Continue IV fluids Monitor BMP closely Avoid nephrotoxins Most likely volume contracted Plan DVT prophylaxis: Anticoagulated on Eliquis which she last took morning of 02/13/2024. This is held pending surgery CODE STATUS: Full code Admission and Anticipated Discharge Date Admission Date: February 13, 2024 Subjective Patient feels well. Denies chest pain or shortness of breath. She says that her pain is improving. Review of Systems Review of Systems: All systems reviewed & are unremarkable except as noted in Subjective Physical Exam Physical Exam: General: Awake, conversant Heart: S1, S2/regular rate and rhythm, no murmur rubs or gallops Lungs: Clear to auscultation bilaterally. Normal effort Abdomen: Soft/nondistended. Tenderness to palpation in the right upper quadrant with no rebound, rigidity or guarding. Isabel sign positive. Extremities: No clubbing/cyanosis. No edema Behavior: Appropriate, cooperative Results & Data Results & Data Vital Signs (Past 12 Hours) Vital Signs Temp Pulse Pulse Resp BP Pulse Ox O2 Del Method 02/14/24 11:41 37.2 C 63 18 106/69 98 Room Air 02/14/24 08:29 36.3 C L 63 20 105/68 97 Nasal Cannula 02/14/24 07:12 67 O2 Flow Rate 02/14/24 11:41 02/14/24 08:29 2 06/08/24 07:12 Laboratory Results Abnormal lab results 02/13/24 02/13/24 02/13/24 Range/Units 14:14 21:10 22:02 WBC (4.8-10.8) K/ul RBC (4.20-5.40) M/uL Hgb (12.0-16.0) g/dl Hct (37.0-47.0) % RDW Std Deviation 55.0 H (36.4-46.3) fL RDW Coeff of Aminata 16.4 H (11.5-14.5) % Neut # (Auto) 0.97 L* (1.40-6.50) K/uL Lymph # (Auto) 3.62 H (1.20-3.40) K/uL [place] # (Auto) 0.89 H (0.11-0.59) K/uL Neutrophils # (Manual) (1.40-6.50) K/uL Total Absolute Neuts (1.4-6.5) K/uL Metamyelocytes # (Man) (0-0) K/uL Sodium 135 L (136-145) mmol/L Chloride (98-107) mmol/L BUN (6-23) mg/dl Creatinine 1.32 H D (0.6-1.2) mg/dl Glucose 132 H (70-99(Fasting)) mg/dl POC Glucose 69 L* 106 H (70-99) mg/dl Calcium (8.6-10.3) mg/dl Total Bilirubin 2.0 H (0.2-1.0) mg/dl Total Protein (6.0-8.3) gm/dl Albumin (3.4-5.0) gm/dl Globulin (2.5-4.0) gm/dl Lipase 8 L (11-82) U/L Urine Appearance (Clear) Urine Protein (Negative) Urine Ketones (Negative) Ur Leukocyte Esterase (Negative) Urine WBC (Auto) (0-5) /hpf U Epithel Cells (Auto) (0-2) /hpf Urine Bacteria (Auto) (None Seen) 02/13/24 02/14/24 02/14/24 Range/Units 23:30 01:12 04:38 WBC (4.8-10.8) K/ul RBC (4.20-5.40) M/uL Hgb (12.0-16.0) g/dl Hct (37.0-47.0) % RDW Std Deviation (36.4-46.3) fL RDW Coeff of Aminata (11.5-14.5) % Neut # (Auto) (1.40-6.50) K/uL Lymph # (Auto) (1.20-3.40) K/uL [place] # (Auto) (0.11-0.59) K/uL Neutrophils # (Manual) (1.40-6.50) K/uL Total Absolute Neuts (1.4-6.5) K/uL Metamyelocytes # (Man) (0-0) K/uL Sodium (136-145) mmol/L Chloride (98-107) mmol/L BUN (6-23) mg/dl Creatinine (0.6-1.2) mg/dl Glucose (70-99(Fasting)) mg/dl POC Glucose 104 H 104 H 102 H (70-99) mg/dl Calcium (8.6-10.3) mg/dl Total Bilirubin (0.2-1.0) mg/dl Total Protein (6.0-8.3) gm/dl Albumin (3.4-5.0) gm/dl Globulin (2.5-4.0) gm/dl Lipase (11-82) U/L Urine Appearance (Clear) Urine Protein (Negative) Urine Ketones (Negative) Ur Leukocyte Esterase (Negative) Urine WBC (Auto) (0-5) /hpf U Epithel Cells (Auto) (0-2) /hpf Urine Bacteria (Auto) (None Seen) 02/14/24 02/14/24 02/14/24 Range/Units 07:10 09:05 11:52 WBC 4.24 L (4.8-10.8) K/ul RBC 3.63 L (4.20-5.40) M/uL Hgb 11.3 L D (12.0-16.0) g/dl Hct 34.2 L (37.0-47.0) % RDW Std Deviation 54.9 H (36.4-46.3) fL RDW Coeff of Aminata 16.1 H (11.5-14.5) % Neut # (Auto) (1.40-6.50) K/uL Lymph # (Auto) (1.20-3.40) K/uL [place] # (Auto) (0.11-0.59) K/uL Neutrophils # (Manual) 1.10 L (1.40-6.50) K/uL Total Absolute Neuts 1.10 L (1.4-6.5) K/uL Metamyelocytes # (Man) 0.04 H (0-0) K/uL Sodium (136-145) mmol/L Chloride 109 H (98-107) mmol/L BUN 26 H (6-23) mg/dl Creatinine 1.52 H (0.6-1.2) mg/dl Glucose 109 H (70-99(Fasting)) mg/dl POC Glucose 111 H (70-99) mg/dl Calcium 8.1 L (8.6-10.3) mg/dl Total Bilirubin 1.3 H (0.2-1.0) mg/dl Total Protein 4.9 L D (6.0-8.3) gm/dl Albumin 3.1 L (3.4-5.0) gm/dl Globulin 1.8 L (2.5-4.0) gm/dl Lipase (11-82) U/L Urine Appearance Cloudy A (Clear) Urine Protein Trace H (Negative) Urine Ketones Trace H (Negative) Ur Leukocyte Esterase 1+ H (Negative) Urine WBC (Auto) 11-20 H (0-5) /hpf U Epithel Cells (Auto) 11-20 H (0-2) /hpf Urine Bacteria (Auto) 1+ H (None Seen) Diagnostic Findings Gallbladder Ultrasound 02/13/24 16:55 ABDOMINAL ULTRASOUND, RIGHT UPPER QUADRANT HISTORY: Nausea. gallstones. COMPARISON: Abdominal ultrasound 02/11/2024. FINDINGS: Pancreas: The pancreas demonstrates a normal echotexture. Liver: The liver is echogenic consistent with fatty change. 16 cm in length. No hepatic masses or intrahepatic bile duct dilatation. Gallbladder: Cholelithiasis and a small amount of sludge. No gallbladder wall thickening. Inadequate assessment of the sonographic Isabel sign due to the patient's pain medication. CBD: 9 mm, unchanged. Right kidney: No hydronephrosis. IMPRESSION: 1. Cholelithiasis. No gallbladder wall thickening. 2. Mildly dilated common bile duct measuring 9 mm, unchanged. 3. Hepatic steatosis. ACT 112: Negative or not required by law. Electronically signed by: Julian Venegas M.D. 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
[2024-02-14] MEDS: BUPIVACAINE 0.5 % 5 MG/1 ML MPF 30ML VIAL ONE (14:30)
[2024-02-14] MEDS ORDERED: SUGAMMADEX SODIUM 200 MG/2 ML VIAL IV ONE (14:31)
--- NOTE | 2024-02-14 15:31 | Operative Report ---
Post Operative Report Pre & Post Diagnosis Operation Date: 02/14/24 13:30 Pre-Op Diagnosis: Acute calculous Cholecystitis Post-Op Diagnosis: Acute calculous Cholecystitis I identified the patient and participated in the time-out.: Yes Procedure Operation Date: 02/14/24 13:30 Actual Procedures p Laparoscopic Cholecystectomy(Not Applicable) - Fabi Phelan MD Surgeon Fabi Phelan MD Topographic Computator none Estimated Blood Loss 10 Findings Consistent with Post-Op Diagnosis acute cholecystitis with inflammatory adhesions to gallbladder Fluids 700 cc IVF Specimens gallbladder and contents Drains none Anesthesia Type General Complications none Disposition Accompanied Patient To Recovery: No Disposition: Recovery Room Indications 73 yr old woman with long history of gallstones. Admitted with right upper quadrant pain and tenderness. Also with dilated common duct (ranging 8-11 mm since 2019) and extensive negative workup including ercp/ eus. Consented for lap cholecystectomy. Description of Procedure The patient was on antibiotics preoperatively. She had placement of sequential compression devices. After the induction of general endotracheal anesthesia, her abdomen was sterilely prepped and draped. She was positioned in Trendelenburg. A supraumbilical incision was made and a Veress needle placed into the peritoneal cavity. This was tested with a saline drop test. Initial pressure was 1 mmHg and this was taken to 15 mmHg. A 5 mm trocar was placed with the camera through the trocar site. Once the abdomen was entered, the patient was switched to reverse Trendelenburg. 3 additional trocars were placed under direct vision. These included a 11 mm in the epigastrium and 2 5 mm on the right side of the abdomen. The patient was noted to be oozing even from her skin incisions. This was likely due to her Eliquis use. Initial inspection revealed a nodular liver consistent with her known history of steatohepatitis. The gallbladder was noted to be distended with inflammatory adhesions. This was grasped and retracted superiorly. The inflammatory adhesions were carefully taken down. The dissection was began at the triangle of Calot and the cystic artery identified coursing anteriorly. This was doubly clipped on the remaining side singly clipped on the gallbladder side and divided. The cystic duct was clearly identified and critical view seen anteriorly and posteriorly. The cystic duct was doubly clipped on the remaining side singly clipped on the gallbladder side and divided. The gallbladder was then dissected off the liver bed. There was a very small vessel which was also clipped. The gallbladder was then placed in an Endobag and removed through the epigastric incision. Hemostasis was achieved with the cautery. The abdomen was irrigated and suctioned clear. The trocars were removed. 30 cc of half percent Marcaine was used for local anesthesia throughout the procedure. The fascia of the epigastric incision was closed with 0 Vicryl stitches placed anteriorly. The skin of all 4 incisions was closed with running subcuticular 4-0 Vicryl sutures. Steri-Strips and sterile dressings were applied. She was awakened and taken to recovery in stable condition. I attest to the content of the Intraoperative Record and any orders documented therein. Any exceptions are noted below.
[2024-02-14] MEDS ORDERED: MoRPHine SULFATE 4 MG/ML 1 ML CARP\\VIAL IV PRN (15:40)
[2024-02-14] MEDS ORDERED: MoRPHine SULFATE 2 MG/ML CARP IV PRN (15:40)
--- NOTE | 2024-02-14 16:36 | Anesthesiology Progress Note ---
Date of Service February 14, 2024 Anesthesia Post Procedure Vital Signs Vital Signs: Temp Pulse Pulse Pulse Resp BP Pulse Ox 02/14/24 16:20 63 16 107/62 96 02/14/24 16:10 37.3 C 61 14 110/70 96 02/14/24 16:00 59 L 14 108/61 96 02/14/24 15:50 61 17 115/59 L 96 02/14/24 15:40 63 15 114/59 L 97 02/14/24 15:32 36.7 C 80 16 113/70 99 02/14/24 11:41 37.2 C 63 18 106/69 98 02/14/24 08:29 36.3 C L 63 20 105/68 97 02/14/24 07:12 67 02/14/24 01:26 02/14/24 01:26 37.8 C H 77 18 126/74 02/14/24 01:25 61 02/14/24 00:41 72 20 97 02/14/24 00:26 73 12 140/83 96 02/14/24 00:25 86 L 02/13/24 23:00 74 14 122/74 94 02/13/24 20:25 71 02/13/24 19:50 62 18 105/57 L 94 02/13/24 17:26 64 20 98/71 L 98 Pulse Ox O2 Del Method O2 Del Method O2 Flow Rate O2 Flow Rate 02/14/24 16:20 Room Air 02/14/24 16:10 Room Air 02/14/24 16:00 Room Air 02/14/24 15:50 Room Air 02/14/24 15:40 Oxymask 3 02/14/24 15:32 Oxymask 6 02/14/24 11:41 Room Air 02/14/24 08:29 Nasal Cannula 2 02/14/24 07:12 02/14/24 01:26 95 Nasal Cannula 2 02/14/24 01:26 Nasal Cannula 2 02/14/24 01:25 02/14/24 00:41 Nasal Cannula 2 02/14/24 00:26 Nasal Cannula 2 02/14/24 00:25 0 02/13/24 23:00 Room Air 02/13/24 20:25 02/13/24 19:50 Room Air 02/13/24 17:26 Room Air Pain Intensity Abdomen: Pain Intensity: 2 Transfer of Care Handoff Completed per policy Notes Mental Status: alert / awake / arousable Patient Amnestic to Procedure: Yes Nausea / Vomiting: adequately controlled Pain: adequately controlled Airway Patency, RR, SpO2: stable & adequate BP & HR: stable & adequate Hydration State: stable & adequate Anesthetic Complications: no major complications apparent and Pt Satisfied with anesthetic care
[2024-02-14] MEDS: oxyCODONE/ACETAMINOPHEN 5mg/325mg TAB PO PRN (18:44)
[2024-02-15] MEDS: oxyCODONE/ACETAMINOPHEN 5mg/325mg TAB PO PRN (02:32)
[2024-02-15 05:49] LABS: Basophils # (auto) 0.03 K/uL (0.00-0.20); Basophils % (auto) 0.7 %; Eosinophils # (auto) 0.02 K/uL (0.00-0.50); Eosinophils % (auto) 0.4 %; Hematocrit (blood only) 32.7 % (37.0-47.0); Hemoglobin 10.8 g/dl (12.0-16.0); Immature Granulocytes # (auto) 0.02 K/uL (0.01-0.20); Immature Granulocytes % (auto) 0.4 %; Lymphocytes # (auto) 2.25 K/uL (1.20-3.40); Mean Corpuscular Hemoglobin 31.1 pg (25.0-34.0); Mean Corpuscular Volume 94.2 fL (80.0-100.0); Mean Platelet Volume 11.8 fL (9.4-12.4); Neutrophils # (auto) 1.28 K/uL (1.40-6.50); Neutrophils % (auto) 28.5 %; Platelet Count 129 K/uL (130-400); RDW Coefficient of Variation 16.4 % (11.5-14.5); Red Blood Count 3.47 M/uL (4.20-5.40)
[2024-02-15 06:03] LABS: Albumin Globulin Ratio 1.9 (0.9-2); Albumin Level 3.1 gm/dl (3.4-5.0); BUN Creatinine Ratio 12.4 (10-20); Bilirubin,Total 1.9 mg/dl (0.2-1.0); Calcium 7.5 mg/dl (8.6-10.3); Creatinine Clr Calc Pharmacy 49.3 ml/min; Est GFR (African American) 55.8 ml/min; Est GFR (Non-African American) 48.2 ml/min; Globulin 1.6 gm/dl (2.5-4.0); Potassium 4.3 mmol/L (3.5-5.1); Total Protein 4.7 gm/dl (6.0-8.3)
--- NOTE | 2024-02-15 11:05 | Surgery Progress Note ---
Date of Service February 15, 2024 Assessment & Plan (1) Acute cholecystitis: Plan: POD#1 lap [email or web address]. Overall doing well. Agree with advancement of diet and can be discharged once tolerates. Will need surgical f/u in 2 weeks, OK to shower 24 hrs after procedure, no strenuous activity/ lifting >5 lbs for 2 weeks. Hold eliquis until tomorrow. Discussed intraop finding of nodular liver c/w later stages of fatty liver disease. Currently, AST/ALT normal and has chronically high t. bili with negative workup in past. Admission and Anticipated Discharge Date Admission Date: February 13, 2024 Subjective Overall doing OK. Sore postoperatively but this is managed with pain medications No nausea/ vomiting. Ambulating. Tolerating clear liquids. Physical Exam Gastrointestinal (Abdomen): Inspection/Auscultation: abdomen normal to inspection, normal bowel sounds and + abdominal surgical incision (clean, some bruising present); abdomen not distended Percussion/Palpation: + abdomen tender (at incisions) and abdomen soft Results & Data Vital Signs (Past 12 Hours) Vital Signs Temp Pulse Pulse Resp BP BP Pulse Ox 02/15/24 07:20 36.6 C 66 20 96/61 L 93 02/15/24 07:11 69 02/15/24 04:40 37.3 C 71 20 103/64 92 O2 Del Method 02/15/24 07:20 Room Air 02/15/24 07:11 02/15/24 04:40 Room Air Laboratory Results Abnormal lab results 02/14/24 02/14/24 02/14/24 Range/Units 11:52 15:39 16:44 WBC (4.8-10.8) K/ul RBC (4.20-5.40) M/uL Hgb (12.0-16.0) g/dl Hct (37.0-47.0) % RDW Std Deviation (36.4-46.3) fL RDW Coeff of Aminata (11.5-14.5) % Plt Count (130-400) K/uL Neut # (Auto) (1.40-6.50) K/uL [place] # (Auto) (0.11-0.59) K/uL Sodium (136-145) mmol/L Chloride (98-107) mmol/L Carbon Dioxide (21-32) mmol/L Glucose (70-99(Fasting)) mg/dl POC Glucose 111 H 114 H 125 H (70-99) mg/dl Calcium (8.6-10.3) mg/dl Total Bilirubin (0.2-1.0) mg/dl Alkaline Phosphatase (34-104) U/L Total Protein (6.0-8.3) gm/dl Albumin (3.4-5.0) gm/dl Globulin (2.5-4.0) gm/dl 02/14/24 02/15/24 02/15/24 Range/Units 20:41 05:19 07:58 WBC 4.50 L (4.8-10.8) K/ul RBC 3.47 L (4.20-5.40) M/uL Hgb 10.8 L (12.0-16.0) g/dl Hct 32.7 L (37.0-47.0) % RDW Std Deviation 56.0 H (36.4-46.3) fL RDW Coeff of Aminata 16.4 H (11.5-14.5) % Plt Count 129 L (130-400) K/uL Neut # (Auto) 1.28 L (1.40-6.50) K/uL [place] # (Auto) 0.90 H (0.11-0.59) K/uL Sodium 134 L (136-145) mmol/L Chloride 110 H (98-107) mmol/L Carbon Dioxide 18 L (21-32) mmol/L Glucose 142 H (70-99(Fasting)) mg/dl POC Glucose 131 H 149 H (70-99) mg/dl Calcium 7.5 L (8.6-10.3) mg/dl Total Bilirubin 1.9 H (0.2-1.0) mg/dl Alkaline Phosphatase 33 L (34-104) U/L Total Protein 4.7 L (6.0-8.3) gm/dl Albumin 3.1 L (3.4-5.0) gm/dl Globulin 1.6 L (2.5-4.0) gm/dl
--- NOTE | 2024-02-15 14:31 | Hospitalist Progress Note ---
Date of Service February 15, 2024 Assessment & Plan (1) Acute cholecystitis: Plan: Status post laparoscopic cholecystectomy 02/13 Surgery on board Tolerating clear liquid diet Will advance to a full liquid diet Continue Zosyn for now Discontinue IV fluids (2) Hx of CABG: Plan: Reports she go up a flight of stairs and can walk without any limiting angina or chest pain. Continue metoprolol once BP greater than 100 Continue statin Hypertension Hypertensives held Blood pressure controlled without them (3) Hypothyroidism: Plan: Hypothyroidism Continue Synthroid 150 mcg daily TSH recheck deferred in the setting of acute illness (4) A-fib: Plan: history of A-fib, Eliquis held pending surgical evaluation EKG: Normal sinus rhythm, no territorial ST segment changes are appreciated. No territorial T wave inversions are seen : Medical telemetry (5) Acute kidney injury: Plan: Baseline creatinine approximately 0.91.1. Is acutely elevated at 1.32. Went up to as high as 1.5 Resolved after IV hydration Discontinue IV fluids Check BMP tomorrow Avoid nephrotoxins Plan DVT prophylaxis: Anticoagulated on Eliquis which she last took morning of 02/13/2024. Surgery recommends holding Eliquis until tomorrow CODE STATUS: Full code Likely discharge tomorrow Admission and Anticipated Discharge Date Admission Date: February 13, 2024 Subjective Patient feels better. Still has some soreness in her belly. Denies chest pain or shortness of breath. Review of Systems Review of Systems: All systems reviewed & are unremarkable except as noted in Subjective Physical Exam Physical Exam: General: Awake, conversant Heart: S1, S2/regular rate and rhythm, no murmur rubs or gallops Lungs: Clear to auscultation bilaterally. Normal effort Abdomen: Soft/nondistended. Nontender. Extremities: No clubbing/cyanosis. No edema Behavior: Appropriate, cooperative Results & Data Results & Data Vital Signs (Past 12 Hours) Vital Signs Temp Pulse Pulse Resp BP BP Pulse Ox 02/15/24 11:15 36.9 C 69 20 108/67 91 02/15/24 07:20 36.6 C 66 20 96/61 L 93 02/15/24 07:11 69 02/15/24 04:40 37.3 C 71 20 103/64 92 O2 Del Method 02/15/24 11:15 Room Air 02/15/24 07:20 Room Air 02/15/24 07:11 02/15/24 04:40 Room Air Laboratory Results Abnormal lab results 02/14/24 02/14/24 02/14/24 Range/Units 15:39 16:44 20:41 WBC (4.8-10.8) K/ul RBC (4.20-5.40) M/uL Hgb (12.0-16.0) g/dl Hct (37.0-47.0) % RDW Std Deviation (36.4-46.3) fL RDW Coeff of Aminata (11.5-14.5) % Plt Count (130-400) K/uL Neut # (Auto) (1.40-6.50) K/uL [place] # (Auto) (0.11-0.59) K/uL Sodium (136-145) mmol/L Chloride (98-107) mmol/L Carbon Dioxide (21-32) mmol/L Glucose (70-99(Fasting)) mg/dl POC Glucose 114 H 125 H 131 H (70-99) mg/dl Calcium (8.6-10.3) mg/dl Total Bilirubin (0.2-1.0) mg/dl Alkaline Phosphatase (34-104) U/L Total Protein (6.0-8.3) gm/dl Albumin (3.4-5.0) gm/dl Globulin (2.5-4.0) gm/dl 02/15/24 02/15/24 02/15/24 Range/Units 05:19 07:58 12:02 WBC 4.50 L (4.8-10.8) K/ul RBC 3.47 L (4.20-5.40) M/uL Hgb 10.8 L (12.0-16.0) g/dl Hct 32.7 L (37.0-47.0) % RDW Std Deviation 56.0 H (36.4-46.3) fL RDW Coeff of [place]ata 16.4 H (11.5-14.5) % Plt Count 129 L (130-400) K/uL Neut # (Auto) 1.28 L (1.40-6.50) K/uL [place] # (Auto) 0.90 H (0.11-0.59) K/uL Sodium 134 L (136-145) mmol/L Chloride 110 H (98-107) mmol/L Carbon Dioxide 18 L (21-32) mmol/L Glucose 142 H (70-99(Fasting)) mg/dl POC Glucose 149 H 121 H (70-99) mg/dl Calcium 7.5 L (8.6-10.3) mg/dl Total Bilirubin 1.9 H (0.2-1.0) mg/dl Alkaline Phosphatase 33 L (34-104) U/L Total Protein 4.7 L (6.0-8.3) gm/dl Albumin 3.1 L (3.4-5.0) gm/dl Globulin 1.6 L (2.5-4.0) gm/dl PG Care Time/CCT Total # of Minutes Spent Total Time Spent with Patient: Total time spent is greater than 50% in coordination of care (as documented) at patient's floor/unit and/or counseling patient: Coding Level of Care Code 92161 SUB INP/OBS CARE 2/35MIN Diagnoses Acute cholecystitis K81.0 Hx of CABG Z95.1 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
[2024-02-16 06:36] LABS: Hematocrit (blood only) 33.2 % (37.0-47.0); Hemoglobin 10.7 g/dl (12.0-16.0); Mean Corpuscular Hemoglobin 31.1 pg (25.0-34.0); Mean Corpuscular Hgb Conc 32.2 g/dL (32.0-36.0); Mean Corpuscular Volume 96.5 fL (80.0-100.0); Platelet Count 121 K/uL (130-400); RDW Coefficient of Variation 16.8 % (11.5-14.5); RDW Standard Deviation 58.7 fL (36.4-46.3); Red Blood Count 3.44 M/uL (4.20-5.40); White Blood Count 4.34 K/ul (4.8-10.8)
[2024-02-16 06:49] LABS: Albumin Globulin Ratio 1.7 (0.9-2); Albumin Level 3.1 gm/dl (3.4-5.0); BUN Creatinine Ratio 7.5 (10-20); Est GFR (African American) 59.6 ml/min; Est GFR (Non-African American) 51.5 ml/min; Globulin 1.8 gm/dl (2.5-4.0); Potassium 4.4 mmol/L (3.5-5.1); Total Protein 4.9 gm/dl (6.0-8.3)
[2024-02-16 06:58] LABS: Basophils # (auto) 0.05 K/uL (0.00-0.20); Basophils % (auto) 1.2 %; Eosinophils # (auto) 0.06 K/uL (0.00-0.50); Eosinophils % (auto) 1.4 %; Immature Granulocytes # (auto) 0.01 K/uL (0.01-0.20); Immature Granulocytes % (auto) 0.2 %; Lymphocytes # (auto) 2.34 K/uL (1.20-3.40); Lymphocytes % (auto) 53.9 %; Monocytes # (auto) 0.83 K/uL (0.11-0.59); Monocytes % (auto) 19.1 %; Neutrophils # (auto) 1.05 K/uL (1.40-6.50); Neutrophils % (auto) 24.2 %
--- NOTE | 2024-02-16 13:24 | Discharge Summary ---
Date of Service February 16, 2024 Admission HPI Per Admitting Provider Carie is 73-year-old female with a history of multiple myeloma, cholelithiasis, CAD s/p bypass with no recent anginal symptoms who presents with poor p.o. intake, NORRIS who presents with 3 days of worsening right upper quadrant abdominal pain, nausea and intolerance to p.o. intake suspicious for cholecystitis. Carie is seen at the bedside. She reports that she has known gallstones and has been following the surgery for potential Rosi cystectomy; in the last 3 days she has had worsening right upper quadrant pain and cannot even smell food without getting nauseous and vomiting. She has not had any bloody or bilious vomiting. No philip colored stools. She is tender at the right upper quadrant with no rebound or guarding. She denies fever, chills, night sweats. She has no chest pain or chest pressure. Has a history of bypass but no recent chest pain on exertion and can go up a flight of stairs carrying laundry without any chest pain although gets slightly short of breath at the top of the stairs when she does this. She reports she normally has very loose bowels and diarrhea at baseline, her bowel movements have been brown and have been unchanged in the last few weeks. She has history of multiple myeloma which she is currently on a break week from Pomalyst, she is scheduled to see [facility] next Friday and resume this. Denies dysuria. Denies other symptoms. Medical History: Reviewed Medications: Reviewed Surgical History: Reviewed Family history: Reviewed Allergies: Reviewed Social History: Reviewed Code Status: Full Principal Diagnosis acute cholecystitis Discharge Exam head atraumatic neck supple chest CTA b/l heart S1S2 regular abdomen soft, nd, tender bs present extremities no edema Discharge Data Allergies Allergy/AdvReac Type Severity Reaction Status Date / Time cephalexin Allergy Intermediate hives Verified 01/20/24 08:50 ciprofloxacin [From Cipro] Allergy Mild Hives Verified 01/20/24 08:50 codeine Allergy Mild rash Verified 01/20/24 08:50 dapagliflozin [From Farxiga] AdvReac Intermediate Rash Verified 01/20/24 08:50 lisinopril AdvReac Mild COUGH Verified 01/20/24 08:50 Consultations 02/13/24 16:54 ED Decision to Admit Stat 02/14/24 01:26 Consult General Surgery Routine Procedures Performed Operation Date: 02/14/24 13:30 Actual Procedures p Laparoscopic Cholecystectomy(Not Applicable) - Fabi Phelan MD Ordered Studies 02/13/24 16:55 US gallbladder Stat Hospital Course (1) Acute cholecystitis: Status post laparoscopic cholecystectomy 02/13 Surgery on board Tolerating clear liquid diet Will advance to a full liquid diet transition to po antibiotics (2) Hx of CABG: Reports she go up a flight of stairs and can walk without any limiting angina or chest pain. Continue metoprolol once BP greater than 100 Continue statin Hypertension Hypertensives held Blood pressure controlled without them (3) Hypothyroidism: Hypothyroidism Continue Synthroid 150 mcg daily TSH recheck deferred in the setting of acute illness (4) A-fib: history of A-fib, Eliquis held pending surgical evaluation EKG: Normal sinus rhythm, no territorial ST segment changes are appreciated. No territorial T wave inversions are seen : Medical telemetry (5) Acute kidney injury: Baseline creatinine approximately 0.91.1. Is acutely elevated at 1.32. Went up to as high as 1.5 Resolved after IV hydration Discontinue IV fluids Check BMP tomorrow Avoid nephrotoxins Plan DVT prophylaxis: Anticoagulated on Eliquis which she last took morning of 02/13/2024. Surgery recommends holding Eliquis until tomorrow CODE STATUS: Full code Likely discharge tomorrow Total Time Total Time Spent Total Time Spent (In Minutes): 45 Discharge Plan Discharge Items Patient Disposition: Home - Self-Care Reason For Visit: ACUTE ON CHRONIC HYPOXIC RESPIRATORY FAILURE Discharge Diagnosis: acute cholecystitis Condition on Discharge: Fair Activity: Per Instructions section Activity Comment: as per surgery Lifting: None Bathing: May shower/bathe in 3 days Non-emergency contact: Surgeon Call non-emergency contact if: your symptoms worsen, your pain is not controlled and you have a fever Follow-up/Referrals: Yaneth Pillai MD [Primary Care Provider] - (PLEASE CALL YOUR PRIMARY CARE PROVIDER TO SCHEDULE A HOSPITAL DISCHARGE FOLLOW-UP APPOINTMENT WITHIN 7-10 DAYS) Mindy Byers PA-C [Physician Production Machine Computer Operator] - 03/02/24 2:15 pm Diet: Low Fat Addtl Attending Provider Instructions: Post-Surgical ~Discharge Instructions Activity Recommendations: - lifting limitation: (5 pounds for 2 weeks), - exercise/sex/sports limit: (nonstrenuous for 2 weeks), - driving or machine use limit: (none for 1 week or until pain free and no longer taking narcotic pain medication), - Shower/bathe limit: (may shower, no submerging incisions undewater for 2 weeks) Diet: - Resume previous diet SPECIAL CARE INSTRUCTIONS: - May shower. Let water run over area and pat dry. - Leave steri strips on for one week. - Call the surgeon's office with any questions or concerns - - (ex. temperature higher than 101 degrees F, excessive bleeding or pain). MEDICATIONS: - Resume previous medications unless instructed otherwise by your surgeon. - May take extra strength Tylenol as needed for mild to moderate pain -650 mg Tylenol every 6 hours as needed - Percocet 1 every 6 hours, as needed for moderate to severe pain - Recommend daily stool softener (Colace) while taking narcotic pain medication to prevent constipation or straining. Drink plenty of water daily. FOLLOW UP VISIT: - If not already scheduled, please call the office to schedule a two week follow-up appointment. Office number Pending Studies at Discharge: Yes (gallbladder pathology, will be reviewed at follow-up visit) Stand-Alone Forms: My [facility], Smoking Cessation Medications and DC Order Prescriptions: New amoxicillin-pot clavulanate [Augmentin] 500-125 mg tablet 1 tab PO BID Qty: 10 0RF Continued pravastatin 40 mg tablet 40 mg PO PM Qty: 90 1RF nystatin-triamcinolone 100,000-0.1 unit/g-% cream 1 applic topical BID Qty: 30 1RF amiloride 5 mg tablet 5 mg PO QPM Qty: 90 3RF Darzalex 20 mg/mL solution 20 mg IV Q4WK Pomalyst 1 mg capsule 1 mg PO DAILY Rx Instructions: Take daily for 21 days then do not take for 7 days. Then Provider to call in new script Trulicity 3 mg/0.5 mL pen injector 3 mg subcut ONCE Qty: 6 3RF Patient Comments: takes on mondays Rx Instructions: Inject 3 mg into the abdomen once weekly. allopurinol 300 mg tablet 300 mg PO QPM metoprolol succinate 25 mg tablet extended release 24 hr 12.5 mg PO HS diphenoxylate-atropine [Lomotil] 2.5-0.025 mg tablet 1 tab PO .COMPLEX PRN (Reason: Diarrhea) Rx Instructions: 1 tab PO 1-2 TIMES DAILY; PRN; cholecalciferol (vitamin D3) 50 mcg (2,000 unit) capsule 50 mcg PO QAM tramadol 50 mg tablet 50 - 100 mg PO BID PRN (Reason: Pain) pregabalin [Lyrica] 50 mg capsule 50 mg PO TID mecobalamin (vitamin B12) 500 mcg tablet,chewable 500 mcg PO DAILY aspirin 81 mg Tablet,Chewable 81 mg PO HS pantoprazole 20 mg tablet,delayed release (DR/EC) 20 mg PO QAM ferrous sulfate [iron] 325 mg (65 mg iron) Tablet 325 mg PO BID magnesium oxide 500 mg capsule 500 mg PO BID cyanocobalamin (vitamin B-12) [Vitamin B-12] 1,000 mcg Tablet 1,000 mcg PO BID levothyroxine 150 mcg Tablet 150 mcg PO QAM Eliquis 2.5 mg tablet 2.5 mg PO BID albuterol sulfate [Ventolin HFA] 90 mcg/actuation HFA aerosol inhaler 2 puff INHALATION Q6H PRN (Reason: Shortness Of Breath Or Wheezing) Qty: 1 0RF ondansetron 4 mg tablet,disintegrating 4 mg PO Q8H PRN (Reason: nausea and vomiting) Qty: 30 0RF budesonide-formoterol 80-4.5 mcg/actuation HFA aerosol inhaler 2 puff INHALATION BID acyclovir 400 mg tablet 400 mg PO DAILY insulin glargine [Lantus Solostar U-100 Insulin] 100 unit/mL (3 mL) insulin pen 25 unit subcut DAILY Rx Instructions: Inject 25 units into the abdomen once daily. Discontinued losartan 25 mg Tablet 25 mg PO QPM No Action (DME) pen needle, diabetic [Comfort EZ Pen [place]] 32 gauge x 5/16" needle See Rx Instructions .Route Qty: 200 3RF Rx Instructions: test blood sugar 3 x daily2 (DME) lancets [FreeStyle Lancets] 28 gauge misc See Rx Instructions .Route Qty: 200 3RF Rx Instructions: test blood sugar 2 x daily (DME) FreeStyle Lite Strips Strip See Rx Instructions .Route Qty: 200 3RF Rx Instructions: test 2 times daily Discharge Orders: Discharge Order (Routine); Ordered 02/16/24 Ordered By: Alexandra Powell Admission Data Admit Date/Time: 02/13/24 23:38 Attending Provider: Alexandra Powell Admit Provider: Charity Cardoza Primary Care Provider: Yaneth Pillai Other Providers: Corey Diallo; Fabi Phelan Coding Level of Care Code 98391 INP/OBS DISCH >30 MIN Diagnoses Acute cholecystitis K81.0 Hx of CABG Z95.1 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
== END 2024-02-16 14:45 | disposition home or self-care (01) | DRG 418 ==
LOC: ED 13:37 → EDINP 23:38 → SUATTDRO 23:38 → 2W 02-14 00:41

== ENCOUNTER 2024-05-04 12:07 | Observation (INO) ==
[2024-05-04 13:04] LABS: Partial Thromboplastin Ratio 0.9; Partial Thromboplastin Time 23 Seconds (21-31); Prothrombin Time 11.3 Seconds (9.0-12.0)
[2024-05-04 13:06] LABS: Hematocrit (blood only) 35.8 % (37.0-47.0); Hemoglobin 11.6 g/dl (12.0-16.0); Mean Corpuscular Hemoglobin 31.1 pg (25.0-34.0); Mean Corpuscular Hgb Conc 32.4 g/dL (32.0-36.0); Mean Platelet Volume 12.5 fL (9.4-12.4); Platelet Count 163 K/uL (130-400); RDW Coefficient of Variation 16.6 % (11.5-14.5); RDW Standard Deviation 58.8 fL (36.4-46.3); Red Blood Count 3.73 M/uL (4.20-5.40); White Blood Count 6.66 K/ul (4.8-10.8)
[2024-05-04 13:18] LABS: Influenza A virus by PCR Negative (Neg); Influenza B virus by PCR Negative (Neg); RSV by PCR Negative (Neg); SARS CoV2 RNA(COVID-19) Ceph NEGATIVE (Negative)
[2024-05-04 13:30] LABS: Alanine Aminotransferase 13 U/L (7-52); Albumin Globulin Ratio 1.7 (0.9-2); Albumin Level 3.8 gm/dl (3.4-5.0); Alkaline Phosphatase 57 U/L (34-104); Anion Gap 7 (3-11); Aspartate Aminotransferase 15 U/L (13-39); Bilirubin,Total 1.7 mg/dl (0.2-1.0); Blood Urea Nitrogen 16 mg/dl (6-23); Calcium 9.1 mg/dl (8.6-10.3); Carbon Dioxide 22 mmol/L (21-32); Chloride 110 mmol/L (98-107); Est GFR (African American) 64.7 ml/min; Est GFR (Non-African American) 55.8 ml/min; Globulin 2.3 gm/dl (2.5-4.0); Glucose 152 mg/dl (70-99(Fasting)); Potassium 5.6 mmol/L (3.5-5.1); Sodium 139 mmol/L (136-145); Total Protein 6.1 gm/dl (6.0-8.3)
--- NOTE | 2024-05-04 13:40 | XRay Report ---
SINGLE VIEW CHEST CLINICAL HISTORY: Atypical chest pain. FINDINGS: An AP, portable, upright chest radiograph is compared to study dated 02/11/2024. Correlation is made with chest CT dated 07/08/2023. A right subclavian central venous infusion port is unchanged in position. The patient is status post midline sternotomy. A hiatal hernia is noted. The heart is en larged noting atherosclerotic calcification of the thoracic aorta. The pulmonary vasculature is nonco ngested. There is bibasilar scarring/atelectasis. No airspace consolidation or pleural effusion is id entified. No pneumothorax is seen. The skeletal structures are osteopenic. The bony thorax is grossly intact. Arthritic change is seen in the shoulders. IMPRESSION: 1. Cardiomegaly with no active disease in the chest. 2. Hiatal hernia. ACT 112: Negative or not required by law. Electronically signed by: Song Pride M.D. 05/04/2024 1:39 PM
[2024-05-04 14:10] LABS: ANC (manual) 1.67 K/uL (1.4-6.5); Eosinophils # (manual) 0.13 K/uL (0-0.50); Eosinophils % (manual) 2 %; Large Granular Lymph # (manua 3.06 K/uL; Large Granular Lymph % (manual) 46 %; Lymphocytes # (manual) 1.53 K/uL (1.2-3.4); Lymphocytes % (manual) 23 %; Monocytes # (manual) 0.27 K/uL (0.11-0.59); Monocytes % (manual) 4 %; Neutrophils # (manual) 1.67 K/uL (1.40-6.50); Neutrophils % (manual) 25 %
--- NOTE | 2024-05-04 15:08 | Emergency Department Note ---
Impression & Plan Weakness, Acute dehydration, Diarrhea, Acute UTI ED Provider Note NAME: JANETH RODRIGUEZ AGE: 73 SEX: F : 1950 ARRIVES VIA: Walk-In INFORMANT: [Patient] ED PROVIDER(S): [Song Wagner MD] CHIEF COMPLAINT: Shortness of breath, weakness HISTORY OF PRESENT ILLNESS: The patient is a 73-year-old female who has had 3, maybe 4 days of symptoms. She has chills, sweats, she feels fatigued. She has had diarrhea as well as a headache. The patient is not sure if she has had a fever, she has not measured her temperature. There has been no vomiting, she has no respiratory complaints. She has no abdominal pain. She states that she has had at least a 5 maybe 6 bouts of diarrhea today already. The diarrhea is brown and yellow in color. It is watery. No blood noted. PMHx/PSHx/Social Hx: See Below PHYSICAL EXAM: GENERAL: Patient is in no acute distress. HEENT: No acute trauma, normocephalic atraumatic, mucous membranes somewhat dry, no nasal congestion. NECK: No stridor, no adenopathy, no meningismus, trachea is midline. LUNGS: Clear to auscultation bilaterally, no wheeze, no rhonchi, breath sounds equal. HEART: Without murmurs gallops or rubs, regular rate and rhythm. ABDOMEN: Soft, nontender, no peritonitis. EXTREMITIES: No cyanosis, full range of motion of all the joints without pain or difficulty. NEUROLOGIC: Oriented x 3, no acute motor or sensory deficits, no focal weakness. SKIN: No jaundice, no diaphoresis. DIFFERENTIAL DIAGNOSIS: Dehydration, electrolyte imbalance, foodborne or viral illness, anemia, UTI, among others. EMERGENCY DEPARTMENT PROCEDURES: MEDICAL DECISION MAKING: There is no leukocytosis or concerning anemia. There is a normal platelet count. No coagulopathy. Potassium was slightly high but not in need of emergent correction. No renal failure. There was an elevation to the bilirubin, this has been documented before. ECG shows a sinus rhythm, no ischemia. Cardiac enzyme testing x 1 was not consistent with acute cardiac injury. Urinalysis does show findings of infection. COVID, influenza and RSV test were negative. Chest x-ray did not show pneumonia or CHF. There was no significant mediastinal widening. On exam, patient appeared somewhat dehydrated. The patient received IV saline 1 L, she was given 1 L of lactated Ringer's IV. She was given IV Zofran, IV ceftriaxone. The patient presents weak, she has had chills. She complains of diarrhea and does appear somewhat dehydrated. She has been found to have a UTI. Given her past history, given her findings and presentation, I do think a hospital stay would be warranted. I spoke with the patient and case management, the on-call hospitalist was consulted. Prior/Outside records/notes reviewed: None ECG per my interpretation: Indication was weakness. The ECG shows a normal sinus rhythm with a rate of 74. There is some diffuse nonspecific ST change. There is no ST elevation. No PVCs. QTc is 430. Continuous Cardiac Monitoring per my interpretation: An order was placed for continuous cardiac monitoring. The monitor shows a rate of 73 with normal sinus rhythm. Imaging/x-ray results per my interpretation: Chest x-ray does not show mediastinal widening, pneumonia or pneumothorax. Chronic Medical/Social conditions affecting care: Advanced age, history of multiple myeloma. Care/Management discussed with: Case management, the on-call hospitalist. Level of care consideration(s): After review of the information above and other included data: --I believe the patient requires escalation of care to admission DISPOSITION: Admission Past Med/Surg History Problem List (Updated 05/04/24 @ 22:38 by Song Wagner MD) Acute UTI (Acute) Diarrhea (Acute) Acute dehydration (Acute) Weakness (Acute) UTI (urinary tract infection) General ill feeling LPRD (laryngopharyngeal reflux disease) Throat pain RUQ abdominal pain (Acute) Gall stones (Acute) Acute dehydration (Acute) NORRIS (acute kidney injury) (Acute) Hypotension (Acute) Acute cholecystitis Gallstone (Acute) Type 2 diabetes mellitus Recurrent UTI Hypomagnesemia Hypertension Hypothyroidism Vaginal candidiasis Viral pneumonia 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 Lopez 10-28-19 Thrombocytopenia HX CAD (coronary artery disease) s/p CABG x 2 > FOLLOWS WITH DR. PARIS Acid reflux Asthma NO RES INH USE FOR OVER A YEAR [place] (myocardial infarction) 2009 > CABG Multiple myeloma Dx 2003, s/p chemo >HX OF STEM CELL TRANSPLANT--pt states her WBC rising, following with [facility] on 04/09/23 regarding this Surgical History History of bone marrow biopsy History of esophagogastroduodenoscopy (EGD) History of colonoscopy Hx of stem cell transplant History of hysterectomy History of cardiac cath History of conization of cervix Hx of dilation and curettage H/O hand surgery Family History Mother Liver cancer Thyroid cancer Diabetes Grandmother (Maternal) Diabetes Other No family history of adverse response to anesthesia Social History Smoking Status: Never smoker Second Hand Exposure: No; Do You Dip or Chew Tobacco: No; Hx Alcohol Use: No Hx Substance Use: No Preferred Language: Maori Communication Ability: Effective Special Education Director Required: No Beliefs That Will Affect Care: None marital status: Current Living Situation: Alone current occupational status: retired Feels Safe at Home: Yes Assistive Devices: None Allergies Allergies Allergy/AdvReac Type Severity Reaction Status Date / Time cephalexin Allergy Intermediate hives Verified 01/20/24 08:50 ciprofloxacin [From Cipro] Allergy Mild Hives Verified 01/20/24 08:50 codeine Allergy Mild rash Verified 01/20/24 08:50 dapagliflozin [From [facility]] AdvReac Intermediate Rash Verified 01/20/24 08:50 lisinopril AdvReac Mild COUGH Verified 01/20/24 08:50 Home Meds Home Medications Medication Instructions Recorded Confirmed aspirin 81 mg chewable tablet 81 mg PO HS 10/26/19 05/04/24 cholecalciferol (vitamin D3) 50 50 mcg PO QAM 03/22/20 05/04/24 mcg (2,000 unit) capsule tramadol 50 mg tablet 50 - 100 mg PO BID PRN Pain 04/09/21 05/04/24 allopurinol 300 mg tablet 300 mg PO QPM 06/12/21 05/04/24 metoprolol succinate 25 mg 12.5 mg PO HS 06/12/21 05/04/24 tablet,extended release 24 hr pantoprazole 20 mg tablet,delayed 20 mg PO QAM 06/27/21 05/04/24 release daratumumab 20 mg/mL intravenous 0 mg IV Q4WK 07/12/21 05/04/24 solution (Darzalex) diphenoxylate-atropine 2.5 1 tab PO UD PRN Diarrhea 07/12/21 05/04/24 mg-0.025 mg tablet (Lomotil) pregabalin 50 mg capsule (Lyrica) 50 mg PO TID 07/08/22 05/04/24 ferrous sulfate 325 mg (65 mg 325 mg PO BID 08/05/22 05/04/24 iron) tablet (iron) magnesium oxide 500 mg capsule 500 mg PO BID 08/05/22 05/04/24 cyanocobalamin (vitamin B-12) 1,000 mcg PO BID 03/27/23 05/04/24 1,000 mcg tablet (Vitamin B-12) levothyroxine 150 mcg tablet 150 mcg PO QAM 03/27/23 05/04/24 apixaban 2.5 mg tablet (Eliquis) 2.5 mg PO BID 07/07/23 05/04/24 pomalidomide 1 mg capsule 1 mg PO DAILY 07/29/23 05/04/24 (Pomalyst) mecobalamin (vitamin B12) 500 mcg 500 mcg PO DAILY 11/13/23 05/04/24 chewable tablet acyclovir 400 mg tablet 400 mg PO DAILY 02/13/24 05/04/24 budesonide-formoterol HFA 80 2 puff inhalation BID 02/13/24 05/04/24 mcg-4.5 mcg/actuation aerosol inhaler insulin glargine 100 unit/mL (3 25 unit subcut DAILY 02/13/24 05/04/24 mL) subcutaneous pen (Lantus Solostar U-100 Insulin) dulaglutide 3 mg/0.5 mL 0 mg subcut ONCE 05/04/24 05/04/24 subcutaneous pen injector (Trulicity) Previous Rx's Medication Instructions Recorded blood sugar diagnostic (FreeStyle #200 ea 03/18/23 Lite Strips) lancets 28 gauge (FreeStyle #200 ea 03/18/23 Lancets) pen needle, diabetic 32 gauge x #200 ea 03/18/2301/21" (Comfort EZ Pen [place]) albuterol sulfate 90 mcg/actuation 2 puff inhalation Q6H PRN 07/11/23 aerosol inhaler (Ventolin HFA) Shortness Of Breath Or Wheezing #1 g nystatin-triamcinolone 100,000 1 applic topical BID #30 grams 11/21/23 unit/g-0.1 % topical cream amiloride 5 mg tablet 5 mg PO QPM #90 tabs 12/05/23 ondansetron 4 mg disintegrating 4 mg PO Q8H PRN nausea and 02/11/24 tablet vomiting #30 tabs pravastatin 40 mg tablet 40 mg PO PM #90 tabs 03/09/24 Results & Data (ED) Vital Signs Vital Signs - 24 hr 05/04/24 12:07 05/04/24 15:24 05/04/24 15:27 Temperature 36.3 C L Temperature Source Oral Pulse Rate 73 76 Pulse Rate [Apical] Pulse Rate from SpO2 Sensor Pulse Rhythm Regular Pulse Strength Normal Respiratory Rate 20 Respiratory Effort / Characteristics Non-Labored Spontaneous Respiratory Depth Normal Blood Pressure 118/71 Blood Pressure [Left Arm] Blood Pressure Mean 86 Blood Pressure Mean [Left Arm] Blood Pressure Position Sitting Pulse Oximetry 98 97 Oxygen Delivery Method Room Air Room Air Sepsis Recent Fever Within 48 Hours No Sepsis New/Unexplained Change in Mental Status N/A Sepsis Action Taken by Nursing No Action Required 05/04/24 15:27 05/04/24 15:27 05/04/24 15:27 Temperature 37.1 C Temperature Source Oral Pulse Rate 71 Pulse Rate [Apical] Pulse Rate from SpO2 Sensor 72 Pulse Rhythm Pulse Strength Respiratory Rate 18 Respiratory Effort / Characteristics Respiratory Depth Blood Pressure Blood Pressure [Left Arm] Blood Pressure Mean Blood Pressure Mean [Left Arm] Blood Pressure Position Pulse Oximetry 97 97 Oxygen Delivery Method Room Air Sepsis Recent Fever Within 48 Hours Sepsis New/Unexplained Change in Mental Status Sepsis Action Taken by Nursing 05/04/24 15:30 05/04/24 15:48 05/04/24 15:51 Temperature Temperature Source Pulse Rate 72 66 75 Pulse Rate [Apical] Pulse Rate from SpO2 Sensor 72 69 75 Pulse Rhythm Pulse Strength Respiratory Rate 21 15 16 Respiratory Effort / Characteristics Respiratory Depth Blood Pressure Blood Pressure [Left Arm] Blood Pressure Mean Blood Pressure Mean [Left Arm] Blood Pressure Position Pulse Oximetry 97 95 92 Oxygen Delivery Method Sepsis Recent Fever Within 48 Hours Sepsis New/Unexplained Change in Mental Status Sepsis Action Taken by Nursing 05/04/24 16:00 05/04/24 16:12 05/04/24 16:42 Temperature Temperature Source Pulse Rate 73 70 71 Pulse Rate [Apical] Pulse Rate from SpO2 Sensor 74 72 Pulse Rhythm Pulse Strength Respiratory Rate 13 18 22 Respiratory Effort / Characteristics Respiratory Depth Blood Pressure Blood Pressure [Left Arm] Blood Pressure Mean Blood Pressure Mean [Left Arm] Blood Pressure Position Pulse Oximetry 94 96 Oxygen Delivery Method Sepsis Recent Fever Within 48 Hours Sepsis New/Unexplained Change in Mental Status Sepsis Action Taken by Nursing 05/04/24 16:51 05/04/24 16:54 05/04/24 17:01 Temperature Temperature Source Pulse Rate 65 66 Pulse Rate [Apical] 69 Pulse Rate from SpO2 Sensor 66 66 Pulse Rhythm Pulse Strength Respiratory Rate 19 13 20 Respiratory Effort / Characteristics Respiratory Depth Blood Pressure Blood Pressure [Left Arm] 131/89 Blood Pressure Mean Blood Pressure Mean [Left Arm] 103 Blood Pressure Position Pulse Oximetry 98 98 98 Oxygen Delivery Method Room Air Sepsis Recent Fever Within 48 Hours Sepsis New/Unexplained Change in Mental Status Sepsis Action Taken by Nursing 05/04/24 17:03 05/04/24 17:12 05/04/24 17:21 Temperature Temperature Source Pulse Rate 68 68 Pulse Rate [Apical] Pulse Rate from SpO2 Sensor 68 69 Pulse Rhythm Pulse Strength Respiratory Rate 14 20 Respiratory Effort / Characteristics Respiratory Depth Blood Pressure 131/89 Blood Pressure [Left Arm] Blood Pressure Mean 114 Blood Pressure Mean [Left Arm] Blood Pressure Position Pulse Oximetry 96 96 Oxygen Delivery Method Sepsis Recent Fever Within 48 Hours Sepsis New/Unexplained Change in Mental Status Sepsis Action Taken by Nursing 05/04/24 17:30 05/04/24 17:48 05/04/24 18:09 Temperature Temperature Source Pulse Rate 68 75 75 Pulse Rate [Apical] Pulse Rate from SpO2 Sensor 68 75 76 Pulse Rhythm Pulse Strength Respiratory Rate 13 15 14 Respiratory Effort / Characteristics Respiratory Depth Blood Pressure Blood Pressure [Left Arm] Blood Pressure Mean Blood Pressure Mean [Left Arm] Blood Pressure Position Pulse Oximetry 97 98 97 Oxygen Delivery Method Sepsis Recent Fever Within 48 Hours Sepsis New/Unexplained Change in Mental Status Sepsis Action Taken by Nursing 05/04/24 18:15 05/04/24 18:30 05/04/24 18:38 Temperature Temperature Source Pulse Rate 75 82 Pulse Rate [Apical] Pulse Rate from SpO2 Sensor 75 80 Pulse Rhythm Pulse Strength Respiratory Rate 14 25 H Respiratory Effort / Characteristics Respiratory Depth Blood Pressure Blood Pressure [Left Arm] 141/81 H Blood Pressure Mean Blood Pressure Mean [Left Arm] 101 Blood Pressure Position Pulse Oximetry 98 90 Oxygen Delivery Method Sepsis Recent Fever Within 48 Hours Sepsis New/Unexplained Change in Mental Status Sepsis Action Taken by Nursing 05/04/24 18:38 05/04/24 19:15 05/04/24 19:20 Temperature Temperature Source Pulse Rate 74 69 Pulse Rate [Apical] Pulse Rate from SpO2 Sensor Pulse Rhythm Pulse Strength Respiratory Rate 15 Respiratory Effort / Characteristics Respiratory Depth Blood Pressure 141/81 H Blood Pressure [Left Arm] Blood Pressure Mean 109 Blood Pressure Mean [Left Arm] Blood Pressure Position Pulse Oximetry 95 Oxygen Delivery Method Room Air Sepsis Recent Fever Within 48 Hours Sepsis New/Unexplained Change in Mental Status Sepsis Action Taken by Nursing 05/04/24 19:30 05/04/24 20:00 05/04/24 20:00 Temperature 37.0 C Temperature Source Oral Pulse Rate 70 63 Pulse Rate [Apical] Pulse Rate from SpO2 Sensor Pulse Rhythm Pulse Strength Respiratory Rate 20 12 Respiratory Effort / Characteristics Respiratory Depth Blood Pressure Blood Pressure [Left Arm] Blood Pressure Mean Blood Pressure Mean [Left Arm] Blood Pressure Position Pulse Oximetry 95 94 Oxygen Delivery Method Room Air Room Air Sepsis Recent Fever Within 48 Hours Sepsis New/Unexplained Change in Mental Status Sepsis Action Taken by Nursing 05/04/24 20:30 Temperature Temperature Source Pulse Rate 73 Pulse Rate [Apical] Pulse Rate from SpO2 Sensor Pulse Rhythm Pulse Strength Respiratory Rate 16 Respiratory Effort / Characteristics Respiratory Depth Blood Pressure 131/73 Blood Pressure [Left Arm] Blood Pressure Mean 92 Blood Pressure Mean [Left Arm] Blood Pressure Position Pulse Oximetry 95 Oxygen Delivery Method Room Air Sepsis Recent Fever Within 48 Hours Sepsis New/Unexplained Change in Mental Status Sepsis Action Taken by Residential Medications Current Medication List: was personally reviewed by me Laboratory Data Attestation: I reviewed the patient's lab results. 05/04/24 12:20 05/04/24 12:20 Lab Results 05/04/24 05/04/24 Range/Units 12:20 12:33 WBC 6.66 (4.8-10.8) K/ul RBC 3.73 L (4.20-5.40) M/uL Hgb 11.6 L (12.0-16.0) g/dl Hct 35.8 L (37.0-47.0) % MCV 96.0 (80.0-100.0) fL MCH 31.1 (25.0-34.0) pg MCHC 32.4 (32.0-36.0) g/dL RDW Std Deviation 58.8 H (36.4-46.3) fL RDW Coeff of Aminata 16.6 H (11.5-14.5) % Plt Count 163 (130-400) K/uL MPV 12.5 H (9.4-12.4) fL Neutrophils % (Manual) 25 % Lymphocytes % (Manual) 23 % Monocytes % (Manual) 4 % Eosinophils % (Manual) 2 % Neutrophils # (Manual) 1.67 (1.40-6.50) K/uL Total Absolute Neuts 1.67 (1.4-6.5) K/uL Lymphocytes # (Manual) 1.53 (1.2-3.4) K/uL Total Abs Lymphocytes 4.60 H (1.2-3.4) K/uL Monocytes # (Manual) 0.27 (0.11-0.59) K/uL Eosinophils # (Manual) 0.13 (0-0.50) K/uL Large Granular Lymphs 46 % # Lrg Granular Lymphs 3.06 K/uL PT 11.3 (9.0-12.0) Seconds INR 1.0 (0.9-1.1) APTT 23 (21-31) Seconds PTT Ratio 0.9 Sodium 139 (136-145) mmol/L Potassium 5.6 H (3.5-5.1) mmol/L Chloride 110 H (98-107) mmol/L Carbon Dioxide 22 (21-32) mmol/L Anion Gap 7 (3-11) BUN 16 (6-23) mg/dl Creatinine 1.00 (0.6-1.2) mg/dl Est Cr Clr Drug Dosing Not Reportable Est GFR ( Amer) 64.7 ml/min Est GFR (Non-Af Amer) 55.8 ml/min BUN/Creatinine Ratio 16.0 (10-20) Glucose 152 H (70-99(Fasting)) mg/dl Calcium 9.1 (8.6-10.3) mg/dl Total Bilirubin 1.7 H (0.2-1.0) mg/dl AST 15 (13-39) U/L ALT 13 (7-52) U/L Alkaline Phosphatase 57 (34-104) U/L Troponin I High Sens 6.0 (0-14) pg/ml Total Protein 6.1 (6.0-8.3) gm/dl Albumin 3.8 (3.4-5.0) gm/dl Globulin 2.3 L (2.5-4.0) gm/dl Albumin/Globulin Ratio 1.7 (0.9-2) SARS-CoV-2 (PCR) NEGATIVE (Negative) Influenza Type A (PCR) Negative (Neg) Influenza Type B (PCR) Negative (Neg) RSV (RT-PCR) Negative (Neg) Administered Medications Discontinued Medications Sodium Chloride (Nss) 1,000 mls @ 999 mls/hr IV .Q1H1M ONE Stop: 05/04/24 15:18 Last Infusion: 05/04/24 16:40 Dose: Infused Documented By: Admin: 05/04/24 15:27 Dose: 999 mls/hr Documented By: ML Lactated Ringer's (Lr) 1,000 mls @ 999 mls/hr IV .Q1H1M ONE Stop: 05/04/24 17:10 Last Infusion: 05/04/24 18:34 Dose: Infused Documented By: Admin: 05/04/24 17:01 Dose: 999 mls/hr Documented By: ML Ceftriaxone Sodium (Rocephin) 2,000 mg in 50 mls @ 100 mls/hr IV NOW STA Stop: 05/04/24 18:54 Last Infusion: 05/04/24 19:26 Dose: Infused Documented By: Admin: 05/04/24 18:35 Dose: 100 mls/hr Documented By: ML Ondansetron HCl (Ondansetron Inj 2 Mg/Ml 2 Ml Vial) 4 mg IV NOW STA Stop: 05/04/24 14:19 Last Admin: 05/04/24 15:26 Dose: 4 mg Documented By: ML Imaging Data Radiologist's Impression: Chest X-Ray 05/04/24 12:11 SINGLE VIEW CHEST CLINICAL HISTORY: Atypical chest pain. FINDINGS: An AP, portable, upright chest radiograph is compared to study dated 02/11/2024. Correlation is made with chest CT dated 07/08/2023. A right subclavian central venous infusion port is unchanged in position. The patient is status post midline sternotomy. A hiatal hernia is noted. The heart is enlarged noting atherosclerotic calcification of the thoracic aorta. The pulmonary vasculature is noncongested. There is bibasilar scarring/atelectasis. No airspace consolidation or pleural effusion is identified. No pneumothorax is seen. The skeletal structures are osteopenic. The bony thorax is grossly intact. Arthritic change is seen in the shoulders. IMPRESSION: 1. Cardiomegaly with no active disease in the chest. 2. Hiatal hernia. ACT 112: Negative or not required by law. Electronically signed by: Song Pride M.D. 05/04/2024 1:39 PM Discharge Plan Visit Data Chief Complaint: Diarrhea Stated Complaint: SOB ED Provider: Song Wagner Discharge Problem: Weakness, Acute dehydration, Diarrhea, Acute UTI Patient Disposition: Admitted As Inpatient Condition: Fair Discharge Instructions Interventions: ED Discharge Assessment Last Done: 05/04/24 21:45 Discharge Problem: Diarrhea Qualifiers: Diarrhea type: unspecified type Qualified Code(s): R19.7 - Diarrhea, unspecified
[2024-05-04] MEDS: ONDANSETRON INJ 2 MG/ML 2 ML VIAL IV STA (15:26)
[2024-05-04] MEDS: SODIUM CHLORIDE 0.9% 1,000 ML IV ONE (15:27)
[2024-05-04] MEDS: LACTATED RINGER'S 1,000 ML IV ONE (17:01)
[2024-05-04 18:11] LABS: Appearance Urine Cloudy (Clear); Bacteria Urine Automated 4+ (None Seen); Bilirubin Urine Negative (Negative); Blood Urine Negative (Negative); Cast Urine Automated 0-2 /lpf (0-2); Color Urine Yellow; Epithelial Cell Urine Auto 0-2 /hpf (0-2); Glucose Urine UA Negative (Negative); Ketones Urine Trace (Negative); Leukocyte Esterase Urine 1+ (Negative); Nitrite Urine Negative (Negative); Protein Urine Negative (Negative); RBC Urine Automated 0-2 /hpf (0-2); Specific Gravity Urine 1.021 (1.000-1.030); Urobilinogen Urine Negative (Negative); WBC Urine Automated >50 /hpf (0-5); pH Urine 6.5 (4.5-7.5)
[2024-05-04] MEDS: cefTRIAXone SODIUM 2,000 MG/50 ML BAG IV STA (18:35)
--- NOTE | 2024-05-04 22:22 | History & Physical Report ---
Date of Service May 04, 2024 Assessment & Plan (1) Type 2 diabetes mellitus: (2) Hypertension: (3) Hypothyroidism: (4) Multiple myeloma: (5) Hyperlipidemia: (6) General ill feeling: (7) UTI (urinary tract infection): Plan 73 y/o female with PMH of multiple myeloma with 2x prior stem cell transplant, asthma, hx of CABG, DM 2 on insulin, GERD, diverticulitis, Afib, hyperlipidemia, HTN, hypothyrodism, peripheral neuropathy here due to general illness, poor po intake and diarrhea found with UTI and bacterial conjunctivitis General illness / poor po intake UTI - In the setting of immunocompromised patient and UTI - No leukocytosis, no fever - UA remarkable for cloudy , leukocyte esterase, WBC, bacteria - s/p 2 L of NSS - Urine culture pending - CBC with differential in the morning - monitor for fever -Continue IV ceftriaxone 1g q 24hr bacterial conjunctivitis - Polytrim eye drops Multiple myeloma - Hx of prior stem cell transplant - Follow with [facility] at [place] - IV daratumumab and monthly IVIG treatment. - Acyclovir for suppression -Started on Eliquis for DVT prophylaxis by [facility] Asthma -control, continue albuterol prn hx of CABG Recent stress Echo EF 65, no wall abnormalities DM2: Continue Lantus home 30 qhs Correction scale ordered Afib Paroxysmal, Continue metoprolol On eliquis EKG: sinus rhythm hypothyroidism: continue Synthroid HTN: continue metoprolol GERD: Continue protonix HLD: Continue statin DVT prophylaxis: Eliquis Dispo: Med surge Full code History of Present Illness Primary Care Provider: Yaneth Pillai MD 73 y/o female with PMH of multiple myeloma with 2x prior stem cell transplant, asthma, hx of CABG, DM 2 on insulin, GERD, diverticulitis, Afib, hyperlipidemia, HTN, hypothyroidism, peripheral neuropathy here due to general illness and diarrhea. She had 4 days of increase diarrhea, chills and sweats. She refers headaches as well. She does have recurrent diarrhea but this time bowel movements had increased in frequency and they are watery and yellow. No measure fever. Denied any vomiting or abdominal pain. She does refers some pain in her left eye with increased yellow discharge. She denied any chest pain, SOB, or palpitations, or any other symptoms. 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 She is currently being treated with IV daratumumab and monthly IVIG treatment. She was recently started Eliquis for DVT prophylaxis. ED course: Lab remarkable for hyperkalemia of 5.6 received IV saline 1 L, she was given 1 L of lactated Ringer's IV. She was given IV Zofran, IV ceftriaxone. The ECG shows a normal sinus rhythm with a rate of 74. Allergies Allergy/AdvReac Type Severity Reaction Status Date / Time cephalexin Allergy Intermediate hives Verified 01/20/24 08:50 ciprofloxacin [From Cipro] Allergy Mild Hives Verified 01/20/24 08:50 codeine Allergy Mild rash Verified 01/20/24 08:50 dapagliflozin [From Farxiga] AdvReac Intermediate Rash Verified 01/20/24 08:50 lisinopril AdvReac Mild COUGH Verified 01/20/24 08:50 Home Medications Medication Instructions Recorded Confirmed Type aspirin 81 mg chewable tablet 81 mg PO HS 10/26/19 05/04/24 History cholecalciferol (vitamin D3) 50 50 mcg PO QAM 03/22/20 05/04/24 History mcg (2,000 unit) capsule tramadol 50 mg tablet 50 - 100 mg PO BID PRN Pain 04/09/21 05/04/24 History allopurinol 300 mg tablet 300 mg PO QPM 06/12/21 05/04/24 History metoprolol succinate 25 mg 12.5 mg PO HS 06/12/21 05/04/24 History tablet,extended release 24 hr pantoprazole 20 mg tablet,delayed 20 mg PO QAM 06/27/21 05/04/24 History release daratumumab 20 mg/mL intravenous 0 mg IV Q4WK 07/12/21 05/04/24 History solution (Darzalex) diphenoxylate-atropine 2.5 1 tab PO UD PRN Diarrhea 07/12/21 05/04/24 History mg-0.025 mg tablet (Lomotil) pregabalin 50 mg capsule (Lyrica) 50 mg PO TID 07/08/22 05/04/24 History ferrous sulfate 325 mg (65 mg 325 mg PO BID 08/05/22 05/04/24 History iron) tablet (iron) magnesium oxide 500 mg capsule 500 mg PO BID 08/05/22 05/04/24 History blood sugar diagnostic (FreeStyle #200 ea 03/18/23 02/13/24 Rx Lite Strips) lancets 28 gauge (FreeStyle #200 ea 03/18/23 02/13/24 Rx Lancets) pen needle, diabetic 32 gauge x #200 ea 03/18/23 02/13/24 Rx 5/16" (Comfort EZ Pen [place]) cyanocobalamin (vitamin B-12) 1,000 mcg PO BID 03/27/23 05/04/24 History 1,000 mcg tablet (Vitamin B-12) levothyroxine 150 mcg tablet 150 mcg PO QAM 03/27/23 05/04/24 History apixaban 2.5 mg tablet (Eliquis) 2.5 mg PO BID 07/07/23 05/04/24 History albuterol sulfate 90 mcg/actuation 2 puff inhalation Q6H PRN 07/11/23 05/04/24 Rx aerosol inhaler (Ventolin HFA) Shortness Of Breath Or Wheezing #1 g pomalidomide 1 mg capsule 1 mg PO DAILY 07/29/23 05/04/24 History (Pomalyst) mecobalamin (vitamin B12) 500 mcg 500 mcg PO DAILY 11/13/23 05/04/24 History chewable tablet nystatin-triamcinolone 100,000 1 applic topical BID #30 grams 11/21/23 05/04/24 Rx unit/g-0.1 % topical cream amiloride 5 mg tablet 5 mg PO QPM #90 tabs 12/05/23 05/04/24 Rx ondansetron 4 mg disintegrating 4 mg PO Q8H PRN nausea and 02/11/24 05/04/24 Rx tablet vomiting #30 tabs acyclovir 400 mg tablet 400 mg PO DAILY 02/13/24 05/04/24 History budesonide-formoterol HFA 80 2 puff inhalation BID 02/13/24 05/04/24 History mcg-4.5 mcg/actuation aerosol inhaler insulin glargine 100 unit/mL (3 25 unit subcut DAILY 02/13/24 05/04/24 History mL) subcutaneous pen (Lantus Solostar U-100 Insulin) pravastatin 40 mg tablet 40 mg PO PM #90 tabs 03/09/24 05/04/24 Rx dulaglutide 3 mg/0.5 mL 0 mg subcut ONCE 05/04/24 05/04/24 History subcutaneous pen injector (Trulicity) Past Med/Surg History Problem List (Updated 05/04/24 @ 22:38 by Song Wagner MD) Acute UTI (Acute) Diarrhea (Acute) Acute dehydration (Acute) Weakness (Acute) UTI (urinary tract infection) General ill feeling LPRD (laryngopharyngeal reflux disease) Throat pain RUQ abdominal pain (Acute) Gall stones (Acute) Acute dehydration (Acute) NORRIS (acute kidney injury) (Acute) Hypotension (Acute) Acute cholecystitis Gallstone (Acute) Type 2 diabetes mellitus Recurrent UTI Hypomagnesemia Hypertension Hypothyroidism Vaginal candidiasis Viral pneumonia Leukopenia due to antineoplastic chemotherapy Bronchopneumonia Acute respiratory failure with hypoxia Neutropenia (Acute) Parainfluenza Generalized weakness Neutropenia Vulvitis High risk HPV infection PAN PUSHER exam for high-risk Medicare patient BPPV (benign paroxysmal positional vertigo) Dyspareunia SPENCER III (cervical intraepithelial neoplasia grade III) with severe dysplasia Uterine fibroid Yeast infection Encounter for pre-operative examination Chronic kidney disease, stage 3a Acute kidney injury FOLLOWS WITH DR. 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 Lopez 10-28-19 Thrombocytopenia HX CAD (coronary artery disease) s/p CABG x 2 > FOLLOWS WITH DR. PARIS Acid reflux Asthma NO RES INH USE FOR OVER A YEAR HI (myocardial infarction) 2009 > CABG Multiple myeloma Dx 2003, s/p chemo >HX OF STEM CELL TRANSPLANT--pt states her WBC rising, following with Lisandra on 04/09/23 regarding this Surgical History History of bone marrow biopsy History of esophagogastroduodenoscopy (EGD) History of colonoscopy Hx of stem cell transplant History of hysterectomy History of cardiac cath History of conization of cervix Hx of dilation and curettage H/O hand surgery Family History Mother Liver cancer Thyroid cancer Diabetes Grandmother (Maternal) Diabetes Other No family history of adverse response to anesthesia Social History Smoking Status: Never smoker Second Hand Exposure: No; Do You Dip or Chew Tobacco: No; Hx Alcohol Use: No Hx Substance Use: No Preferred Language: Icelandic Communication Ability: Effective Lvn Required: No Beliefs That Will Affect Care: None marital status: Current Living Situation: Alone Current Living Situation Comment: home alone, has steps current occupational status: retired Feels Safe at Home: Yes Safety Concerns: Feels Safe At This Time Assistive Devices: None Review of Systems Review of Systems: as per hpi Physical Exam Constitutional: WD/WN, vitals as above Eyes: + conjunctival abnormality (Significant yellow discharge from left eye, redness), PERRL and reactive pupils ENMT: external ear and nose normal, oropharynx normal Respiratory: normal respiratory effort, lungs clear to auscultation Cardiovascular: RRR, no murmur, no edema Gastrointestinal (Abdomen): normal bowel sounds, soft, nontender, no hepatosplenomegaly No suprapubic pain, no CVA Skin: no rashes, warm and dry Results & Data Results & Data Vital Signs (Past 12 Hours) Vital Signs Temp Pulse Pulse Resp BP BP Pulse Ox 05/04/24 21:06 67 15 98 05/04/24 20:30 73 16 131/73 95 05/04/24 20:00 37.0 C 05/04/24 20:00 63 12 94 05/04/24 19:30 70 20 95 05/04/24 19:20 69 05/04/24 19:15 74 15 95 05/04/24 18:38 141/81 H 05/04/24 18:38 141/81 H 05/04/24 18:30 82 25 H 90 05/04/24 18:15 75 14 98 05/04/24 18:09 75 14 97 05/04/24 17:48 75 15 98 05/04/24 17:30 68 13 97 05/04/24 17:21 68 20 96 05/04/24 17:12 68 14 96 05/04/24 17:03 131/89 05/04/24 17:01 69 20 131/89 98 05/04/24 16:54 66 13 98 05/04/24 16:51 65 19 98 05/04/24 16:42 71 22 05/04/24 16:12 70 18 96 05/04/24 16:00 73 13 94 05/04/24 15:51 75 16 92 05/04/24 15:48 66 15 95 05/04/24 15:30 72 21 97 05/04/24 15:27 71 18 97 05/04/24 15:27 97 05/04/24 15:27 37.1 C 05/04/24 15:27 97 05/04/24 15:24 76 05/04/24 12:07 36.3 C L 73 20 118/71 98 O2 Del Method 05/04/24 21:06 Room Air 05/04/24 20:30 Room Air 05/04/24 20:00 05/04/24 20:00 Room Air 05/04/24 19:30 Room Air 05/04/24 19:20 05/04/24 19:15 Room Air 05/04/24 18:38 05/04/24 18:38 05/04/24 18:30 05/04/24 18:15 05/04/24 18:09 05/04/24 17:48 05/04/24 17:30 05/04/24 17:21 05/04/24 17:12 05/04/24 17:03 05/04/24 17:01 Room Air 05/04/24 16:54 05/04/24 16:51 05/04/24 16:42 05/04/24 16:12 05/04/24 16:00 05/04/24 15:51 05/04/24 15:48 05/04/24 15:30 05/04/24 15:27 05/04/24 15:27 Room Air 05/04/24 15:27 05/04/24 15:27 Room Air 05/04/24 15:24 05/04/24 12:07 Room Air Code Status & VTE Plan VTE Prophylaxis Plan VTE Prophylaxis will be ordered: Yes Supervising Physician Co-Signing Physician Notes Patient seen and examined, chart reviewed, case discussed with Dr. Fracisco Tesfaye and I agree with the assessment and plan as above. In brief, patient is a 73yo female with history of multiple myeloma s/p stem cell transplant, asthma, CAD, DM, GERD presenting with illness and diarrhea, chills and sweats x 4 days. Doppler on 04/27/24 with no evidence of acute DVT On exam patient is afebrile, HD stable, NAD Skin - no rash HEENT- MMM, +conjunctival injection present of left eye with yellow purulent drainage Heart - +S1/S2, regular, no m/r/g Lungs - CTA Abd - +BS, soft, NT/ND Labs and images reviewed UA suggestive of infection Assessment/Plan Immunocompromised patient with MM s/p SCT on chemotherapy presenting with generalized illness. UTI possible source. 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
[2024-05-04 22:34] VITALS: RESP 16
[2024-05-04] MEDS ORDERED: POLYETHYLENE (MIRALAX) 17 GM PACK PO PRN (22:54)
[2024-05-04] MEDS ORDERED: GLUCOSE 10 TAB/TUBE PO PRN (22:54)
[2024-05-04] MEDS ORDERED: DEXTROSE 50% 50 ML SYRINGE IV PRN (22:54)
[2024-05-04] MEDS ORDERED: GLUCOSE 40% GEL 15 GM TUBE PO PRN (22:54)
[2024-05-04] MEDS ORDERED: ONDANSETRON INJ 2 MG/ML 2 ML VIAL IV PRN (22:54)
[2024-05-04] MEDS ORDERED: GLUCAGON FOR INJ 1 MG VIAL SQ PRN (22:54)
[2024-05-04] MEDS ORDERED: ACETAMINOPHEN 325 MG TAB PO PRN (22:54)
[2024-05-04] MEDS ORDERED: ALBUTEROL HFA 8 GM INHALER INH PRN (22:54)
[2024-05-04] MEDS ORDERED: CARBOHYDRATES FOR HYPOGLYCEMIA PO PRN (22:54)
[2024-05-05] MEDS: TRIMETHOPRIM/POLYMYXIN B OP SCH (00:04)
[2024-05-05] MEDS: APIXABAN 2.5 MG TAB PO SCH (00:04)
[2024-05-05] MEDS: INSULIN ASPART PER UNIT CHARGE SC SCH (00:05)
[2024-05-05] MEDS: ASPIRIN 81 MG CHEW PO SCH (00:05)
[2024-05-05] MEDS: CYANOCOBALAMIN (B-12) 500 MCG TABLET PO SCH (00:05)
[2024-05-05] MEDS: METOPROLOL SUCC 25MG EXT REL TAB PO SCH (00:06)
[2024-05-05] MEDS: LANTUS PER UNIT CHARGE SQ SCH (00:06)
[2024-05-05] MEDS: PRAVASTATIN SOD 40 MG TAB PO SCH (00:07)
[2024-05-05] MEDS: FLUTICASONE/VILANTEROL 100/25MCG 14 PUFFS/INHALER INH SCH (00:07)
[2024-05-05] MEDS: PREGABALIN 50 MG CAP PO SCH (00:10)
[2024-05-05 00:19] LABS: BUN Creatinine Ratio 13.3 (10-20); Calcium 7.9 mg/dl (8.6-10.3); Creatinine Clr Calc Pharmacy 58.8 ml/min; Est GFR (African American) 66.3 ml/min; Est GFR (Non-African American) 57.2 ml/min; Potassium 4.1 mmol/L (3.5-5.1)
--- NOTE | 2024-05-05 04:25 | Billing Data ---
Date of Service May 04, 2024 Coding Level of Care Code 74429 INT INP/OBS CARE
[2024-05-05] MEDS: LEVOTHYROXINE SODIUM 150 MCG TABLET PO SCH (06:13)
[2024-05-05 06:42] LABS: Basophils # (auto) 0.07 K/uL (0.00-0.20); Basophils % (auto) 1.6 %; Eosinophils # (auto) 0.13 K/uL (0.00-0.50); Eosinophils % (auto) 2.9 %; Hematocrit (blood only) 30.1 % (37.0-47.0); Hemoglobin 9.9 g/dl (12.0-16.0); Immature Granulocytes # (auto) 0.02 K/uL (0.01-0.20); Immature Granulocytes % (auto) 0.4 %; Lymphocytes # (auto) 1.98 K/uL (1.20-3.40); Lymphocytes % (auto) 44.2 %; Mean Corpuscular Hgb Conc 32.9 g/dL (32.0-36.0); Mean Corpuscular Volume 94.4 fL (80.0-100.0); Mean Platelet Volume 12.1 fL (9.4-12.4); Monocytes # (auto) 0.62 K/uL (0.11-0.59); Monocytes % (auto) 13.8 %; Neutrophils # (auto) 1.66 K/uL (1.40-6.50); Neutrophils % (auto) 37.1 %; Platelet Count 125 K/uL (130-400); RDW Coefficient of Variation 16.4 % (11.5-14.5); RDW Standard Deviation 57.6 fL (36.4-46.3); Red Blood Count 3.19 M/uL (4.20-5.40); White Blood Count 4.48 K/ul (4.8-10.8)
[2024-05-05 07:01] LABS: Albumin Globulin Ratio 1.9 (0.9-2); Albumin Level 3.2 gm/dl (3.4-5.0); BUN Creatinine Ratio 14.1 (10-20); Bilirubin,Total 1.1 mg/dl (0.2-1.0); Calcium 7.7 mg/dl (8.6-10.3); Creatinine Clr Calc Pharmacy 67.7 ml/min; Est GFR (African American) 78.8 ml/min; Globulin 1.7 gm/dl (2.5-4.0); Potassium 4.1 mmol/L (3.5-5.1); Total Protein 4.9 gm/dl (6.0-8.3)
[2024-05-05] MEDS: PANTOprazole 40 MG TAB PO SCH (08:18)
[2024-05-05] MEDS: ACYCLOVIR 400 MG TAB PO SCH (08:18)
[2024-05-05] MEDS: CHOLECALCIFEROL 25 MCG (1000 UNITS) TAB PO SCH (08:18)
--- NOTE | 2024-05-05 11:46 | Hospitalist Progress Note ---
Date of Service May 05, 2024 Assessment & Plan (1) UTI (urinary tract infection): Plan: 73 y/o female with PMH of multiple myeloma with 2x prior stem cell transplant, asthma, hx of CABG, DM 2 on insulin, GERD, diverticulitis, Afib, hyperlipidemia, HTN, hypothyroidism, peripheral neuropathy here due to general illness, poor po intake and diarrhea found with UTI and bacterial conjunctivitis UTI - afebrile, no leukoctosis - UA remarkable for cloudy , leukocyte esterase, WBC, bacteria - s/p 2 L of NSS - Urine culture: GNB -Continue IV ceftriaxone 1g q 24hr bacterial conjunctivitis - Polytrim eye drops (2) Multiple myeloma: Plan: Multiple myeloma - Hx of prior stem cell transplant - Follow with [facility] at [place] - IV daratumumab and monthly IVIG treatment. - Acyclovir for suppression -Started on Eliquis for DVT prophylaxis by [facility] Plan Chronic stable medical problems: * Asthma -control, continue albuterol prn * hx of CABG - Recent stress Echo EF 65, no wall abnormalities * DM2 - Continue Lantus home 30 qhs, SSI * pAfib - continue metoporolol and Eliquis, EKG: sinus rhythm * hypothyroidism: continue Synthroid * GERD: Continue protonix * HLD: Continue statin DVT prophylaxis: Eliquis Dispo: continued inpatient stay, hopeful for discharge tomorrow Admission and Anticipated Discharge Date Admission Date: May 04, 2024 Supervising Physician Co-Signing Physician Notes Attending Attestation - Chart reviewed, care plan d/w ARIAN Desai. I agree w/ the travis components of her documentation. Eddy Vieira MD Subjective Patient seen sitting up in bed, she states she is feeling much better than yesterday, about 80% of her baseline. Diarrhea is has improved but chronic for her and feels like she is at her baseline Tolerating diet - which she was not doing before no fevers or chills overnight Review of Systems Review of Systems: All systems reviewed & are unremarkable except as noted in Subjective Physical Exam Physical Exam: General: NAD, VS as above Resp: normal respiratory effort, lungs clear to auscultation CV: RRR, no murmur, Abd: normal bowel sounds, non tender, no hepatosplenomegaly Extremities: Moves all extremities, trace edema Neuro: A&O x3, Results & Data Results & Data Vital Signs (Past 12 Hours) Vital Signs Temp Pulse Resp BP Pulse Ox O2 Del Method 05/05/24 07:42 36.7 C 57 L 16 100/68 97 Room Air Laboratory Results CBC, chemistry and urine culture reviewed PG Care Time/CCT Total # of Minutes Spent Total Time Spent with Patient: Total time spent is greater than 50% in coordination of care (as documented) at patient's floor/unit and/or counseling patient: Coding Level of Care Code 65329 SUB INP/OBS CARE 3/50MIN Diagnoses UTI (urinary tract infection) N39.0 Multiple myeloma C90.00
[2024-05-05] MEDS: cefTRIAXone SODIUM 2,000 MG/50 ML BAG IV SCH (17:34)
--- NOTE | 2024-05-06 06:40 | Electrocardiogram Report ---
Test Reason : Blood Pressure : */* mmHG Vent. Rate : 74 BPM Atrial Rate : 74 BPM P-R Int : 126 ms QRS Dur : 78 ms QT Int : 388 ms P-R-T Axes : 15 8 34 degrees QTcB Int : 430 ms Normal sinus rhythm Nonspecific ST abnormality Abnormal ECG When compared with ECG of 13-Feb-2024 14:06, No significant change Confirmed by Get Hodges ([id number]) on 05/06/2024 6:40:12 AM Referred By: Confirmed By: Get Hodges
[2024-05-06 07:32] VITALS: TEMP 98.2; O2SAT 98
[2024-05-06 08:22] LABS: Basophils # (auto) 0.06 K/uL (0.00-0.20); Basophils % (auto) 1.2 %; Eosinophils # (auto) 0.19 K/uL (0.00-0.50); Eosinophils % (auto) 3.7 %; Hematocrit (blood only) 33.8 % (37.0-47.0); Hemoglobin 10.8 g/dl (12.0-16.0); Immature Granulocytes # (auto) 0.02 K/uL (0.01-0.20); Immature Granulocytes % (auto) 0.4 %; Lymphocytes # (auto) 2.23 K/uL (1.20-3.40); Lymphocytes % (auto) 43.4 %; Mean Corpuscular Hemoglobin 30.8 pg (25.0-34.0); Mean Corpuscular Volume 96.3 fL (80.0-100.0); Mean Platelet Volume 12.6 fL (9.4-12.4); Monocytes # (auto) 0.69 K/uL (0.11-0.59); Monocytes % (auto) 13.4 %; Neutrophils # (auto) 1.95 K/uL (1.40-6.50); Neutrophils % (auto) 37.9 %; Platelet Count 133 K/uL (130-400); RDW Coefficient of Variation 16.8 % (11.5-14.5); RDW Standard Deviation 59.3 fL (36.4-46.3); Red Blood Count 3.51 M/uL (4.20-5.40); White Blood Count 5.14 K/ul (4.8-10.8)
[2024-05-06 08:47] LABS: BUN Creatinine Ratio 16.3 (10-20); Calcium 8.2 mg/dl (8.6-10.3); Est GFR (African American) 77.7 ml/min; Potassium 4.2 mmol/L (3.5-5.1)
--- NOTE | 2024-05-06 10:34 | Discharge Summary ---
Discharge Summary Date of Service May 06, 2024 Principal Dx & Hospital Course #1 = Principal Diagnosis (1) UTI (urinary tract infection): 73 y/o female with PMH of multiple myeloma with 2x prior stem cell transplant, asthma, hx of CABG, DM 2 on insulin, GERD, diverticulitis, Afib, hyperlipidemia, HTN, hypothyroidism, peripheral neuropathy here due to general illness, poor po intake and diarrhea found with UTI and bacterial conjunctivitis UTI - afebrile, no leukoctosis - UA remarkable for cloudy , leukocyte esterase, WBC, bacteria - s/p 2 L of NSS - Urine culture: Klebsiella pneumonia - received ceftriaxone and discharged on Augmentin patient was agreeable to start a daily medication for UTI prophylaxis. Urology referral has been placed for outpatient follow-up as she has discussed this with them previously bacterial conjunctivitis - Polytrim eye drops (2) Multiple myeloma: Multiple myeloma - Hx of prior stem cell transplant - Follow with [facility] at [place] - IV daratumumab and monthly IVIG treatment. - Acyclovir for suppression -Started on Eliquis for DVT prophylaxis by [facility] Plan Chronic stable medical problems: * Asthma -control, continue albuterol prn * hx of CABG - Recent stress Echo EF 65, no wall abnormalities * DM2 - Continue Lantus home 30 qhs, SSI * pAfib - continue metoprolol and Eliquis, EKG: sinus rhythm * hypothyroidism: continue Synthroid * GERD: Continue protonix * HLD: Continue statin Dispo: discharge to home today Notes For Next Care Provider patient hospitalized after general malaise and increasing diarrhea - found to have a UTI. Treated with ceftriaxone discharged on Augmentin Urology follow-up to discuss daily preventative medication Medication Changes From Visit Augmentin twice daily x 5 days Admission HPI Per Admitting Provider 73 y/o female with PMH of multiple myeloma with 2x prior stem cell transplant, asthma, hx of CABG, DM 2 on insulin, GERD, diverticulitis, Afib, hyperlipidemia, HTN, hypothyroidism, peripheral neuropathy here due to general illness and diarrhea. She had 4 days of increase diarrhea, chills and sweats. She refers headaches as well. She does have recurrent diarrhea but this time bowel movements had increased in frequency and they are watery and yellow. No measure fever. Denied any vomiting or abdominal pain. She does refers some pain in her left eye with increased yellow discharge. She denied any chest pain, SOB, or palpitations, or any other symptoms. 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 She is currently being treated with IV daratumumab and monthly IVIG treatment. She was recently started Eliquis for DVT prophylaxis. ED course: Lab remarkable for hyperkalemia of 5.6 received IV saline 1 L, she was given 1 L of lactated Ringer's IV. She was given IV Zofran, IV ceftriaxone. The ECG shows a normal sinus rhythm with a rate of 74. Discharge Exam General: NAD, VS as above Resp: normal respiratory effort, lungs clear to auscultation CV: RRR, no murmur, Abd: normal bowel sounds, non tender, no hepatosplenomegaly Extremities: Moves all extremities, trace edema Neuro: A&O x3, Discharge Plan Discharge Items Patient Disposition: Home - Self-Care Reason For Visit: GENERAL ILLNESS, DIARRHEA, UTI Discharge Diagnosis: UTI Condition on Discharge: Fair Activity: Resume your previous activity Driving/Machine Use: No limitations Weightbearing: Full weightbearing Non-emergency contact: Primary Care Provider Call non-emergency contact if: you have any medication questions, your symptoms worsen and your temperature is above 101 Follow-up/Referrals: Barbara Drake CRNP [Nurse Practitioner] - (discussed daily UTI prevention ) Yaneth Pillai MD [Primary Care Provider] - (follow up within 7-10 days ) Diet: Carb Consistent or DM2 and Heart Healthy Addtl Attending Provider Instructions: Ms. Abraham, You were hospitalized after general illness and worsening diarrhea - this was found to be a UTI. Thankfully, this has been sensitive to oral antibiotics and you will be discharged on Augmentin that you will take for the next 5 days. We are working to schedule an appointment for urology to discuss daily medications for UTI prevention. If you do not hear about the appointment time by Friday, please call the number above. I have also prescribed eye drop for your bacteria conjunctivitis. You should be sure to not rub your eyes. I would also recommend changing your pillow case when you get home and also when you complete the course of antibiotics. We did not make any changes to your home medications. Please make an appointment with your PCP within 7-10 days. CONTACT YOUR PRIMARY CARE PROVIDER if you experience any of the following: Shortness of breath or difficulty breathing Fevers or chills Feeling tired with normal activity or experiencing dizziness or fainting Difficulty following your treatment plan, or difficulty taking medications CALL 911 OR GO TO THE EMERGENCY DEPARTMENT if you experience any of the following: Severe abdominal pain or nausea/vomiting Severe chest pain, or chest pain that radiates (moves) to your jaw or arm Sudden, severe shortness of breath or difficulty breathing Thank you for allowing us to participate in your care. Pending Studies at Discharge: No Stand-Alone Forms: [facility], Smoking Cessation Medications and DC Order Prescriptions: New amoxicillin-pot clavulanate 875-125 mg tablet 1 tab PO BID Qty: 10 0RF Rx Instructions: first dose AM 8/30. Take with food Continued nystatin-triamcinolone 100,000-0.1 unit/g-% cream 1 applic topical BID Qty: 30 1RF amiloride 5 mg tablet 5 mg PO QPM Qty: 90 3RF pravastatin 40 mg tablet 40 mg PO PM Qty: 90 1RF Darzalex 20 mg/mL solution 0 mg IV Q4WK Rx Instructions: Unable to verify medication at this date/time. Original Directions: 20mg IV every 4 weeks. Pomalyst 1 mg capsule 1 mg PO DAILY Rx Instructions: Take daily for 21 days then do not take for 7 days. Then Provider to call in new script (DME) pen needle, diabetic [Comfort EZ Pen [place]] 32 gauge x 5/16" needle See Rx Instructions .Route Qty: 200 3RF Rx Instructions: test blood sugar 3 x daily2 (DME) lancets [FreeStyle Lancets] 28 gauge misc See Rx Instructions .Route Qty: 200 3RF Rx Instructions: test blood sugar 2 x daily (DME) FreeStyle Lite Strips Strip See Rx Instructions .Route Qty: 200 3RF Rx Instructions: test 2 times daily allopurinol 300 mg tablet 300 mg PO QPM metoprolol succinate 25 mg tablet extended release 24 hr 12.5 mg PO HS diphenoxylate-atropine [Lomotil] 2.5-0.025 mg tablet 1 tab PO UD PRN (Reason: Diarrhea) Rx Instructions: 1 tab PO 1-2 TIMES DAILY; PRN; cholecalciferol (vitamin D3) 50 mcg (2,000 unit) capsule 50 mcg PO QAM Rx Instructions: Unable to verify OTC meds at this date/time tramadol 50 mg tablet 50 - 100 mg PO BID PRN (Reason: Pain) pregabalin [Lyrica] 50 mg capsule 50 mg PO TID mecobalamin (vitamin B12) 500 mcg tablet,chewable 500 mcg PO DAILY Rx Instructions: Unable to verify OTC meds at this date/time aspirin 81 mg Tablet,Chewable 81 mg PO HS Rx Instructions: Unable to verify OTC meds at this date/time. pantoprazole 20 mg tablet,delayed release (DR/EC) 20 mg PO QAM ferrous sulfate [iron] 325 mg (65 mg iron) Tablet 325 mg PO BID Rx Instructions: Unable to verify OTC meds at this date/time magnesium oxide 500 mg capsule 500 mg PO BID Rx Instructions: Unable to verify OTC meds at this date/time cyanocobalamin (vitamin B-12) [Vitamin B-12] 1,000 mcg Tablet 1,000 mcg PO BID Rx Instructions: Unable to verify OTC meds at this date/time levothyroxine 150 mcg Tablet 150 mcg PO QAM Eliquis 2.5 mg tablet 2.5 mg PO BID albuterol sulfate [Ventolin HFA] 90 mcg/actuation HFA aerosol inhaler 2 puff INHALATION Q6H PRN (Reason: Shortness Of Breath Or Wheezing) Qty: 1 0RF ondansetron 4 mg tablet,disintegrating 4 mg PO Q8H PRN (Reason: nausea and vomiting) Qty: 30 0RF budesonide-formoterol 80-4.5 mcg/actuation HFA aerosol inhaler 2 puff INHALATION BID acyclovir 400 mg tablet 400 mg PO DAILY insulin glargine [Lantus Solostar U-100 Insulin] 100 unit/mL (3 mL) insulin pen 25 unit subcut DAILY Rx Instructions: Inject 25 units into the abdomen once daily. Trulicity 3 mg/0.5 mL pen injector 0 mg subcut ONCE Patient Comments: takes on mondays Rx Instructions: Unable to verify medication at this date/time. Original Directions: Inject 3 mg into the abdomen once weekly. No Action fluconazole 150 mg tablet 150 mg PO Q3D Qty: 2 0RF methenamine hippurate 1 gram tablet 1 g PO HS Qty: 90 3RF Rx Instructions: Take one tablet at bedtime. Discharge Orders: Discharge Order (Routine); Ordered 05/06/24 Ordered By: Adelina Sun/Other Patient Handouts: Urinary Tract Infections in Women, ED Diarrhea, Unknown Cause Admission Data Admit Date/Time: 05/04/24 20:39 Attending Provider: Eddy Vieira Admit Provider: Ras Pena Primary Care Provider: Yaneth Pillai Other Providers: Dillon Whiting; Charity Cardoza Other Interventions: Discharge Summary Assessment (RN) Last Done: 05/06/24 12:08 Hospital Stay Data Consultations 05/04/24 19:19 ED Decision to Admit Stat 05/04/24 19:36 ED Decision to Admit Stat Pending Results Patient Have Any Pending Studies at Discharge: No Discharge Instructions Given to Patient (Per Discharging Provider) Ms. Abraham, You were hospitalized after general illness and worsening diarrhea - this was found to be a UTI. Thankfully, this has been sensitive to oral antibiotics and you will be discharged on Augmentin that you will take for the next 5 days. We are working to schedule an appointment for urology to discuss daily medications for UTI prevention. If you do not hear about the appointment time by Friday, please call the number above. I have also prescribed eye drop for your bacteria conjunctivitis. You should be sure to not rub your eyes. I would also recommend changing your pillow case when you get home and also when you complete the course of antibiotics. We did not make any changes to your home medications. Please make an appointment with your PCP within 7-10 days. CONTACT YOUR PRIMARY CARE PROVIDER if you experience any of the following: Shortness of breath or difficulty breathing Fevers or chills Feeling tired with normal activity or experiencing dizziness or fainting Difficulty following your treatment plan, or difficulty taking medications CALL 911 OR GO TO THE EMERGENCY DEPARTMENT if you experience any of the following: Severe abdominal pain or nausea/vomiting Severe chest pain, or chest pain that radiates (moves) to your jaw or arm Sudden, severe shortness of breath or difficulty breathing Thank you for allowing us to participate in your care. Supervising Physician Co-Signing Physician Notes Attending Attestation & Discharge Note: Pt seen/examined, chart reviewed, care plan d/w PA Adelina Malackowski. I agree w/ the travis components of her documentation. Farideh 73yo female with history of CAD/CABG, multiple myeloma s/p stem cell transplant, CKD, T2DM, h/o PAF - presented with weakness and UTI. Urine cx grew klebsiella. She improved with IV antibiotics. Weakness was markedly better by time of discharge. She was eating/drinking w/o difficulty by time of discharge. Labs & vitals remained stable while here. She will complete a course of PO augmentin after discharge for the UTI. Discharge exam: gen - sitting in chair, NAD, pleasant mouth - MMM neck - no JVD heart - RRR, s1 s2 lungs - CTA b/l abd - soft NT ND BS+ ext - <1+ edema b/l, pulses 2+ b/l Eddy Vieira MD Total Time Total Time Spent Total Time Spent (In Minutes): Time spent day of discharge 33 minutes including direct patient care, medication reconciliation, documentation, review of labs and images, and coordination of care. Coding Level of Care Code 78357 INP/OBS DISCH >30 MIN Diagnoses UTI (urinary tract infection) N39.0 Multiple myeloma C90.00
[2024-05-06] MEDS ORDERED: Nursing to Pharmacy Communication SCH (12:00)
[2024-05-06 12:11] VITALS: BP 114/73; PULSE 69
== END 2024-05-06 14:09 | disposition home or self-care (01) ==
LOC: ED 12:07 → 3W 12:07 → SUATTDRO 20:39 → 3W 21:45
DX: I25.2 Old myocardial infarction; B96.89 Other specified bacterial agents as the cause of diseases classified elsewhere; E11.42 Type 2 diabetes mellitus with diabetic polyneuropathy; E03.9 Hypothyroidism, unspecified; Z79.899 Other long term (current) drug therapy; Z79.620 Long term (current) use of immunosuppressive biologic; E87.5 Hyperkalemia; Z94.84 Stem cells transplant status; H10.32 Unspecified acute conjunctivitis, left eye; Z79.01 Long term (current) use of anticoagulants; J45.909 Unspecified asthma, uncomplicated; Z88.8 Allergy status to other drugs, medicaments and biological substances; C90.00 Multiple myeloma not having achieved remission; Z88.6 Allergy status to analgesic agent; E86.0 Dehydration; Z79.82 Long term (current) use of aspirin; R19.7 Diarrhea, unspecified; N39.0 Urinary tract infection, site not specified; K21.9 Gastro-esophageal reflux disease without esophagitis; Z79.4 Long term (current) use of insulin; I48.0 Paroxysmal atrial fibrillation; B96.1 Klebsiella pneumoniae [K. pneumoniae] as the cause of diseases classified elsewhere; Z87.19 Personal history of other diseases of the digestive system; Z79.85 Long-term (current) use of injectable non-insulin antidiabetic drugs; Z79.51 Long term (current) use of inhaled steroids; I25.10 Atherosclerotic heart disease of native coronary artery without angina pectoris; Z95.1 Presence of aortocoronary bypass graft; E78.5 Hyperlipidemia, unspecified; Z88.1 Allergy status to other antibiotic agents; I10 Essential (primary) hypertension; D84.821 Immunodeficiency due to drugs

== ENCOUNTER 2024-12-28 17:14 | Inpatient (IN) ==
--- NOTE | 2024-12-28 17:53 | Emergency Department Note ---
Impression & Plan Near syncope, Hypomagnesemia, Paroxysmal atrial fibrillation, Acute renal insufficiency, Complicated urinary tract infection ED Provider Note NAME: JANETH RODRIGUEZ AGE: 74 SEX: F : 1950 ARRIVES VIA: Walk-In INFORMANT: Patient ED PROVIDER(S): Sushant Gonzalez MD CHIEF COMPLAINT: Dizziness, fall PLAN: Disposition: Admit MEDICAL DECISION MAKING: The patient is a pleasant 74-year-old woman with a past medical history of multiple myeloma status post stem cell transplant now in remission, history of asthma, CAD, history of CABG, type 2 diabetes, GERD, atrial fibrillation on Eliquis and metoprolol, hypertension, hyperlipidemia, hypothyroidism who presents to the emergency department via walk-in for evaluation of dizziness that has been occurring intermittently today where she reports she fell to the ground hitting both knees but did not strike her head. She wonders if she may have lost consciousness as she later feels that she had additional knee pain but did not recall hitting her knee again. Patient reports having a brief episode of chest pain last night but denies chest pain at this time. Otherwise, denies headache, shortness of breath, cough or congestion. She denies being aware of a history of A-fib though this is clearly documented in prior records. She is on Eliquis 2.5 mg twice daily for DVT prophylaxis related to her multiple myeloma medications per her understanding. She reports having history of low magnesium for which she has been taking magnesium supplementation but was instructed to discontinue this and begin another magnesium supplement as she was having excessive diarrhea. She reports her pharmacy did not have this new supplement available yet and so has not been taking magnesium for the past week. On presentation the patient is afebrile with heart rate in the 140s and atrial fibrillation with RVR but then did spontaneously cardiovert to normal sinus rhythm in the 70s-80s. Patient did have brief return of atrial fibrillation with RVR before cardioverting again to normal sinus rhythm. She appears clinically dry. Head is atraumatic. She has a moderate contusion of the anterior aspect of the left knee but has full range of motion intact without difficulty. There is no gross instability. Pelvis is stable and hips with full range of motion bilaterally. EKG without overt acute ischemia. CXR negative for acute cardiopulmonary process per my personal preliminary review/interpretation. WBC, H/H and platelets within normal limits. Chemistry without metabolic acidosis. Creatinine is 2.7 with BUN of 46 increased from recent in setting of the patient's report of loose stool. Magnesium 1.3 with IV repletion initiated. LFTs are unremarkable. High sensitivity troponin 6.3, within normal limits. TSH is [address] of the head was negative for acute normalities. CT of the pelvis demonstrates air within the bladder which is suspicious for emphysematous cystitis given patient denies having any catheterization recently. UA pending. Per review of patient's records she does have a history of ESBL E. coli infections which has shown history of intermediate sensitivity to ertapenem and so meropenem ordered for empiric initial treatment. Given the patient's symptoms with acute renal insufficiency and suspected UTI patient does agree with plan for admission for further management. Case was discussed with FAWAD Orellana admitting resident with [facility] hospitalist who will evaluate the patient for admission. Triage Nursing notes reviewed and agree them. Prior/external medical records reviewed Vital Signs: reviewed Differential diagnosis: Infection, dehydration, metabolic abnormality, hypo/hyperglycemia, electrolyte disturbance, anemia, hypoxia, cardiac sources, intracerebral event, toxicologic, neurologic, as well as other pathologies. ER treatment provided: See below. Diagnostics interpreted by me: ECG 1727: Atrial fibrillation with RVR, 143 bpm, no ectopy, ST abnormality, no overt ST elevation or depression, QTc 444, QRS 88. ECG 1840: Normal sinus rhythm with PACs, 80 bpm, nonspecific ST abnormality, no overt ST elevation or depression, QTc 412, QRS 86. Cardiac Monitoring: An order for continuous cardiac monitoring was placed and demonstrated atrial fibrillation with RVR, 143 bpm, spontaneous cardioversion to sinus rhythm. Laboratory studies: See below Imaging studies: See below Consultation(s): FAWAD Orellana admitting resident with [facility] hospitalist HPI: Per MDM. ROS: See above HPI for pertinent positives & negatives. A total of 10 systems reviewed and were otherwise negative. VITALS:See Below PHYSICAL EXAMINATION: GENERAL: Awake, alert, fatigued-appearing, in no distress HENT: Normocephalic, atraumatic. Oropharynx with dry mucous membranes and otherwise unremarkable. EYES: Normal conjunctiva. Sclera non-icteric. EOMI. No nystamgus. PEARRL. NECK: Supple. No nuchal rigidity. FROM. No JVD. RESPIRATORY: Clear to auscultation. CARDIAC: Tachycardic rate, irregular rhythm. Extremities warm and well perfused. Pulses equal. ABDOMEN: Soft, non-distended. No tenderness to palpation. No rebound or guarding. No masses. MUSCULOSKELETAL: Chest examination reveals no tenderness. The back is symmetrical on inspection without obvious abnormality. There is no CVA tenderness to palpation. Moderate contusion of the left knee without gross deformity. Full range of motion of bilateral knees without difficulty. LOWER EXTREMITIES: Calves are equal size bilaterally and non-tender. No edema. No discoloration. NEURO: Cranial nerves II-XII grossly intact. 5/5 strength and SILT x 4 extremities. Intact [id number]. SKIN: No rash or jaundice noted. Sushant Gonzalez MD Past Med/Surg History Problem List (Updated 12/29/24 @ 04:12 by Sushant Gonzalez MD) Complicated urinary tract infection (Acute) [place] New onset atrial fibrillation Multiple myeloma in remission Dizziness Fall Acute kidney injury superimposed on chronic kidney disease Acute renal insufficiency (Acute) Paroxysmal atrial fibrillation (Acute) Hypomagnesemia (Acute) Near syncope (Acute) Hiatal hernia LPRD (laryngopharyngeal reflux disease) Throat pain RUQ abdominal pain (Acute) Gall stones (Acute) Acute dehydration (Acute) NORRIS (acute kidney injury) (Acute) Hypotension (Acute) Acute cholecystitis Gallstone (Acute) Recurrent UTI Hypomagnesemia Vaginal candidiasis Viral pneumonia Leukopenia due to antineoplastic chemotherapy Bronchopneumonia Acute respiratory failure with hypoxia Neutropenia (Acute) Parainfluenza Generalized weakness Neutropenia Vulvitis High risk HPV infection 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 Lopez 10-28-19 Thrombocytopenia HX CAD (coronary artery disease) s/p CABG x 2 > FOLLOWS WITH DR. 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, 04/2022 History of cardiac cath 2009 > NO STENT > CABG History of conization of cervix 2004, arline 3 Hx of dilation and curettage H/O hand surgery trigger finger surgery Family History Mother Liver cancer Thyroid cancer Diabetes Heart disease Hypertension Stroke Grandmother (Maternal) Diabetes Other No family history of adverse response to anesthesia Social History Smoking Status: Never smoker Second Hand Exposure: No; Do You Dip or Chew Tobacco: No; Hx Alcohol Use: No Hx Substance Use: No Preferred Language: Eritrean Communication Ability: Effective 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 Allergies Allergies Allergy/AdvReac Type Severity Reaction Status Date / Time cephalexin Allergy Intermediate hives Verified 12/28/24 22:00 ciprofloxacin [From Cipro] Allergy Mild Hives Verified 12/28/24 22:00 codeine Allergy Mild rash Verified 12/28/24 22:00 dapagliflozin [From Farxiga] AdvReac Intermediate Rash Verified 12/28/24 22:00 lisinopril AdvReac Mild COUGH Verified 12/28/24 22:00 Home Meds Home Medications Medication Instructions Recorded Confirmed aspirin 81 mg chewable tablet 81 mg PO HS 10/26/19 12/28/24 cholecalciferol (vitamin D3) 50 50 mcg PO QAM 03/22/20 12/28/24 mcg (2,000 unit) capsule tramadol 50 mg tablet 50 - 100 mg PO BID PRN Pain 04/09/21 12/28/24 allopurinol 300 mg tablet 300 mg PO QPM 06/12/21 12/28/24 metoprolol succinate 25 mg 12.5 mg PO HS 06/12/21 12/28/24 tablet,extended release 24 hr pantoprazole 20 mg tablet,delayed 20 mg PO QAM 06/27/21 12/28/24 release daratumumab 20 mg/mL intravenous 0 mg IV Q4WK 07/12/21 12/28/24 solution (Darzalex) diphenoxylate-atropine 2.5 1 tab PO UD PRN Diarrhea 07/12/21 12/28/24 mg-0.025 mg tablet (Lomotil) pregabalin 50 mg capsule (Lyrica) 50 mg PO TID 07/08/22 12/28/24 ferrous sulfate 325 mg (65 mg 325 mg PO BID 08/05/22 12/28/24 iron) tablet (iron) magnesium oxide 500 mg capsule 500 mg PO BID 08/05/22 12/28/24 cyanocobalamin (vitamin B-12) 1,000 mcg PO BID 03/27/23 12/28/24 1,000 mcg tablet (Vitamin B-12) levothyroxine 150 mcg tablet 150 mcg PO QAM 03/27/23 12/28/24 apixaban 2.5 mg tablet (Eliquis) 2.5 mg PO BID 07/07/23 12/28/24 pomalidomide 1 mg capsule 1 mg PO DAILY 07/29/23 12/28/24 (Pomalyst) acyclovir 400 mg tablet 400 mg PO DAILY 02/13/24 12/28/24 budesonide-formoterol HFA 80 2 puff inhalation BID 02/13/24 12/28/24 mcg-4.5 mcg/actuation aerosol inhaler immune glob,gamm(IgG) 5 %-sorb-IgA See Rx Instructions .Route .COMPLEX 11/08/24 12/28/24 0 to 50 mcg/mL intravenous solution Previous Rx's Medication Instructions Recorded blood sugar diagnostic (FreeStyle #200 ea 03/18/23 Lite Strips) albuterol sulfate 90 mcg/actuation 2 puff inhalation Q6H PRN 07/11/23 aerosol inhaler (Ventolin HFA) Shortness Of Breath Or Wheezing #1 g nystatin-triamcinolone 100,000 1 applic topical BID #30 grams 11/21/23 unit/g-0.1 % topical cream amiloride 5 mg tablet 5 mg PO QPM #90 tabs 12/05/23 ondansetron 4 mg disintegrating 4 mg PO Q8H PRN nausea and 02/11/24 tablet vomiting #30 tabs pravastatin 40 mg tablet 40 mg PO PM #90 tabs 03/09/24 methenamine hippurate 1 gram tablet 1 g PO HS #90 tabs 05/12/24 lancets 28 gauge (FreeStyle #200 ea 06/07/24 Lancets) pen needle, diabetic 31 gauge x #100 ea 06/07/24 5/16" (BD Ultra-Fine Short Pen Needle) fluconazole 150 mg tablet 150 mg PO Q48H 6 days #3 tabs 06/17/24 dulaglutide 3 mg/0.5 mL 3 mg (0.5 mL) subcut ONCE #6 mL 07/21/24 subcutaneous pen injector (Trulicity) insulin glargine 100 unit/mL (3 30 unit (0.3 mL) subcut DAILY 90 08/17/24 mL) subcutaneous pen (Lant days #30 mL Solostar U-100 Insulin) Results & Data (ED) Vital Signs Vital Signs - 24 hr 12/28/24 17:19 12/28/24 18:06 12/28/24 18:14 Temperature 36.5 C Temperature Source Oral Pulse Rate 110 H 146 H 108 H Pulse Rate from SpO2 Sensor Pulse Strength Normal Respiratory Rate 16 Respiratory Effort / Characteristics Non-Labored Spontaneous Respiratory Depth Normal Respiratory Pattern Regular Blood Pressure 106/41 L Blood Pressure Mean 62 Blood Pressure Position Sitting Pulse Oximetry 96 Oxygen Delivery Method Room Air Sepsis Recent Fever Within 48 Hours No Sepsis New/Unexplained Change in Mental Status No Sepsis Action Taken by Nursing No Action Required 12/28/24 18:15 12/28/24 18:30 12/28/24 18:34 Temperature Temperature Source Pulse Rate 108 H 80 Pulse Rate from SpO2 Sensor 82 Pulse Strength Respiratory Rate 21 Respiratory Effort / Characteristics Respiratory Depth Respiratory Pattern Blood Pressure 90/59 L Blood Pressure Mean 62 Blood Pressure Position Pulse Oximetry 92 Oxygen Delivery Method Sepsis Recent Fever Within 48 Hours Sepsis New/Unexplained Change in Mental Status Sepsis Action Taken by Nursing 12/28/24 19:00 12/28/24 19:39 12/28/24 19:51 Temperature Temperature Source Pulse Rate 75 73 73 Pulse Rate from SpO2 Sensor Pulse Strength Respiratory Rate 18 20 24 Respiratory Effort / Characteristics Respiratory Depth Respiratory Pattern Blood Pressure 89/61 L Blood Pressure Mean 70 Blood Pressure Position Pulse Oximetry Oxygen Delivery Method Sepsis Recent Fever Within 48 Hours Sepsis New/Unexplained Change in Mental Status Sepsis Action Taken by Nursing 12/28/24 20:30 12/28/24 20:33 12/28/24 21:01 Temperature Temperature Source Pulse Rate 67 Pulse Rate from SpO2 Sensor 67 Pulse Strength Respiratory Rate 20 Respiratory Effort / Characteristics Respiratory Depth Respiratory Pattern Blood Pressure 102/64 101/64 Blood Pressure Mean 75 68 Blood Pressure Position Pulse Oximetry 91 Oxygen Delivery Method Sepsis Recent Fever Within 48 Hours Sepsis New/Unexplained Change in Mental Status Sepsis Action Taken by Nursing 12/28/24 21:03 12/28/24 21:21 12/28/24 21:30 Temperature Temperature Source Pulse Rate 65 65 Pulse Rate from SpO2 Sensor 65 Pulse Strength Respiratory Rate 19 22 Respiratory Effort / Characteristics Respiratory Depth Respiratory Pattern Blood Pressure 105/65 Blood Pressure Mean 69 Blood Pressure Position Pulse Oximetry 91 Oxygen Delivery Method Sepsis Recent Fever Within 48 Hours Sepsis New/Unexplained Change in Mental Status Sepsis Action Taken by Nursing 12/28/24 22:15 12/28/24 22:30 12/28/24 22:30 Temperature Temperature Source Pulse Rate 65 60 Pulse Rate from SpO2 Sensor 60 Pulse Strength Respiratory Rate 14 Respiratory Effort / Characteristics Respiratory Depth Respiratory Pattern Blood Pressure 107/72 Blood Pressure Mean 80 Blood Pressure Position Pulse Oximetry 93 Oxygen Delivery Method Sepsis Recent Fever Within 48 Hours Sepsis New/Unexplained Change in Mental Status Sepsis Action Taken by Nursing 12/28/24 22:41 12/28/24 22:42 12/29/24 00:36 Temperature Temperature Source Pulse Rate 66 69 Pulse Rate from SpO2 Sensor 69 Pulse Strength Respiratory Rate 22 14 Respiratory Effort / Characteristics Respiratory Depth Respiratory Pattern Blood Pressure 104/71 Blood Pressure Mean 82 Blood Pressure Position Pulse Oximetry 94 94 Oxygen Delivery Method Room Air Room Air Room Air Sepsis Recent Fever Within 48 Hours Sepsis New/Unexplained Change in Mental Status Sepsis Action Taken by Nursing 12/29/24 00:51 12/29/24 01:00 12/29/24 01:03 Temperature Temperature Source Pulse Rate 69 73 Pulse Rate from SpO2 Sensor 69 72 Pulse Strength Respiratory Rate 19 22 Respiratory Effort / Characteristics Respiratory Depth Respiratory Pattern Blood Pressure 111/70 Blood Pressure Mean 78 Blood Pressure Position Pulse Oximetry 94 93 Oxygen Delivery Method Sepsis Recent Fever Within 48 Hours Sepsis New/Unexplained Change in Mental Status Sepsis Action Taken by Nursing 12/29/24 01:24 Temperature Temperature Source Pulse Rate 70 Pulse Rate from SpO2 Sensor 70 Pulse Strength Respiratory Rate 17 Respiratory Effort / Characteristics Respiratory Depth Respiratory Pattern Blood Pressure Blood Pressure Mean Blood Pressure Position Pulse Oximetry 95 Oxygen Delivery Method Sepsis Recent Fever Within 48 Hours Sepsis New/Unexplained Change in Mental Status Sepsis Action Taken by Nursing Laboratory Data Attestation: I reviewed the patient's lab results. 12/28/24 17:35 12/28/24 17:35 Lab Results 12/28/24 12/28/24 12/28/24 Range/Units 17:35 22:02 22:35 WBC 8.94 (4.8-10.8) K/ul RBC 4.61 (4.20-5.40) M/uL Hgb 14.5 (12.0-16.0) g/dl Hct 43.8 (37.0-47.0) % MCV 95.0 (80.0-100.0) fL MCH 31.5 (25.0-34.0) pg MCHC 33.1 (32.0-36.0) g/dL RDW Std Deviation 58.8 H (36.4-46.3) fL RDW Coeff of Aminata 16.6 H (11.5-14.5) % Plt Count 148 (130-400) K/uL MPV 12.7 H (9.4-12.4) fL Immature Gran % (Auto) 0.3 % Neut % (Auto) 35.6 % Lymph % (Auto) 57.5 % [place] % (Auto) 5.7 % Eos % (Auto) 0.8 % Baso % (Auto) 0.1 % Neut # (Auto) 3.18 (1.40-6.50) K/uL Lymph # (Auto) 5.14 H (1.20-3.40) K/uL [place] # (Auto) 0.51 (0.11-0.59) K/uL Eos # (Auto) 0.07 (0.00-0.50) K/uL Baso # (Auto) 0.01 (0.00-0.20) K/uL Immature Gran # (Auto) 0.03 (0.01-0.20) K/uL RBC Agglutinates 1+ PT 11.2 (9.0-12.0) Seconds INR 1.0 (0.9-1.1) APTT 28 (21-31) Seconds PTT Ratio 1.0 Sodium 135 L (136-145) mmol/L Potassium 5.0 (3.5-5.1) mmol/L Chloride 104 (98-107) mmol/L Carbon Dioxide 22 (21-32) mmol/L Anion Gap 9 (3-11) BUN 46 H (6-23) mg/dl Creatinine 2.70 H (0.6-1.2) mg/dl Est Cr Clr Drug Dosing 19.9 ml/min eGFR 17.95 BUN/Creatinine Ratio 17.0 (10-20) Glucose 194 H (70-99(Fasting)) mg/dl Lactate 1.4 (0.4-2.0) mmol/L Calcium 10.8 H (8.6-10.3) mg/dl Phosphorus 6.5 H (2.5-4.9) mg/dl Magnesium 1.3 L (1.7-2.4) mg/dl Total Bilirubin 1.6 H (0.2-1.0) mg/dl AST 19 (13-39) U/L ALT 24 (7-52) U/L Alkaline Phosphatase 73 (34-104) U/L Troponin I High Sens 6.3 (0-14) pg/ml Total Protein 6.5 (6.0-8.3) gm/dl Albumin 4.0 (3.4-5.0) gm/dl Globulin 2.5 (2.5-4.0) gm/dl Albumin/Globulin Ratio 1.6 (0.9-2) Procalcitonin 0.95 H (0-0.5) ng/ml TSH 41.375 H (0.300-4.500) uIu/ml Free T4 0.37 L (0.61-1.60) ng/dl Urine Color Yellow Urine Appearance Cloudy A (Clear) Urine pH 5.0 (4.5-7.5) Ur Specific [place] 1.019 (1.000-1.030) Urine Protein Trace H (Negative) Urine Glucose (UA) Trace H (Negative) Urine Ketones Trace H (Negative) Urine Blood Negative (Negative) Urine Nitrite Positive A (Negative) Urine Bilirubin Negative (Negative) Urine Urobilinogen Negative (Negative) Ur Leukocyte Esterase 2+ H (Negative) Urine WBC (Auto) >50 H (0-5) /hpf Urine RBC (Auto) >20 H (0-2) /hpf U Hyaline Cast (Auto) >20 H (0-2) /lpf U Epithel Cells (Auto) 3-5 H (0-2) /hpf Urine Bacteria (Auto) 4+ H (None Seen) Hyaline Casts Present A (None Presnt) /lpf Urine Mucus Present A (None Prsent) Urine Yeast Present A (None Prsent) Administered Medications Lactated Ringer's (Lr) 1,000 mls @ 100 mls/hr IV .Q10H HENNY Stop: 12/30/24 00:14 Last Admin: 12/29/24 00:45 Dose: 100 mls/hr Documented By: PARTHA Magnesium Sulfate/Dextrose (Magnesium Sulfate / D5w) 1 gm in 100 mls @ 50 mls/hr IV Q2H HENNY Stop: 12/29/24 04:51 Last Admin: 12/29/24 03:32 Dose: 50 mls/hr Documented By: OLIMPIA Discontinued Medications Sodium Chloride (Nss) 1,000 mls @ 999 mls/hr IV .Q1H1M ONE Stop: 12/28/24 19:35 Last Infusion: 12/28/24 19:55 Dose: Infused Documented By: Admin: 12/28/24 18:49 Dose: 999 mls/hr Documented By: CEF Magnesium Sulfate/Dextrose (Magnesium Sulfate / D5w) 1 gm in 100 mls @ 200 mls/hr IV Q30M HENNY Stop: 12/28/24 20:37 Last Infusion: 12/28/24 21:36 Dose: Infused Documented By: Admin: 12/28/24 20:41 Dose: 200 mls/hr Documented By: Infusion: 12/28/24 20:41 Dose: Infused Documented By: Admin: 12/28/24 20:16 Dose: 200 mls/hr Documented By: CEF Meropenem 500 mg/ Syringe 10 mls @ 2 mls/min IV NOW STA; Protocol Stop: 12/28/24 22:06 Last Admin: 12/29/24 00:40 Dose: 2 mls/min Documented By: PARTHA Imaging Data Radiologist's Impression: Chest X-Ray 12/28/24 17:23 Clinical History: Chest pain Technique: A frontal view of the chest was obtained Comparison is made to the prior examination dated 07/27/2024 Findings: There are no confluent pulmonary infiltrates. The heart size is within normal limits. No definite pleural effusion or pneumothorax is seen. There is suspected mild left lung base atelectasis No fracture is noted. Sternal wires are present. There is a right chest wall port with its tip in the SVC Impression: Mild left lung base atelectasis Electronically signed by Jamie Moulton 12-28-2024 6:50 PM Abdomen/Pelvis CT 12/28/24 19:36 Exam(s): CT ABDOMEN + PELVIS Without Contrast EXAM: CT Abdomen and Pelvis Without Intravenous Contrast CLINICAL HISTORY: Reason for exam: ARF. TECHNIQUE: Axial computed tomography images of the abdomen and pelvis without intravenous contrast. CTDI is 55.53 mGy and DLP is 1459.77 mGy-cm. Automated exposure control was utilized for the study. A dose lowering technique was utilized adhering to the principles of ALARA. COMPARISON: Ultrasound abdomen 06/07/24. FINDINGS: Lung bases: Bronchiectasis and minimal dependent scarring. Moderate hiatal hernia, predominantly involving mesenteric fat. Liver: Unremarkable. Gallbladder and bile ducts: Cholecystectomy. No ductal dilation. Pancreas: No ductal dilation, or acute pancreatitis. Spleen: Unremarkable. Adrenals: Unremarkable. Kidneys and ureters: No stone or hydronephrosis. Stomach and bowel: Intermittent colonic wall thickening is nonspecific, may be artifact from under distention, cannot rule out colitis. Mild diverticulosis, primarily in the right colon, without definite acute diverticulitis. No obstruction. Appendix: Normal. Intraperitoneal space: No free air or fluid. Bones/joints: No acute fracture. Soft tissues: Unremarkable. Vasculature: Moderate atherosclerosis. No aortic aneurysm. Lymph nodes: No enlarged lymph nodes. Bladder: Small amount of nondependent air, nonspecific, may be from recent instrumentation. Cystitis or gas forming organism felt less likely, not excluded, correlate clinically. No stones. Reproductive: Unremarkable as visualized. IMPRESSION: 1. Question mild, intermittent colitis, versus artifact from under distention. 2. Small moderate air in the urinary bladder may be from recent instrumentation, correlate clinically to rule out cystitis/emphysematous cystitis. 3. Fat containing hiatal hernia. Electronically signed by: Shae Jimenez M.D. 12/28/24 21:[address] 12/28/24 19:36 Exam(s): CT HEAD Without Contrast EXAM: CT Head Without Intravenous Contrast CLINICAL HISTORY: Reason for exam: fall, syncope. TECHNIQUE: Axial computed tomography images of the head/brain without intravenous contrast. CTDI is 35.72 mGy and DLP is 547.75 mGy-cm. Automated exposure control was utilized for the study. A dose lowering technique was utilized adhering to the principles of ALARA. Mild motion artifact. COMPARISON: MRI brain 01/22/22. FINDINGS: Brain: No mass effect or acute infarct. No acute hemorrhage. Mild atrophy and chronic white matter disease, stable, given differences in technique. Ventricles: No hydrocephalus or midline shift. Bones/joints: No skull fracture. Soft tissues: No scalp hematoma. Visualized Sinuses: Clear. Mastoid air cells: No mastoid effusion. IMPRESSION: 1. Stable age-related findings. 2. No skull fracture, bleed, or acute intracranial abnormality. Electronically signed by: Shae Jimenez M.D. 12/28/24 20:40 PM Discharge Plan Visit Data Chief Complaint: Syncope Stated Complaint: SYNOCOPE, FALL, KNEES AND ELBOWS ED Provider: Sushant Gonzalez Discharge Problem: Near syncope, Hypomagnesemia, Paroxysmal atrial fibrillation, Acute renal insufficiency, Complicated urinary tract infection Discharge Instructions Interventions: ED Discharge Assessment Last Done: 12/29/24 02:53
[2024-12-28 18:37] LABS: Albumin Globulin Ratio 1.6 (0.9-2); Bilirubin,Total 1.6 mg/dl (0.2-1.0); Calcium 10.8 mg/dl (8.6-10.3); Creatinine Clr Calc Pharmacy 19.9 ml/min; Globulin 2.5 gm/dl (2.5-4.0); Magnesium 1.3 mg/dl (1.7-2.4); Phosphorus 6.5 mg/dl (2.5-4.9); Total Protein 6.5 gm/dl (6.0-8.3)
[2024-12-28 18:42] LABS: Hematocrit (blood only) 43.8 % (37.0-47.0); Hemoglobin 14.5 g/dl (12.0-16.0); Mean Corpuscular Hemoglobin 31.5 pg (25.0-34.0); Mean Corpuscular Hgb Conc 33.1 g/dL (32.0-36.0); Mean Platelet Volume 12.7 fL (9.4-12.4); Platelet Count 148 K/uL (130-400); RDW Coefficient of Variation 16.6 % (11.5-14.5); RDW Standard Deviation 58.8 fL (36.4-46.3); Red Blood Count 4.61 M/uL (4.20-5.40); White Blood Count 8.94 K/ul (4.8-10.8)
[2024-12-28 18:43] LABS: Troponin I High Sensitivity 6.3 pg/ml (0-14)
[2024-12-28] MEDS: SODIUM CHLORIDE 0.9% 1,000 ML IV ONE (18:49)
[2024-12-28 18:50] LABS: Partial Thromboplastin Time 28 Seconds (21-31); Prothrombin Time 11.2 Seconds (9.0-12.0)
--- NOTE | 2024-12-28 18:50 | XRay Report ---
Clinical History: Chest pain Technique: A frontal view of the chest was obtained Comparison is made to the prior examination dated 07/27/2024 Findings: There are no confluent pulmonary infiltrates. The heart size is within normal limits. No definite pleural effusion or pneumothorax is seen. There is suspected mild left lung base atelectasis No fracture is noted. Sternal wires are present. There is a right chest wall port with its tip in the SVC Impression: Mild left lung base atelectasis Electronically signed by Jamie Moulton 12-28-2024 6:50 PM
[2024-12-28 18:53] LABS: Thyroid Stimulating Hormone 41.375 uIu/ml (0.300-4.500)
[2024-12-28 19:31] LABS: T4 Free Thyroxine 0.37 ng/dl (0.61-1.60)
[2024-12-28] MEDS: MAGNESIUM SULFATE / D5W 1 GM/100 ML BAG IV SCH (20:16)
[2024-12-28 20:21] LABS: Agglutinated RBC 1+
[2024-12-28 20:32] LABS: Basophils # (auto) 0.01 K/uL (0.00-0.20); Basophils % (auto) 0.1 %; Eosinophils # (auto) 0.07 K/uL (0.00-0.50); Eosinophils % (auto) 0.8 %; Immature Granulocytes # (auto) 0.03 K/uL (0.01-0.20); Immature Granulocytes % (auto) 0.3 %; Lymphocytes # (auto) 5.14 K/uL (1.20-3.40); Lymphocytes % (auto) 57.5 %; Monocytes # (auto) 0.51 K/uL (0.11-0.59); Monocytes % (auto) 5.7 %; Neutrophils # (auto) 3.18 K/uL (1.40-6.50); Neutrophils % (auto) 35.6 %
--- NOTE | 2024-12-28 20:41 | CT Scan Report ---
Exam(s): CT HEAD Without Contrast EXAM: CT Head Without Intravenous Contrast CLINICAL HISTORY: Reason for exam: fall, syncope. TECHNIQUE: Axial computed tomography images of the head/brain without intravenous contrast. CTDI is 35.72 mGy and DLP is 547.75 mGy-cm. Automated exposure control was utilized for the study. A dose lowering technique was utilized adhering to the principles of ALARA. Mild motion artifact. COMPARISON: MRI brain 01/22/22. FINDINGS: Brain: No mass effect or acute infarct. No acute hemorrhage. Mild atrophy and chronic white matter disease, stable, given differences in technique. Ventricles: No hydrocephalus or midline shift. Bones/joints: No skull fracture. Soft tissues: No scalp hematoma. Visualized Sinuses: Clear. Mastoid air cells: No mastoid effusion. IMPRESSION: 1. Stable age-related findings. 2. No skull fracture, bleed, or acute intracranial abnormality. Electronically signed by: Shae Jimenez M.D. 12/28/24 20:40 PM
--- NOTE | 2024-12-28 21:34 | CT Scan Report ---
Exam(s): CT ABDOMEN + PELVIS Without Contrast EXAM: CT Abdomen and Pelvis Without Intravenous Contrast CLINICAL HISTORY: Reason for exam: ARF. TECHNIQUE: Axial computed tomography images of the abdomen and pelvis without intravenous contrast. CTDI is 55.53 mGy and DLP is 1459.77 mGy-cm. Automated exposure control was utilized for the study. A dose lowering technique was utilized adhering to the principles of ALARA. COMPARISON: Ultrasound abdomen 06/07/24. FINDINGS: Lung bases: Bronchiectasis and minimal dependent scarring. Moderate hiatal hernia, predominantly involving mesenteric fat. Liver: Unremarkable. Gallbladder and bile ducts: Cholecystectomy. No ductal dilation. Pancreas: No ductal dilation, or acute pancreatitis. Spleen: Unremarkable. Adrenals: Unremarkable. Kidneys and ureters: No stone or hydronephrosis. Stomach and bowel: Intermittent colonic wall thickening is nonspecific, may be artifact from under distention, cannot rule out colitis. Mild diverticulosis, primarily in the right colon, without definite acute diverticulitis. No obstruction. Appendix: Normal. Intraperitoneal space: No free air or fluid. Bones/joints: No acute fracture. Soft tissues: Unremarkable. Vasculature: Moderate atherosclerosis. No aortic aneurysm. Lymph nodes: No enlarged lymph nodes. Bladder: Small amount of nondependent air, nonspecific, may be from recent instrumentation. Cystitis or gas forming organism felt less likely, not excluded, correlate clinically. No stones. Reproductive: Unremarkable as visualized. IMPRESSION: 1. Question mild, intermittent colitis, versus artifact from under distention. 2. Small moderate air in the urinary bladder may be from recent instrumentation, correlate clinically to rule out cystitis/emphysematous cystitis. 3. Fat containing hiatal hernia. Electronically signed by: Shae Jimenez M.D. 12/28/24 21:33 PM
--- NOTE | 2024-12-28 22:35 | History & Physical Report ---
Date of Service December 28, 2024 Assessment & Plan (1) Hypomagnesemia: (2) Near syncope: (3) Hiatal hernia: (4) Acute kidney injury superimposed on chronic kidney disease: (5) Recurrent UTI: (6) Hypomagnesemia: (7) Diabetic peripheral neuropathy associated with type 2 diabetes mellitus: (8) Type 2 diabetes mellitus, controlled: (9) Hx of CABG: (10) Fall: (11) Dizziness: (12) Multiple myeloma in remission: (13) New onset atrial fibrillation: (14) Taenia: Plan 74-year-old woman with p/m/h of Recurrent UTI and ESBL, multiple myeloma status post stem cell transplant now in remission, history of asthma, CAD, history of CABG, type 2 diabetes with peripheral neuropathy with CKD stage 3, hypomagnesemia, GERD with Hiatal hernia S/P repair, hypertension,hyperlipidemia, hypothyroidism, who presented to ED for evaluation of dizziness. She had transient episode of new onset Afib at presentation, reverted back to Sinus rhythm at ED. Trauma imaging non significant, admitted for observation, Tele monitor for new onset Afib and OT/PT evaluation. #Fall secondary to Dizziness and weakness RFs: Dehydration vs New onset Atrial fibrillation vs UTI vs NORRIS vs Hypothyroidism. - Endorses Sx for 2-3 days. - IADL, no fall before. - Labs: Cr : 2.7, Glucose: 194, Jitendra: 10.8, Phos: 6.5, M.3, TSH: 41.37, fT4: 0.37, Bili: 1.6 - Rest labs unremarkable. - CT head: No acute changes - CT pelvis: Gas in UB. Plan: Admit in Med/ surg tele Monitor for Afib OT/ PT eval tomorrow. Hold metoprolol and amiloride IVF: LR 100 ml/hr maintenance. Encourage oral fluid intake #New onset paroxysmal Afib (of note prior H&P mentioned history of this but this is not correct and this is her first recorded episode confirmed with O/P cardiology notes): - Transient Afib at ED- reverted back to NSR. - Predisposing factors: Elevated TSH vs dehydration vs Infection. Plan Telemetry monitoring. Echo tomorrow as it is new onset. Hard to say how much it has contributed to dizziness, as Milena does not endorse any palpitation at time of fall and Afib was seen very transiently at ED. Anticoagulation with Eliquis - this will need to increase to 5mg PO BID as technically doesn't meet criteria for lower dose for a. fib but while in NORRIS will continue on lower dose #Suspected UTI - UA suspicious of UTI. - H/O recurrent UTI in past, ESBL as well. - No renal angle tenderness. - Past ESBL intermediate sensitive to ertapenem, S to Levofloxacin, allergic to cipro. - Got one dose of Meropenem at ED, will continue same based on prior cultures and allergies. - Urine CS/ Blood CS : awaited. #NORRIS on CKD - Prerenal likely. - No imaging finding s/o Post renal. - BUN/ cr > 15. - S/P NS 1 L bolus at ED, Will continue LR at 100 ml/hr. # Hypomagnesemia: - S/P Magnesium 1 gm at ED. - Mg 1 gm X 2 added. - F/U Mg QAM at least 3 days. #Active Tinea Cruris: S/P fluconazole Continue nystatin ointment. #Hypothyroidism TSH: 41 with low T4. TSH on 10/02 was at goal. Suspected to have non compliance vs incorrect admin istration. Suggested her to take med in appropriate way Continue Synthroid 150 mcg #Other chronic 1. Type 2 DM: Continue Lantus 20 units( home 30 units), Correction insulin o rdered. 2. HTN: BP lower range, Hold Amiloride and metoprolol 3. Multiple myeloma: f.u at [facility] regularly, continue previous regimen. 6. Hypothyroidism: continue Synthroid 150 mcg 7. Hyperlipidemia: Continue statin 8. Neuropathy: Continue Pregabalin. Will decrease renal dosing to 25 TID while in NORRIS. She was on 50 mg TID outpatient. 9. GERD: S/P hiatal hernia surgery, Continue Protonix Dispo: Admit in Med surg tele DVT prophylaxis: Eliquis 2.5 BID. Code Status: Full code History of Present Illness Primary Care Provider: Yaneth Pillai MD Miss Abraham is 74-year-old woman with p/m/h of Recurrent UTI and ESBL, multiple myeloma status post stem cell transplant now in remission, history of asthma, CAD, history of CABG, type 2 diabetes with peripheral neuropathy with CKD stage 3, hypomagnesemia, GERD with Hiatal hernia S/P repair, atrial fibrillation on Eliquis and metoprolol, hypertension, hyperlipidemia, hypothyroidism, who presents emergency department via walk-in for evaluation of dizziness. She explains that she was feeling off for last couple of day, her head was feeling different but nor sure if its lightheadedness or dizziness. Today morning when she was standing up from chair, while walking from living room to kitchen, she felt dizzi and fell down. She is not sure if she lost consciousness or not but noticed some pain in her knees, which she does not remember hitting initially. However, on second fall she remembers hitting her knee and elbow on chair. No h/o fall before. Baseline function is independent. Lives on her own. Has some tenant on basement apt, but not overseeing her. No cough, CP, Palpitation, SOB, Sweating, Headache, blurring of vision, limbs swelling. No urine sx, no frequency, no suprapubic pain, flank pain. However endorses h/o no symptoms most of the times she has UTI in past. She is never aware of diagnosis of Afib on her before, seeing cardiology from [facility] Dr. Mccoy regularly. She metions metoprolol was started for her after CABG procedure and Eliquis was started for high r/o DVT with her MM therapy regimen. Endorses taking all her Meds regularly except her pill for multiple myeloma which she missed for few days, resumed last week. Take levothyroxine in morning and eat BF within 15-20 minutes. PMH: reviewed Drug and allergy : reviewed. Allergies Allergy/AdvReac Type Severity Reaction Status Date / Time cephalexin Allergy Intermediate hives Verified 12/28/24 22:00 ciprofloxacin [From Cipro] Allergy Mild Hives Verified 12/28/24 22:00 codeine Allergy Mild rash Verified 12/28/24 22:00 dapagliflozin [From Farxiga] AdvReac Intermediate Rash Verified 12/28/24 22:00 lisinopril AdvReac Mild COUGH Verified 12/28/24 22:00 Home Medications Medication Instructions Recorded Confirmed Type aspirin 81 mg chewable tablet 81 mg PO HS 10/26/19 12/28/24 History cholecalciferol (vitamin D3) 50 50 mcg PO QAM 03/22/20 12/28/24 History mcg (2,000 unit) capsule tramadol 50 mg tablet 50 - 100 mg PO BID PRN Pain 04/09/21 12/28/24 History allopurinol 300 mg tablet 300 mg PO QPM 06/12/21 12/28/24 History metoprolol succinate 25 mg 12.5 mg PO HS 06/12/21 12/28/24 History tablet,extended release 24 hr pantoprazole 20 mg tablet,delayed 20 mg PO QAM 06/27/21 12/28/24 History release daratumumab 20 mg/mL intravenous 0 mg IV Q4WK 07/12/21 12/28/24 History solution (Darzalex) diphenoxylate-atropine 2.5 1 tab PO UD PRN Diarrhea 07/12/21 12/28/24 History mg-0.025 mg tablet (Lomotil) pregabalin 50 mg capsule (Lyrica) 50 mg PO TID 07/08/22 12/28/24 History ferrous sulfate 325 mg (65 mg 325 mg PO BID 08/05/22 12/28/24 History iron) tablet (iron) magnesium oxide 500 mg capsule 500 mg PO BID 08/05/22 12/28/24 History blood sugar diagnostic (FreeStyle #200 ea 03/18/23 11/08/24 Rx Lite Strips) cyanocobalamin (vitamin B-12) 1,000 mcg PO BID 03/27/23 12/28/24 History 1,000 mcg tablet (Vitamin B-12) levothyroxine 150 mcg tablet 150 mcg PO QAM 03/27/23 12/28/24 History apixaban 2.5 mg tablet (Eliquis) 2.5 mg PO BID 07/07/23 12/28/24 History albuterol sulfate 90 mcg/actuation 2 puff inhalation Q6H PRN 07/11/23 12/28/24 Rx aerosol inhaler (Ventolin HFA) Shortness Of Breath Or Wheezing #1 g pomalidomide 1 mg capsule 1 mg PO DAILY 07/29/23 12/28/24 History (Pomalyst) nystatin-triamcinolone 100,000 1 applic topical BID #30 grams 11/21/23 12/28/24 Rx unit/g-0.1 % topical cream amiloride 5 mg tablet 5 mg PO QPM #90 tabs 12/05/23 12/28/24 Rx ondansetron 4 mg disintegrating 4 mg PO Q8H PRN nausea and 02/11/24 12/28/24 Rx tablet vomiting #30 tabs acyclovir 400 mg tablet 400 mg PO DAILY 02/13/24 12/28/24 History budesonide-formoterol HFA 80 2 puff inhalation BID 02/13/24 12/28/24 History mcg-4.5 mcg/actuation aerosol inhaler pravastatin 40 mg tablet 40 mg PO PM #90 tabs 03/09/24 12/28/24 Rx methenamine hippurate 1 gram tablet 1 g PO HS #90 tabs 05/12/24 12/28/24 Rx lancets 28 gauge (FreeStyle #200 ea 06/07/24 11/08/24 Rx Lancets) pen needle, diabetic 31 gauge x #100 ea 06/07/24 11/08/24 Rx 5/16" (BD Ultra-Fine Short Pen Needle) fluconazole 150 mg tablet 150 mg PO Q48H 6 days #3 tabs 06/17/24 12/28/24 Rx dulaglutide 3 mg/0.5 mL 3 mg (0.5 mL) subcut ONCE #6 mL 07/21/24 12/28/24 Rx subcutaneous pen injector (Trulicity) insulin glargine 100 unit/mL (3 30 unit (0.3 mL) subcut DAILY 90 08/17/24 12/28/24 Rx mL) subcutaneous pen (Lantus days #30 mL Solostar U-100 Insulin) immune glob,gamm(IgG) 5 %-sorb-IgA See Rx Instructions .Route .COMPLEX 11/08/24 12/28/24 History 0 to 50 mcg/mL intravenous solution Past Med/Surg History Problem List (Updated 12/29/24 @ 04:12 by Sushant Gonzalez MD) Complicated urinary tract infection (Acute) [place]enia New onset atrial fibrillation Multiple myeloma in remission Dizziness Fall Acute kidney injury superimposed on chronic kidney disease Acute renal insufficiency (Acute) Paroxysmal atrial fibrillation (Acute) Hypomagnesemia (Acute) Near syncope (Acute) Hiatal hernia LPRD (laryngopharyngeal reflux disease) Throat pain RUQ abdominal pain (Acute) Gall stones (Acute) Acute dehydration (Acute) NORRIS (acute kidney injury) (Acute) Hypotension (Acute) Acute cholecystitis Gallstone (Acute) Recurrent UTI Hypomagnesemia Vaginal candidiasis Viral pneumonia Leukopenia due to antineoplastic chemotherapy Bronchopneumonia Acute respiratory failure with hypoxia Neutropenia (Acute) Parainfluenza Generalized weakness Neutropenia Vulvitis High 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 Lopez 10-28-19 Thrombocytopenia HX CAD (coronary artery disease) s/p CABG x 2 > FOLLOWS WITH DR. 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, 04/2022 History of cardiac cath 2009 > NO STENT > CABG History of conization of cervix 2004, arline 3 Hx of dilation and curettage H/O hand surgery trigger finger surgery Family History Mother Liver cancer Thyroid cancer Diabetes Heart disease Hypertension Stroke Grandmother (Maternal) Diabetes Other No family history of adverse response to anesthesia Social History Smoking Status: Never smoker Second Hand Exposure: No; Do You Dip or Chew Tobacco: No; Hx Alcohol Use: No Hx Substance Use: No Preferred Language: Samoan Communication Ability: Effective Pesticide Applicator Required: No Beliefs That Will Affect Care: None marital status: Current Living Situation: Alone Current Living Situation Comment: House, 1 CATIA, 0 ST bed/bath, [address] ST laundry current occupational status: retired How many Children do You have: 1 Other Information That Helps Us Care for You: No Feels Safe at Home: Yes Safety Concerns: Feels Safe At This Time during the past year weight has: decreased > 10 lbs Assistive Devices: Cane Assistive Devices Comment: Glasses, upper denture, walker if needed (not generally needed). Review of Systems Review of Systems: As per HPI Physical Exam Physical Exam: Constitutional: Well appearing, No acute distress, PILCCOD: Negative HEENT: Atraumatic, Normocephalic, No conjunctival injection CVS: S1 S2 no murmur, Regular Rhythm, no LE edema Respiratory: BL equal air entry with NVBS. No rhonchi, wheezes, or crackles. No increased work of breathing GI: Soft, Nondistended, Nontender, Normal Bowel sounds + MSK: No gross deformities noted Skin: Warm, Dry, Rash typical for taenia cruris on groin Neuro: Alert, Oriented to TPP, No Focal deficit. Psych: Mood and Affect congruent, Cooperative on exam Results & Data Results & Data Vital Signs (Past 12 Hours) Vital Signs Temp Pulse Resp BP Pulse Ox O2 Del Method 12/28/24 22:15 65 12/28/24 18:15 108 H 12/28/24 18:14 108 H 12/28/24 18:06 146 H 12/28/24 17:19 36.5 C 110 H 16 106/41 L 96 Room Air Supervising Physician Co-Signing Physician Notes I personally saw and examined the patient. I independently reviewed the labs, EKG, imaging, problem list, medication list, past medical history and family history. I verified all travis points and agree with resident physician Dr Suma Arambula MD with the following exceptions and/or additions: 74 year old female presents to the ER with dizziness and loss of consciousness episodes. O/E A&Ox3, HS RRR, no murmurs, Chest CTAB, Abdo SNT, CN 2-> 12 intact, no UE/LE weakness, contusion over left elbow and left knee (normal ROM and able to weight bear), tinea rash circular in left groin A/P Dizziness - suspect orthostasis in setting of amiloride use, NORRIS, UTI and pAfib, orthostatic vitals in AM, Hold BP meds New onset A. fib - TTE, TSH, Will need to increase Eliquis up to 5mg PO BID once Cr improves but will keep at lower dose currently while in NORRIS NORRIS - no obstructive uropathy on CT, suspected intravascularly dry with amiloride use, IV LR, hold amiloride, repeat with AM labs Possible UTI - no specific symptoms but no barreto catheter insertion in last month and concerning CT for emphysematous cystitis therefore would recommend treating Hypothyroidism - agree with not increasing her levothyroxine at this time as dose has not changed and well controlled in September, suspect she is either not taking and changing the way she is taking her thyroid medication. Educated on taking this correctly. Left knee contusion - weight bearing with full ROM, evaluate with PT but no need for imaging Resident Activity Tracking Resident Involvement: Resident Care Provided Care Provided: Adult Hospital Medicine
[2024-12-28 23:05] LABS: Appearance Urine Cloudy (Clear); Bacteria Urine Automated 4+ (None Seen); Bilirubin Urine Negative (Negative); Blood Urine Negative (Negative); Cast Urine Automated >20 /lpf (0-2); Color Urine Yellow; Glucose Urine UA Trace (Negative); Hyaline Casts Urine Present /lpf (None Presnt); Ketones Urine Trace (Negative); Leukocyte Esterase Urine 2+ (Negative); Mucus Urine Present (None Prsent); Nitrite Urine Positive (Negative); Protein Urine Trace (Negative); RBC Urine Automated >20 /hpf (0-2); Specific Gravity Urine 1.019 (1.000-1.030); Urobilinogen Urine Negative (Negative); WBC Urine Automated >50 /hpf (0-5)
[2024-12-29] MEDS ORDERED: DEXTROSE 50% 50 ML SYRINGE IV PRN ×2 (00:30→02:52)
[2024-12-29] MEDS ORDERED: GLUCOSE 10 TAB/TUBE PO PRN ×2 (00:30→02:52)
[2024-12-29] MEDS ORDERED: GLUCAGON FOR INJ 1 MG VIAL SQ PRN ×2 (00:30→02:52)
[2024-12-29] MEDS ORDERED: GLUCOSE 40% GEL 15 GM TUBE PO PRN ×2 (00:30→02:52)
[2024-12-29] MEDS ORDERED: CARBOHYDRATES FOR HYPOGLYCEMIA PO PRN ×2 (00:30→02:52)
[2024-12-29] MEDS: MEROPENEM 500 MG in SYRINGE 0 ML IV STA (00:40)
[2024-12-29] MEDS: LACTATED RINGER'S 1,000 ML IV SCH (00:45)
[2024-12-29] MEDS ORDERED: ACETAMINOPHEN 325 MG TAB PO PRN (01:26)
[2024-12-29] MEDS ORDERED: DIPHENOXYLATE/ATROPINE 2.5/0.025MG TAB PO PRN (02:52)
[2024-12-29] MEDS ORDERED: ONDANSETRON 4 MG OD TAB PO PRN (02:52)
[2024-12-29] MEDS ORDERED: ALBUTEROL HFA 8 GM INHALER INH PRN (02:52)
[2024-12-29] MEDS: MAGNESIUM SULFATE / D5W 1 GM/100 ML BAG IV SCH ×2 (03:32→06:35)
[2024-12-29 05:00] LABS: Basophils # (auto) 0.01 K/uL (0.00-0.20); Basophils % (auto) 0.2 %; Eosinophils # (auto) 0.06 K/uL (0.00-0.50); Eosinophils % (auto) 1.1 %; Hematocrit (blood only) 37.7 % (37.0-47.0); Hemoglobin 12.5 g/dl (12.0-16.0); Immature Granulocytes # (auto) 0.03 K/uL (0.01-0.20); Immature Granulocytes % (auto) 0.6 %; Lymphocytes # (auto) 2.21 K/uL (1.20-3.40); Lymphocytes % (auto) 41.4 %; Mean Corpuscular Hemoglobin 31.3 pg (25.0-34.0); Mean Corpuscular Hgb Conc 33.2 g/dL (32.0-36.0); Mean Corpuscular Volume 94.5 fL (80.0-100.0); Mean Platelet Volume 12.4 fL (9.4-12.4); Monocytes # (auto) 0.35 K/uL (0.11-0.59); Monocytes % (auto) 6.6 %; Neutrophils # (auto) 2.68 K/uL (1.40-6.50); Neutrophils % (auto) 50.1 %; Platelet Count 115 K/uL (130-400); RDW Coefficient of Variation 16.7 % (11.5-14.5); RDW Standard Deviation 58.4 fL (36.4-46.3); Red Blood Count 3.99 M/uL (4.20-5.40); White Blood Count 5.34 K/ul (4.8-10.8)
[2024-12-29 05:14] LABS: Albumin Globulin Ratio 1.7 (0.9-2); Albumin Level 3.2 gm/dl (3.4-5.0); BUN Creatinine Ratio 23.2 (10-20); Bilirubin,Total 1.3 mg/dl (0.2-1.0); Calcium 9.4 mg/dl (8.6-10.3); Creatinine Clr Calc Pharmacy 29.7 ml/min; Globulin 1.9 gm/dl (2.5-4.0); Magnesium 1.7 mg/dl (1.7-2.4); Potassium 4.3 mmol/L (3.5-5.1); Total Protein 5.1 gm/dl (6.0-8.3)
[2024-12-29] MEDS: LEVOTHYROXINE SODIUM 150 MCG TABLET PO SCH (05:41)
--- OUTSIDE RECORDS SUMMARY | 2024-12-29 05:47 | External Medical Summary | Continuity of Care Document ---
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 unit/L (12/23/24 2:05 PM) AST [0-32 unit/L] 31 unit/L (12/23/24 2:05 PM) BUN [6-23 mg/dL] 20 mg/dL (12/23/24 2:05 PM) Ca [8.4-10.2 mg/dL] 9.1 mg/dL (12/23/24 2:05 PM) Cl- [98-107 mmol/L] 105 mmol/L (12/23/24 2:05 PM) HCO3 [22-29 mmol/L] 20 mmol/L *LOW* (12/23/24 2:05 PM) Cret [0.60-1.00 mg/dL] 0.80 mg/dL (12/23/24 2:05 PM) Serum Electro Intrp Technical results co mplete, interpretation to follow on Powerchart. *Unknown* (12/23/24 2:05 PM) Glu [74-109 mg/dL] 101 mg/dL 2 (12/23/24 2:05 PM) Hct [35-44 %] 38.7 % (12/23/24 2:05 PM) Hgb [11.7-15.0 g/dL] 12.7 g/dL (12/23/24 2:05 PM) IgA [70-400 mg/dL] 11 mg/dL *LOW* (12/23/24 2:05 PM) IgG [700-1600 mg/dL] 825 mg/dL (12/23/24 2:05 PM) IgM [40-230 mg/dL] 5 mg/dL *LOW* (12/23/24:05 PM) K [3.5-5.1 mmol/L] 4.5 mmol/L (12/23/24 2:05 PM) LDH [135-250 unit/L] 170 unit/L (12/23/24 2:05 PM) MCH [28-33 pg] 30.9 pg (12/23/24 2:05 PM) MCHC [32-36 g/dL] 32.8 g/dL (12/23/24 2:05 PM) MCV [81-96 fL] 94.2 fL (12/23/24 2:05 PM) Na [136-145 mmol/L] 136 mmol/L (12/23/24 2:05 PM) Plts [150-350 K/uL] 149 K/uL *LOW* (12/23/24 2:05 PM) RBC [3.90-5.00 M/uL] 4.11 M/uL (12/23/24 2:05 PM) T Bili [0.0-1.2 mg/dL] 1.3 mg/dL *HI* (12/23/24 2:05 PM) Prot [6.4-8.3 g/dL] 6.4 g/dL (12/23/24 2:05 PM) Creat (u) 119.00 mg/dL 3 (12/23/24 2:03 PM) Uric Acid [2.7-6.4 mg/dL] 4.5 mg/dL (12/23/24 2:05 PM) WBC [4.0-10.4 K/uL] 5.05 K/uL (12/23/24 2:05 PM) 1Result Comment: Low levels of ALKP may indicate a deficiency in zinc, magnesium, or malnutritionbutcan also be an indicator of a rare genetic disease hypophosphatasia (HPP). 2Result Comment: ADA recommendation for FASTING Serum/Plasma Glucose: Normal: 70-100 mg/dL Prediabetes: 100-125 mg/dL Diabetes: 126 mg/dL or higher 3Result Comment: Reference Range for Random Urine Not Established. Vital Signs Most recent to oldest [Reference Range]: 1 Height 165.2 cm (12/23/24 3:48 PM) Patient Weight 94.7 kg (12/23/24 3:48 PM) Body Mass Index 34.7 kg/m2 (12/23/24 3:48 PM) Temperature [36.5-37.9 DegC] 36.4 DegC *LOW* (12/23/24 3:48 PM) Heart Rate 73 bpm (12/23/24 3:48 PM) Respiratory Rate 18 br/min (12/23/24 3:48 PM) Blood Pressure 114/81mmHg (12/23/24 3:48 PM) Mean Blood Pressure 92 mmHg (12/23/24 3:48 PM) Cuff Pulse Pressure 33 mmHg (12/23/24 3:48 PM) BP Location # 1 Right Arm (12/23/24 3:48 PM) Social History Social History Type Response Smoking Status Never smoked cigaret percy Sex Female Sex Representation Female (finding) Patient Care team information Care Team Personnel Name: MD Ybarra David F Position: Research Staff Member Role: Lifetime Relationship Address: [address] [place] [address] Telecom: [phone] Name: MAIKOL Lopez Jo Ann M Position: Nurse Pract - Hem/Onc Member Role: Lifetime Relationship Address: [address] [place] [address] Telecom: [phone] Name: MD Freya, Yaneth Ojeda Position: Physician - Family Med Member Role: Primary Care Provider Address: [address] [facility] [address] [place] [address] [place] Telecom: [phone] Name: MD Yaritza, Yohannes Position: Physician - Hem/Onc Member Role: Lifetime Relationship Address: [address] [place] [address] Telecom: [phone] Name: MD Brody, Liz Montoya Position: Physician - Hem/Onc Member Role: Lifetime Relationship Address: [address] [place] [address] Telecom: [phone] Name: Ernie Tesfaye MD, Ras Position: Resident Member Role: Lifetime Relationship Address: [address] [facility] [address] Telecom: [phone] Name: Jose Granados Tracy M Position: Pharmacist Member Role: Pharmacy - Lifetime Address: [address] [address] [place] Care Team Related Persons Name: SUSHIL MACIAS Name: RONEN SANDOVAL Insurance Providers Guarantor name: JANETH RODRIGUEZ Health Plan Information #: 1 Payer: [employer] Member Number: [id number] Policy Number: NA Group Number: [id number] Payer Identifier: [id number] Health Plan Information #: 2 Payer: [employer] Member Number: [id number] Policy Number: NA Group Number: [id number] Payer Identifier: [id number]
--- NOTE | 2024-12-29 06:21 | Billing Data ---
Date of Service December 28, 2024 Coding Level of Care Code 06075 INT INP/OBS CARE
[2024-12-29] MEDS: FLUTICASONE/VILANTEROL 100/25MCG 14 PUFFS/INHALER INH SCH (08:42)
[2024-12-29] MEDS: ACYCLOVIR 400 MG TAB PO SCH (08:43)
[2024-12-29] MEDS: PANTOprazole 40 MG TAB PO SCH (08:43)
[2024-12-29] MEDS: FERROUS SULFATE 325 MG TAB PO SCH (08:43)
[2024-12-29] MEDS: APIXABAN 2.5 MG TAB PO SCH (08:43)
[2024-12-29] MEDS: CHOLECALCIFEROL 25 MCG (1000 UNITS) TAB PO SCH (08:43)
[2024-12-29] MEDS: MAGNESIUM OXIDE 400 MG TAB PO SCH (08:43)
[2024-12-29] MEDS: CYANOCOBALAMIN (B-12) 500 MCG TABLET PO SCH (08:43)
[2024-12-29] MEDS: NYSTATIN OINT 15 GM TUBE EXT SCH (08:44)
[2024-12-29] MEDS: LANTUS PER UNIT CHARGE SQ SCH (08:55)
[2024-12-29] MEDS: PREGABALIN 25 MG CAP PO SCH (08:56)
[2024-12-29] MEDS ORDERED: NYSTATIN/TRIAMCIN CR 15 GM TUBE EXT SCH (09:00)
--- NOTE | 2024-12-29 10:07 | XCELERA ---
[id number]
[2024-12-29] MEDS: INSULIN ASPART PER UNIT CHARGE SC SCH (10:12)
--- NOTE | 2024-12-29 10:23 | Electrocardiogram Report ---
Test Reason : Blood Pressure : */* mmHG Vent. Rate : 143 BPM Atrial Rate : * BPM P-R Int : * ms QRS Dur : 88 ms QT Int : 288 ms P-R-T Axes : * 32 234 degrees QTcB Int : 444 ms Atrial fibrillation with rapid ventricular response Marked ST abnormality, possible inferolateral subendocardial injury Abnormal ECG When compared with ECG of 04-May-2024 12:19, Atrial fibrillation has replaced Sinus rhythm Vent. rate has increased by [address] now depressed in Lateral leads Confirmed by Norm Case ([id number]) on 12/29/2024 10:23:35 AM Referred By: REFERRED SELF Confirmed By: Norm Case
--- NOTE | 2024-12-29 10:25 | Electrocardiogram Report ---
Test Reason : Blood Pressure : */* mmHG Vent. Rate : 80 BPM Atrial Rate : 80 BPM P-R Int : 142 ms QRS Dur : 86 ms QT Int : 358 ms P-R-T Axes : 26 24 11 degrees QTcB Int : 412 ms Sinus rhythm with Premature atrial complexes Nonspecific ST abnormality Abnormal ECG When compared with ECG of 28-Dec-2024 17:27, (unconfirmed) Sinus rhythm has replaced Atrial fibrillation Vent. rate has decreased by [address] no longer depressed in Lateral leads Nonspecific T wave abnormality no longer evident in Lateral leads Confirmed by Norm Case ([id number]) on 12/29/2024 10:24:29 AM Referred By: REFERRED SELF Confirmed By: Norm Case
[2024-12-29] MEDS: MEROPENEM 250 MG in SYRINGE 0 ML IV SCH (13:13)
--- NOTE | 2024-12-29 18:23 | Hospitalist Progress Note ---
Date of Service December 29, 2024 Assessment & Plan (1) Hypomagnesemia: (2) Near syncope: (3) Hiatal hernia: (4) Acute kidney injury superimposed on chronic kidney disease: (5) Recurrent UTI: (6) Diabetic peripheral neuropathy associated with type 2 diabetes mellitus: (7) Type 2 diabetes mellitus, controlled: (8) Hx of CABG: (9) Fall: (10) Dizziness: (11) Multiple myeloma in remission: (12) New onset atrial fibrillation: Plan 74yo female with h/o Recurrent UTI, multiple myeloma status post stem cell transplant x 2 - now in remission, asthma, CAD, history of CABG, type 2 diabetes with peripheral neuropathy with CKD stage 3, hypomagnesemia, GERD with Hiatal hernia S/P repair, hypertension ,hyperlipidemia, hypothyroidism. Presented to ED for evaluation of dizziness. She had transient episode of new onset Afib at presentation, reverted back to Sinus rhythm in the ED. The dizziness led to at least 1 fall thus she had extensive trauma imaging at ER presentation. Fortunately no internal injuries or fractures although she is c/o left knee pain today. #Fall secondary to Dizziness and weakness - -patient with low or low-normal BPs at ER presentation -evidence of significant NORRIS at presentation as well - likely due to volume depletion -NORRIS already improved s/p IV fluids -new onset a.fib, UTI, and decompensated hypothyroidism also could be additional culprits -telemetry to assess for additional a.fib runs -meropenem while awaiting blood/urine cx's -IV fluids for NORRIS -PT/OT evals -holding BB & amiloride for now as BPs were low at presentation #left knee pain s/p fall with injury - -check x-rays of L knee - r/o fracture #left elbow pain s/p fall - -full ROM - active/passive - on exam today -defer on imaging for now -likely contusion #New onset paroxysmal Afib - -Transient Afib at ED presentation; already converted back to NSR -hypomagnesemia, stress of illness, etc all could have precipitated the a.fib -echo with preserved EF & valve function -cont Eliquis - if platelets remain stable should be on 5mg BID #Suspected UTI - -await culture -cont meropenem IV for now #NORRIS on CKD - -presenting Cr 2.7 -already improved to 1.8 -likely due to volume depletion in setting of infection, amiloride use, etc. -hold amiloride -hold metoprolol -BMP am -cont LR until then -of note - no evidence of renal obstruction on CT imaging # Hypomagnesemia - -chronic issue, suspect the amiloride is for such -s/p IV replacement with improved mag level today -repeat mag level am #Active Tinea Cruris - -Continue nystatin ointment #Hypothyroidism - -TSH: 41 with low free T4 -TSH in Sep 2024 was at goal -PPI usage could be interfering with absorption -perhaps taking near other meds also affecting levels -noncompliance also a possibility but patient denies such -for now will not change synthroid dose; leave at 150mcg -repeat TSH in 3-4 weeks as outpatient and if still abnormal TFTs increase synthroid then Chronic Medical Problems - 1. Type 2 DM: Continue Lantus + novolog SSI 2. HTN: BPs low or low normal thus Hold Amiloride and metoprolol for now 3. Multiple myeloma: follows with [facility] for such; typically on pomalidomide 1mg daily; she does not have such with her at this time; also on chronic IVIG & daratumumab q4 weeks; CBC daily to monitor cell lines 4. Hyperlipidemia: Continue statin 5. Neuropathy: Continue Pregabalin at renal dosing; resume 50mg TID once NORRIS is resolved 6. GERD: S/P hiatal hernia surgery at [facility] 2024; Continue Protonix DVT prophylaxis: Eliquis 2.5mg BID but consideration to higher dose of 5mg BID should be entertained due to newly found a.fib Admission and Anticipated Discharge Date Admission Date: December 29, 2024 Subjective patient resting comfortably in bed states dizziness is resolved can ambulate to bathroom without lightheadedness, weakness, or dizziness main complaint is left knee pain s/p fall at home left elbow also bothering her she admits that she often does not take her levothyroxine from other meds she does not miss doses, however eating well today we briefly discussed her a.fib and need for ongoing Eliquis low mag could have precipitated things she does not recall any prior h/o a.fib Review of Systems Review of Systems: gen - no fevers or chills cv - no chest pain pulm - no dyspnea Physical Exam Physical Exam: gen - awake, alert, sitting at side of bed; NAD neck - no JVD mouth - MMM heart - RRR, s1 s2, no murmur lungs - CTA b/l abd - soft NT ND BS+ ext - no peripheral edema; pulses 2+ b/l feet musculo - minimal effusion L knee; tender medial aspect of patella with palpation; left elbow - no gross abnormality; full ROM without tenderness neuro - strength 5/5 x 4 exts Results & Data Results & Data Vital Signs (Past 12 Hours) Vital Signs Pulse Pulse Resp BP Pulse Ox O2 Del Method 12/29/24 14:59 70 12/29/24 14:47 70 18 114/71 95 Room Air 12/29/24 10:56 67 18 104/63 94 Room Air 12/29/24 07:00 59 L 16 106/60 93 Room Air 12/29/24 06:59 60 Laboratory Results Laboratory Results - last 48 hr 12/28/24 12/28/24 12/28/24 17:35 22:02 22:35 WBC 8.94 RBC 4.61 Hgb 14.5 Hct 43.8 MCV 95.0 MCH 31.5 MCHC 33.1 RDW Std Deviation 58.8 H RDW Coeff of Aminata 16.6 H Plt Count 148 MPV 12.7 H Immature Gran % (Auto) 0.3 Neut % (Auto) 35.6 Lymph % (Auto) 57.5 Williams % (Auto) 5.7 Eos % (Auto) 0.8 Baso % (Auto) 0.1 Neut # (Auto) 3.18 Lymph # (Auto) 5.14 H Williams # (Auto) 0.51 Eos # (Auto) 0.07 Baso # (Auto) 0.01 Immature Gran # (Auto) 0.03 Neutrophils % (Manual) Lymphocytes % (Manual) Monocytes % (Manual) Neutrophils # (Manual) Total Absolute Neuts Lymphocytes # (Manual) Total Abs Lymphocytes Monocytes # (Manual) Large Granular Lymphs # Lrg Granular Lymphs Ovalocytes RBC Agglutinates 1+ PT 11.2 INR 1.0 APTT 28 PTT Ratio 1.0 Sodium 135 L Potassium 5.0 Chloride 104 Carbon Dioxide 22 Anion Gap 9 BUN 46 H Creatinine 2.70 H Est Cr Clr Drug Dosing 19.9 eGFR 17.95 BUN/Creatinine Ratio 17.0 Glucose 194 H POC Glucose Lactate 1.4 Calcium 10.8 H Phosphorus 6.5 H Magnesium 1.3 L Total Bilirubin 1.6 H AST 19 ALT 24 Alkaline Phosphatase 73 Troponin I High Sens 6.3 Total Protein 6.5 Albumin 4.0 Globulin 2.5 Albumin/Globulin Ratio 1.6 Procalcitonin 0.95 H TSH 41.375 H Free T4 0.37 L Urine Color Yellow Urine Appearance Cloudy A Urine pH 5.0 Ur Specific [place] 1.019 Urine Protein Trace H Urine Glucose (UA) Trace H Urine Ketones Trace H Urine Blood Negative Urine Nitrite Positive A Urine Bilirubin Negative Urine Urobilinogen Negative Ur Leukocyte Esterase 2+ H Urine WBC (Auto) >50 H Urine RBC (Auto) >20 H U Hyaline Cast (Auto) >20 H U Epithel Cells (Auto) 3-5 H Urine Bacteria (Auto) 4+ H Hyaline Casts Present A Urine Mucus Present A Urine Yeast Present A Hepatitis C Ab Screen 12/29/24 12/29/24 12/29/24 04:00 07:39 11:23 WBC 5.34 RBC 3.99 L Hgb 12.5 Hct 37.7 MCV 94.5 MCH 31.3 MCHC 33.2 RDW Std Deviation 58.4 H RDW Coeff of Aminata 16.7 H Plt Count 115 L MPV 12.4 Immature Gran % (Auto) 0.6 Neut % (Auto) 50.1 Lymph % (Auto) 41.4 Williams % (Auto) 6.6 Eos % (Auto) 1.1 Baso % (Auto) 0.2 Neut # (Auto) 2.68 Lymph # (Auto) 2.21 Williams # (Auto) 0.35 Eos # (Auto) 0.06 Baso # (Auto) 0.01 Immature Gran # (Auto) 0.03 Neutrophils % (Manual) Lymphocytes % (Manual) Monocytes % (Manual) Neutrophils # (Manual) Total Absolute Neuts Lymphocytes # (Manual) Total Abs Lymphocytes Monocytes # (Manual) Large Granular Lymphs # Lrg Granular Lymphs Ovalocytes RBC Agglutinates PT INR APTT PTT Ratio Sodium 136 Potassium 4.3 Chloride 107 Carbon Dioxide 21 Anion Gap 8 BUN 42 H Creatinine 1.81 H D Est Cr Clr Drug Dosing 29.7 eGFR 29.01 BUN/Creatinine Ratio 23.2 H Glucose 170 H POC Glucose 108 H 161 H Lactate Calcium 9.4 Phosphorus Magnesium 1.7 Total Bilirubin 1.3 H AST 15 ALT 18 Alkaline Phosphatase 54 Troponin I High Sens Total Protein 5.1 L D Albumin 3.2 L Globulin 1.9 L Albumin/Globulin Ratio 1.7 Procalcitonin TSH Free T4 Urine Color Urine Appearance Urine pH Ur Specific [place] Urine Protein Urine Glucose (UA) Urine Ketones Urine Blood Urine Nitrite Urine Bilirubin Urine Urobilinogen Ur Leukocyte Esterase Urine WBC (Auto) Urine RBC (Auto) U Hyaline Cast (Auto) U Epithel Cells (Auto) Urine Bacteria (Auto) Hyaline Casts Urine Mucus Urine Yeast Hepatitis C Ab Screen Negative 12/29/24 12/29/24 12/30/24 16:09 22:09 06:21 WBC 4.59 L RBC 3.53 L Hgb 11.1 L Hct 33.3 L MCV 94.3 MCH 31.4 MCHC 33.3 RDW Std Deviation 56.9 H RDW Coeff of Aminata 16.4 H Plt Count 82 L MPV 12.1 Immature Gran % (Auto) Neut % (Auto) Lymph % (Auto) Williams % (Auto) Eos % (Auto) Baso % (Auto) Neut # (Auto) Lymph # (Auto) Williams # (Auto) Eos # (Auto) Baso # (Auto) Immature Gran # (Auto) Neutrophils % (Manual) 51 Lymphocytes % (Manual) 9 Monocytes % (Manual) 4 Neutrophils # (Manual) 2.34 Total Absolute Neuts 2.34 Lymphocytes # (Manual) 0.41 L Total Abs Lymphocytes 2.07 Monocytes # (Manual) 0.18 Large Granular Lymphs 36 # Lrg Granular Lymphs 1.65 Ovalocytes 1+ RBC Agglutinates PT INR APTT PTT Ratio Sodium Potassium Chloride Carbon Dioxide Anion Gap BUN Creatinine Est Cr Clr Drug Dosing eGFR BUN/Creatinine Ratio Glucose POC Glucose 140 H 138 H Lactate Calcium Phosphorus Magnesium 1.5 L Total Bilirubin AST ALT Alkaline Phosphatase Troponin I High Sens Total Protein Albumin Globulin Albumin/Globulin Ratio Procalcitonin TSH Free T4 Urine Color Urine Appearance Urine pH Ur Specific [place] Urine Protein Urine Glucose (UA) Urine Ketones Urine Blood Urine Nitrite Urine Bilirubin Urine Urobilinogen Ur Leukocyte Esterase Urine WBC (Auto) Urine RBC (Auto) U Hyaline Cast (Auto) U Epithel Cells (Auto) Urine Bacteria (Auto) Hyaline Casts Urine Mucus Urine Yeast Hepatitis C Ab Screen PG Care Time/CCT Total # of Minutes Spent Total Time Spent with Patient: Total time spent is greater than 50% in coordination of care (as documented) at patient's floor/unit and/or counseling patient: Coding Level of Care Code 28112 SUB INP/OBS CARE 350MIN Diagnoses Hypomagnesemia E83.42 Near syncope R55 Hiatal hernia K44.9 Acute kidney injury superimposed on chronic kidney disease N17.9; N18.9 Recurrent UTI N39.0 Diabetic peripheral neuropathy associated with type 2 diabetes mellitus E11.42 Type 2 diabetes mellitus, controlled E11.9 Hx of CABG Z95.1 Fall W19.XXXA Dizziness R42 Multiple myeloma in remission C90.01 New onset atrial fibrillation I48.91
--- NOTE | 2024-12-29 18:55 | XRay Report ---
Clinical History: Fall 2 views of the left knee are submitted for review. Findings: No fracture or dislocation is seen. There is mild joint space narrowing in the medial compartment. There are small osteophytes. No other osseous abnormality is identified. There are surgical clips medially Impression: 1. No definite fracture 2. Mild osteoarthritis Electronically signed by Jamie Moulton 12-29-2024 6:55 PM
[2024-12-29] MEDS: MELATONIN 3 MG TAB PO PRN (22:45)
[2024-12-29] MEDS: traMADol HCL 50 MG TABLET PO PRN (22:45)
[2024-12-29] MEDS: APIXABAN 5 MG TABLET PO SCH (23:25)
[2024-12-29] MEDS: allopurinoL 300 MG TAB PO SCH (23:26)
[2024-12-29] MEDS: ASPIRIN 81 MG ECTAB PO SCH (23:26)
[2024-12-29] MEDS: PRAVASTATIN SOD 40 MG TAB PO SCH (23:27)
[2024-12-29] MEDS: MEROPENEM 500 MG in SYRINGE 0 ML IV SCH (23:53)
[2024-12-30 07:43] LABS: Magnesium 1.5 mg/dl (1.7-2.4)
[2024-12-30 08:00] LABS: Hematocrit (blood only) 33.3 % (37.0-47.0); Hemoglobin 11.1 g/dl (12.0-16.0); Mean Corpuscular Hemoglobin 31.4 pg (25.0-34.0); Mean Corpuscular Hgb Conc 33.3 g/dL (32.0-36.0); Mean Corpuscular Volume 94.3 fL (80.0-100.0); Mean Platelet Volume 12.1 fL (9.4-12.4); Platelet Count 82 K/uL (130-400); RDW Coefficient of Variation 16.4 % (11.5-14.5); RDW Standard Deviation 56.9 fL (36.4-46.3); Red Blood Count 3.53 M/uL (4.20-5.40); White Blood Count 4.59 K/ul (4.8-10.8)
[2024-12-30 08:50] LABS: ALC (manual) 2.07 K/uL (1.2-3.4); ANC (manual) 2.34 K/uL (1.4-6.5); Large Granular Lymph # (manua 1.65 K/uL; Large Granular Lymph % (manual) 36 %; Lymphocytes # (manual) 0.41 K/uL (1.2-3.4); Lymphocytes % (manual) 9 %; Monocytes # (manual) 0.18 K/uL (0.11-0.59); Monocytes % (manual) 4 %; Neutrophils # (manual) 2.34 K/uL (1.40-6.50); Neutrophils % (manual) 51 %; Ovalocytes 1+
[2024-12-30] MEDS ORDERED: POMALIDOMIDE 1 MG PO SCH (09:00)
[2024-12-30] MEDS: MAGNESIUM SULFATE / D5W 1 GM/100 ML BAG IV SCH (09:38)
[2024-12-30 14:32] LABS: Calcium 9.3 mg/dl (8.6-10.3); Potassium 4.3 mmol/L (3.5-5.1)
[2024-12-30 14:38] LABS: BUN Creatinine Ratio 28.3 (10-20); Creatinine Clr Calc Pharmacy 48.2 ml/min
[2024-12-30] MEDS: LACTATED RINGER'S 500 ML IV ONE (15:57)
[2024-12-30] MEDS: dexAMETHasone 4 MG in SYRINGE 0 ML IV ONE (15:57)
--- NOTE | 2024-12-30 18:07 | CT Scan Report ---
Clinical history: Evaluate for fractures Technique: Axial computed tomography images were obtained of the left knee without intravenous contrast. Sagittal and coronal reconstructions were obtained Findings: No fracture is identified. No subluxation or dislocation is seen. There are small osteophyte in all 3 compartments. No focal osseous lesion is evident The visualized musculature appears unremarkable. There is a small knee effusion. There is subcutaneous edema anteriorly. There are scattered surgical clips in the medial subcutaneous fat. There is also an 8 mm rim calcified area in the posteromedial subcutaneous fat that could represent dystrophic calcification from old injury Impression: 1. No definite fracture 2. Mild osteoarthritis 3. Small knee effusion ACT 112: Positive. There are findings on this exam that require communication between the performing entity and the patient following Patient Test Result Information Act ([place] ACT 112) guidelines. Electronically signed by Jamie Moulton 12-30-2024 6:07 PM
--- NOTE | 2024-12-30 20:25 | Hospitalist Progress Note ---
Date of Service December 30, 2024 Assessment & Plan (1) Hypomagnesemia: (2) Near syncope: (3) Hiatal hernia: (4) Acute kidney injury superimposed on chronic kidney disease: (5) Recurrent UTI: (6) Diabetic peripheral neuropathy associated with type 2 diabetes mellitus: (7) Type 2 diabetes mellitus, controlled: (8) Hx of CABG: (9) Fall: (10) Dizziness: (11) Multiple myeloma in remission: (12) New onset atrial fibrillation: (13) Pancytopenia: Plan 74yo female with h/o Recurrent UTI, multiple myeloma status post stem cell transplant x 2 - now in remission, asthma, CAD, history of CABG, type 2 diabetes with peripheral neuropathy with CKD stage 3, hypomagnesemia, GERD with Hiatal hernia S/P repair, hypertension ,hyperlipidemia, hypothyroidism. Presented to ED for evaluation of dizziness. She had transient episode of new onset Afib at presentation, reverted back to Sinus rhythm in the ED. The dizziness led to at least 1 fall thus she had extensive trauma imaging at ER presentation. Fortunately no internal injuries or fractures but does have significant L knee contusion. #Fall secondary to Dizziness and weakness - -patient with low or low-normal BPs at ER presentation -evidence of significant NORRIS at presentation as well - likely due to volume depletion -NORRIS nearly resolved s/p IV fluids -new onset a.fib, UTI, decompensated hypothyroidism, and ?adrenal insufficiency (see below) also could be additional culprits -telemetry thus far w/o additional a.fib runs -meropenem while awaiting blood/urine cx's -PT/OT evals -holding BB & amiloride for now as BPs continue to be low or low-normal #left knee pain s/p fall with injury - -checked x-rays of L knee - NO fracture -with ongoing pain - even worse today actually - will get CT knee to ensure no subtle fracture that was missed on x-rays -ice prn #left elbow pain s/p fall - -likely contusion #New onset paroxysmal Afib - -Transient Afib at ED presentation; already converted back to NSR -hypomagnesemia, stress of illness, etc all could have precipitated the a.fib -echo with preserved EF & valve function -cont Eliquis - if platelets remain stable should be on 5mg BID #E.coli UTI - -await final culture and sensitivities -cont meropenem IV for now -emphesematous UTI due to air in bladder on CT scan?? however, she is not septic/toxic, and looks quite good; [id number] will address #NORRIS on CKD - -presenting Cr 2.7 -already improved to 1.1 today -likely due to volume depletion in setting of infection, amiloride use, ?adrenal insufficiency, etc. -hold amiloride -hold metoprolol -BMP am -of note - no evidence of renal obstruction on CT imaging # Hypomagnesemia - -chronic issue, suspect the amiloride is for such -s/p IV replacement with improved mag levels -repeat mag level am #Active Tinea Cruris - -Continue nystatin ointment #Hypothyroidism - -TSH: 41 with low free T4 -TSH in Sep 2024 was at goal -PPI usage could be interfering with absorption -perhaps taking other meds near the synthroid also affecting levels -noncompliance also a possibility but patient denies such -for now will not change synthroid dose; leave at 150mcg -repeat TSH in 3-4 weeks as outpatient and if still abnormal TFTs increase synthroid then #? 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 * other factors? hypothyroidism can contribute to such * B12/folate levels were wnl in 2023 * daily CBC w/ diff while here Chronic Medical Problems - 1. Type 2 DM: Continue Lantus + novolog SSI 2. HTN: BPs low or low normal thus Hold Amiloride and metoprolol for now 3. Multiple myeloma: follows with [facility] for such; typically on pomalidomide 1mg daily; she does not have such with her at this time; also on chronic IVIG & daratumumab q4 weeks; CBC daily to monitor cell lines 4. Hyperlipidemia: Continue statin 5. Neuropathy: Continue Pregabalin at renal dosing; resume 50mg TID once NORRIS is resolved (probably tomorrow) 6. GERD: S/P hiatal hernia surgery at [facility] 2024; Continue Protonix DVT prophylaxis: Eliquis 2.5mg BID but consideration to higher dose of 5mg BID should be entertained due to newly found a.fib Admission and Anticipated Discharge Date Admission Date: December 29, 2024 Subjective patient's main complaint is that of ongoing L knee pain & swelling ice is helping overall feels much better today more energy dizziness/lightheadedness is improved eating well patient had a pap smear recently at her gynecology office but NO instrumentation of the bladder denies any LUTS or dysuria I confirmed with the oncology pharmacist that patient receives IV Daratumumab + IV dexamethasone 20mg every 4 weeks; last dose 12/20 also receives IVIG 30gm every 4 weeks, last dose December 07 finally, patient states she gets a medrol dose pack monthly to help with chills/sweats/etc following her IV daratumumab? she has had the medrol for at least 6 months or longer tele overnight wnl Review of Systems Review of Systems: gen - no fevers or chills cv - no cp pulm - no dyspnea Physical Exam Physical Exam: gen - awake, alert, sitting at side of bed; NAD; looks better today neck - no JVD mouth - MMM heart - RRR, s1 s2, no murmur lungs - CTA b/l abd - soft NT ND BS+ ext - no peripheral edema; pulses 2+ b/l feet musculo - mild effusion L knee; tender medial aspect of patella with palpation much like yesterday; effusion is larger today; ecchymoses is worse today Results & Data Results & Data Vital Signs (Past 12 Hours) Vital Signs Temp Pulse Pulse Resp BP Pulse Ox O2 Del Method 12/30/24 20:21 37.1 C 64 18 103/62 94 Room Air 12/30/24 15:38 36.7 C 107 H 20 98/59 L 95 Room Air 12/30/24 14:38 66 12/30/24 11:13 36.9 C 66 18 94/64 L 94 Room Air Laboratory Results Laboratory Results - last 24 hr 12/29/24 12/30/24 12/30/24 22:09 06:21 08:03 WBC 4.59 L RBC 3.53 L Hgb 11.1 L Hct 33.3 L MCV 94.3 MCH 31.4 MCHC 33.3 RDW Std Deviation 56.9 H RDW Coeff of Aminata 16.4 H Plt Count 82 L MPV 12.1 Neutrophils % (Manual) 51 Lymphocytes % (Manual) 9 Monocytes % (Manual) 4 Neutrophils # (Manual) 2.34 Total Absolute Neuts 2.34 Lymphocytes # (Manual) 0.41 L Total Abs Lymphocytes 2.07 Monocytes # (Manual) 0.18 Large Granular Lymphs 36 # Lrg Granular Lymphs 1.65 Ovalocytes 1+ Sodium 137 Potassium 4.3 Chloride 107 Carbon Dioxide 20 L Anion Gap 10 BUN 32 H Creatinine 1.13 D Est Cr Clr Drug Dosing 48.2 eGFR 51.05 BUN/Creatinine Ratio 28.3 H Glucose 139 H POC Glucose 138 H 135 H Calcium 9.3 Magnesium 1.5 L Total Bilirubin Cancelled AST Cancelled ALT Cancelled Alkaline Phosphatase Cancelled Total Protein Cancelled Albumin Cancelled Globulin Cancelled Albumin/Globulin Ratio Cancelled Random Cortisol 8.48 12/30/24 12/30/24 11:42 16:57 WBC RBC Hgb Hct MCV MCH MCHC RDW Std Deviation RDW Coeff of Aminata Plt Count MPV Neutrophils % (Manual) Lymphocytes % (Manual) Monocytes % (Manual) Neutrophils # (Manual) Total Absolute Neuts Lymphocytes # (Manual) Total Abs Lymphocytes Monocytes # (Manual) Large Granular Lymphs # Lrg Granular Lymphs Ovalocytes Sodium Potassium Chloride Carbon Dioxide Anion Gap BUN Creatinine Est Cr Clr Drug Dosing eGFR BUN/Creatinine Ratio Glucose POC Glucose 139 H 126 H Calcium Magnesium Total Bilirubin AST ALT Alkaline Phosphatase Total Protein Albumin Globulin Albumin/Globulin Ratio Random Cortisol PG Care Time/CCT Total # of Minutes Spent Total Time Spent with Patient: Total time spent is greater than 50% in coordination of care (as documented) at patient's floor/unit and/or counseling patient: Coding Level of Care Code 89382 SUB INP/OBS CARE 3/50MIN Diagnoses Hypomagnesemia E83.42 Near syncope R55 Hiatal hernia K44.9 Acute kidney injury superimposed on chronic kidney disease N17.9; N18.9 Recurrent UTI N39.0 Diabetic peripheral neuropathy associated with type 2 diabetes mellitus E11.42 Type 2 diabetes mellitus, controlled E11.9 Hx of CABG Z95.1 Fall W19.XXXA Dizziness R42 Multiple myeloma in remission C90.01 New onset atrial fibrillation I48.91 Pancytopenia D61.818
[2024-12-30] MEDS: COLESTIPOL HCL 1 GM TAB PO SCH (22:09)
[2024-12-31 07:59] LABS: Basophils # (auto) 0.01 K/uL (0.00-0.20); Basophils % (auto) 0.1 %; Hematocrit (blood only) 35.3 % (37.0-47.0); Immature Granulocytes # (auto) 0.04 K/uL (0.01-0.20); Immature Granulocytes % (auto) 0.5 %; Lymphocytes % (auto) 36.9 %; Mean Corpuscular Hemoglobin 30.7 pg (25.0-34.0); Mean Corpuscular Volume 90.3 fL (80.0-100.0); Mean Platelet Volume 12.8 fL (9.4-12.4); Monocytes # (auto) 0.42 K/uL (0.11-0.59); Monocytes % (auto) 5.5 %; Neutrophils # (auto) 4.31 K/uL (1.40-6.50); Platelet Count 109 K/uL (130-400); RDW Coefficient of Variation 16.1 % (11.5-14.5); RDW Standard Deviation 53.4 fL (36.4-46.3); Red Blood Count 3.91 M/uL (4.20-5.40); White Blood Count 7.58 K/ul (4.8-10.8)
[2024-12-31 08:17] LABS: BUN Creatinine Ratio 31.1 (10-20); Calcium 9.5 mg/dl (8.6-10.3); Creatinine Clr Calc Pharmacy 52.8 ml/min; Magnesium 1.6 mg/dl (1.7-2.4); Potassium 4.7 mmol/L (3.5-5.1)
[2024-12-31] MEDS: COSYNTROPIN 250 MCG in SYRINGE 4 ML IV ONE (09:24)
[2024-12-31] MEDS: MAGNESIUM SULFATE / D5W 1 GM/100 ML BAG IV SCH (09:56)
[2024-12-31] MEDS: PREGABALIN 50 MG CAP PO SCH (13:25)
[2024-12-31] MEDS: HYDROCORTISONE 10 MG TAB PO SCH (16:35)
--- NOTE | 2024-12-31 19:28 | Hospitalist Progress Note ---
Date of Service December 31, 2024 Assessment & Plan (1) Hypomagnesemia: (2) Near syncope: (3) Hiatal hernia: (4) Acute kidney injury superimposed on chronic kidney disease: (5) Recurrent UTI: (6) Diabetic peripheral neuropathy associated with type 2 diabetes mellitus: (7) Type 2 diabetes mellitus, controlled: (8) Hx of CABG: (9) Fall: (10) Dizziness: (11) Multiple myeloma in remission: (12) New onset atrial fibrillation: (13) Pancytopenia: (14) Iatrogenic adrenal insufficiency: Plan 74yo female with h/o Recurrent UTI, multiple myeloma status post stem cell transplant x 2 - now in remission, asthma, CAD, history of CABG, type 2 diabetes with peripheral neuropathy with CKD stage 3, hypomagnesemia, GERD with Hiatal hernia S/P repair, hypertension ,hyperlipidemia, hypothyroidism. Presented to ED for evaluation of dizziness. She had transient episode of new onset Afib at presentation, reverted back to Sinus rhythm in the ED. The dizziness led to at least 1 fall thus she had extensive trauma imaging at ER presentation. Fortunately no internal injuries or fractures but does have significant L knee contusion. #Fall secondary to Dizziness and weakness - -patient with low or low-normal BPs at ER presentation -NORRIS at presentation due to volume depletion -NORRIS resolved s/p IV fluids -new onset a.fib, UTI, decompensated hypothyroidism, and adrenal insufficiency (see below) also additional culprits -telemetry w/o additional a.fib runs -cont meropenem while awaiting blood/urine cx's -PT/OT evals appreciated; can return home at d/c -holding BB & amiloride for now #left knee pain s/p fall with injury - -checked x-rays of L knee - NO fracture -CT knee also negative for fractures -ice prn #left elbow pain s/p fall - -likely contusion #New onset paroxysmal Afib - -Transient Afib at ED presentation; quickly converted back to NSR -hypomagnesemia, stress of illness, etc all could have precipitated the a.fib -echo with preserved EF & valve function -cont Eliquis - if platelets remain stable should be on 5mg BID #E.coli UTI - -await final culture and sensitivities -cont meropenem IV for now -air in bladder on CT scan?? however, she is not septic/toxic, and looks quite good; [id number] will address #NORRIS on CKD - -presenting Cr 2.7 -resolved; Cr 1 today -likely due to volume depletion in setting of infection, amiloride use, adrenal insufficiency, etc. -cont to hold amiloride -hold metoprolol -BMP am -of note - no evidence of renal obstruction on CT imaging # Hypomagnesemia - -chronic issue, suspect the amiloride is for such -s/p IV replacement with improved mag levels but still low today and additional IV mag given -repeat mag level am #Active Tinea Cruris - -Continue nystatin ointment #Hypothyroidism - -TSH: 41 with low free T4 -TSH in Sep 2024 was at goal -PPI usage could be interfering with absorption -perhaps taking other meds near the synthroid also affecting levels -noncompliance also a possibility but patient denies such -for now will not change synthroid dose; leave at 150mcg -repeat TSH in 3-4 weeks as outpatient and if still abnormal TFTs increase synthroid then #adrenal gland insufficiency - * random cortisol level was only 8 in the face of UTI, low BP, etc --> would expect much higher level * she is on chronic dexmethasone 20mg IV every month with her daratumumab * also getting a medrol dose pack monthly for about the last 6 months * 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 insufficient due to copious exogenous steroids * gave dexa 4mg IV x 1 on 12/30/24 due to persistent low bps; dexamethasone does not interfere with cosyntropin assay * cosyntropin stim test today -- unfortunately the test was not done correctly, with her baseline cortisol level drawn about 2 hours before the cosyntropin was given at 0930 * [id number] her baseline cortisol was only 1 * and she only stimmed to about 18 * with her chronic steroid exposure (copious), low BPs during the visit, need for copious hydration, and improvement in BP following dexamethasone everything is c/w secondary adrenal insuff * plan 20mg PO BID of hydrocortisone, then wean to 15mg qam + 5mg qafternoon * check ACTH level * send to endocrinology post-d/c * I informed Dr Macdonald from heme/onc of this issue #Pancytopenia - * 2nd to MM * 2nd to bone marrow suppression in setting of UTI? * other factors? hypothyroidism can contribute to such * B12/folate levels were wnl in 2023 * cell lines today are improved * daily CBC w/ diff while here Chronic Medical Problems - 1. Type 2 DM: Continue Lantus + novolog SSI 2. HTN: BPs improving, but still low normal at this thus cont to Hold Amiloride and metoprolol for now 3. Multiple myeloma: follows with [facility] for such; typically on pomalidomide 1mg daily; she does not have such with her at this time; also on chronic IVIG & daratumumab q4 weeks; CBC daily to monitor cell lines 4. Hyperlipidemia: Continue statin 5. Neuropathy: Continue Pregabalin at renal dosing; resume 50mg TID today 6. GERD: S/P hiatal hernia surgery at [facility] 2024; Continue Protonix 7. Hiccups: 2nd to GERD; increase her PPI to 40mg daily at discharge DVT prophylaxis: Eliquis 2.5mg BID but consideration to higher dose of 5mg BID should be entertained due to newly found a.fib updated her daughter Mary by phone this evening Mary is concerned about her mother going up/down steps; will ask PT to see her tomorrow to do [employer] work to be safe if e.coli in urine is amenable to PO abx can likely d/c home tomorrow Admission and Anticipated Discharge Date Admission Date: December 29, 2024 Subjective left knee pain much better after applying ice multiple times walked the hallways several times today no dizziness or lightheadedness eating fine no dysuria no LUTS we discussed her cosyntropin stim tests and ramifications Review of Systems 2 Review of Systems: gen - no fevers or chills cv - no chest pain pulm - no dyspnea or ORTIZ GI - no N/V; diarrhea improved Physical Exam 2 Physical Exam: gen - awake, alert, sitting in chair, looks great neck - no JVD mouth - MMM heart - RRR, s1 s2, no murmur lungs - CTA b/l abd - soft NT ND BS+ ext - no peripheral edema; pulses 2+ b/l feet psych - a/o x 3 Results & Data Results & Data Vital Signs (Past 12 Hours) Vital Signs Temp Pulse Pulse Resp BP Pulse Ox O2 Del Method 12/31/24 15:35 36.8 C 63 16 114/74 93 Room Air 12/31/24 14:24 67 12/31/24 11:33 36.3 C L 65 20 112/69 92 Room Air 12/31/24 08:22 36.4 C L 65 16 115/78 95 Room Air 12/31/24 07:47 58 L Laboratory Results Laboratory Results - last 24 hr 12/31/24 12/31/24 12/31/24 07:29 08:17 12:16 WBC 7.58 RBC 3.91 L Hgb 12.0 Hct 35.3 L MCV 90.3 MCH 30.7 MCHC 34.0 RDW Std Deviation 53.4 H RDW Coeff of Aminata 16.1 H Plt Count 109 L MPV 12.8 H Immature Gran % (Auto) 0.5 Neut % (Auto) 57.0 Lymph % (Auto) 36.9 [place] % (Auto) 5.5 Eos % (Auto) 0.0 Baso % (Auto) 0.1 Neut # (Auto) 4.31 Lymph # (Auto) 2.80 [place] # (Auto) 0.42 Eos # (Auto) 0.00 Baso # (Auto) 0.01 Immature Gran # (Auto) 0.04 Sodium 136 Potassium 4.7 Chloride 106 Carbon Dioxide 21 Anion Gap 9 BUN 32 H Creatinine 1.03 Est Cr Clr Drug Dosing 52.8 eGFR 57.06 BUN/Creatinine Ratio 31.1 H Glucose 177 H POC Glucose 162 H 212 H Calcium 9.5 cosMagnesium 1.6 L 12/31/24 12/31/24 17:09 20:09 WBC RBC Hgb Hct MCV MCH MCHC RDW Std Deviation RDW Coeff of Aminata Plt Count MPV Immature Gran % (Auto) Neut % (Auto) Lymph % (Auto) [place] % (Auto) Eos % (Auto) Baso % (Auto) Neut # (Auto) Lymph # (Auto) [place] # (Auto) Eos # (Auto) Baso # (Auto) Immature Gran # (Auto) Sodium Potassium Chloride Carbon Dioxide Anion Gap BUN Creatinine Est Cr Clr Drug Dosing eGFR BUN/Creatinine Ratio Glucose POC Glucose 147 H 209 H Calcium Magnesium Cortisol Response Diagnostic Findings PG Care Time/CCT Total # of Minutes Spent Total Time Spent with Patient: Total time spent is greater than 50% in coordination of care (as documented) at patient's floor/unit and/or counseling patient: Coding Level of Care Code 79748 SUB INP/OBS CARE 350MIN Diagnoses Hypomagnesemia E83.42 Near syncope R55 Hiatal hernia K44.9 Acute kidney injury superimposed on chronic kidney disease N17.9; N18.9 Recurrent UTI N39.0 Diabetic peripheral neuropathy associated with type 2 diabetes mellitus E11.42 Type 2 diabetes mellitus, controlled E11.9 Hx of CABG Z95.1 Fall W19.XXXA Dizziness R42 Multiple myeloma in remission C90.01 New onset atrial fibrillation I48.91 Pancytopenia D61.818 Iatrogenic adrenal insufficiency E27.49
[2024-12-31] MEDS: MEROPENEM 500 MG in SYRINGE 0 ML IV SCH (21:29)
[2025-01-01 07:41] LABS: Eosinophils # (auto) 0.04 K/uL (0.00-0.50); Eosinophils % (auto) 0.7 %; Hematocrit (blood only) 32.7 % (37.0-47.0); Hemoglobin 11.1 g/dl (12.0-16.0); Immature Granulocytes # (auto) 0.01 K/uL (0.01-0.20); Immature Granulocytes % (auto) 0.2 %; Lymphocytes # (auto) 2.47 K/uL (1.20-3.40); Mean Corpuscular Hemoglobin 31.5 pg (25.0-34.0); Mean Corpuscular Hgb Conc 33.9 g/dL (32.0-36.0); Mean Corpuscular Volume 92.9 fL (80.0-100.0); Mean Platelet Volume 12.4 fL (9.4-12.4); Monocytes # (auto) 0.63 K/uL (0.11-0.59); Monocytes % (auto) 11.7 %; Neutrophils # (auto) 2.22 K/uL (1.40-6.50); Neutrophils % (auto) 41.4 %; Platelet Count 97 K/uL (130-400); RDW Standard Deviation 54.2 fL (36.4-46.3); Red Blood Count 3.52 M/uL (4.20-5.40); White Blood Count 5.37 K/ul (4.8-10.8)
[2025-01-01 08:06] LABS: BUN Creatinine Ratio 38.3 (10-20); Calcium 8.5 mg/dl (8.6-10.3); Creatinine Clr Calc Pharmacy 57.9 ml/min; Magnesium 1.7 mg/dl (1.7-2.4); Potassium 3.8 mmol/L (3.5-5.1)
[2025-01-01 11:41] VITALS: RESP 16; TEMP 97.9; O2SAT 95
[2025-01-01] MEDS: levoFLOXacin 500 MG TAB PO STA (12:49)
--- NOTE | 2025-01-01 14:09 | Discharge Summary ---
Discharge Summary Date of Service January 01, 2025 Principal Dx & Hospital Course #1 = Principal Diagnosis (1) Hypomagnesemia: (2) Near syncope: (3) Hiatal hernia: (4) Acute kidney injury superimposed on chronic kidney disease: (5) Recurrent UTI: (6) Diabetic peripheral neuropathy associated with type 2 diabetes mellitus: (7) Type 2 diabetes mellitus, controlled: (8) Hx of CABG: (9) Fall: (10) Dizziness: (11) Multiple myeloma in remission: (12) New onset atrial fibrillation: (13) Pancytopenia: (14) Iatrogenic adrenal insufficiency: Plan 74yo female with h/o Recurrent UTI, multiple myeloma status post stem cell tr ansplant x 2 - now in remission, asthma, CAD, history of CABG, type 2 diabetes with peripheral neuropathy with CKD stage 3, hypomagnesemia, GERD with Hiatal hernia S/P repair, hypertension ,hyperlipidemia, hypothyroidism. Presented to ED for evaluation of dizziness. She had transient episode of new onset Afib at presentation, reverted back to Sinus rhythm in the ED. The dizziness led to at least 1 fall thus she had extensive trauma imaging at ER presentation. Fortunately no internal injuries or fractures but does have significant L knee contusion. #Fall secondary to Dizziness and weakness - -patient with low or low-normal BPs at ER presentation -NORRIS at presentation due to volume depletion -NORRIS resolved s/p IV fluids -new onset a.fib, UTI, decompensated hypothyroidism, and adrenal insufficiency (see below) also additional culprits -telemetry w/o additional a.fib runs -cont meropenem while awaiting blood/urine cx's -PT/OT evals appreciated; can return home at d/c -holding BB & amiloride for now #left knee pain s/p fall with injury - -checked x-rays of L knee - NO fracture -CT knee also negative for fractures -ice prn #left elbow pain s/p fall - -likely contusion #New onset paroxysmal Afib - -Transient Afib at ED presentation; quickly converted back to NSR -hypomagnesemia, stress of illness, etc all could have precipitated the a.fib -echo with preserved EF & valve function -cont Eliquis - if platelets remain stable should be on 5mg BID #E.coli UTI - -await final culture and sensitivities -cont meropenem IV for now -air in bladder on CT scan?? however, she is not septic/toxic, and looks quite good; [id number] will address #NORRIS on CKD - -presenting Cr 2.7 -resolved; Cr 1 today -likely due to volume depletion in setting of infection, amiloride use, adrenal insufficiency, etc. -cont to hold amiloride -hold metoprolol -BMP am -of note - no evidence of renal obstruction on CT imaging # Hypomagnesemia - -chronic issue, suspect the amiloride is for such -s/p IV replacement with improved mag levels but still low today and additional IV mag given -repeat mag level am #Active Tinea Cruris - -Continue nystatin ointment #Hypothyroidism - -TSH: 41 with low free T4 -TSH in Sep 2024 was at goal -PPI usage could be interfering with absorption -perhaps taking other meds near the synthroid also affecting levels -noncompliance also a possibility but patient denies such -for now will not change synthroid dose; leave at 150mcg -repeat TSH in 3-4 weeks as outpatient and if still abnormal TFTs increase synthroid then #adrenal gland insufficiency - * random cortisol level was only 8 in the face of UTI, low BP, etc --> would expect much higher level * she is on chronic dexmethasone 20mg IV every month with her daratumumab * also getting a medrol dose pack monthly for about the last 6 months * 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 insufficient due to copious exogenous steroids * gave dexa 4mg IV x 1 on 12/30/24 due to persistent low bps; dexamethasone does not interfere with cosyntropin assay * cosyntropin stim test today -- unfortunately the test was not done correctly, with her baseline cortisol level drawn about 2 hours before the cosyntropin was given at 0930 * [id number] her baseline cortisol was only 1 * and she only stimmed to about 18 * with her chronic steroid exposure (copious), low BPs during the visit, need for copious hydration, and improvement in BP following dexamethasone everything is c/w secondary adrenal insuff * plan 20mg PO BID of hydrocortisone, then wean to 15mg qam + 5mg qafternoon * check ACTH level * send to endocrinology post-d/c * I informed Dr Macdonald from heme/onc of this issue #Pancytopenia - * 2nd to MM * 2nd to bone marrow suppression in setting of UTI? * other factors? hypothyroidism can contribute to such * B12/folate levels were wnl in 2023 * cell lines today are improved * daily CBC w/ diff while here Chronic Medical Problems - 1. Type 2 DM: Continue Lantus + novolog SSI 2. HTN: BPs improving, but still low normal at this thus cont to Hold Amiloride and metoprolol for now 3. Multiple myeloma: follows with [facility] for such; typically on pomalidomide 1mg daily; she does not have such with her at this time; also on chronic IVIG & daratumumab q4 weeks; CBC daily to monitor cell lines 4. Hyperlipidemia: Continue statin 5. Neuropathy: Continue Pregabalin at renal dosing; resume 50mg TID today 6. GERD: S/P hiatal hernia surgery at [facility] 2024; Continue Protonix 7. Hiccups: 2nd to GERD; increase her PPI to 40mg daily at discharge DVT prophylaxis: Eliquis 2.5mg BID but consideration to higher dose of 5mg BID should be entertained due to newly found a.fib updated her daughter Mary by phone this evening Mary is concerned about her mother going up/down steps; will ask PT to see her tomorrow to do staVisonys work to be safe if e.coli in urine is amenable to PO abx can likely d/c home tomorrow Admission HPI Per Admitting Provider Miss Abraham is 74-year-old woman with p/m/h of Recurrent UTI and ESBL, multiple myeloma status post stem cell transplant now in remission, history of asthma, CAD, history of CABG, type 2 diabetes with peripheral neuropathy with CKD stage 3, hypomagnesemia, GERD with Hiatal hernia S/P repair, atrial fibrillation on Eliquis and metoprolol, hypertension, hyperlipidemia, hypothyroidism, who presents emergency department via walk-in for evaluation of dizziness. She explains that she was feeling off for last couple of day, her head was feeling different but nor sure if its lightheadedness or dizziness. Today morning when she was standing up from chair, while walking from living room to kitchen, she felt dizzi and fell down. She is not sure if she lost consciousness or not but noticed some pain in her knees, which she does not remember hitting initially. However, on second fall she remembers hitting her knee and elbow on chair. No h/o fall before. Baseline function is independent. Lives on her own. Has some tenant on basement apt, but not overseeing her. No cough, CP, Palpitation, SOB, Sweating, Headache, blurring of vision, limbs swelling. No urine sx, no frequency, no suprapubic pain, flank pain. However endorses h/o no symptoms most of the times she has UTI in past. She is never aware of diagnosis of Afib on her before, seeing cardiology from [facility] Dr. Mccoy regularly. She metions metoprolol was started for her after CABG procedure and Eliquis was started for high r/o DVT with her MM therapy regimen. Endorses taking all her Meds regularly except her pill for multiple myeloma which she missed for few days, resumed last week. Take levothyroxine in morning and eat BF within 15-20 minutes. PMH: reviewed Drug and allergy : reviewed. Discharge Exam gen - awake, alert, sitting in chair, looks great neck - no JVD mouth - MMM heart - RRR, s1 s2, no murmur lungs - CTA b/l abd - soft NT ND BS+ ext - no peripheral edema; pulses 2+ b/l feet psych - a/o x 3 Discharge Plan Discharge Items Patient Disposition: Home - Self-Care Reason For Visit: DIZZINESS Discharge Diagnosis: 1. dizziness due to low blood pressure - resolved 2. low blood pressure - multiple causes including dehydration, adrenal insufficiency, blood pressure medicines, atrial fibrillation, and illness from urinary tract infection 3. suspected adrenal gland insufficiency - follow-up with endocrinology 4. acute kidney injury - resolved 5. e.coli urinary tract infection - resolving 6. chronic diarrhea 7. hypothyroidism - uncontrolled at this time - follow-up with endocrinology 8. chronically low magnesium levels 9. atrial fibrillation - episodic - resolved, you are back in normal rhythm 10. history of multiple myeloma 11. fall with resulting left knee contusion Activity: As commented below Activity Comment: gradually increase activities over the next 5-7 days Non-emergency contact: Primary Care Provider and Specialist Call non-emergency contact if: you have any medication questions, your symptoms worsen and you have a fever Follow-up/Referrals: Dangelo Bueno MD [Physician] - (we will contact you in the near-future with appointment date/time for endocrinology for the suspected adrenal gland insufficiency ) Barbara Drake CRNP [Nurse Practitioner] - 02/02/25 (keep previously scheduled appointment with urology) Yaneth Pillai MD [Primary Care Provider] - (within 1 week ) Blanche Macdonald MD [Physician] - (please call Dr Macdonald next week to confirm the date/time of your next infusion & office visit ) Diet: Carb Consistent or DM2 Ambulatory Orders: Cdiff Toxin B Gene (2yr or >) (Routine) Timeframe: 1 Week Location: Determined by Patient Ordered By: Eddy Saunders Attending Provider Instructions: Mrs Abraham, You were hospitalized due to a variety of issues including dizziness from low blood pressure, a fall (due to the low blood pressure & dizziness), left knee contusion (no fractures seen on x-ray and CT scan), urinary tract infection, acute kidney injury, low magnesium, and the discovery of suspected adrenal gland insufficiency. You improved with IV fluids, IV antibiotics, IV magnesium, and steroids. Your blood pressure & dizziness both resolved. You did great with PT/OT including going up/down stairs. Your labs are all stable & acceptable on day of discharge. Recommendations - 1. antibiotics for urinary infection - levofloxacin 500mg once daily x 5 days, first dose tomorrow on 01/02. * most common side effect - diarrhea * rare side effect - tendonitis of a tendon, particularly the achilles tendon (large tendon on back of heel); again this is rare 2. steroid for adrenal insufficiency (see handout on this condition) - your steroid will be hydrocortisone 5mg tablets. * today, 01/01, take 3 tablets (total 15mg) upon return home * 01/02 - take 3 tablets in the morning, and 3 tablets in the afternoon * 01/03 - take 3 tablets in the morning, and 2 tablets in the afternoon * 01/04 - take 3 tablets in the morning, and 1 tablet in the afternoon * 01/05 and thereafter - 3 tablets in the morning and 1 tablet in the afternoon -- this is your "maintenance" dose I am going to send you to endocrinology to manage this condition. I suspect that because of chronic IV and oral steroids for a long time (years) you have developed this adrenal gland condition. 3. Eliquis - please increase to 5mg twice daily. New prescription provided. 4. Colestipol for diarrhea - take 1 gram at bedtime; best to take this medicine separate from any other medicine. If you become constipated on the medicine you can discontinue it. 5. Thyroid medicine - take this on empty stomach early in the morning separate from other medicines, if possible. 6. Slow-mag - take 1 tablet twice daily every day. 7. If you have severe diarrhea (3 or more liquids stools each day) please collect a sample and drop off to the main hospital lab. As soon as you collect it please bring to the hospital as soon as possible (for more accurate results). 8. I have increased your pantoprazole to 40mg (from 20mg) due to being on daily steroid and to help reduce your hiccups. 9. continue to ice your left knee as needed/as desired. Follow-up - see separate section Return to [facility] if - * you have fevers over 100 degrees * you have recurrent dizziness/lightheadedness/or feel like you could pass out * you have severe diarrhea or abdominal pains * you have shortness of breath * any other concerns It was our pleasure to care for you! -Dr Vieira Pending Studies at Discharge: Yes Studies:: ACTH level (adrenal gland / pituitary hormone level) Stand-Alone Forms: My [facility], Smoking Cessation Medications and DC Order Prescriptions: New colestipol [Colestid] 1 gram Tablet 1 g PO HS Qty: 30 1RF Rx Instructions: for chronic diarrhea; try to take this medicine at a separate time than all other medicines levofloxacin 500 mg tablet 500 mg PO DAILY 5 Days Qty: 5 0RF Rx Instructions: start 01/02/25. Slow-Mag 71.5 mg tablet,delayed release (DR/EC) 71.5 mg PO BID Qty: 60 0RF Rx Instructions: you can purchase this [id number]. hydrocortisone 5 mg tablet 5 mg PO .BID as directed Qty: 120 2RF Rx Instructions: take each morning at 8am and each afternoon about 4-5pm. Continued nystatin-triamcinolone 100,000-0.1 unit/g-% cream 1 applic topical BID Qty: 30 1RF pravastatin 40 mg tablet 40 mg PO PM Qty: 90 1RF (DME) lancets [FreeStyle Lancets] 28 gauge misc See Rx Instructions .Route Qty: 200 3RF Rx Instructions: test blood sugar 2 x daily (DME) pen needle, diabetic [BD Ultra-Fine Short Pen Needle] 31 gauge x 5/16" needle See Rx Instructions .Route Qty: 100 3RF Rx Instructions: use with Lantus injections QD insulin glargine [Lantus Solostar U-100 Insulin] 100 unit/mL (3 mL) insulin pen 30 unit subcut DAILY 90 Days Qty: 30 3RF Rx Instructions: Inject 30 units into the abdomen once daily. Darzalex 20 mg/mL solution 0 mg IV Q4WK Rx Instructions: Unable to verify medication at this date/time. Original Directions: 20mg IV every 4 weeks. (DME) FreeStyle Lite Strips Strip See Rx Instructions .Route Qty: 200 3RF Rx Instructions: test 2 times daily allopurinol 300 mg tablet 300 mg PO QPM metoprolol succinate 25 mg tablet extended release 24 hr 12.5 mg PO HS diphenoxylate-atropine [Lomotil] 2.5-0.025 mg tablet 1 tab PO UD PRN (Reason: Diarrhea) Rx Instructions: 1 tab PO 1-2 TIMES DAILY; PRN; cholecalciferol (vitamin D3) 50 mcg (2,000 unit) capsule 50 mcg PO QAM Rx Instructions: Unable to verify OTC meds at this date/time tramadol 50 mg tablet 50 - 100 mg PO BID PRN (Reason: Pain) pregabalin [Lyrica] 50 mg capsule 50 mg PO TID Trulicity 3 mg/0.5 mL pen injector 3 mg subcut ONCE Qty: 6 5RF Rx Instructions: Inject 3 mg into the abdomen once weekly. imm glob G (IgG)-sorb-IgA 0-50 5 % solution See Rx Instructions .ROUTE .COMPLEX Rx Instructions: pt states she takes this ever 4 weeks as needed aspirin 81 mg Tablet,Chewable 81 mg PO HS Rx Instructions: Unable to verify OTC meds at this date/time. ferrous sulfate [iron] 325 mg (65 mg iron) Tablet 325 mg PO BID Rx Instructions: Unable to verify OTC meds at this date/time cyanocobalamin (vitamin B-12) [Vitamin B-12] 1,000 mcg Tablet 1,000 mcg PO BID Rx Instructions: Unable to verify OTC meds at this date/time levothyroxine 150 mcg Tablet 150 mcg PO QAM albuterol sulfate [Ventolin HFA] 90 mcg/actuation HFA aerosol inhaler 2 puff INHALATION Q6H PRN (Reason: Shortness Of Breath Or Wheezing) Qty: 1 0RF ondansetron 4 mg tablet,disintegrating 4 mg PO Q8H PRN (Reason: nausea and vomiting) Qty: 30 0RF budesonide-formoterol 80-4.5 mcg/actuation HFA aerosol inhaler 2 puff INHALATION BID acyclovir 400 mg tablet 400 mg PO DAILY Changed pantoprazole 40 mg tablet,delayed release (DR/EC) 40 mg PO QAM Qty: 30 11RF apixaban 5 mg tablet 5 mg PO BID Qty: 60 11RF Held amiloride 5 mg tablet 5 mg PO QPM Qty: 90 3RF Hold Instructions: hold for now due to recent low blood pressures Pomalyst 1 mg capsule 1 mg PO DAILY Hold Instructions: hold until your antibiotic course is completed for the urinary tract infection Rx Instructions: Take daily for 21 days then do not take for 7 days. Then Provider to call in new script methenamine hippurate 1 gram tablet 1 g PO HS Qty: 90 3RF Hold Instructions: hold until your levofloxacin antibiotic course is completed; you can resume this medicine at that time Rx Instructions: Take one tablet at bedtime. Discontinued fluconazole 150 mg tablet 150 mg PO Q48H 6 Days Qty: 3 1RF magnesium oxide 500 mg capsule 500 mg PO BID Rx Instructions: Unable to verify OTC meds at this date/time Discharge Orders: Discharge Order (Routine); Ordered 01/01/25 Ordered By: Eddy Sun/Other Patient Handouts: Secondary Adrenal Insufficiency, AFib Preventing Stroke, AFib Admission Data Admit Date/Time: 12/29/24 01:27 Attending Provider: Eddy Vieira Admit Provider: Suma Arambula Primary Care Provider: Yaneth Pillai Other Providers: Eddy Montero Hospital Stay Data Consultations 12/28/24 22:03 ED Decision to Admit Stat Diagnostic Imagining Performed 12/28/24 19:36 CT abd pelvis wo con Stat CT head/brain wo con Stat 12/30/24 17:03 CT knee LT wo con Urgent Pending Results Patient Have Any Pending Studies at Discharge: Yes Discharge Instructions Given to Patient (Per Discharging Provider) Mrs Abraham, You were hospitalized due to a variety of issues including dizziness from low blood pressure, a fall (due to the low blood pressure & dizziness), left knee contusion (no fractures seen on x-ray and CT scan), urinary tract infection, acute kidney injury, low magnesium, and the discovery of suspected adrenal gland insufficiency. You improved with IV fluids, IV antibiotics, IV magnesium, and steroids. Your blood pressure & dizziness both resolved. You did great with PT/OT including going up/down stairs. Your labs are all stable & acceptable on day of discharge. Recommendations - 1. antibiotics for urinary infection - levofloxacin 500mg once daily x 5 days, first dose tomorrow on 01/02. * most common side effect - diarrhea * rare side effect - tendonitis of a tendon, particularly the achilles tendon (large tendon on back of heel); again this is rare 2. steroid for adrenal insufficiency (see handout on this condition) - your steroid will be hydrocortisone 5mg tablets. * today, 01/01, take 3 tablets (total 15mg) upon return home * 01/02 - take 3 tablets in the morning, and 3 tablets in the afternoon * 01/03 - take 3 tablets in the morning, and 2 tablets in the afternoon * 01/04 - take 3 tablets in the morning, and 1 tablet in the afternoon * 01/05 and thereafter - 3 tablets in the morning and 1 tablet in the afternoon -- this is your "maintenance" dose I am going to send you to endocrinology to manage this condition. I suspect that because of chronic IV and oral steroids for a long time (years) you have developed this adrenal gland condition. 3. Eliquis - please increase to 5mg twice daily. New prescription provided. 4. Colestipol for diarrhea - take 1 gram at bedtime; best to take this medicine separate from any other medicine. If you become constipated on the medicine you can discontinue it. 5. Thyroid medicine - take this on empty stomach early in the morning separate from other medicines, if possible. 6. Slow-mag - take 1 tablet twice daily every day. 7. If you have severe diarrhea (3 or more liquids stools each day) please collect a sample and drop off to the main hospital lab. As soon as you collect it please bring to the hospital as soon as possible (for more accurate results). 8. I have increased your pantoprazole to 40mg (from 20mg) due to being on daily steroid and to help reduce your hiccups. 9. continue to ice your left knee as needed/as desired. Follow-up - see separate section Return to [facility] if - * you have fevers over 100 degrees * you have recurrent dizziness/lightheadedness/or feel like you could pass out * you have severe diarrhea or abdominal pains * you have shortness of breath * any other concerns It was our pleasure to care for you! -Dr Vieira Coding Diagnoses Hypomagnesemia E83.42 Near syncope R55 Hiatal hernia K44.9 Acute kidney injury superimposed on chronic kidney disease N17.9; N18.9 Recurrent UTI N39.0 Diabetic peripheral neuropathy associated with type 2 diabetes mellitus E11.42 Type 2 diabetes mellitus, controlled E11.9 Hx of CABG Z95.1 Fall W19.XXXA Dizziness R42 Multiple myeloma in remission C90.01 New onset atrial fibrillation I48.91 Pancytopenia D61.818 Iatrogenic adrenal insufficiency E27.49
[2025-01-01 14:49] VITALS: BP 101/63; PULSE 55
[2025-01-01] MEDS ORDERED: HYDROCORTISONE 10 MG TAB PO SCH ×2 (15:45→21:00)
== END 2025-01-01 16:05 | disposition home or self-care (01) | DRG 309 ==
LOC: ED 17:14 → SUATTDRO 12-29 01:27 → EDINP 12-29 01:27 → 2W 12-29 21:56

== ENCOUNTER 2025-01-23 07:37 | Observation (INO) ==
--- NOTE | 2025-01-23 08:04 | Emergency Department Note ---
Impression & Plan Metabolic acidosis Admission ED Provider Note HPI: History obtained from patient. The patient is a 74-year-old female with stated history of multiple myeloma (currently in remission), atrial fibrillation on Eliquis, insulin-dependent diabetes, who presents emergency department with a chief complaint of leg cramps, fatigue, and a transient episode of abdominal pain earlier this morning. Patient states that she has had some cramps in her lower legs over the past several days, patient states that this morning she also had an episode of abdominal pain that radiated upwards into her chest. Patient states this lasted several minutes and then spontaneously resolved. On arrival here to the ED the patient is hemodynamically stable, she appears to be in no acute distress on my initial assessment. Patient denies any recent fever/chills, states she has had a slight cough. ROS: - Per HPI Differential Diagnosis: Acute dehydration/acute kidney injury, ACS, GERD, esophagitis, small bowel obstruction, critical electrolyte abnormalities to include hypomagnesemia, DKA, amongst other potential pathologies. *Outpatient medications and allergy history reviewed. PE: General: Alert HEENT: Normocephalic, trachea midline Eyes: Extraocular eye movement is intact, no scleral erythema Pulmonary: Clear to auscultation bilaterally, no wheezing Cardio: Regular rate and rhythm GI: Abdomen is soft to palpation, mild tenderness over the mid abdomen to palpation without guarding or rigidity : No suprapubic tenderness MSK: No evidence of trauma or malformation of the extremities, no edema Skin: No evidence of rash Neuro: Alert, no focal deficits Psychiatric: Cooperative INDEPENDENT INTERPRETATIONS: phototypesetting equipment monitor: (As interpreted by myself): - An order was placed for continuous cardiac monitoring - Patient was noted to be in sinus rhythm with a rate of 62 EKG: (As interpreted by myself): Rate: 66 Rhythm: Normal sinus rhythm Intervals: Within normal limits ST changes: No ST elevation Time: 0801 Chest x-ray: (As interpreted by myself): No acute process Interventions provided in ED: - IV fluid bolus x 2, IV magnesium Medical Decision Making: IV was established and lab work obtained, patient was placed on phototypesetting equipment monitor. Lab work shows no leukocytosis, hemoglobin is normal, platelet count is normal, CMP shows multiple abnormalities including serum bicarbonate level of 16, creatinine elevated at 1.92, BUN of 56, glucose is mildly elevated at 300, anion gap is normal, magnesium is low at 1.5, troponin is negative, EKG per my interpretation shows normal sinus rhythm without any evidence of acute ischemic changes. Patient was given IV fluids here in the ED, CT imaging of the abdomen pelvis does not show any evidence of any critical or acute surgical findings. Patient had a UA ordered but was unable to provide a sample prior to admission. Her lab work is concerning for metabolic acidosis, she was given IV fluids and repeat blood sugar was obtained that downtrended to 115. She was also given IV magnesium repletion. Patient mentioned later that she was having some worsening of her chronic diarrhea. I suspect that her lab findings are likely secondary to volume depletion/dehydration. Given the patient's multiple abnormalities including acute kidney injury, hypomagnesemia, and metabolic acidosis, she will require admission for further care. Case was discussed with the on-call admitting resident physician and the patient was placed for admission in stable condition to the service of Dr. Dash. Consultants/Discussions held with other healthcare providers: - Hospitalist, Dr. Kuhn Disposition discussion held by myself with: - Patient Diagnosis: 1. Acute kidney injury 2. Hypomagnesemia, acute 3. Metabolic acidosis, acute 4. Abdominal pain, acute, transient 5. Hyperglycemia in patient with known diabetes Disposition: Admission Jermaine Downing DO Emergency Medicine Past Med/Surg History Problem List (Updated 01/23/25 @ 12:40 by Jermaine Downing DO) Metabolic acidosis (Acute) jail systemic steroid user Diarrhea Iatrogenic adrenal insufficiency Pancytopenia Complicated urinary tract infection (Acute) [place] New onset atrial fibrillation Multiple myeloma in remission Dizziness Fall Acute kidney injury superimposed on chronic kidney disease Acute renal insufficiency (Acute) Paroxysmal atrial fibrillation (Acute) Hypomagnesemia (Acute) Near syncope (Acute) Hiatal hernia LPRD (laryngopharyngeal reflux disease) Throat pain RUQ abdominal pain (Acute) Gall stones (Acute) Acute dehydration (Acute) NORRIS (acute kidney injury) (Acute) Hypotension (Acute) Acute cholecystitis Gallstone (Acute) Recurrent UTI Hypomagnesemia Vaginal candidiasis Viral pneumonia Leukopenia due to antineoplastic chemotherapy Bronchopneumonia Acute respiratory failure with hypoxia Neutropenia (Acute) Parainfluenza Generalized weakness Neutropenia Vulvitis High risk HPV infection 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 Lopez 10-28-19 Thrombocytopenia HX CAD (coronary artery disease) s/p CABG x 2 > FOLLOWS WITH DR. 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, 04/2022 History of cardiac cath 2009 > NO STENT > CABG History of conization of cervix 2004, arline 3 Hx of dilation and curettage H/O hand surgery trigger finger surgery Family History Mother Liver cancer Thyroid cancer Diabetes Heart disease Hypertension Stroke Grandmother (Maternal) Diabetes Other No family history of adverse response to anesthesia Social History Smoking Status: Never smoker Second Hand Exposure: No; Do You Dip or Chew Tobacco: No; Hx Alcohol Use: No Hx Substance Use: No Preferred Language: Kazakh Communication Ability: Effective Obstetric Anaesthetist Required: No Beliefs That Will Affect Care: None marital status: Current Living Situation: Alone Current Living Situation Comment: House, 1 CATIA, 0 ST bed/bath, 13 ST laundry current occupational status: retired How many Children do You have: 1 Feels Safe at Home: Yes during the past year weight has: decreased > 10 lbs Assistive Devices: Glasses Allergies Allergies Allergy/AdvReac Type Severity Reaction Status Date / Time cephalexin Allergy Intermediate hives Verified 01/23/25 10:54 ciprofloxacin [From Cipro] Allergy Mild Hives Verified 01/23/25 10:54 codeine Allergy Mild rash Verified 01/23/25 10:54 dapagliflozin [From Farxiga] AdvReac Intermediate Rash Verified 01/23/25 10:54 lisinopril AdvReac Mild COUGH Verified 01/23/25 10:54 Home Meds Home Medications Medication Instructions Recorded Confirmed aspirin 81 mg chewable tablet 81 mg PO HS 10/26/19 01/23/25 cholecalciferol (vitamin D3) 50 50 mcg PO QAM 03/22/20 01/23/25 mcg (2,000 unit) capsule tramadol 50 mg tablet 50 - 100 mg PO BID PRN Pain 04/09/21 01/23/25 allopurinol 300 mg tablet 300 mg PO QPM 06/12/21 01/23/25 metoprolol succinate 25 mg 12.5 mg PO HS 06/12/21 01/23/25 tablet,extended release 24 hr daratumumab 20 mg/mL intravenous 0 mg IV Q4WK 07/12/21 01/23/25 solution (Darzalex) diphenoxylate-atropine 2.5 1 tab PO UD PRN Diarrhea 07/12/21 01/23/25 mg-0.025 mg tablet (Lomotil) pregabalin 50 mg capsule (Lyrica) 50 mg PO TID 07/08/22 01/23/25 ferrous sulfate 325 mg (65 mg 325 mg PO BID 08/05/22 01/23/25 iron) tablet (iron) cyanocobalamin (vitamin B-12) 1,000 mcg PO BID 03/27/23 01/23/25 1,000 mcg tablet (Vitamin B-12) levothyroxine 150 mcg tablet 150 mcg PO QAM 03/27/23 01/23/25 pomalidomide 1 mg capsule 1 mg PO DAILY 07/29/23 01/23/25 (Pomalyst) acyclovir 400 mg tablet 400 mg PO DAILY 02/13/24 01/23/25 budesonide-formoterol HFA 80 2 puff inhalation BID PRN Chest 02/13/24 01/23/25 mcg-4.5 mcg/actuation aerosol Cold inhaler immune glob,gamm(IgG) 5 %-sorb-IgA See Rx Instructions .Route .COMPLEX 11/08/24 01/23/25 0 to 50 mcg/mL intravenous solution magnesium chloride 71.5 mg 214.5 mg PO BID 01/19/25 01/23/25 (magnesium chloride) tablet,delayed release (Slow-Mag) montelukast 10 mg tablet 10 mg PO DAILY 01/19/25 01/23/25 apixaban 2.5 mg tablet (Eliquis) 2.5 mg PO BID 01/23/25 01/23/25 Previous Rx's Medication Instructions Recorded blood sugar diagnostic (FreeStyle #200 ea 03/18/23 Lite Strips) albuterol sulfate 90 mcg/actuation 2 puff inhalation Q6H PRN 07/11/23 aerosol inhaler (Ventolin HFA) Shortness Of Breath Or Wheezing #1 g amiloride 5 mg tablet 5 mg PO QPM #90 tabs 12/05/23 pravastatin 40 mg tablet 40 mg PO PM #90 tabs 03/09/24 methenamine hippurate 1 gram tablet 1 g PO HS #90 tabs 05/12/24 lancets 28 gauge (FreeStyle #200 ea 06/07/24 Lancets) pen needle, diabetic 31 gauge x #100 ea 06/07/24 5/16" (BD Ultra-Fine Short Pen Needle) dulaglutide 3 mg/0.5 mL 3 mg (0.5 mL) subcut ONCE #6 mL 07/21/24 subcutaneous pen injector (Trulicity) insulin glargine 100 unit/mL (3 30 unit (0.3 mL) subcut DAILY 90 08/17/24 mL) subcutaneous pen (Lantus days #30 mL Solostar U-100 Insulin) colestipol 1 gram tablet (Colestid) 1 g PO HS #30 tabs 01/01/25 pantoprazole 40 mg tablet,delayed 40 mg PO QAM #30 tabs 01/01/25 release Results & Data (ED) Vital Signs Vital Signs - 24 hr 01/23/25 07:45 01/23/25 08:04 01/23/25 08:21 Pulse Rate 72 67 Pulse Rate [Apical] Respiratory Rate 20 Respiratory Effort / Characteristics Non-Labored Spontaneous Respiratory Depth Normal Blood Pressure [Left Radial Artery] Blood Pressure Mean [Left Radial Artery] Pulse Oximetry 96 Oxygen Delivery Method Room Air Room Air Sepsis Recent Fever Within 48 Hours No Sepsis New/Unexplained Change in Mental Status N/A Sepsis Action Taken by Nursing No Action Required 01/23/25 08:58 01/23/25 08:58 01/23/25 08:59 Pulse Rate 65 Pulse Rate [Apical] 65 Respiratory Rate 19 19 Respiratory Effort / Characteristics Respiratory Depth Blood Pressure [Left Radial Artery] 86/53 L Blood Pressure Mean [Left Radial Artery] 64 Pulse Oximetry 94 95 95 Oxygen Delivery Method Room Air Room Air Room Air Sepsis Recent Fever Within 48 Hours Sepsis New/Unexplained Change in Mental Status Sepsis Action Taken by Nursing 01/23/25 10:31 Pulse Rate Pulse Rate [Apical] 61 Respiratory Rate 16 Respiratory Effort / Characteristics Respiratory Depth Blood Pressure [Left Radial Artery] 100/62 Blood Pressure Mean [Left Radial Artery] 74 Pulse Oximetry 96 Oxygen Delivery Method Room Air Sepsis Recent Fever Within 48 Hours Sepsis New/Unexplained Change in Mental Status Sepsis Action Taken by Nursing Laboratory Data 01/23/25 08:06 01/23/25 08:06 Lab Results 01/23/25 01/23/25 01/23/25 Range/Units 08:06 08:30 09:52 WBC 9.02 (4.8-10.8) K/ul RBC 4.73 (4.20-5.40) M/uL Hgb 14.5 (12.0-16.0) g/dl Hct 44.1 (37.0-47.0) % MCV 93.2 (80.0-100.0) fL MCH 30.7 (25.0-34.0) pg MCHC 32.9 (32.0-36.0) g/dL RDW Std Deviation 55.4 H (36.4-46.3) fL RDW Coeff of Aminata 16.2 H (11.5-14.5) % Plt Count 179 (130-400) K/uL MPV 12.3 (9.4-12.4) fL Neutrophils % (Manual) 25 % Lymphocytes % (Manual) 14 % Monocytes % (Manual) 5 % Eosinophils % (Manual) 3 % Metamyelocytes % (Man) 1 % Myelocytes % (Man) 1 % Neutrophils # (Manual) 2.26 (1.40-6.50) K/uL Total Absolute Neuts 2.26 (1.4-6.5) K/uL Lymphocytes # (Manual) 1.26 (1.2-3.4) K/uL Total Abs Lymphocytes 5.86 H (1.2-3.4) K/uL Monocytes # (Manual) 0.45 (0.11-0.59) K/uL Eosinophils # (Manual) 0.27 (0-0.50) K/uL Metamyelocytes # (Man) 0.09 H (0-0) K/uL Myelocytes # (Manual) 0.09 H (0-0) K/uL Large Granular Lymphs 51 % # Lrg Granular Lymphs 4.60 K/uL Polychromasia 1+ Ovalocytes 2+ PT 11.9 (9.0-12.0) Seconds INR 1.1 (0.9-1.1) VBG pH 7.21 L (7.36-7.41) VBG pCO2 44 (38-50) mmHg VBG pO2 29 mmHg VBG HCO3 18 mmol/L VBG O2 Saturation < 60.0 % VBG Base Excess -10.0 mEq/L Sodium 135 L (136-145) mmol/L Potassium 4.3 (3.5-5.1) mmol/L Chloride 109 H (98-107) mmol/L Carbon Dioxide 16 L (21-32) mmol/L Anion Gap 10 (3-11) BUN 56 H (6-23) mg/dl Creatinine 1.92 H (0.6-1.2) mg/dl Est Cr Clr Drug Dosing 28.2 ml/min eGFR 27.02 BUN/Creatinine Ratio 29.2 H (10-20) Glucose 300 H (70-99(Fasting)) mg/dl POC Glucose (70-99) mg/dl Calcium 9.0 (8.6-10.3) mg/dl Magnesium 1.5 L (1.7-2.4) mg/dl Total Bilirubin 1.7 H (0.2-1.0) mg/dl AST 19 (13-39) U/L ALT 23 (7-52) U/L Alkaline Phosphatase 59 (34-104) U/L Troponin I High Sens 12.4 (0-14) pg/ml Total Protein 5.8 L (6.0-8.3) gm/dl Albumin 3.6 (3.4-5.0) gm/dl Globulin 2.2 L (2.5-4.0) gm/dl Albumin/Globulin Ratio 1.6 (0.9-2) Lipase 26 (11-82) U/L SARS-CoV-2 (PCR) NEGATIVE (Negative) Influenza Type A (PCR) Negative (Neg) Influenza Type B (PCR) Negative (Neg) RSV (RT-PCR) Negative (Neg) 01/23/25 Range/Units 12:02 WBC (4.8-10.8) K/ul RBC (4.20-5.40) M/uL Hgb (12.0-16.0) g/dl Hct (37.0-47.0) % MCV (80.0-100.0) fL MCH (25.0-34.0) pg MCHC (32.0-36.0) g/dL RDW Std Deviation (36.4-46.3) fL RDW Coeff of Aminata (11.5-14.5) % Plt Count (130-400) K/uL MPV (9.4-12.4) fL Neutrophils % (Manual) % Lymphocytes % (Manual) % Monocytes % (Manual) % Eosinophils % (Manual) % Metamyelocytes % (Man) % Myelocytes % (Man) % Neutrophils # (Manual) (1.40-6.50) K/uL Total Absolute Neuts (1.4-6.5) K/uL Lymphocytes # (Manual) (1.2-3.4) K/uL Total Abs Lymphocytes (1.2-3.4) K/uL Monocytes # (Manual) (0.11-0.59) K/uL Eosinophils # (Manual) (0-0.50) K/uL Metamyelocytes # (Man) (0-0) K/uL Myelocytes # (Manual) (0-0) K/uL Large Granular Lymphs % # Lrg Granular Lymphs K/uL Polychromasia Ovalocytes PT (9.0-12.0) Seconds INR (0.9-1.1) VBG pH (7.36-7.41) VBG pCO2 (38-50) mmHg VBG pO2 mmHg VBG HCO3 mmol/L VBG O2 Saturation % VBG Base Excess mEq/L Sodium (136-145) mmol/L Potassium (3.5-5.1) mmol/L Chloride (98-107) mmol/L Carbon Dioxide (21-32) mmol/L Anion Gap (3-11) BUN (6-23) mg/dl Creatinine (0.6-1.2) mg/dl Est Cr Clr Drug Dosing ml/min eGFR BUN/Creatinine Ratio (10-20) Glucose (70-99(Fasting)) mg/dl POC Glucose 115 H (70-99) mg/dl Calcium (8.6-10.3) mg/dl Magnesium (1.7-2.4) mg/dl Total Bilirubin (0.2-1.0) mg/dl AST (13-39) U/L ALT (7-52) U/L Alkaline Phosphatase (34-104) U/L Troponin I High Sens (0-14) pg/ml Total Protein (6.0-8.3) gm/dl Albumin (3.4-5.0) gm/dl Globulin (2.5-4.0) gm/dl Albumin/Globulin Ratio (0.9-2) Lipase (11-82) U/L SARS-CoV-2 (PCR) (Negative) Influenza Type A (PCR) (Neg) Influenza Type B (PCR) (Neg) RSV (RT-PCR) (Neg) Administered Medications Discontinued Medications Sodium Chloride (Nss) 1,000 mls @ 999 mls/hr IV .Q1H1M ONE Stop: 01/23/25 09:02 Last Infusion: 01/23/25 10:05 Dose: Infused Documented By: Admin: 01/23/25 08:59 Dose: 999 mls/hr Documented By: RANJAN Sodium Chloride (Nss) 1,000 mls @ 999 mls/hr IV .Q1H1M ONE Stop: 01/23/25 10:04 Last Infusion: 01/23/25 11:40 Dose: Infused Documented By: [facility] Admin: 01/23/25 10:31 Dose: 999 mls/hr Documented By: RANJAN Magnesium Sulfate/Dextrose (Magnesium Sulfate / D5w) 1 gm in 100 mls @ 200 mls/hr IV Q30M HENNY Stop: 01/23/25 10:08 Last Infusion: 01/23/25 11:40 Dose: Infused Documented By: Admin: 01/23/25 11:06 Dose: 200 mls/hr Documented By: Infusion: 01/23/25 11:05 Dose: Infused Documented By: AVAviva Admin: 01/23/25 10:30 Dose: 200 mls/hr Documented By: RANJAN Imaging Data Radiologist's Impression: Chest X-Ray 01/23/25 07:54 XR chest 1V portable HISTORY: 74 years-old Female Chest pain, nonspecific COMPARISON: 12/28/2024 TECHNIQUE: AP view of the chest FINDINGS: Right subclavian Vdameo-u-[id number] catheter. Cardiomegaly with median sternotomy. No pneumothorax, pleural effusion, airspace consolidation or overt pulmonary edema. Mild linear bibasilar atelectasis versus scarring. The bones of the chest appear grossly intact. IMPRESSION: Cardiomegaly without acute process. ACT 112: Negative or not required by law. The above report was generated using voice recognition software. It may contain grammatical, syntax or spelling errors. Electronically signed by: Ortega Huerta M.D. 01/23/2025 8:39 AM Abdomen/Pelvis CT 01/23/25 09:[address] WITHOUT CONTRAST CT DOSE: 1412.74 mGy.cm HISTORY: Acute generalized abdominal pain ABD pain TECHNIQUE: Multiaxial CT images of the abdomen and pelvis were performed without contrast. A dose lowering technique was utilized adhering to the principles of ALARA. COMPARISON STUDY: 12/28/2024 FINDINGS: Median sternotomy. Cardiomegaly with coronary artery calcifications. Mild bibasilar mucous plugging with subsegmental atelectasis. No pneumatosis or pneumoperitoneum. The unenhanced spleen, pancreas and adrenal glands are unremarkable. Cholecystectomy. Mild marginal nodularity of the liver again noted. No hepatic mass is seen. Mild cortical thinning of the kidneys without urolith or hydronephrosis. Urinary bladder is within normal limits. Hysterectomy. Atherosclerosis of the aorta without aneurysm. Colonic diverticulosis without definite evidence of acute diverticulitis. Small hiatal hernia. Normal appendix. Tiny fat filled umbilical hernia. Unchanged lucent lesion with peripheral sclerosis involving the sacrum. IMPRESSION: 1. Colonic diverticulosis without definite evidence of acute diverticulitis. 2. Small hiatal hernia. 3. Suggestion of early cirrhosis. 4. Cholecystectomy. ACT 112: Negative or not required by law. The above report was generated using voice recognition software. It may contain grammatical, syntax or spelling errors. Electronically signed by: Ortega Huerta M.D. 01/23/2025 10:33 AM Discharge Plan Visit Data Chief Complaint: Chest Pain Stated Complaint: LEG CRAMPS, DIZZY, CHEST/STOMACH PAIN ED Provider: Jermaine Downing Discharge Problem: Metabolic acidosis Patient Disposition: Admitted As Inpatient Condition: Fair Forms Stand Alone Forms: My [facility] [place] Localist Prescriptions Prescriptions: No Action amiloride 5 mg tablet 5 mg PO QPM Qty: 90 3RF Hold Instructions: hold for now due to recent low blood pressures pravastatin 40 mg tablet 40 mg PO PM Qty: 90 1RF (DME) lancets [FreeStyle Lancets] 28 gauge misc See Rx Instructions .Route Qty: 200 3RF Rx Instructions: test blood sugar 2 x daily (DME) pen needle, diabetic [BD Ultra-Fine Short Pen Needle] 31 gauge x 5/16" needle See Rx Instructions .Route Qty: 100 3RF Rx Instructions: use with Lantus injections QD insulin glargine [Lantus Solostar U-100 Insulin] 100 unit/mL (3 mL) insulin pen 30 unit subcut DAILY 90 Days Qty: 30 3RF Rx Instructions: Inject 30 units into the abdomen once daily. Darzalex 20 mg/mL solution 0 mg IV Q4WK Rx Instructions: Unable to verify medication at this date/time. Original Directions: 20mg IV every 4 weeks. Pomalyst 1 mg capsule 1 mg PO DAILY Hold Instructions: hold until your antibiotic course is completed for the urinary tract infection Rx Instructions: Take daily for 21 days then do not take for 7 days. Then Provider to call in new script. Started on 01/17/25 of this month (DME) FreeStyle Lite Strips Strip See Rx Instructions .Route Qty: 200 3RF Rx Instructions: test 2 times daily allopurinol 300 mg tablet 300 mg PO QPM metoprolol succinate 25 mg tablet extended release 24 hr 12.5 mg PO HS diphenoxylate-atropine [Lomotil] 2.5-0.025 mg tablet 1 tab PO UD PRN (Reason: Diarrhea) Rx Instructions: 1 tab PO 1-2 TIMES DAILY; PRN; cholecalciferol (vitamin D3) 50 mcg (2,000 unit) capsule 50 mcg PO QAM Rx Instructions: Unable to verify OTC meds at this date/time tramadol 50 mg tablet 50 - 100 mg PO BID PRN (Reason: Pain) pregabalin [Lyrica] 50 mg capsule 50 mg PO TID Trulicity 3 mg/0.5 mL pen injector 3 mg subcut ONCE Qty: 6 5RF Rx Instructions: Inject 3 mg into the abdomen once weekly. imm glob G (IgG)-sorb-IgA 0-50 5 % solution See Rx Instructions .ROUTE .COMPLEX Rx Instructions: pt states she takes this ever 4 weeks. methenamine hippurate 1 gram tablet 1 g PO HS Qty: 90 3RF Hold Instructions: hold until your levofloxacin antibiotic course is completed; you can resume this medicine at that time Rx Instructions: Take one tablet at bedtime. montelukast 10 mg tablet 10 mg PO DAILY Slow-Mag 71.5 mg tablet,delayed release (DR/EC) 214.5 mg PO BID Rx Instructions: you can purchase this [id number]. aspirin 81 mg Tablet,Chewable 81 mg PO HS Rx Instructions: Unable to verify OTC meds at this date/time. ferrous sulfate [iron] 325 mg (65 mg iron) Tablet 325 mg PO BID Rx Instructions: Unable to verify OTC meds at this date/time cyanocobalamin (vitamin B-12) [Vitamin B-12] 1,000 mcg Tablet 1,000 mcg PO BID Rx Instructions: Unable to verify OTC meds at this date/time levothyroxine 150 mcg Tablet 150 mcg PO QAM albuterol sulfate [Ventolin HFA] 90 mcg/actuation HFA aerosol inhaler 2 puff INHALATION Q6H PRN (Reason: Shortness Of Breath Or Wheezing) Qty: 1 0RF budesonide-formoterol 80-4.5 mcg/actuation HFA aerosol inhaler 2 puff INHALATION BID PRN (Reason: Chest Cold) acyclovir 400 mg tablet 400 mg PO DAILY colestipol [Colestid] 1 gram Tablet 1 g PO HS Qty: 30 1RF Rx Instructions: for chronic diarrhea; try to take this medicine at a separate time than all other medicines pantoprazole 40 mg tablet,delayed release (DR/EC) 40 mg PO QAM Qty: 30 11RF Eliquis 2.5 mg tablet 2.5 mg PO BID Referrals Referrals: Yaneth Pillai MD [Primary Care Provider] -
[2025-01-23 08:34] LABS: Hematocrit (blood only) 44.1 % (37.0-47.0); Hemoglobin 14.5 g/dl (12.0-16.0); Mean Corpuscular Hemoglobin 30.7 pg (25.0-34.0); Mean Corpuscular Hgb Conc 32.9 g/dL (32.0-36.0); Mean Corpuscular Volume 93.2 fL (80.0-100.0); Mean Platelet Volume 12.3 fL (9.4-12.4); Platelet Count 179 K/uL (130-400); RDW Coefficient of Variation 16.2 % (11.5-14.5); RDW Standard Deviation 55.4 fL (36.4-46.3); Red Blood Count 4.73 M/uL (4.20-5.40); White Blood Count 9.02 K/ul (4.8-10.8)
--- NOTE | 2025-01-23 08:40 | XRay Report ---
XR chest 1V portable HISTORY: 74 years-old Female Chest pain, nonspecific COMPARISON: 12/28/2024 TECHNIQUE: AP view of the chest FINDINGS: Right subclavian Edqpif-[id number]-[id number] catheter. Cardiomegaly with median sternotomy. No pneumothorax, pleura l effusion, airspace consolidation or overt pulmonary edema. Mild linear bibasilar atelectasis versus scarring. The bones of the chest appear grossly intact. IMPRESSION: Cardiomegaly without acute process. ACT 112: Negative or not required by law. The above report was generated using voice recognition software. It may contain grammatical, syntax o r spelling errors. Electronically signed by: Ortega Huerta M.D. 01/23/2025 8:39 AM
[2025-01-23 08:57] LABS: Albumin Globulin Ratio 1.6 (0.9-2); Albumin Level 3.6 gm/dl (3.4-5.0); BUN Creatinine Ratio 29.2 (10-20); Bilirubin,Total 1.7 mg/dl (0.2-1.0); Creatinine Clr Calc Pharmacy 28.2 ml/min; Globulin 2.2 gm/dl (2.5-4.0); INR 1.1 (0.9-1.1); Magnesium 1.5 mg/dl (1.7-2.4); Potassium 4.3 mmol/L (3.5-5.1); Prothrombin Time 11.9 Seconds (9.0-12.0); Total Protein 5.8 gm/dl (6.0-8.3)
[2025-01-23] MEDS: SODIUM CHLORIDE 0.9% 1,000 ML IV ONE ×2 (08:59→10:31)
[2025-01-23 09:03] LABS: Troponin I High Sensitivity 12.4 pg/ml (0-14)
[2025-01-23 09:07] LABS: ALC (manual) 5.86 K/uL (1.2-3.4); ANC (manual) 2.26 K/uL (1.4-6.5); Eosinophils # (manual) 0.27 K/uL (0-0.50); Eosinophils % (manual) 3 %; Large Granular Lymph % (manual) 51 %; Lymphocytes # (manual) 1.26 K/uL (1.2-3.4); Lymphocytes % (manual) 14 %; Metamyelocytes # (manual) 0.09 K/uL (0-0); Metamyelocytes % (manual) 1 %; Monocytes # (manual) 0.45 K/uL (0.11-0.59); Monocytes % (manual) 5 %; Myelocytes # (manual) 0.09 K/uL (0-0); Myelocytes % (manual) 1 %; Neutrophils # (manual) 2.26 K/uL (1.40-6.50); Neutrophils % (manual) 25 %; Ovalocytes 2+; Polychromasia 1+
[2025-01-23 09:10] LABS: Influenza A virus by PCR Negative (Neg); Influenza B virus by PCR Negative (Neg); RSV by PCR Negative (Neg); SARS CoV2 RNA(COVID-19) Ceph NEGATIVE (Negative)
[2025-01-23] MEDS: MAGNESIUM SULFATE / D5W 1 GM/100 ML BAG IV SCH (10:30)
--- NOTE | 2025-01-23 10:35 | CT Scan Report ---
ABDOMEN AND PELVIS CT WITHOUT CONTRAST CT DOSE: 1412.74 mGy.cm HISTORY: Acute generalized abdominal pain ABD pain TECHNIQUE: Multiaxial CT images of the abdomen and pelvis were performed without contrast. A dose lo wering technique was utilized adhering to the principles of ALARA. COMPARISON STUDY: 12/28/2024 FINDINGS: Median sternotomy. Cardiomegaly with coronary artery calcifications. Mild bibasilar mucous plugging with subsegmental atelectasis. No pneumatosis or pneumoperitoneum. The unenhanced spleen, pa ncreas and adrenal glands are unremarkable. Cholecystectomy. Mild marginal nodularity of the liver ag ain noted. No hepatic mass is seen. Mild cortical thinning of the kidneys without urolith or hydronep hrosis. Urinary bladder is within normal limits. Hysterectomy. Atherosclerosis of the aorta without a neurysm. Colonic diverticulosis without definite evidence of acute diverticulitis. Small hiatal herni a. Normal appendix. Tiny fat filled umbilical hernia. Unchanged lucent lesion with peripheral scleros is involving the sacrum. IMPRESSION: 1. Colonic diverticulosis without definite evidence of acute diverticulitis. 2. Small hiatal hernia. 3. Suggestion of early cirrhosis. 4. Cholecystectomy. ACT 112: Negative or not required by law. The above report was generated using voice recognition software. It may contain grammatical, syntax o r spelling errors. Electronically signed by: Ortega Huerta M.D. 01/23/2025 10:33 AM
[2025-01-23 11:55] LABS: HCO3 VBG 18 mmol/L; Oxygen Saturation VBG < 60.0 %; PCO2 VBG 44 mmHg (38-50); PO2 VBG 29 mmHg; pH VBG 7.21 (7.36-7.41)
--- NOTE | 2025-01-23 12:23 | History & Physical Report ---
Date of Service January 23, 2025 Assessment & Plan (1) NORRIS (acute kidney injury): Plan: Pt is a 74 yo female with PMH of MM (in current tx), DM, and HTN presenting d/t cramping in her legs and lightheadedness. Metabolic acidosis/NORRIS/dehydration - suspect secondary to recent worsening of chronic diarrhea (most likely secondary to recent ABX use) - CTAP negative - s/p 2L in ER; continue IVF with 80mL/hr - trend BMP ?adrenal insufficiency - pt with dx of adrenal insufficiency last hospital stay but recent outpatient f/u with endo is unsure if true dx of adrenal insufficiency - pt's last dose of steroids was yesterday (she is on steroids with each MM chemo tx) - I am not sure that her current presentation would be consistent with adrenal insufficiency, will repeat BMP after IVF; if Cr not improved, may consider stress dosing of steroids URI - s/p augmentin x5 days DM - last A1c 6.9% 04/2024; repeat in AM - continue home insulin glargine 30u daily; may add SSI PRN MM in current tx - continue allopurinol and acyclovir for ppx VTE ppx: eliquis 2.5mg BID Diet: carb consistent Code: full (2) Metabolic acidosis: (3) Upper respiratory infection: (4) Hypotension: History of Present Illness Chief Complaint: cramping of legs, lightheadedness Primary Care Provider: Yaneth Pillai MD Pt is a 74 yo female with PMH of MM (in current tx), DM, and HTN presenting d/t cramping in her legs and lightheadedness. Pt notes over the last few days she has had increased leg cramps. She was hospitalized a few weeks ago for UTI/NORRIS and fall. She was seen as an outpatient last week and was prescribed augmentin for a URI- her chronic diarrhea has worsened over the last few days. She notes a continued cough. She also had an episode of mid abdominal cramping that came and went this morning which she described as cramping. In the ER she was given 1g mag and 2L of NS. Allergies Allergy/AdvReac Type Severity Reaction Status Date / Time cephalexin Allergy Intermediate hives Verified 01/23/25 10:54 ciprofloxacin [From Cipro] Allergy Mild Hives Verified 01/23/25 10:54 codeine Allergy Mild rash Verified 01/23/25 10:54 dapagliflozin [From [facility]] AdvReac Intermediate Rash Verified 01/23/25 10:54 lisinopril AdvReac Mild COUGH Verified 01/23/25 10:54 Home Medications Medication Instructions Recorded Confirmed Type aspirin 81 mg chewable tablet 81 mg PO HS 10/26/19 01/23/25 History cholecalciferol (vitamin D3) 50 50 mcg PO QAM 03/22/20 01/23/25 History mcg (2,000 unit) capsule tramadol 50 mg tablet 50 - 100 mg PO BID PRN Pain 04/09/21 01/23/25 History allopurinol 300 mg tablet 300 mg PO QPM 06/12/21 01/23/25 History metoprolol succinate 25 mg 12.5 mg PO HS 06/12/21 01/23/25 History tablet,extended release 24 hr daratumumab 20 mg/mL intravenous 0 mg IV Q4WK 07/12/21 01/23/25 History solution (Darzalex) diphenoxylate-atropine 2.5 1 tab PO UD PRN Diarrhea 07/12/21 01/23/25 History mg-0.025 mg tablet (Lomotil) pregabalin 50 mg capsule (Lyrica) 50 mg PO TID 07/08/22 01/23/25 History ferrous sulfate 325 mg (65 mg 325 mg PO BID 08/05/22 01/23/25 History iron) tablet (iron) blood sugar diagnostic (FreeStyle #200 ea 03/18/23 01/19/25 Rx Lite Strips) cyanocobalamin (vitamin B-12) 1,000 mcg PO BID 03/27/23 01/23/25 History 1,000 mcg tablet (Vitamin B-12) levothyroxine 150 mcg tablet 150 mcg PO QAM 03/27/23 01/23/25 History albuterol sulfate 90 mcg/actuation 2 puff inhalation Q6H PRN 07/11/23 01/23/25 Rx aerosol inhaler (Ventolin HFA) Shortness Of Breath Or Wheezing #1 g pomalidomide 1 mg capsule 1 mg PO DAILY 07/29/23 01/23/25 History (Pomalyst) amiloride 5 mg tablet 5 mg PO QPM #90 tabs 12/05/23 01/23/25 Rx acyclovir 400 mg tablet 400 mg PO DAILY 02/13/24 01/23/25 History budesonide-formoterol HFA 80 2 puff inhalation BID PRN Chest 02/13/24 01/23/25 History mcg-4.5 mcg/actuation aerosol Cold inhaler pravastatin 40 mg tablet 40 mg PO PM #90 tabs 03/09/24 01/23/25 Rx methenamine hippurate 1 gram tablet 1 g PO HS #90 tabs 05/12/24 01/23/25 Rx lancets 28 gauge (FreeStyle #200 ea 06/07/24 01/19/25 Rx Lancets) pen needle, diabetic 31 gauge x #100 ea 06/07/24 01/19/25 Rx 5/16" (BD Ultra-Fine Short Pen Needle) dulaglutide 3 mg/0.5 mL 3 mg (0.5 mL) subcut ONCE #6 mL 07/21/24 01/23/25 Rx subcutaneous pen injector (Trulicity) insulin glargine 100 unit/mL (3 30 unit (0.3 mL) subcut DAILY 90 08/17/24 01/23/25 Rx mL) subcutaneous pen (Lantus days #30 mL Solostar U-100 Insulin) immune glob,gamm(IgG) 5 %-sorb-IgA See Rx Instructions .Route .COMPLEX 11/08/24 01/23/25 History 0 to 50 mcg/mL intravenous solution colestipol 1 gram tablet (Colestid) 1 g PO HS #30 tabs 01/01/25 01/23/25 Rx pantoprazole 40 mg tablet,delayed 40 mg PO QAM #30 tabs 01/01/25 01/23/25 Rx release magnesium chloride 71.5 mg 214.5 mg PO BID 01/19/25 01/23/25 History (magnesium chloride) tablet,delayed release (Slow-Mag) montelukast 10 mg tablet 10 mg PO DAILY 01/19/25 01/23/25 History apixaban 2.5 mg tablet (Eliquis) 2.5 mg PO BID 01/23/25 01/23/25 History Past Med/Surg History Problem List (Updated 01/23/25 @ 14:48 by Joan Nicole DO) Multiple myeloma Dx 2003, s/p chemo >HX OF STEM CELL TRANSPLANT--pt states her WBC rising, following with Lisandra on 04/09/23 regarding this Upper respiratory infection Metabolic acidosis (Acute) 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 Diarrhea Iatrogenic adrenal insufficiency Pancytopenia Complicated urinary tract infection (Acute) [place] New onset atrial fibrillation Multiple myeloma in remission Dizziness Fall Acute kidney injury superimposed on chronic kidney disease Acute renal insufficiency (Acute) Paroxysmal atrial fibrillation (Acute) Hypomagnesemia (Acute) Near syncope (Acute) Hiatal hernia LPRD (laryngopharyngeal reflux disease) Throat pain RUQ abdominal pain (Acute) Gall stones (Acute) Acute dehydration (Acute) NORRIS (acute kidney injury) (Acute) Hypotension (Acute) Acute cholecystitis Gallstone (Acute) Recurrent UTI Hypomagnesemia Vaginal candidiasis Viral pneumonia Leukopenia due to antineoplastic chemotherapy Bronchopneumonia Acute respiratory failure with hypoxia Neutropenia (Acute) Parainfluenza Generalized weakness Neutropenia Vulvitis High 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 Lopez 10-28-19 Thrombocytopenia HX CAD (coronary artery disease) s/p CABG x 2 > FOLLOWS WITH DR. 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, 04/2022 History of cardiac cath 2009 > NO STENT > CABG History of conization of cervix 2004, arline 3 Hx of dilation and curettage H/O hand surgery trigger finger surgery Family History Mother Liver cancer Thyroid cancer Diabetes Heart disease Hypertension Stroke Grandmother (Maternal) Diabetes Other No family history of adverse response to anesthesia Social History Smoking Status: Never smoker Second Hand Exposure: No; Do You Dip or Chew Tobacco: No; Hx Alcohol Use: No Hx Substance Use: No Preferred Language: Ivorian Communication Ability: Effective Lead 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 Respiratory: CTA bilaterally. Non labored breathing. No rhonchi, wheezing, or crackles. Cardiovascular: RRR. No murmurs noted. No LE edema. Gastrointestinal (Abdomen): Nontender, +BS. No masses noted. Skin: No rashes or skin lesions noted. Neurologic: Sensation grossly intact. No FND appreciated. Psychiatric: Speech of normal pace and content. Mood and affect congruent. Results & Data Results & Data Vital Signs (Past 12 Hours) Vital Signs Pulse Pulse Resp BP Pulse Ox O2 Del Method 01/23/25 10:31 61 16 100/62 96 Room Air 01/23/25 08:59 65 19 95 Room Air 01/23/25 08:58 65 19 86/53 L 95 Room Air 01/23/25 08:58 94 Room Air 01/23/25 08:21 Room Air 01/23/25 08:04 67 01/23/25 07:45 72 20 96 Room Air Supervising Physician Co-Signing Physician Notes I personally examined the patient and verified travis points of history and exam, discussed case, and agree with decision making and plan documented by Dr. Nicole. 74-year-old female with past medical history of multiple myeloma, type 2 diabetes, atrial fibrillation, and hypertension on admission for NORRIS, electrolyte abnormalities, and acidosis. Patient reports she was out dancing last night and was not feeling well, had a couple days of diarrhea this week. Suspect there is a component of dehydration present. Yeast on UA, awaiting urine culture, patient denies urinary symptoms. Patient has been on antibiotics for cough this past week, does report history of asthma and also possible allergy component. On exam patient appears comfortable, non diaphoretic, clear conjunctiva, lungs with faint expiratory wheeze and mucous plugging, heart with regular rate and rhythm, no m/r/g, bowel sounds present and no tenderness in the abdomen, lower extremities without edema. Albuterol ordered. Resident Activity Tracking Resident Involvement: Resident Care Provided Care Provided: Adult Hospital Medicine (4) Hypotension Hypotension type: unspecified hypotension type Qualified Code(s): I95.9 - Hypotension, unspecified
[2025-01-23] MEDS ORDERED: MELATONIN 3 MG TAB PO PRN (12:52)
[2025-01-23] MEDS ORDERED: POLYETHYLENE (MIRALAX) 17 GM PACK PO PRN (12:52)
[2025-01-23] MEDS ORDERED: ACETAMINOPHEN 325 MG TAB PO PRN (12:52)
[2025-01-23] MEDS ORDERED: ONDANSETRON INJ 2 MG/ML 2 ML VIAL IV PRN (12:52)
[2025-01-23 12:57] LABS: Appearance Urine Clear (Clear); Bacteria Urine Automated None Seen (None Seen); Bilirubin Urine Negative (Negative); Blood Urine Negative (Negative); Color Urine Yellow; Epithelial Cell Urine Auto 0-2 /hpf (0-2); Glucose Urine UA Negative (Negative); Ketones Urine Negative (Negative); Leukocyte Esterase Urine 1+ (Negative); Nitrite Urine Negative (Negative); Protein Urine Negative (Negative); RBC Urine Automated >20 /hpf (0-2); Specific Gravity Urine 1.016 (1.000-1.030); Urobilinogen Urine Negative (Negative)
[2025-01-23] MEDS: LACTATED RINGER'S 1,000 ML IV SCH (13:53)
--- NOTE | 2025-01-23 14:08 | Electrocardiogram Report ---
Test Reason : Blood Pressure : */* mmHG Vent. Rate : 66 BPM Atrial Rate : 66 BPM P-R Int : 144 ms QRS Dur : 84 ms QT Int : 382 ms P-R-T Axes : 25 26 39 degrees QTcB Int : 400 ms Normal sinus rhythm Normal ECG When compared with ECG of 28-Dec-2024 18:40, Premature atrial complexes are no longer Present Confirmed by Norm Case ([id number]) on 01/23/2025 2:07:30 PM Referred By: Confirmed By: Norm Case
[2025-01-23] MEDS ORDERED: GLUCOSE 10 TAB/TUBE PO PRN (15:04)
[2025-01-23] MEDS ORDERED: CARBOHYDRATES FOR HYPOGLYCEMIA PO PRN (15:04)
[2025-01-23] MEDS ORDERED: GLUCOSE 40% GEL 15 GM TUBE PO PRN (15:04)
[2025-01-23] MEDS ORDERED: DEXTROSE 50% 50 ML SYRINGE IV PRN (15:04)
[2025-01-23] MEDS ORDERED: GLUCAGON FOR INJ 1 MG VIAL SQ PRN (15:04)
[2025-01-23] MEDS ORDERED: FLUTICASONE/VILANTEROL 100/25MCG 14 PUFFS/INHALER INH PRN (16:03)
[2025-01-23] MEDS: PREGABALIN 50 MG CAP PO SCH (16:05)
[2025-01-23 16:56] LABS: BUN Creatinine Ratio 36.4 (10-20); Calcium 8.7 mg/dl (8.6-10.3); Potassium 4.2 mmol/L (3.5-5.1)
[2025-01-23] MEDS ORDERED: ALBUTEROL 0.083% NEBU SOLN 3 ML VIAL NEB PRN (18:17)
[2025-01-23] MEDS: METOPROLOL SUCC 25MG EXT REL TAB PO SCH (20:20)
[2025-01-23] MEDS: ACYCLOVIR 400 MG TAB PO SCH (20:20)
[2025-01-23] MEDS: ASPIRIN 81 MG CHEW PO SCH (20:20)
[2025-01-23] MEDS: APIXABAN 2.5 MG TAB PO SCH (20:20)
[2025-01-23] MEDS: traMADol HCL 50 MG TABLET PO PRN (20:20)
[2025-01-23] MEDS: PRAVASTATIN SOD 40 MG TAB PO SCH (20:20)
[2025-01-23] MEDS: allopurinoL 300 MG TAB PO SCH (20:20)
[2025-01-23] MEDS: MAGNESIUM CHLORIDE W/CALCIUM 64MG DELAYED REL TAB PO SCH (20:20)
[2025-01-23] MEDS ORDERED: HEPARIN SOD 5,000 UNIT/0.5 ML VIAL SQ SCH (21:00)
[2025-01-23] MEDS: COLESTIPOL HCL 1 GM TAB PO SCH (21:43)
[2025-01-23 23:28] VITALS: O2SAT 95
[2025-01-24] MEDS: LEVOTHYROXINE SODIUM 150 MCG TABLET PO SCH (05:27)
[2025-01-24 07:09] VITALS: BP 109/74; PULSE 62; RESP 18; TEMP 97.7
[2025-01-24 08:05] LABS: Hematocrit (blood only) 37.5 % (37.0-47.0); Hemoglobin 12.7 g/dl (12.0-16.0); Mean Corpuscular Hemoglobin 31.4 pg (25.0-34.0); Mean Corpuscular Hgb Conc 33.9 g/dL (32.0-36.0); Mean Corpuscular Volume 92.8 fL (80.0-100.0); Mean Platelet Volume 12.3 fL (9.4-12.4); Platelet Count 119 K/uL (130-400); RDW Coefficient of Variation 15.9 % (11.5-14.5); RDW Standard Deviation 54.7 fL (36.4-46.3); Red Blood Count 4.04 M/uL (4.20-5.40)
[2025-01-24 08:35] LABS: BUN Creatinine Ratio 36.4 (10-20); Calcium 8.9 mg/dl (8.6-10.3); Creatinine Clr Calc Pharmacy 54.7 ml/min; Magnesium 1.6 mg/dl (1.7-2.4); Potassium 4.5 mmol/L (3.5-5.1)
[2025-01-24 08:36] LABS: Estimated Average Glucose 160 mg/dl; Hemoglobin A1C 7.2 % (4.5-5.6)
[2025-01-24] MEDS: LANTUS PER UNIT CHARGE SQ SCH (08:59)
[2025-01-24] MEDS: PANTOprazole 40 MG TAB PO SCH (09:00)
[2025-01-24] MEDS: MONTELUKAST SODIUM 10 MG TABLET PO SCH (09:00)
--- NOTE | 2025-01-24 09:12 | Discharge Summary ---
Date of Service January 24, 2025 Admission HPI Per Admitting Provider Pt is a 74 yo female with PMH of MM (in current tx), DM, and HTN presenting d/t cramping in her legs and lightheadedness. Pt notes over the last few days she has had increased leg cramps. She was hospitalized a few weeks ago for UTI/NORRIS and fall. She was seen as an outpatient last week and was prescribed augmentin for a URI- her chronic diarrhea has worsened over the last few days. She notes a continued cough. She also had an episode of mid abdominal cramping that came and went this morning which she described as cramping. In the ER she was given 1g mag and 2L of NS. Principal Diagnosis dehydration Discharge Exam Constitutional WD/WN, vitals as above Respiratory normal respiratory effort, lungs clear to auscultation Cardiovascular RRR, no murmur, no edema Gastrointestinal (Abdomen) normal bowel sounds, soft, nontender, no hepatosplenomegaly Discharge Data Allergies Allergy/AdvReac Type Severity Reaction Status Date / Time cephalexin Allergy Intermediate hives Verified 01/23/25 10:54 ciprofloxacin [From Cipro] Allergy Mild Hives Verified 01/23/25 10:54 codeine Allergy Mild rash Verified 01/23/25 10:54 dapagliflozin [From Farxiga] AdvReac Intermediate Rash Verified 01/23/25 10:54 lisinopril AdvReac Mild COUGH Verified 01/23/25 10:54 Consultations 01/23/25 12:12 ED Decision to Admit Stat Ordered Studies 01/23/25 09:35 CT abd pelvis wo con Stat Hospital Course (1) NORRIS (acute kidney injury): Pt is a 74 yo female with PMH of MM (in current tx), DM, and HTN presenting d/t cramping in her legs and lightheadedness. Metabolic acidosis/NORRIS/dehydration - resolved - suspect secondary to recent worsening of chronic diarrhea (most likely secondary to recent ABX use) - CTAP negative - s/p 2L in ER; continue IVF with 80mL/hr - Recommended repeat BMP in 1 week - Encourage po hydration at home #adrenal insufficiency - pt with dx of adrenal insufficiency last hospital stay but recent outpatient f/u with endo is unsure if true dx of adrenal insufficiency - pt's last dose of steroids was yesterday (she is on steroids with each MM chemo tx) - I am not sure that her current presentation would be consistent with adrenal insufficiency - BMP improved with IV hydration. No stress dose given URI - s/p augmentin x5 days DM - last A1c 6.9% 04/2024; repeat in AM - continue home insulin glargine 30u daily MM in current tx - continue allopurinol and acyclovir for ppx VTE ppx: eliquis 2.5mg BID Diet: carb consistent Code: full (2) Metabolic acidosis: (3) Upper respiratory infection: (4) Hypotension: Total Time Total Time Spent Total Time Spent (In Minutes): <30 Discharge Plan Discharge Items Patient Disposition: Home - Self-Care Reason For Visit: NORRIS, HYPOMAG Discharge Diagnosis: Dehydration Condition on Discharge: Fair Activity: Per Instructions section Non-emergency contact: Primary Care Provider Call non-emergency contact if: you have any medication questions and your symptoms worsen Follow-up/Referrals: Yaneth Pillai MD [Primary Care Provider] - 02/04/25 2:40 pm Diet: Regular Addtl Attending Provider Instructions: You were admitted to the hospital due to dehydration. You were given IV antibiotics and electrolytes were replaced. We recommended at least 64 oz of water daily. A discharge summary will be sent to your primary care physician to ensure continuity of care. Medications: Your medication list has been reviewed and reconciled upon discharge to ensure accuracy and continuity of care. An updated list of all your medications is included with your hospital discharge paperwork. Please review this list closely and make note of any changes to your medications. Follow up appointments: - Make a follow up appointment with your PCP within the next week. It is very important that you follow up with them shortly after discharge from the hospital. - Keep all of your follow up appointments as already scheduled. If you cannot make an appointment, notify your provider. CONTACT YOUR PRIMARY CARE PROVIDER if you experience any of the following: - Difficulty following your treatment plan - Difficulty taking any of your medications CALL 911 OR GO TO THE EMERGENCY DEPARTMENT if you experience any of the following: - Sudden, severe abdominal pain or nausea/vomiting - Severe chest pain or chest pain that radiates to your jaw or arm - Sudden, severe shortness of breath or difficulty breathing Pending Studies at Discharge: No Stand-Alone Forms: My [facility] [place], Smoking Cessation Medications and DC Order Prescriptions: Continued amiloride 5 mg tablet 5 mg PO QPM Qty: 90 3RF Hold Instructions: hold for now due to recent low blood pressures pravastatin 40 mg tablet 40 mg PO PM Qty: 90 1RF (DME) lancets [FreeStyle Lancets] 28 gauge misc See Rx Instructions .Route Qty: 200 3RF Rx Instructions: test blood sugar 2 x daily (DME) pen needle, diabetic [BD Ultra-Fine Short Pen Needle] 31 gauge x 5/16" needle See Rx Instructions .Route Qty: 100 3RF Rx Instructions: use with Lantus injections QD insulin glargine [Lantus Solostar U-100 Insulin] 100 unit/mL (3 mL) insulin pen 30 unit subcut DAILY 90 Days Qty: 30 3RF Rx Instructions: Inject 30 units into the abdomen once daily. Darzalex 20 mg/mL solution 0 mg IV Q4WK Rx Instructions: Unable to verify medication at this date/time. Original Directions: 20mg IV every 4 weeks. Pomalyst 1 mg capsule 1 mg PO DAILY Hold Instructions: hold until your antibiotic course is completed for the urinary tract infection Rx Instructions: Take daily for 21 days then do not take for 7 days. Then Provider to call in new script. Started on 01/17/25 of this month (DME) FreeStyle Lite Strips Strip See Rx Instructions .Route Qty: 200 3RF Rx Instructions: test 2 times daily allopurinol 300 mg tablet 300 mg PO QPM metoprolol succinate 25 mg tablet extended release 24 hr 12.5 mg PO HS diphenoxylate-atropine [Lomotil] 2.5-0.025 mg tablet 1 tab PO UD PRN (Reason: Diarrhea) Rx Instructions: 1 tab PO 1-2 TIMES DAILY; PRN; cholecalciferol (vitamin D3) 50 mcg (2,000 unit) capsule 50 mcg PO QAM Rx Instructions: Unable to verify OTC meds at this date/time tramadol 50 mg tablet 50 - 100 mg PO BID PRN (Reason: Pain) pregabalin [Lyrica] 50 mg capsule 50 mg PO TID Trulicity 3 mg/0.5 mL pen injector 3 mg subcut ONCE Qty: 6 5RF Rx Instructions: Inject 3 mg into the abdomen once weekly. imm glob G (IgG)-sorb-IgA 0-50 5 % solution See Rx Instructions .ROUTE .COMPLEX Rx Instructions: pt states she takes this ever 4 weeks. methenamine hippurate 1 gram tablet 1 g PO HS Qty: 90 3RF Hold Instructions: hold until your levofloxacin antibiotic course is completed; you can resume this medicine at that time Rx Instructions: Take one tablet at bedtime. montelukast 10 mg tablet 10 mg PO DAILY Slow-Mag 71.5 mg tablet,delayed release (DR/EC) 214.5 mg PO BID Rx Instructions: you can purchase this [id number]. aspirin 81 mg Tablet,Chewable 81 mg PO HS Rx Instructions: Unable to verify OTC meds at this date/time. ferrous sulfate [iron] 325 mg (65 mg iron) Tablet 325 mg PO BID Rx Instructions: Unable to verify OTC meds at this date/time cyanocobalamin (vitamin B-12) [Vitamin B-12] 1,000 mcg Tablet 1,000 mcg PO BID Rx Instructions: Unable to verify OTC meds at this date/time levothyroxine 150 mcg Tablet 150 mcg PO QAM albuterol sulfate [Ventolin HFA] 90 mcg/actuation HFA aerosol inhaler 2 puff INHALATION Q6H PRN (Reason: Shortness Of Breath Or Wheezing) Qty: 1 0RF budesonide-formoterol 80-4.5 mcg/actuation HFA aerosol inhaler 2 puff INHALATION BID PRN (Reason: Chest Cold) acyclovir 400 mg tablet 400 mg PO DAILY colestipol [Colestid] 1 gram Tablet 1 g PO HS Qty: 30 1RF Rx Instructions: for chronic diarrhea; try to take this medicine at a separate time than all other medicines pantoprazole 40 mg tablet,delayed release (DR/EC) 40 mg PO QAM Qty: 30 11RF Eliquis 2.5 mg tablet 2.5 mg PO BID Discharge Orders: Discharge Order (Routine); Ordered 01/24/25 Ordered By: Ras Sun/Other Patient Handouts: Managing Type 2 Diabetes, Special Foot Care for Diabetes Admission Data Admit Date/Time: 01/23/25 12:52 Attending Provider: Jose Menard Admit Provider: Joan Nicole Primary Care Provider: Yaneth Pillai Other Providers: Lety Dash Other Interventions: Discharge Summary Assessment (RN) Last Done: 01/24/25 09:36 Supervising Physician Co-Signing Physician Notes I personally examined the patient and verified all travis points of history and exam, discussed case, and agree with decision making with Dr Ernie Tesfaye feeling better feels good feels up to going home vitals noted nad heent nc at mmm breathing unlabored no accessory muscles good effort NORRIS/dehydration - doing better, safe/stable for home, as above Resident Activity Tracking Resident Involvement: Resident Care Provided Care Provided: Adult Hospital Medicine
[2025-01-24] MEDS: MAGNESIUM SULFATE / D5W 1 GM/100 ML BAG IV ONE (09:21)
[2025-01-24] MEDS: HEPARIN 100 UNIT/ML 5ML FLUSH FLUSH PRN (11:17)
== END 2025-01-24 11:34 | disposition home or self-care (01) ==
LOC: 2N 07:37 → ED 07:37 → SUATTDRO 12:52 → 2N 14:40

== ENCOUNTER 2025-07-22 08:49 | Observation (INO) ==
[2025-07-22 10:09] LABS: Hematocrit (blood only) 36.0 % (37.0-47.0); Hemoglobin 12.3 g/dL (12.0-16.0); Mean Corpuscular Hemoglobin 32.6 pg (25.0-34.0); Mean Corpuscular Volume 95.5 fL (80.0-100.0); Platelet Count 124 K/uL (130-400); RDW Standard Deviation 56.9 fL (36.4-46.3); Red Blood Count 3.77 M/uL (4.20-5.40); White Blood Count 5.21 K/ul (4.8-10.8)
[2025-07-22 10:27] LABS: Alanine Aminotransferase 22.0 U/L (7-52); Albumin Globulin Ratio 1.5 (0.9-2); Albumin Level 3.2 gm/dl (3.4-5.0); Alkaline Phosphatase 77.0 U/L (34-104); Anion Gap 8.0 (3-11); Bilirubin,Total 1.7 mg/dl (0.2-1.0); Blood Urea Nitrogen 21.0 mg/dl (6-23); Calcium 8.6 mg/dl (8.6-10.3); Carbon Dioxide 21.0 mmol/L (21-32); Chloride 107.0 mmol/L (98-107); Creatinine Clr Calc Pharmacy 42.4 ml/min; Globulin 2.1 gm/dl (2.5-4.0); Glucose 268.0 mg/dl (70-99(Fasting)); Lipase 11.0 U/L (11-82); Potassium 4.3 mmol/L (3.5-5.1); Sodium 136.0 mmol/L (136-145); Total Protein 5.3 gm/dl (6.0-8.3)
[2025-07-22 10:29] LABS: ALC (manual) 2.50 K/uL (1.2-3.4); ANC (manual) 2.61 K/uL (1.4-6.5); Large Granular Lymph # (manua 1.35 K/uL; Large Granular Lymph % (manual) 26 %; Ovalocytes 1+
--- NOTE | 2025-07-22 10:35 | XRay Report ---
XR chest 2V PA/lateral CLINICAL HISTORY: Chest pain, nonspecific COMPARISON STUDY: 01/23/2025 and 07/27/2024 FINDINGS: Stable right chest port. Stable catheters. Heart size and pulmonary vasculature are normal. Stable hyperexpanded lungs. No consolidation or pleural effusion seen. No pneumothorax. Stable heigh t loss and upper thoracic vertebral body. IMPRESSION: No acute findings. ACT 112: Negative or not required by law. Electronically signed by: Jamshid Guzman M.D. 07/22/2025 10:33 AM
[2025-07-22] MEDS: SODIUM CHLORIDE 0.9% 1,000 ML IV ONE (10:54)
[2025-07-22 11:19] LABS: Magnesium 1.0 mg/dl (1.7-2.4)
--- NOTE | 2025-07-22 11:47 | Emergency Department Note ---
History of Present Illness General Chief complaint: Cardiac Assessment Stated complaint: CARDIAC ASSESSMENT Time Seen by Provider: 07/22/25 09:35 Source: patient Mode of arrival: ambulatory Limitations: no limitations History of Present Illness Maximum Pain Intensity: 3 Patient is a 75-year-old female with history of hypertension, type 2 diabetes, hypothyroidism, CAD status post CABG, chronic hypomagnesemia, paroxysmal atrial fibrillation, chronic kidney disease, chronic anticoagulation on Eliquis who presents today for chest pain and weakness. Chest pain was noted yesterday. Describes about an hour of midsternal pain. Described as heartburn or discomfort. Symptoms resolved on their own. She has had similar symptoms in the past however what was different today she notes she felt very weak in her legs when she got up to move around. Denies any headache, vision change, speech change, numbness in her extremities. She does report chronic hypomagnesemia for which she takes oral repletion as well as receives biweekly infusions. She denies any shortness of breath or lower extremity swelling. No recent surgery or prolonged travel. She did check her blood glucose levels over the past few days which have been normal. She also has a history of chronic hypotension at baseline. She denies any nausea, vomiting, decreased p.o. intake. Home Medications Medication Instructions Recorded Confirmed Type aspirin 81 mg chewable tablet 81 mg PO HS 10/26/19 07/11/25 History cholecalciferol (vitamin D3) 50 50 mcg PO QAM 03/22/20 07/11/25 History mcg (2,000 unit) capsule tramadol 50 mg tablet 50 - 100 mg PO BID PRN Pain 04/09/21 07/11/25 History allopurinol 300 mg tablet 300 mg PO QPM 06/12/21 07/11/25 History metoprolol succinate 25 mg 12.5 mg PO HS 06/12/21 07/11/25 History tablet,extended release 24 hr daratumumab 20 mg/mL intravenous 0 mg IV Q4WK 07/12/21 07/11/25 History solution (Darzalex) diphenoxylate-atropine 2.5 1 tab PO UD PRN Diarrhea 07/12/21 07/11/25 History mg-0.025 mg tablet (Lomotil) pregabalin 50 mg capsule (Lyrica) 50 mg PO TID 07/08/22 07/11/25 History ferrous sulfate 325 mg (65 mg 325 mg PO BID 08/05/22 07/11/25 History iron) tablet (iron) cyanocobalamin (vitamin B-12) 1,000 mcg PO BID 03/27/23 07/11/25 History 1,000 mcg tablet (Vitamin B-12) albuterol sulfate 90 mcg/actuation 2 puff inhalation Q6H PRN 07/11/23 07/11/25 Rx aerosol inhaler (Ventolin HFA) Shortness Of Breath Or Wheezing #1 g pomalidomide 1 mg capsule 1 mg PO DAILY 07/29/23 07/11/25 History (Pomalyst) acyclovir 400 mg tablet 400 mg PO DAILY 02/13/24 07/11/25 History budesonide-formoterol HFA 80 2 puff inhalation BID PRN Chest 02/13/24 07/11/25 History mcg-4.5 mcg/actuation aerosol Cold inhaler immune glob,gamm(IgG) 5 %-sorb-IgA See Rx Instructions .Route .COMPLEX 11/08/24 07/11/25 History 0 to 50 mcg/mL intravenous solution colestipol 1 gram tablet (Colestid) 1 g PO HS #30 tabs 01/01/25 07/11/25 Rx pantoprazole 40 mg tablet,delayed 40 mg PO QAM #30 tabs 01/01/25 07/11/25 Rx release magnesium chloride 71.5 mg 214.5 mg PO BID 01/19/25 07/11/25 History (magnesium chloride) tablet,delayed release (Slow-Mag) montelukast 10 mg tablet 10 mg PO DAILY 01/19/25 07/11/25 History apixaban 2.5 mg tablet (Eliquis) 2.5 mg PO BID 01/23/25 07/11/25 History pravastatin 40 mg tablet 40 mg PO PM #90 tabs 02/07/25 07/11/25 Rx calcium carbonate (Calcium Antacid) 1,200 mg PO BID 03/02/25 07/11/25 History methylprednisolone 4 mg tablets in mg PO PRN 03/02/25 07/11/25 History a dose pack amiloride 5 mg tablet 5 mg PO QPM #90 tabs 03/07/25 07/11/25 Rx methenamine hippurate 1 gram tablet 1 g PO HS #90 tabs 10/09/25 11/03/25 Rx blood sugar diagnostic (FreeStyle #200 ea 07/11/25 07/11/25 Rx Lite Strips) dulaglutide 4.5 mg/0.5 mL 4.5 mg (0.5 mL) subcut ONCE #6 mL 07/11/25 07/11/25 Rx subcutaneous pen injector (Trulicity) insulin glargine 100 unit/mL (3 30 unit (0.3 mL) subcut DAILY 90 07/11/25 07/11/25 Rx mL) subcutaneous pen (Lantus days #30 mL Solostar U-100 Insulin) lancets 28 gauge (FreeStyle #200 ea 07/11/25 07/11/25 Rx Lancets) levothyroxine 150 mcg tablet 150 mcg PO QAM #90 tabs 07/11/25 07/11/25 Rx pen needle, diabetic 31 gauge x #100 ea 07/11/25 07/11/25 Rx 5/16" Allergies Allergy/AdvReac Type Severity Reaction Status Date / Time cephalexin Allergy Intermediate hives Verified 07/11/25 08:02 ciprofloxacin [From Cipro] Allergy Mild Hives Verified 07/11/25 08:02 codeine Allergy Mild rash Verified 07/11/25 08:02 dapagliflozin [From Farxiga] AdvReac Intermediate Rash Verified 07/11/25 08:02 lisinopril AdvReac Mild COUGH Verified 07/11/25 08:02 Past Med/Surg History Problem List (Updated 07/22/25 @ 15:03 by Broderick Siddiqui MD) NORRIS (acute kidney injury) (Acute) Hypomagnesemia (Acute) Chest pain (Acute) Type 2 diabetes mellitus Coronary artery disease Hypomagnesemia Acute kidney injury Atypical chest pain Vitamin D deficiency Urinary incontinence Hypothyroidism Hypertension Type 2 diabetes mellitus Multiple myeloma Dx 2003, s/p chemo >HX OF STEM CELL TRANSPLANT--pt states her WBC rising, following with [facility] on 04/09/23 regarding this [facility] systemic steroid user Diarrhea Pancytopenia Complicated urinary tract infection (Acute) Multiple myeloma in remission Fall Paroxysmal atrial fibrillation (Acute) Hypomagnesemia (Acute) Hiatal hernia LPRD (laryngopharyngeal reflux disease) Recurrent UTI Hypomagnesemia Leukopenia due to antineoplastic chemotherapy Parainfluenza Generalized weakness Neutropenia Vulvitis High risk HPV infection 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 BPPV (benign paroxysmal positional vertigo) Dyspareunia ARLINE III (cervical intraepithelial neoplasia grade III) with severe dysplasia Uterine fibroid Chronic kidney disease, stage 3a Dyslipidemia Loss of protective sensation of skin of foot Diabetic peripheral neuropathy associated with type 2 diabetes 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 Lopez 10-28-19 Thrombocytopenia HX CAD (coronary artery disease) s/p CABG x 2 > FOLLOWS WITH DR. 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, 04/2022 History of cardiac cath 2009 > NO STENT > CABG History of conization of cervix 2004, arline 3 Hx of dilation and curettage H/O hand surgery trigger finger surgery Family History Mother Liver cancer Thyroid cancer Diabetes Heart disease Hypertension Stroke Grandmother (Maternal) Diabetes Other No family history of adverse response to anesthesia Social History Smoking Status: Never smoker Second Hand Exposure: No; Do You Dip or Chew Tobacco: No; Hx Alcohol Use: No Hx Substance Use: No Preferred Language: Uzbek Communication Ability: Effective 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 Physical Exam Vital Signs Vital Signs - 24 hr 07/22/25 09:02 07/22/25 09:30 07/22/25 10:00 Temperature 36.7 C Temperature Source Temporal Artery Scan Pulse Rate 78 76 72 Pulse Rate [Apical] Pulse Rhythm Regular Pulse Rhythm [Apical] Pulse Strength [Apical] Respiratory Rate 20 20 14 Respiratory Effort / Characteristics Non-Labored Spontaneous Respiratory Depth Normal Respiratory Pattern Blood Pressure 89/62 L 97/58 L Blood Pressure [Right Arm] Blood Pressure Mean 71 63 Blood Pressure Mean [Right Arm] Blood Pressure Position [Right Arm] Pulse Oximetry 98 94 94 Oxygen Delivery Method Room Air Room Air Room Air Oxygen Flow Rate Sepsis Recent Fever Within 48 Hours No Sepsis New/Unexplained Change in Mental Status No Sepsis Action Taken by Nursing No Action Required 07/22/25 10:01 07/22/25 10:01 07/22/25 10:30 Temperature Temperature Source Pulse Rate 72 72 Pulse Rate [Apical] 75 Pulse Rhythm Pulse Rhythm [Apical] Regular Pulse Strength [Apical] Normal Respiratory Rate 14 21 13 Respiratory Effort / Characteristics Non-Labored Spontaneous Respiratory Depth Normal Respiratory Pattern Regular Blood Pressure 96/63 L 83/54 L Blood Pressure [Right Arm] 96/63 L Blood Pressure Mean 78 64 Blood Pressure Mean [Right Arm] 74 Blood Pressure Position [Right Arm] Pulse Oximetry 92 94 92 Oxygen Delivery Method Room Air Room Air Room Air Oxygen Flow Rate Sepsis Recent Fever Within 48 Hours Sepsis New/Unexplained Change in Mental Status Sepsis Action Taken by Nursing 07/22/25 11:48 07/22/25 11:54 07/22/25 11:57 Temperature Temperature Source Pulse Rate 65 Pulse Rate [Apical] 66 Pulse Rhythm Pulse Rhythm [Apical] Regular Pulse Strength [Apical] Normal Respiratory Rate 17 14 Respiratory Effort / Characteristics Non-Labored Spontaneous Respiratory Depth Normal Respiratory Pattern Regular Blood Pressure 104/57 L Blood Pressure [Right Arm] 104/57 L Blood Pressure Mean 72 Blood Pressure Mean [Right Arm] 72 Blood Pressure Position [Right Arm] Semi-fowlers Pulse Oximetry 99 97 96 Oxygen Delivery Method Room Air Room Air Room Air Oxygen Flow Rate 0 Sepsis Recent Fever Within 48 Hours Sepsis New/Unexplained Change in Mental Status Sepsis Action Taken by Nursing 07/22/25 12:00 07/22/25 12:15 07/22/25 12:30 Temperature Temperature Source Pulse Rate 66 66 67 Pulse Rate [Apical] Pulse Rhythm Pulse Rhythm [Apical] Pulse Strength [Apical] Respiratory Rate 23 16 15 Respiratory Effort / Characteristics Respiratory Depth Respiratory Pattern Blood Pressure 99/62 L 98/57 L 103/61 Blood Pressure [Right Arm] Blood Pressure Mean 71 70 81 Blood Pressure Mean [Right Arm] Blood Pressure Position [Right Arm] Pulse Oximetry 95 95 93 Oxygen Delivery Method Room Air Room Air Room Air Oxygen Flow Rate Sepsis Recent Fever Within 48 Hours Sepsis New/Unexplained Change in Mental Status Sepsis Action Taken by Nursing See below. Constitutional WD/WN, vitals as above Eyes PERRL, conjunctivae normal, anicteric sclerae Respiratory normal respiratory effort, lungs clear to auscultation Cardiovascular RRR, no murmur, no edema Course Administered Medications Sodium Chloride (Nss) 1,000 mls @ 80 mls/hr IV .[id number] HENNY Stop: 07/25/25 12:59 Last Admin: 07/22/25 14:07 Dose: 80 mls/hr Documented By: NOE Pregabalin (Pregabalin 50 Mg Cap) 50 mg PO TID HENNY Stop: 08/21/25 13:59 Last Admin: 07/22/25 14:59 Dose: 50 mg Documented By: ANGELIQUE Discontinued Medications Sodium Chloride (Nss) 1,000 mls @ 999 mls/hr IV .[id number] ONE Stop: 07/22/25 11:36 Last Infusion: 07/22/25 13:12 Dose: Infused Documented By: Admin: 07/22/25 10:54 Dose: 999 mls/hr Documented By: ANGELIQUE Magnesium Sulfate/Dextrose (Magnesium Sulfate / D5w) 1 gm in 100 mls @ 50 mls/hr IV ONE ONE Stop: 07/22/25 13:41 Last Admin: 07/22/25 11:49 Dose: 50 mls/hr Documented By: ANGELIQUE Medical Decision Making Differential Diagnosis DDx includes but not limited to: ACS, infection, toxidrome, metabolic abnormality, dehydration, NORRIS Medical Records Attestation: I reviewed the patient's medical records. Home Medications Current Medication List: was personally reviewed by me Laboratory Data Attestation: I reviewed the patient's lab results. 07/22/25 09:48 07/22/25 09:48 Lab Results 07/22/25 Range/Units 09:48 WBC 5.21 (4.8-10.8) K/ul RBC 3.77 L (4.20-5.40) M/uL Hgb 12.3 (12.0-16.0) g/dL Hct 36.0 L (37.0-47.0) % MCV 95.5 (80.0-100.0) fL MCH 32.6 (25.0-34.0) pg MCHC 34.2 (32.0-36.0) g/dL RDW Std Deviation 56.9 H (36.4-46.3) fL RDW Coeff of Aminata 16.2 H (11.5-14.5) % Plt Count 124 L (130-400) K/uL MPV 12.6 H (9.4-12.4) fL Neutrophils % (Manual) 50 % Lymphocytes % (Manual) 22 % Monocytes % (Manual) 2 % Neutrophils # (Manual) 2.61 (1.40-6.50) K/uL Total Absolute Neuts 2.61 (1.4-6.5) K/uL Lymphocytes # (Manual) 1.15 L (1.2-3.4) K/uL Total Abs Lymphocytes 2.50 (1.2-3.4) K/uL Monocytes # (Manual) 0.10 L (0.11-0.59) K/uL Large Granular Lymphs 26 % # Lrg Granular Lymphs 1.35 K/uL Ovalocytes 1+ Sodium 136 (136-145) mmol/L Potassium 4.3 (3.5-5.1) mmol/L Chloride 107 (98-107) mmol/L Carbon Dioxide 21 (21-32) mmol/L Anion Gap 8 (3-11) BUN 21 (6-23) mg/dl Creatinine 1.32 H (0.6-1.2) mg/dl Est Cr Clr Drug Dosing 42.4 ml/min eGFR 42.10 BUN/Creatinine Ratio 15.9 (10-20) Glucose 268 H (70-99(Fasting)) mg/dl Calcium 8.6 (8.6-10.3) mg/dl Magnesium 1.0 L (1.7-2.4) mg/dl Total Bilirubin 1.7 H (0.2-1.0) mg/dl AST 11 L (13-39) U/L ALT 22 (7-52) U/L Alkaline Phosphatase 77 (34-104) U/L Troponin I High Sens 18.8 H (0-14) pg/ml Total Protein 5.3 L (6.0-8.3) gm/dl Albumin 3.2 L (3.4-5.0) gm/dl Globulin 2.1 L (2.5-4.0) gm/dl Albumin/Globulin Ratio 1.5 (0.9-2) Lipase 11 (11-82) U/L Imaging Data Radiologist's Impression: Chest X-Ray 07/22/25 09:35 XR chest 2V PA/lateral CLINICAL HISTORY: Chest pain, nonspecific COMPARISON STUDY: 01/23/2025 and 07/27/2024 FINDINGS: Stable right chest port. Stable catheters. Heart size and pulmonary vasculature are normal. Stable hyperexpanded lungs. No consolidation or pleural effusion seen. No pneumothorax. Stable height loss and upper thoracic vertebral body. IMPRESSION: No acute findings. ACT 112: Negative or not required by law. Electronically signed by: Jamshid Guzman M.D. 07/22/2025 10:33 AM ECG Data Attestation: I personally reviewed and interpreted this ECG as follows: Indication: + chest pain Rate (beats per minute): 80 Rhythm: + sinus rhythm ECG Intervals/blocks: + Normal QRS, + Normal QT and + Normal UT ECG ST segments: + Nonspecific ST abnormalities ECG Findings: + PACs Comparison ECG Date: from (01/23/2025) Additional Comments: PACs are new compared to prior. MDM Narrative Patient is a 75-year-old female with history of underlying cardiac disease who presents with chest pain and lower extremity weakness. Chest pain resolved prior to arrival. No concerning ischemic changes on EKG. Her weakness is more generalized and not concerning for focal deficit or neurologic cause. Cardiac workup was initiated. Troponin mildly elevated at 18 however this may be due to new NORRIS. Patient has a history of chronic hypotension and was noted to be slightly hypotensive from her baseline here in the ED. She was given a liter of IV fluids with immediate improvement in her blood pressure. She also has a history of chronic hypomagnesemia and magnesium level of 1 here today is not abnormal for that IV repletion was ordered. I do believe her troponin elevation is likely secondary to NORRIS versus demand ischemia and her generalized weakness is consistent with dehydration but will admit her for ACS rule out and monitoring kidney function. Stable for admission to hospitalist service. Impression & Plan Chest pain, Hypomagnesemia, NORRIS (acute kidney injury) Discharge Plan Visit Data Chief Complaint: Cardiac Assessment Stated Complaint: CARDIAC ASSESSMENT ED Provider: Broderick Siddiqui Discharge Problem: Chest pain, Hypomagnesemia, NORRIS (acute kidney injury) Patient Disposition: Admitted As Inpatient Condition: Good Discharge Instructions Interventions: ED Discharge Assessment Last Done: 07/22/25 14:17
[2025-07-22] MEDS: MAGNESIUM SULFATE / D5W 1 GM/100 ML BAG IV ONE (11:49)
[2025-07-22] MEDS ORDERED: ALBUTEROL HFA 8 GM INHALER INH PRN (12:45)
[2025-07-22] MEDS ORDERED: GLUCOSE 40% GEL 15 GM TUBE PO PRN ×2 (12:49→14:45)
[2025-07-22] MEDS ORDERED: CARBOHYDRATES FOR HYPOGLYCEMIA PO PRN ×2 (12:49→14:45)
[2025-07-22] MEDS ORDERED: ONDANSETRON INJ 2 MG/ML 2 ML VIAL IV PRN (12:49)
[2025-07-22] MEDS ORDERED: DEXTROSE 50% 50 ML SYRINGE IV PRN ×2 (12:49→14:45)
[2025-07-22] MEDS ORDERED: GLUCOSE 10 TAB/TUBE PO PRN ×2 (12:49→14:45)
[2025-07-22] MEDS ORDERED: ACETAMINOPHEN 325 MG TAB PO PRN (12:49)
[2025-07-22] MEDS ORDERED: GLUCAGON FOR INJ 1 MG VIAL SQ PRN ×2 (12:49→14:45)
--- NOTE | 2025-07-22 12:59 | History & Physical Report ---
Date of Service July 22, 2025 Assessment & Plan (1) Atypical chest pain: Plan: No acute EKG changes. She is currently asymptomatic. Initial troponin is only 18. Observation with telemetry. Serial troponin levels. Continue aspirin and metoprolol (2) Acute kidney injury: Plan: Mild on admission. IV fluids ordered. Monitor intake and output. Serial labs (3) Hypomagnesemia: Plan: IV replacement underway. Continue oral replacement. Serial labs (4) Coronary artery disease: Plan: History of coronary artery disease and coronary artery bypass grafting. Continue aspirin and metoprolol. Telemetry (5) Type 2 diabetes mellitus: Plan: ADA diet. Sliding scale coverage. Continue Lantus. Plan Hopeful discharge to home tomorrow, July 23 History of Present Illness Chief Complaint: Chest discomfort now resolved, weakness Primary Care Provider: [facility] PCP 75-year-old white female with a history of coronary artery disease and previous coronary artery bypass grafting. She developed chest discomfort while at rest that was atypical in nature and now has resolved. She is also complaining of weakness and lightheadedness. Initial EKG reveals normal sinus rhythm without acute changes. She does have underlying nonspecific ST segment changes. She has mild acute kidney injury with creatinine 1.3 and quite possibly is mildly volume depleted. Blood pressure always runs on the low side and is currently 104/57. She has received IV fluids in the ED. Initial troponin is only 18. She is placed in observation for further assessment. Allergies Allergy/AdvReac Type Severity Reaction Status Date / Time cephalexin Allergy Intermediate hives Verified 07/11/25 08:02 ciprofloxacin [From Cipro] Allergy Mild Hives Verified 07/11/25 08:02 codeine Allergy Mild rash Verified 07/11/25 08:02 dapagliflozin [From Farxiga] AdvReac Intermediate Rash Verified 07/11/25 08:02 lisinopril AdvReac Mild COUGH Verified 07/11/25 08:02 Home Medications Medication Instructions Recorded Confirmed Type aspirin 81 mg chewable tablet 81 mg PO HS 10/26/19 07/11/25 History cholecalciferol (vitamin D3) 50 50 mcg PO QAM 03/22/20 07/11/25 History mcg (2,000 unit) capsule tramadol 50 mg tablet 50 - 100 mg PO BID PRN Pain 04/09/21 07/11/25 History allopurinol 300 mg tablet 300 mg PO QPM 06/12/21 07/11/25 History metoprolol succinate 25 mg 12.5 mg PO HS 06/12/21 07/11/25 History tablet,extended release 24 hr daratumumab 20 mg/mL intravenous 0 mg IV Q4WK 07/12/21 07/11/25 History solution (Darzalex) diphenoxylate-atropine 2.5 1 tab PO UD PRN Diarrhea 07/12/21 07/11/25 History mg-0.025 mg tablet (Lomotil) pregabalin 50 mg capsule (Lyrica) 50 mg PO TID 07/08/22 07/11/25 History ferrous sulfate 325 mg (65 mg 325 mg PO BID 08/05/22 07/11/25 History iron) tablet (iron) cyanocobalamin (vitamin B-12) 1,000 mcg PO BID 03/27/23 07/11/25 History 1,000 mcg tablet (Vitamin B-12) albuterol sulfate 90 mcg/actuation 2 puff inhalation Q6H PRN 07/11/23 07/11/25 Rx aerosol inhaler (Ventolin HFA) Shortness Of Breath Or Wheezing #1 g pomalidomide 1 mg capsule 1 mg PO DAILY 07/29/23 07/11/25 History (Pomalyst) acyclovir 400 mg tablet 400 mg PO DAILY 02/13/24 07/11/25 History budesonide-formoterol HFA 80 2 puff inhalation BID PRN Chest 02/13/24 07/11/25 History mcg-4.5 mcg/actuation aerosol Cold inhaler immune glob,gamm(IgG) 5 %-sorb-IgA See Rx Instructions .Route .COMPLEX 11/08/24 07/11/25 History 0 to 50 mcg/mL intravenous solution colestipol 1 gram tablet (Colestid) 1 g PO HS #30 tabs 01/01/25 07/11/25 Rx pantoprazole 40 mg tablet,delayed 40 mg PO QAM #30 tabs 01/01/25 07/11/25 Rx release magnesium chloride 71.5 mg 214.5 mg PO BID 01/19/25 07/11/25 History (magnesium chloride) tablet,delayed release (Slow-Mag) montelukast 10 mg tablet 10 mg PO DAILY 01/19/25 07/11/25 History apixaban 2.5 mg tablet (Eliquis) 2.5 mg PO BID 01/23/25 07/11/25 History pravastatin 40 mg tablet 40 mg PO PM #90 tabs 02/07/25 07/11/25 Rx calcium carbonate (Calcium Antacid) 1,200 mg PO BID 03/02/25 07/11/25 History methylprednisolone 4 mg tablets in mg PO PRN 03/02/25 07/11/25 History a dose pack amiloride 5 mg tablet 5 mg PO QPM #90 tabs 03/07/25 07/11/25 Rx methenamine hippurate 1 gram tablet 1 g PO HS #90 tabs 06/16/25 07/11/25 Rx blood sugar diagnostic (FreeStyle #200 ea 07/11/25 07/11/25 Rx Lite Strips) dulaglutide 4.5 mg/0.5 mL 4.5 mg (0.5 mL) subcut ONCE #6 mL 07/11/25 07/11/25 Rx subcutaneous pen injector (Trulicity) insulin glargine 100 unit/mL (3 30 unit (0.3 mL) subcut DAILY 90 07/11/25 07/11/25 Rx mL) subcutaneous pen (Lantus days #30 mL Solostar U-100 Insulin) lancets 28 gauge (FreeStyle #200 ea 07/11/25 07/11/25 Rx Lancets) levothyroxine 150 mcg tablet 150 mcg PO QAM #90 tabs 07/11/25 07/11/25 Rx pen needle, diabetic 31 gauge x #100 ea 07/11/25 07/11/25 Rx 5/16" Past Med/Surg History Problem List (Updated 07/22/25 @ 12:58 by Faheem Damian MD) Type 2 diabetes mellitus Coronary artery disease Hypomagnesemia Acute kidney injury Atypical chest pain Vitamin D deficiency Urinary incontinence Hypothyroidism Hypertension Type 2 diabetes mellitus Multiple myeloma Dx 2003, s/p chemo >HX OF STEM CELL TRANSPLANT--pt states her WBC rising, following with Lisandra on 04/09/23 regarding this senior living systemic steroid user Diarrhea Pancytopenia Complicated urinary tract infection (Acute) Multiple myeloma in remission Fall Paroxysmal atrial fibrillation (Acute) Hypomagnesemia (Acute) Hiatal hernia LPRD (laryngopharyngeal reflux disease) Recurrent UTI Hypomagnesemia Leukopenia due to antineoplastic chemotherapy Parainfluenza Generalized weakness Neutropenia Vulvitis High risk HPV infection 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 BPPV (benign paroxysmal positional vertigo) Dyspareunia ARLINE III (cervical intraepithelial neoplasia grade III) with severe dysplasia Uterine fibroid Chronic kidney disease, stage 3a Dyslipidemia Loss of protective sensation of skin of foot Diabetic peripheral neuropathy associated with type 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 Lopez 10-28-19 Thrombocytopenia HX CAD (coronary artery disease) s/p CABG x 2 > FOLLOWS WITH DR. 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, 04/2022 History of cardiac cath 2009 > NO STENT > CABG History of conization of cervix 2004, arline 3 Hx of dilation and curettage H/O hand surgery trigger finger surgery Family History Mother Liver cancer Thyroid cancer Diabetes Heart disease Hypertension Stroke Grandmother (Maternal) Diabetes Other No family history of adverse response to anesthesia Social History Smoking Status: Never smoker Second Hand Exposure: No; Do You Dip or Chew Tobacco: No; Hx Alcohol Use: No Hx Substance Use: No Preferred Language: Croatian Communication Ability: Effective 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 Atypical chest discomfort at rest Sudeep nausea, vomiting, diarrhea, melena, hematochezia GUno urinary retention, no urinary incontinence, no dysuria, no hematuria Musculoskeletalno joint pain, no muscle tenderness Skinno bruising, no rashes, no pruritus Neurono isolated weakness, no paresthesia. Generalized weakness and lightheadedness. No syncope Psychno depression, no anxiety Physical Exam 2 Physical Exam: General-alert and oriented x3, no fever, no chills HEENT-head atraumatic and normocephalic, pupils equal and reactive to light, extraocular muscles intact Neck-no lymphadenopathy or thyromegaly, trachea midline Chest-clear to auscultation. No rales, wheezing or rhonchi Cardiac-regular rate and rhythm, normal S1 and S2 Abdomen-normal bowel sounds, no hepatosplenomegaly Extremities-no cyanosis, clubbing, or edema Neuro-cranial nerves II through XII intact, motor and sensory function within normal limits, strength symmetrical, no focal deficits Psych-normal affect, normal mood Results & Data Results & Data Vital Signs (Past 12 Hours) Vital Signs Temp Pulse Pulse Resp BP BP Pulse Ox 07/22/25 12:30 67 15 103/61 93 07/22/25 12:15 66 16 98/57 L 95 07/22/25 12:00 66 23 99/62 L 95 07/22/25 11:57 66 14 104/57 L 96 07/22/25 11:54 65 17 104/57 L 97 07/22/25 11:48 99 07/22/25 10:30 72 13 83/54 L 92 07/22/25 10:01 72 21 96/63 L 94 07/22/25 10:01 75 14 96/63 L 92 07/22/25 10:00 72 14 94 07/22/25 09:30 76 20 97/58 L 94 07/22/25 09:02 36.7 C 78 20 89/62 L 98 O2 Del Method O2 Flow Rate 07/22/25 12:30 Room Air 07/22/25 12:15 Room Air 07/22/25 12:00 Room Air 07/22/25 11:57 Room Air 07/22/25 11:54 Room Air 07/22/25 11:48 Room Air 0 07/22/25 10:30 Room Air 07/22/25 10:01 Room Air 07/22/25 10:01 Room Air 07/22/25 10:00 Room Air 07/22/25 09:30 Room Air 07/22/25 09:02 Room Air Laboratory Results 07/22/25 09:48 07/22/25 09:48 Code Status & VTE Plan Code Status Full code VTE Prophylaxis Plan VTE Prophylaxis will be ordered: Yes PG Care Time/CCT Total # of Minutes Spent Total Time Spent with Patient: Total time spent is greater than 50% in coordination of care (as documented) at patient's floor/unit and/or counseling patient: Coding Level of Care Code 43358 INT INP/OBS CARE 3/75MIN Diagnoses Atypical chest pain R07.89 Acute kidney injury N17.9 Hypomagnesemia E83.42 Coronary artery disease I25.10 Type 2 diabetes mellitus E11.9
[2025-07-22] MEDS: SODIUM CHLORIDE 0.9% 1,000 ML IV SCH (14:07)
[2025-07-22] MEDS: PREGABALIN 50 MG CAP PO SCH (14:59)
[2025-07-22] MEDS: INSULIN ASPART PER UNIT CHARGE SC SCH (18:32)
[2025-07-22] MEDS: FERROUS SULFATE 325 MG TAB PO SCH (20:26)
[2025-07-22] MEDS: CYANOCOBALAMIN (B-12) 500 MCG TABLET PO SCH (20:27)
[2025-07-22] MEDS: COLESTIPOL HCL 1 GM TAB PO SCH (20:28)
[2025-07-22] MEDS: METHENAMINE HIPPURATE 1 GM TAB PO SCH (20:28)
[2025-07-22] MEDS: APIXABAN 2.5 MG TAB PO SCH (20:28)
[2025-07-22] MEDS: PRAVASTATIN SOD 40 MG TAB PO SCH (20:28)
[2025-07-22] MEDS: aMILoride HCL 5 MG TAB PO SCH (20:28)
[2025-07-22] MEDS: ASPIRIN 81 MG ECTAB PO SCH (20:28)
[2025-07-22] MEDS: MAGNESIUM OXIDE 400 MG TAB PO SCH (20:28)
[2025-07-22] MEDS: CALCIUM CARBONATE 500 MG CHEWABLE TAB PO SCH (20:29)
[2025-07-22] MEDS: METOPROLOL SUCC 25MG EXT REL TAB PO SCH (20:35)
[2025-07-23] MEDS: LEVOTHYROXINE SODIUM 150 MCG TABLET PO SCH (06:39)
--- NOTE | 2025-07-23 08:19 | Electrocardiogram Report ---
Test Reason : Blood Pressure : */* mmHG Vent. Rate : 80 BPM Atrial Rate : 80 BPM P-R Int : 130 ms QRS Dur : 84 ms QT Int : 358 ms P-R-T Axes : 9 14 13 degrees QTcB Int : 412 ms Sinus rhythm with Premature atrial complexes Low voltage QRS Cannot rule out Anterior infarct (cited on or before 23-Jan-2025) Abnormal ECG When compared with ECG of 23-Jan-2025 08:01, Premature atrial complexes are now Present Confirmed by Oral Devi ([id number]) on 07/23/2025 8:19:28 AM Referred By: Confirmed By: Oral Devi
[2025-07-23 08:20] LABS: Anion Gap 7.0 (3-11); Blood Urea Nitrogen 16.0 mg/dl (6-23); Calcium 8.1 mg/dl (8.6-10.3); Carbon Dioxide 21.0 mmol/L (21-32); Chloride 111.0 mmol/L (98-107); Creatinine Clr Calc Pharmacy 61.1 ml/min; Glucose 133.0 mg/dl (70-99(Fasting)); Magnesium 1.2 mg/dl (1.7-2.4); Potassium 4.6 mmol/L (3.5-5.1); Sodium 139.0 mmol/L (136-145)
[2025-07-23] MEDS: CHOLECALCIFEROL 25 MCG (1000 UNITS) TAB PO SCH (09:03)
[2025-07-23] MEDS: ACYCLOVIR 400 MG TAB PO SCH (09:03)
[2025-07-23] MEDS: MONTELUKAST SODIUM 10 MG TABLET PO SCH (09:05)
[2025-07-23] MEDS: LANTUS PER UNIT CHARGE SC SCH (09:16)
[2025-07-23] MEDS: MAGNESIUM SULFATE / D5W 1 GM/100 ML BAG IV SCH (10:41)
--- NOTE | 2025-07-23 10:46 | Discharge Summary ---
Discharge Summary Date of Service July 23, 2025 Principal Dx & Hospital Course #1 = Principal Diagnosis (1) Atypical chest pain: No acute EKG changes. She is currently asymptomatic. Troponin level is not trending. Observation with telemetry while hospitalized. Continue aspirin and metoprolol (2) Acute kidney injury: Mild on admission. Resolved with IV fluids. Monitor intake and output. Serial labs (3) Hypomagnesemia: Improving. Continue IV supplementation today. She will double up her oral magnesium supplement at discharge. (4) Coronary artery disease: History of coronary artery disease and coronary artery bypass grafting. Continue aspirin and metoprolol. Telemetry (5) Type 2 diabetes mellitus: ADA diet. Sliding scale coverage. Continue Lantus. Plan Home today, July 23 Admission HPI Per Admitting Provider 75-year-old white female with a history of coronary artery disease and previous coronary artery bypass grafting. She developed chest discomfort while at rest that was atypical in nature and now has resolved. She is also complaining of weakness and lightheadedness. Initial EKG reveals normal sinus rhythm without acute changes. She does have underlying nonspecific ST segment changes. She has mild acute kidney injury with creatinine 1.3 and quite possibly is mildly volume depleted. Blood pressure always runs on the low side and is currently 104/57. She has received IV fluids in the ED. Initial troponin is only 18. She is placed in observation for further assessment. Discharge Exam General-alert and oriented x3, no fever, no chills HEENT-head atraumatic and normocephalic, pupils equal and reactive to light, extraocular muscles intact Neck-no lymphadenopathy or thyromegaly, trachea midline Chest-clear to auscultation. No rales, wheezing or rhonchi Cardiac-regular rate and rhythm, normal S1 and S2 Abdomen-normal bowel sounds, no hepatosplenomegaly Extremities-no cyanosis, clubbing, or edema Neuro-cranial nerves II through XII intact, motor and sensory function within normal limits, strength symmetrical, no focal deficits Psych-normal affect, normal mood Discharge Plan Discharge Items Patient Disposition: Home - Self-Care Reason For Visit: ATYPICAL CHEST PAIN Discharge Diagnosis: Atypical chest pain, acute kidney injury, hypomagnesemia Condition on Discharge: Good Activity: Resume your previous activity Non-emergency contact: Primary Care Provider Call non-emergency contact if: your symptoms worsen Follow-up/Referrals: Unknown,Unknown [Primary Care Provider] - Diet: Carb Consistent or DM2 and Heart Healthy Addtl Attending Provider Instructions: Double up on magnesium supplement. All other medications remain the same. See primary care provider as soon as possible for follow-up Pending Studies at Discharge: No Stand-Alone Forms[facility] Cess[facility] Medications and DC Order Prescriptions: Continued pravastatin 40 mg tablet 40 mg PO PM Qty: 90 1RF amiloride 5 mg tablet 5 mg PO QPM Qty: 90 3RF Hold Instructions: hold for now due to recent low blood pressures methenamine hippurate 1 gram tablet 1 g PO HS Qty: 90 3RF Hold Instructions: hold until your levofloxacin antibiotic course is completed; you can resume this medicine at that time Rx Instructions: Take one tablet at bedtime. Darzalex 20 mg/mL solution 0 mg IV Q4WK Rx Instructions: Unable to verify medication at this date/time. Original Directions: 20mg IV every 4 weeks. Pomalyst 1 mg capsule 1 mg PO DAILY Hold Instructions: hold until your antibiotic course is completed for the urinary tract infection Rx Instructions: Take daily for 21 days then do not take for 7 days. allopurinol 300 mg tablet 300 mg PO QPM metoprolol succinate 25 mg tablet extended release 24 hr 12.5 mg PO HS diphenoxylate-atropine [Lomotil] 2.5-0.025 mg tablet 1 tab PO UD PRN (Reason: Diarrhea) Rx Instructions: 1 tab PO 1-2 TIMES DAILY; PRN; cholecalciferol (vitamin D3) 50 mcg (2,000 unit) capsule 50 mcg PO QAM tramadol 50 mg tablet 50 - 100 mg PO BID PRN (Reason: Pain) pregabalin [Lyrica] 50 mg capsule 50 mg PO TID imm glob G (IgG)-sorb-IgA 0-50 5 % solution See Rx Instructions .ROUTE .COMPLEX Rx Instructions: pt states she takes this ever 4 weeks. montelukast 10 mg tablet 10 mg PO DAILY Slow-Mag 71.5 mg tablet,delayed release (DR/EC) 214.5 mg PO BID insulin glargine [Lantus Solostar U-100 Insulin] 100 unit/mL (3 mL) insulin pen 30 unit subcut DAILY 90 Days Qty: 30 3RF Rx Instructions: Inject 30 units into the abdomen once daily. (DME) lancets [FreeStyle Lancets] 28 gauge misc See Rx Instructions .Route Qty: 200 3RF Rx Instructions: test blood sugar 2 x daily (DME) FreeStyle Lite Strips Strip See Rx Instructions .Route Qty: 200 3RF Rx Instructions: test 2 times daily levothyroxine 150 mcg tablet 150 mcg PO QAM Qty: 90 1RF (DME) pen needle, diabetic 31 gauge x 5/16" needle See Rx Instructions .Route Qty: 100 3RF Rx Instructions: use with Lantus injections QD Trulicity 4.5 mg/0.5 mL pen injector 4.5 mg subcut ONCE Qty: 6 5RF Rx Instructions: Inject once weekly. calcium carbonate [Calcium Antacid] 200 mg calcium (500 mg) tablet,chewable 1,200 mg PO BID methylprednisolone 4 mg tablets,dose pack 0 mg PO UD PRN (Reason: as directed) Patient Comments: only takes when gets IV medication aspirin 81 mg Tablet,Chewable 81 mg PO HS ferrous sulfate [iron] 325 mg (65 mg iron) Tablet 325 mg PO BID cyanocobalamin (vitamin B-12) [Vitamin B-12] 1,000 mcg Tablet 1,000 mcg PO BID albuterol sulfate [Ventolin HFA] 90 mcg/actuation HFA aerosol inhaler 2 puff INHALATION Q6H PRN (Reason: Shortness Of Breath Or Wheezing) Qty: 1 0RF budesonide-formoterol 80-4.5 mcg/actuation HFA aerosol inhaler 2 puff INHALATION BID PRN (Reason: Chest Cold) acyclovir 400 mg tablet 400 mg PO DAILY colestipol [Colestid] 1 gram Tablet 1 g PO HS Qty: 30 1RF Rx Instructions: for chronic diarrhea; try to take this medicine at a separate time than all other medicines Eliquis 2.5 mg tablet 2.5 mg PO BID pantoprazole 20 mg tablet,delayed release (DR/EC) 20 mg PO QAM Discharge Orders: Discharge Order (Routine); Ordered 07/23/25 Ordered By: Faheem Damian Admission Data Admit Date/Time: 07/22/25 12:44 Attending Provider: Faheem Damian Admit Provider: Faheem Damian Primary Care Provider: Unknown,Unknown Other Providers: Faheem Damian Hospital Stay Data Consultations 07/22/25 12:06 ED Decision to Admit Stat Pending Results Patient Have Any Pending Studies at Discharge: No Discharge Instructions Given to Patient (Per Discharging Provider) Double up on magnesium supplement. All other medications remain the same. See primary care provider as soon as possible for follow-up Total Time Total Time Spent Total Time Spent (In Minutes): 45 minutes. Total time included patient exam, discharge planning, medication reconciliation. Coding Level of Care Code 43937 INP/OBS DISCH >30 MIN Diagnoses Atypical chest pain R07.89 Acute kidney injury N17.9 Hypomagnesemia E83.42 Coronary artery disease I25.10 Type 2 diabetes mellitus E11.9
[2025-07-23 11:55] VITALS: BP 110/72; RESP 18; TEMP 98.8; O2SAT 93
[2025-07-23 15:10] VITALS: PULSE 74
[2025-07-23] MEDS: MAGNESIUM OXIDE 400 MG TAB PO SCH (15:29)
--- NOTE | 2025-07-27 21:53 | Electrocardiogram Report ---
Test Reason : Blood Pressure : */* mmHG Vent. Rate : 74 BPM Atrial Rate : 74 BPM P-R Int : 150 ms QRS Dur : 82 ms QT Int : 390 ms P-R-T Axes : 7 8 -7 degrees QTcB Int : 432 ms Sinus rhythm with Premature atrial complexes Nonspecific ST abnormality Abnormal ECG When compared with ECG of 22-Jul-2025 09:00, Minimal criteria for Anterior infarct are no longer Present Confirmed by Get Hodges ([id number]) on 07/27/2025 9:52:55 PM Referred By: REFERRED SELF Confirmed By: Get Hodges
== END 2025-07-23 15:52 | disposition home or self-care (01) ==
LOC: SUATTDRO → EDINP 08:49 → ED 08:49 → 2N 14:17